=== PATIENT | female | born 1935 | race African-American/Black ===

== ENCOUNTER 2016-07-03 13:48 | Inpatient (IN) | payer OTHER ==
[2016-07-03 14:03] VITALS: BMI 25.4
[2016-07-03] MEDS ORDERED: HEPARIN NA (PORCINE) 5,000 UNITS/ML 1ML VIAL ONE ×3 (14:40→19:45)
--- NOTE | 2016-07-03 14:56 | PDOC ---
History of Present Illness - General History Source: Patient, Other Exam Limitations: No Limitations - History of Present Illness Initial Comments: 07/03/16 15:03 The patient is a 81 year old female, with a significant past medical history of hypertension, ESRD (on dialysis for 17 years, M,W,F; last dialysis Friday), anemia, triple bypass, and CHF, who presents to the emergency department sent by the dialysis center after speaking to Dr. Mota regarding thrombosed graft to the right upper extremity. Patient reports the last time she was able to complete her dialysis was 2 days ago, Friday, completed full 3 hour treatment. Patient reports associated numbness to the right arm and legs bilaterally. She reports soreness to the RUE, but denies any RUE pain. The patient reports her last meal was last night. She denies any abdominal pain, nausea, vomiting, diarrhea, or constipation. Patient reports she is unable to produce urine. Patient denies any chest pain, shortness of breath, diaphoresis, or palpitations. Patient denies any fever, chills, cough, headache, or dizziness. Patient reports she will receive surgery by Dr. Mota at some point today. Allergies: Cefazolin Sodium Past Surgical History: Triple bypass(2004) Social History: Non-smoker. Denies alcohol or drug use. PCP: Dr. Easley Surgeon: Dr. Mota Ribbon Tier: Dr. Siena Romero <Preston Morales - Last Filed: 07/03/16 15:03> <Sushil Cornejo - Last Filed: 07/03/16 16:00> - General Chief Complaint: Dialysis Shunt Problem Stated Complaint: SENT BY PCP FOR DVT Time Seen by Provider: 07/03/16 14:16 Past History <Preston Morales - Last Filed: 07/03/16 15:03> - Past Medical History Anemia: Yes Asthma: No Cancer: No Cardiac Disorders: No CVA: No COPD: No CHF: Yes Dementia: No Diabetes: No Dialysis: Yes (M-W-F) GI Disorders: Yes Disorders: Yes (ESRF) HTN: Yes Hypercholesterolemia: No Liver Disease: No Seizures: No Thyroid Disease: No - Surgical History Abdominal Surgery: No Appendectomy: No Cardiac Surgery: Yes (triple bypass) Cholecystectomy: No Lung Surgery: No Neurologic Surgery: No Orthopedic Surgery: No - Psycho/Social/Smoking Cessation Hx Anxiety: No Suicidal Ideation: No Smoking Status: No Smoking History: Never smoked Have you smoked in the past 12 months: No Number of Cigarettes Smoked Daily: 0 Information on smoking cessation initiated: No Hx Alcohol Use: No Drug/Substance Use Hx: No Substance Use Type: None Hx Substance Use Treatment: No <Sushil Cornejo - Last Filed: 07/03/16 16:00> - Past Medical History Allergies/Adverse Reactions: Allergies Allergy/AdvReac Type Severity Reaction Status Date / Time cefazolin sodium [From Anc] Allergy Mild Itching Verified 07/03/16 14:02 Home Medications: Ambulatory Orders Calcium Acetate [Phoslo] 2 tab PO AC 09/02/14 Carvedilol 12.5 mg PO BID 09/02/14 Multivitamin [Daily Quintin] 1 each PO DAILY 09/02/14 Omeprazole [Prilosec (RX)] 40 mg PO DAILY 09/02/14 Review of Systems - Review of Systems Able to Perform ROS?: Yes Comments:: 07/03/16 15:04 CONSTITUTIONAL: Absent: Fever, Chills, Diaphoresis, Generalized Weakness, Malaise, Loss of Appetite HEENT: Absent: Rhinorrhea, Nasal Congestion, Throat Pain, Throat Swelling, Difficulty Swallowing, Mouth Swelling, Ear Pain, Eye Pain, Visual Changes CARDIOVASCULAR: Absent: Chest Pain, Syncope, Palpitations, Irregular Heart Rate, Lightheadedness , Peripheral Edema RESPIRATORY: Absent: Cough, Shortness of Breath, SOB with Exertion, Orthopnea, Wheezing, Stridor, Hemoptysis GASTROINTESTINAL: Absent: Abdominal pain, Abdominal Distension, Nausea, Vomiting, Diarrhea, Constipation, Melena, Hematochezia GENITOURINARY: Present: +no urinary output (ESRD) Absent: Dysuria, Frequency, Urgency, Hesitancy, Flank Pain, Genital Pain MUSCULOSKELETAL: Absent: Myalgia, Arthralgia, Joint Swelling, Back pain, Neck Pain SKIN: Absent: Rash, Itching, Pallor HEMEATOLOGIC/IMMUNOLOGIC: Present: +Thrombosed graft to the right upper extremity Absent: Easy Bleeding, Easy Bruising, Lymphadenopathy, Frequent infections ENDOCRINE: Absent: Unexplained Weight Gain, Unexplained Weight Loss, Heat Intolerance, Cold Intolerance NEUROLOGIC: Present: +numbness to the right upper extremity and legs bilaterally Absent: Headache, Focal Weakness, Paresthesias, Vertigo, Lightheadedness, Unsteady Gait, Seizure, Mental Status Changes, Incontinence PSYCHIATRIC: Absent: Anxiety, Depression <Preston Morales - Last Filed: 07/03/16 15:03> *Physical Exam - Vital Signs Last Vital Signs Temp Pulse Resp BP Pulse Ox 97.4 F L 84 16 191/99 98 07/03/16 13:56 07/03/16 13:56 07/03/16 13:56 07/03/16 13:56 07/03/16 13:56 - Physical Exam Comments: 07/03/16 15:04 GENERAL: The patient is awake, alert, and fully oriented, in no acute distress. HEAD: Normal with no signs of trauma. EYES: Pupils equal, round and reactive to light, extraocular movements intact, sclera anicteric, conjunctiva clear. ENT: Ears normal, nares patent, oropharynx clear without exudates. Moist mucous membranes. NECK: Positive JVD. Normal range of motion, supple without lymphadenopathy, or masses. LUNGS: Breath sounds equal, clear to auscultation bilaterally. No wheezes, and no crackles. HEART: Regular rate and rhythm, normal S1 and S2 without murmur, rub or gallop. ABDOMEN: Soft, nontender, normoactive bowel sounds. No guarding, no rebound. No masses. EXTREMITIES: Normal range of motion, no edema. No clubbing or cyanosis. No cords , erythema, or tenderness. NEUROLOGICAL: Cranial nerves II through XII grossly intact. Normal speech, normal gait. PSYCH: Normal mood, normal affect. SKIN: Warm, Dry, normal turgor, no rashes or lesions noted. VASCULAR: RUE AV fistula, thrill is absent, no erythema or discharge, slight tenderness. <MoralesSolarmandobeverlymarilia - Last Filed: 07/03/16 15:03> - Vital Signs Last Vital Signs Temp Pulse Resp BP Pulse Ox 97.4 F L 84 16 191/99 98 07/03/16 13:56 07/03/16 13:56 07/03/16 13:56 07/03/16 13:56 07/03/16 13:56 <Sushil Cornejo - Last Filed: 07/03/16 16:00> ED Treatment Course - LABORATORY CBC & Chemistry Diagram: 07/03/16 14:30 07/03/16 14:30 <Preston Morales - Last Filed: 07/03/16 15:03> - LABORATORY CBC & Chemistry Diagram: 07/03/16 14:30 07/03/16 14:30 <Sushil Cornejo - Last Filed: 07/03/16 16:00> Medical Decision Making - Medical Decision Making 07/03/16 14:59 Patient is on chronic hemodialysis, last full treatment was on Friday, 2 days ago, and when she went to dialysis today her fistula was thrombosed. On examination the right upper extremity fistula has no thrill. There is no sign of infection. Patient will go to the operating room under the care of Dr. Shen Mota for thrombectomy. Preoperative labs ordered. Patient does not urinate. 07/03/16 15:58 CBC reviewed. Other labs pending. Patient was called to the OR for thrombectomy. OR team to review further labs. Text page sent to the surgical PA. <Sushil Cornejo - Last Filed: 07/03/16 16:00> *DC/Admit/Observation/Transfer - Attestations Scribe Attestion: 07/03/16 15:05 Documentation prepared by Preston Morales, acting as medical housekeeper for Sushil Cornejo MD. <Preston Morales - Last Filed: 07/03/16 15:03> - Discharge Dispostion Admit: Yes Decision to Admit order Date/Time: Endorsed to surgical PA Stefanie. <Sushil Cornejo - Last Filed: 07/03/16 16:00> Diagnosis at time of Disposition: AV fistula occlusion Qualifiers: Encounter type: initial encounter Qualified Code(s): T82.898A - Other specified complication of vascular prosthetic devices, implants and grafts, initial encounter - Discharge Dispostion Condition at time of disposition: Stable - Referrals
[2016-07-03 14:57] LABS: BASOPHIL 0.7 % (0-2.0); EOSINOPHIL 1.9 % (0-4.5); MCH 24.4 pg (25.7-33.7); MCHC 31.1 g/dl (32.0-36.0); MEAN CELL VOLUME 78.5 fl (80-96); MEAN PLT VOLUME 8.6 fl (7.5-11.1); NEUTROPHILS 64.3 % (42.8-82.8); PLATELET COUNT 121 K/MM3 (134-434); RDW 15.3 % (11.6-15.6)
[2016-07-03 15:17] LABS: ALBUMIN 3.6 g/dl (3.4-5.0); BILIRUBIN,TOTAL 0.6 mg/dL (0.2-1.0); CALCIUM 8.8 mg/dL (8.5-10.1); TOT PROT 7.6 g/dl (6.4-8.2)
[2016-07-03 15:22] LABS: COCKROFT - GAULT 4.9895
[2016-07-03 15:37] LABS: INR 1.05 (0.82-1.09); PROTHROMBIN TIME (PATIENT) 11.6 SEC (9.98-11.88)
--- NOTE | 2016-07-03 16:17 | PDOC ---
ED Treatment Course - LABORATORY CBC & Chemistry Diagram: 07/03/16 14:30 07/03/16 14:30 - ADDITIONAL ORDERS Additional order review: Laboratory Results 07/03/16 07/03/16 14:30 14:30 INR 1.05 PTT (Actin FS) 34.0 07/03/16 14:30 RBC 5.07 D MCV 78.5 L MCHC 31.1 L RDW 15.3 MPV 8.6 Neutrophils % 64.3 Lymphocytes % 22.1 Monocytes % 11.0 H Eosinophils % 1.9 Basophils % 0.7 Medical Decision Making - Medical Decision Making 07/03/16 16:16 Patient was scheduled to go to the OR. Dr. Mota now states he would like to do the procedure tomorrow and would like to observe the patient's blood pressure prior to taking her to the OR. *DC/Admit/Observation/Transfer Diagnosis at time of Disposition: AV fistula occlusion Qualifiers: Encounter type: initial encounter Qualified Code(s): T82.898A - Other specified complication of vascular prosthetic devices, implants and grafts, initial encounter - Discharge Dispostion Condition at time of disposition: Stable Admit: Yes Decision to Admit order Date/Time: Decision to Admit Order Category Date Time Status Decision to Admit to Hospital Routine Admission 07/03/16 15:02 Active
[2016-07-03 16:21] LABS: CREATININE 8.5 mg/dL (0.55-1.02)
[2016-07-03] MEDS ORDERED: LABETALOL HCL 5 MG/1 ML (100MG/20 ML VIAL) IVPUSH ONE (16:35)
[2016-07-03] MEDS ORDERED: LIDOCAINE HCL 1%, 10 MG/ML (20ML VIAL) ONE (17:32)
--- NOTE | 2016-07-03 17:39 | PDOC ---
*Physical Exam - Vital Signs Last Vital Signs Temp Pulse Resp BP Pulse Ox 97.4 F L 84 18 159/73 99 07/03/16 13:56 07/03/16 17:25 07/03/16 17:25 07/03/16 17:25 07/03/16 17:25 <Sushil Cornejo - Last Filed: 07/03/16 17:39> - Vital Signs Last Vital Signs Temp Pulse Resp BP Pulse Ox 97.4 F L 84 18 159/73 99 07/03/16 13:56 07/03/16 17:25 07/03/16 17:25 07/03/16 17:25 07/03/16 17:25 <Preston Morales - Last Filed: 07/03/16 17:40> ED Treatment Course - LABORATORY CBC & Chemistry Diagram: 07/03/16 14:30 07/03/16 14:30 - ADDITIONAL ORDERS Additional order review: Laboratory Results 07/03/16 07/03/16 07/03/16 14:30 14:30 14:30 INR 1.05 PTT (Actin FS) 34.0 Sodium 139 Potassium 4.8 Chloride 99 Carbon Dioxide 24 Anion Gap 16 BUN 44 H D Creatinine 8.5 H* Creat Clearance w eGFR 4.53 Random Glucose 84 Calcium 8.8 Total Bilirubin 0.6 AST 17 ALT 16 Alkaline Phosphatase 147 H D Total Protein 7.6 Albumin 3.6 07/03/16 14:30 RBC 5.07 D MCV 78.5 L MCHC 31.1 L RDW 15.3 MPV 8.6 Neutrophils % 64.3 Lymphocytes % 22.1 Monocytes % 11.0 H Eosinophils % 1.9 Basophils % 0.7 - Medications Given in the ED: ED Medications Discontinued Medications Generic Name Dose Route Start Last Admin Trade Name Freq PRN Reason Stop Dose Admin Labetalol HCl 20 mg 07/03/16 16:35 07/03/16 16:45 Normodyne Injection - IVPUSH 07/03/16 16:36 20 mg ONCE ONE Administration <Sushil Cornejo - Last Filed: 07/03/16 17:39> - LABORATORY CBC & Chemistry Diagram: 07/03/16 14:30 07/03/16 14:30 - ADDITIONAL ORDERS Additional order review: Laboratory Results 07/03/16 07/03/16 07/03/16 14:30 14:30 14:30 INR 1.05 PTT (Actin FS) 34.0 Sodium 139 Potassium 4.8 Chloride 99 Carbon Dioxide 24 Anion Gap 16 BUN 44 H D Creatinine 8.5 H* Creat Clearance w eGFR 4.53 Random Glucose 84 Calcium 8.8 Total Bilirubin 0.6 AST 17 ALT 16 Alkaline Phosphatase 147 H D Total Protein 7.6 Albumin 3.6 07/03/16 14:30 RBC 5.07 D MCV 78.5 L MCHC 31.1 L RDW 15.3 MPV 8.6 Neutrophils % 64.3 Lymphocytes % 22.1 Monocytes % 11.0 H Eosinophils % 1.9 Basophils % 0.7 - Medications Given in the ED: ED Medications Discontinued Medications Generic Name Dose Route Start Last Admin Trade Name Freq PRN Reason Stop Dose Admin Labetalol HCl 20 mg 07/03/16 16:35 07/03/16 16:45 Normodyne Injection - IVPUSH 07/03/16 16:36 20 mg ONCE ONE Administration <Preston Morales - Last Filed: 07/03/16 17:40> Medical Decision Making - Medical Decision Making 07/03/16 17:[address] Herrera at 17:04. Dr. Mota agreed to perform surgery tonight. <Preston Morales - Last Filed: 07/03/16 17:40> *DC/Admit/Observation/Transfer - Discharge Dispostion Decision to Admit order Date/Time: Decision to Admit Order Category Date Time Status Decision to Admit to Hospital Routine Admission 07/03/16 15:02 Active <Sushil Cornejo - Last Filed: 07/03/16 17:39> - Attestations Scribe Attestion: 07/03/16 17:40 Documentation prepared by Preston Morales, acting as medical appointment clerk for Sushil Cornejo MD. <Preston Morales - Last Filed: 07/03/16 17:40> Diagnosis at time of Disposition: AV fistula occlusion Qualifiers: Encounter type: initial encounter Qualified Code(s): T82.898A - Other specified complication of vascular prosthetic devices, implants and grafts, initial encounter - Discharge Dispostion Condition at time of disposition: Stable
[2016-07-03] MEDS ORDERED: MIDAZOLAM HCL 2 MG/2 ML SINGLE DOSE VIAL ONE ×3 (18:59→20:11)
--- NOTE | 2016-07-03 19:06 | HP ---
Admitting History and Physical - Admission History of Present Illness: The patient is a 81 yo female who presents today to the ER after going to HD. They were unable to dialyze her because she had no thrill. The patient denies any CP, SOB, fever. Today while in the ER she was given Labetalol for an elevated Blood pressure, the patient didn't take her usual BP meds today. Her last dialysis was on Friday which went fine. History Source: Patient Limitations to Obtaining History: No Limitations - Past Medical History Cardiovascular: Yes: CAD, CHF, HTN Gastrointestinal: No: Diverticulitis Renal/: Yes: Hemodialysis Musculoskeletal: Yes: Osteoarthritis - Past Surgical History Past Surgical History: Yes: CABG (2004 after [place]) Additional Past Surgical History: right ankle/foot surgery for fracture, denies any hardware RUE fistula - Smoking History Smoking history: Never smoked Have you smoked in the past 12 months: No Aproximately how many cigarettes per day: 0 - Alcohol/Substance Use Hx Alcohol Use: No Home Medications - Allergies Allergies/Adverse Reactions: Allergies Allergy/AdvReac Type Severity Reaction Status Date / Time cefazolin sodium [From Anc] Allergy Mild Itching Verified 07/03/16 14:02 - Home Medications Home Medications: Ambulatory Orders Calcium Acetate [Phoslo] 2 tab PO AC 09/02/14 Carvedilol 12.5 mg PO BID 09/02/14 Multivitamin [Daily Quintin] 1 each PO DAILY 09/02/14 Omeprazole [Prilosec (RX)] 40 mg PO DAILY 09/02/14 Family Disease History - Family Disease History Family Disease History: Other: Sister (CHF) Review of Systems - Review of Systems Constitutional: denies: Chills, Fever Cardiovascular: reports: Edema (to ankle occasionally). denies: Chest Pain, Palpitations, Shortness of Breath Respiratory: denies: Cough, SOB Gastrointestinal: denies: Abdominal Pain, Nausea Musculoskeletal: reports: Joint Pain (right shoulder pain) Neurological: denies: Headache Hematology/Lymphatic: denies: Easily Bruised Physical Examination Vital Signs: Vital Signs Temperature 97.4 F L 07/03/16 13:56 Pulse Rate 84 07/03/16 17:25 Respiratory Rate 18 07/03/16 17:25 Blood Pressure 159/73 07/03/16 17:25 O2 Sat by Pulse Oximetry (%) 99 07/03/16 17:25 Constitutional: Yes: No Distress HENT: Yes: WNL, Atraumatic, Normocephalic Neck: Yes: WNL, Supple, Trachea Midline Cardiovascular: Yes: WNL, Regular Rate and Rhythm Respiratory: Yes: WNL, Regular, CTA Bilaterally Gastrointestinal: Yes: WNL, Normal Bowel Sounds, Soft Extremities: Yes: Other (RUE no palpable thrill or bruit auscultated). No: Calf Tenderness Edema: No Peripheral Pulses WNL: Yes Neurological: Yes: WNL, Alert, Oriented Psychiatric: Yes: WNL, Alert, Oriented Labs: CBC, BMP 07/03/16 14:30 07/03/16 14:30 INR, PTT INR 1.05 (0.82-1.09) 07/03/16 14:30 Problem List - Problems (1) AV fistula occlusion Assessment/Plan: D/w Dr Cesar, admit to surgery for RUE thrombectomy this evening She remains npo, her BP improved with IV Labetalol Code(s): T82.898A - [facility] COMPLICATION OF VASCULAR PROSTH DEV/GRFT, INIT Qualifiers: Encounter type: initial encounter Qualified Code(s): T82.898A - Other specified complication of vascular prosthetic devices, implants and grafts, initial encounter (2) ESRD (end stage renal disease) on dialysis Assessment/Plan: Renal consult and HD in the am Code(s): N18.6 - END STAGE RENAL DISEASE Z99.2 - DEPENDENCE ON RENAL DIALYSIS
[2016-07-03] MEDS ORDERED: ACETAMINOPHEN 325 MG TABLET (FP) PO PRN (19:08)
[2016-07-03] MEDS ORDERED: ONDANSETRON 4 MG/2 ML VIAL IVPB PRN (19:08)
[2016-07-03] MEDS ORDERED: PROPOFOL 20 ML ONE (19:33)
--- NOTE | 2016-07-03 20:52 | OP ---
Operative Note - Note: Operative Date: 07/03/16 Pre-Operative Diagnosis: Clotted AV graft Operation: Percutaneous suction thrombolysis AV graft. Angioplasty AV graft stricture Findings: Clotted AV HeRO graft. Mid graft stenosis 70% Post-Operative Diagnosis: Same as Pre-op Surgeon: Shen Mota Anesthesiologist/ADJUNCT PROFESSOR OF ENGLISH: Henrik Oliva Anesthesia: Fractional
[2016-07-04] MEDS: CALCIUM ACETATE 667 MG CAPSULE (FP) PO SCH ×4 (06:28→12:15)
--- NOTE | 2016-07-04 08:40 | PN ---
Progress Note (short form) - Note Progress Note: Post op day#1.S/P Right arm AV fistula thrombectomy under MAC uneventful.Patient stable.No any anesthesia related promlem.Patient DC from the anesthesia care.
[2016-07-04] MEDS: CARVEDILOL 12.5 MG TABLET (FP) PO SCH ×2 (10:50→10:55)
[2016-07-04] MEDS: PANTOPRAZOLE 40 MG TABLET (FP) PO SCH ×2 (10:50→10:55)
[2016-07-04] MEDS: MULTIVITAMINS (DAILY MVI) TABLET (FP) PO SCH ×2 (10:51→10:55)
--- NOTE | 2016-07-04 10:53 | PN ---
Progress Note (short form) - Note Progress Note: POD #1 Alert. Doing well. Pain manged well via prn meds. Denies n/v/f/c, CP or SOB Last Vital Signs Temp Pulse Resp BP Pulse Ox 97.4 F L 61 20 157/75 96 07/04/16 07:00 07/04/16 07:00 07/04/16 07:00 07/04/16 07:00 07/03/16 21:30 CBC, BMP 07/03/16 14:30 07/03/16 14:30 PE Gen: alert. nad UE: avf with thrill Problem List - Problems (1) AV fistula occlusion Assessment/Plan: POD #1 s/p Percutaneous suction thrombolysis AV graft. Angioplasty AV graft stricture GOing for HD today Can dc home after f/u with Dr. Mota in his office in 7 days Code(s): T82.898A - OTH COMPLICATION OF VASCULAR PROSTH DEV/GRFT, INIT Qualifiers: Encounter type: initial encounter Qualified Code(s): T82.898A - Other specified complication of vascular prosthetic devices, implants and grafts, initial encounter (2) ESRD (end stage renal disease) on dialysis Code(s): N18.6 - END STAGE RENAL DISEASE Z99.2 - DEPENDENCE ON RENAL DIALYSIS
--- NOTE | 2016-07-04 11:14 | CONSULT ---
Consult - text type - Consultation Consultation Note: Renal Consult for ESRD on HD This is a 81 year old woman with PMHx of ESRD on HD (x 17 years), CAD s/p CABG, Hypertension who presented with clotted AVF now s/p thrombectomy by Vascular Sx. Pt did not have dialysis yesterday, last dialysis was Friday. Pt has some soreness in the ARM of her AVF. Denies any sob, chest pain, fever, chills, N/V/D , ALEXIS, LE swelling. PMhx: as above Allergies: NKDA Family hx: NC Social Hx: No T/A/D ROS: as per HPI, all other pertinent ros negative Home Meds: Home Medications Medication Instructions Recorded Calcium Acetate [Phoslo] 2 tab PO AC 09/02/14 Carvedilol 12.5 mg PO BID 09/02/14 Multivitamin [Daily Quintin] 1 each PO DAILY 09/02/14 Omeprazole [Prilosec (RX)] 40 mg PO DAILY 09/02/14 Vital Signs Temperature 97.4 F L 07/04/16 07:00 Pulse Rate 61 07/04/16 07:00 Respiratory Rate 20 07/04/16 07:00 Blood Pressure 157/75 07/04/16 07:00 O2 Sat by Pulse Oximetry (%) 96 07/03/16 21:30 Intake & Output 07/01/16 07/02/16 07/03/16 07/04/16 23:59 23:59 23:59 23:59 Intake Total 250 Balance 250 Weight 130 lb Gen: NAD, awake and alert HEENT: NC/AT, MMM, No JVD CVS: RRR, No M/R Lungs CTA, no rales Abd: soft NT/ND Ext: No edema, clubbing or cyanosis Access: Right ARM AVF + thrill CBC, BMP 07/03/16 14:30 07/03/16 14:30 Current Medications Acetaminophen (Tylenol -) 650 mg PO Q4H PRN PRN Reason: FEVER Last Admin: 07/04/16 02:00 Dose: 650 mg Calcium Acetate (Phoslo -) 1,334 mg PO TIDAC [facility] Last Admin: 07/04/16 10:04 Dose: 1,334 mg Carvedilol (Coreg -) 12.5 mg PO BID [facility] Last Admin: 07/04/16 10:55 Dose: Not Given Multivitamins/Minerals/Vitamin C (Tab-A-Vit -) 1 tab PO DAILY [facility] Last Admin: 07/04/16 10:55 Dose: Not Given Pantoprazole Sodium (Protonix -) 40 mg PO DAILY [facility] Last Admin: 07/04/16 10:55 Dose: Not Given A/p 81 year old woman with PMHx of ESRD on HD (x 17 years), CAD s/p CABG, Hypertension who presented with clotted AVF now s/p thrombectomy by Vascular Sx. #ESRD on HD with Clotted AVF s/p Thrombectomy by Vascular Sx For HD today as inpatient, 3 hr treatment no heparin because of low plt counts #CAD/Hx of CHF with preserved EF continue Coreg #Renal Osteodystrophy Continue Phoslo with meals #Hypertension BP slightly above gaol on Coreg for HD with UF today, monitor BP following Thank you Karsten Sylvester DO
[2016-07-04 13:12] LABS: CALCIUM 8.1 mg/dL (8.5-10.1)
[2016-07-04 13:17] LABS: COCKROFT - GAULT 4.3775
[2016-07-04 13:27] LABS: CREATININE 9.7 mg/dL (0.55-1.02)
[2016-07-04 14:51] VITALS: BP 140/84; PULSE 80
[2016-07-04 15:21] VITALS: TEMP 98.1
[2016-07-04 16:16] LABS: CREATININE 2.6 mg/dL (0.55-1.02)
[2016-07-05 06:06] LABS: HEP B SURFACE AB Reactive (.)
--- NOTE | 2016-07-06 11:01 | OP ---
DATE OF OPERATION: 07/03/2016 SURGEON: Shen Wakefield MD PROCEDURE: Percutaneous suction thrombectomy of right arm arteriovenous graft. Angioplasty of arteriovenous graft. PREOPERATIVE DIAGNOSIS: Clotted arteriovenous graft. POSTOPERATIVE DIAGNOSIS: Clotted arteriovenous graft. ANESTHESIA: Fractional. ANESTHESIOLOGIST: Henrik Oliva MD OPERATIVE FINDINGS: The arteriovenous HeRO graft was thrombosed. After thrombectomy, there was a thick stenosis in the mid portion of the graft of approximately 70%. OPERATIVE PROCEDURE: Following routine patient identification with side and site verification, intravenous sedation was established. The right arm was prepped with ChloraPrep. Xylocaine 1% was infiltrated over the distal end of the graft, and using duplex imaging, the graft was cannulated with a micropuncture needle. A wire was passed proximally, and the needle exchanged for a 5-Moldovan catheter. An angle-tip Glidewire was passed proximally, and the catheter exchanged for a 7-Moldovan sheath. A [employer] catheter wire was then passed proximally through the graft into the HeRO catheter until the right atrium was reached. Contrast was injected through the catheter to confirm patency. The patient was systemically heparinized. The wire was replaced. The catheter was removed. The AngioJet AVX catheter was then used to perform suction thrombectomy of the graft and HeRO catheter. Repeat imaging revealed a thick stenosis in the mid portion of the graft, and this was dilated with a 7-mm angioplasty balloon with good result. A 2nd sheath was then placed in the proximal portion of the graft pointing distally. Wire and the catheter were passed down to the brachial artery, and an angiogram performed. Thrombectomy of the distal portion of the catheter was then performed, and with the AngioJet, a No. 4 Colton catheter was also used to remove thrombus from this portion of the graft. Completion imaging revealed patent distal anastomosis with free flow through the graft into the HeRO catheter and the heart. Both sheaths were removed, and bleeding controlled with nylon sutures. Sterile dressing was applied, and the patient was taken to the recovery room in stable condition. SHEN WAKEFIELD M.D. [id number]
== END 2016-07-04 16:09 | disposition home or self-care (01) | DRG 252 ==
LOC: JOR 13:48 → JASUSAT 15:02 → JSAMEDAYSX 16:17 → J5S 21:45
PROVIDERS: ADMIT Internal Medicine; ATTEND Surgery
PROC: 03773ZZ Dilation of Right Brachial Artery, Percutaneous Approach (ICD-10-PCS; 2016-07-03)
PROC: 03C73ZZ Extirpation of Matter from Right Brachial Artery, Percutaneous Approach (ICD-10-PCS; principal; 2016-07-03 18:00)
PROC: 5A1D60Z (ICD-10-PCS; 2016-07-04)
DX: T82.868A Thrombosis due to vascular prosthetic devices, implants and grafts, initial encounter (principal); N18.6 End stage renal disease; I13.2 Hypertensive heart and chronic kidney disease with heart failure and with stage 5 chronic kidney disease, or end stage renal disease; Y83.9 Surgical procedure, unspecified as the cause of abnormal reaction of the patient, or of later complication, without mention of misadventure at the time of the procedure; N25.0 Renal osteodystrophy; I25.10 Atherosclerotic heart disease of native coronary artery without angina pectoris; Z95.1 Presence of aortocoronary bypass graft; I50.9 Heart failure, unspecified
CPT/HCPCS: 36415; 76000-TC; 80048; 80053; 82565; 84520; 85025; 85610; 85730; 86704; 86706; 86708; 87340; 94760; 99285-25; J1644

== ENCOUNTER 2017-02-05 09:15 | Inpatient (IN) | payer OTHER ==
[2017-02-05 09:39] VITALS: BMI 25.4
[2017-02-05] MEDS ORDERED: SODIUM CHLORIDE 250 ML IV STA (10:07)
[2017-02-05] MEDS ORDERED: METOPROLOL TARTRATE 5 MG/5 ML VIAL IVPUSH ONE (10:08)
[2017-02-05] MEDS ORDERED: METOPROLOL SUCCINATE 25 MG TAB.SR.24H (FP) PO ONE (10:09)
[2017-02-05] MEDS ORDERED: ASPIRIN 325 MG TABLET PO ONE (10:09)
--- NOTE | 2017-02-05 10:21 | PDOC ---
History of Present Illness - General Chief Complaint: Tachycardia Stated Complaint: elevated heart rate Time Seen by Provider: 02/05/17 09:34 - History of Present Illness Initial Comments: 02/05/17 10:26 "81 year old female, with significant past medical history of ESRD (on dialysis M/W/F; last dialysis today), CHF, CAD/triple bypass (2004), who presents to the emergency room BIBA from dialysis after she became tachycardic to the 140s. The patient states that she developed a funny feeling in her chest during HD, which she attributes to having too much fluid taken off. She denies ever having CP/ SOB. Denies lightheadedness/dizziness. Pt was feeling fine prior to HD and denies any recent illness. Denies leg swelling. Denies fever, chills, nausea, vomiting. Pt denies h/o atrial fibrillation or other heart arrhythmia. Is not currently on AC. Was previously on a blood thinner but stopped 2/2 significant GI bleed. Allergies: Cefazolin sodium Social hx: No tobacco use. No alcohol use. 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 " Past History - Past Medical History Allergies/Adverse Reactions: Allergies Allergy/AdvReac Type Severity Reaction Status Date / Time cefazolin sodium [From [facility]] Allergy Mild Itching Verified 02/05/17 09:34 Home Medications: Ambulatory Orders Calcium Acetate [Phoslo] 2 tab PO AC 09/02/14 Carvedilol 12.5 mg PO BID 09/02/14 Multivitamin [Daily Quintin] 1 each PO DAILY 09/02/14 Omeprazole [Prilosec (RX)] 40 mg PO DAILY 09/02/14 Anemia: Yes Asthma: No Cancer: No Cardiac Disorders: No CVA: No COPD: No CHF: Yes DVT: No Dementia: No Diabetes: No Dialysis: Yes (M-W-) GI Disorders: Yes Disorders: Yes (ESRF) HTN: Yes Hypercholesterolemia: No Liver Disease: No Seizures: No Thyroid Disease: No - Surgical History Abdominal Surgery: No Appendectomy: No Cardiac Surgery: Yes (triple bypass) Cholecystectomy: No Lung Surgery: No Neurologic Surgery: No Orthopedic Surgery: No - Immunization History Immunization Up to Date: Yes - Suicide/Smoking/Psychosocial Hx Smoking Status: No Smoking History: Never smoked Have you smoked in the past 12 months: No Number of Cigarettes Smoked Daily: 0 Hx Alcohol Use: No Drug/Substance Use Hx: No Substance Use Type: None Hx Substance Use Treatment: No Review of Systems - Review of Systems Comments:: 02/05/17 10:29 "GENERAL/CONSTITUTIONAL: No fever or chills. No weakness. HEAD, EYES, EARS, NOSE AND THROAT: No change in vision. No ear pain or discharge. No sore throat. CARDIOVASCULAR: +fluttering in the chest. No chest pain or shortness of breath. RESPIRATORY: No cough, wheezing, or hemoptysis. GASTROINTESTINAL: No nausea, vomiting, diarrhea or constipation. GENITOURINARY: No dysuria, frequency, or change in urination. MUSCULOSKELETAL: No joint or muscle swelling or pain. No neck or back pain. SKIN: No rash NEUROLOGIC: No headache, vertigo, loss of consciousness, or change in strength/ sensation. ENDOCRINE: No increased thirst. No abnormal weight change. HEMATOLOGIC/LYMPHATIC: No anemia, easy bleeding, or history of blood clots. ALLERGIC/IMMUNOLOGIC: No hives or skin allergy. " *Physical Exam - Vital Signs Last Vital Signs Temp Pulse Resp BP Pulse Ox 97.4 F L 140 H 20 163/77 100 02/05/17 09:52 02/05/17 09:20 02/05/17 09:20 02/05/17 09:20 02/05/17 09:45 - Physical Exam Comments: 02/05/17 10:29 "GENERAL: Awake, alert, and fully oriented, in no acute distress HEAD: No signs of trauma EYES: PERRLA, EOMI, sclera anicteric, conjunctiva clear ENT: Auricles normal inspection, hearing grossly normal, nares patent, oropharynx clear without exudates. Moist mucosa NECK: Nontender, no stepoffs, Normal ROM, supple, no lymphadenopathy, JVD, or masses LUNGS: Breath sounds equal, clear to auscultation bilaterally. No wheezes, and no crackles HEART: +Irregularly irregular rate and rhythm, normal S1 and S2, no murmurs, rubs or gallops ABDOMEN: Soft, nontender, normoactive bowel sounds. No guarding, no rebound. No masses EXTREMITIES: Normal range of motion, no edema. No clubbing or cyanosis. No cords, erythema, or tenderness NEUROLOGICAL: Cranial nerves II through XII intact. 5/5 strength and sensation in all extremities, Normal speech, normal gait SKIN: Warm, Dry, normal turgor, no rashes or lesions noted. " Heart Score/ECG Review - ECG Impressions Comment:: 02/05/17 10:21 atrial fibrillation, rate 119, RBBB, TWI V1-V3 seen on prior EKG, QTc 551 ED Treatment Course - LABORATORY CBC & Chemistry Diagram: 02/05/17 10:01 02/05/17 10:01 - RADIOLOGY Radiology Studies Ordered: Category Date Time Status CHEST X-RAY PORTABLE* [RAD] Stat Radiology 02/05/17 10:07 Ordered Medical Decision Making - Medical Decision Making 02/05/17 10:13 81 F with ESRD, CAD/[place] presenting with rapid afib while at HD. This is likely new onset afib, as pt denies h/o arrhythmia and had clear onset of symptoms during HD. Pt initially tachy to 140s, now improved to 110s. Pt otherwise HD stable, with no complaints at this time. Cause of afib possibly 2/2 fluid shifts during HD. Pt with no s/s infectious process. - Labs, trop, coags - EKG, CXR - 250cc NS bolus (pt believes they took off too much fluid in HD today) - Metoprolol 5mg IV, 25mg PO - Aspirin 325mg - Pt with CHADSVASC score 5 and warrants anticoagulation. However, given h/o significant GI bleed, will defer for now - Admit tele 02/05/17 11:55 Pt with improvement in HR to 100 s/p IVF and metoprolol. Pt admitted to hospitalist, Dr. Herrera. Case discussed in detail with admitting physician including history, physical exam and ancillary studies. Admitting physician has assumed care for the patient and will follow all pending diagnostics and complete the evaluation and treatment. *DC/Admit/Observation/Transfer Diagnosis at time of Disposition: Atrial fibrillation with RVR - Discharge Dispostion Admit: Yes - Referrals Referrals: Jasbir Easley MD [Primary Care Provider] - - Patient Instructions - Post Discharge Activity - Attestations Physician Attestion: 02/05/17 11:58 I, Dr. Martin Heard MD, attest that this document has been prepared under my direction and personally reviewed by me in its entirety. I further attest, that it accurately reflects all work, treatment, procedures and medical decision -making performed by me.
[2017-02-05] MEDS ORDERED: METOPROLOL TARTRATE 5 MG/5 ML VIAL ONE (10:29)
[2017-02-05] MEDS ORDERED: METOPROLOL SUCCINATE 50 MG TAB.SR.24H (FP) ONE (10:29)
[2017-02-05] MEDS ORDERED: ASPIRIN 325 MG TABLET ONE (10:29)
[2017-02-05 10:30] LABS: BASOPHIL 0.6 % (0-2.0); EOSINOPHIL 1.8 % (0-4.5); MCH 24.7 pg (25.7-33.7); MCHC 31.3 g/dl (32.0-36.0); MEAN CELL VOLUME 78.9 fl (80-96); MEAN PLT VOLUME 9.1 fl (7.5-11.1); NEUTROPHILS 65.2 % (42.8-82.8); PLATELET COUNT 126 K/MM3 (134-434); RDW 17.2 % (11.6-15.6); WHITE BLOOD COUNT 6.3 K/mm3 (4.0-10.0)
[2017-02-05 10:52] LABS: INR 1.1 (0.82-1.09); PROTHROMBIN TIME (PATIENT) 12.4 SEC (9.98-11.88)
[2017-02-05 10:55] LABS: ACTIVATED PTT 31.2 SECONDS (26.9-34.4)
[2017-02-05 10:57] LABS: ALBUMIN 3.1 g/dl (3.4-5.0); ANION GAP 9 (8-16); CALCIUM 8.8 mg/dL (8.5-10.1); CO2 27 mmol/L (21-32); CREATININE 4.2 mg/dL (0.55-1.02); GLUCOSE,RANDOM 112 mg/dL (74-106); SGPT/ALT 20 U/L (12-78)
[2017-02-05 11:01] LABS: ALK PHOS 117 U/L (45-117); BILIRUBIN,TOTAL 0.5 mg/dL (0.2-1.0); TOT PROT 7.5 g/dl (6.4-8.2); TROPONIN I 0.04 ng/ml (0.00-0.05)
[2017-02-05 11:04] LABS: CPK 71 IU/L (26-192); SGOT/AST 35 U/L (15-37)
--- NOTE | 2017-02-05 12:53 | EKG ---
Test Reason : Blood Pressure : / mmHG Vent. Rate : 119 BPM Atrial Rate : 094 BPM P-R Int : 000 ms QRS Dur : 126 ms QT Int : 392 ms P-R-T Axes : 000 -13 -08 degrees QTc Int : 551 ms ATRIAL FIBRILLATION WITH RAPID VENTRICULAR RESPONSE RIGHT BUNDLE BRANCH BLOCK INFERIOR INFARCT (CITED ON OR BEFORE 25-MAY-2015) ABNORMAL ECG WHEN COMPARED WITH ECG OF 25-MAY-2015 09:47, ATRIAL FIBRILLATION HAS REPLACED SINUS RHYTHM ST NOW DEPRESSED IN INFERIOR LEADS ST NOW DEPRESSED IN ANTERIOR LEADS Confirmed by EUGENIE YOST, GEREMIAS ([id number]) on 02/05/2017 12:52:58 PM Referred By: Confirmed By:GEREMIAS TRAORE MD
--- NOTE | 2017-02-05 21:27 | HP ---
Admitting History and Physical - Admission History of Present Illness: Pt is a 81 y/o female with PMH significant for ESRD on dialysis TIW, CHF, CAD, HTN, and HLD. Pt presented to the ER from dialysis bc she was found to be tachycardiac. In the ER pt was found to be in afib w/ heart rate in 140's. Pt also complains of chest tightness wc has since resolved. Pt denies any SOB/ cough/lightheadedness/nausea/abdominal pain. - Past Medical History Cardiovascular: Yes: CAD, CHF, HTN Renal/: Yes: Renal Failure, Hemodialysis Musculoskeletal: Yes: Osteoarthritis - Past Surgical History Past Surgical History: Yes: CABG (2004 after [place]) - Smoking History Smoking history: Never smoked Have you smoked in the past 12 months: No Aproximately how many cigarettes per day: 0 - Alcohol/Substance Use Hx Alcohol Use: No Home Medications - Allergies Allergies/Adverse Reactions: Allergies Allergy/AdvReac Type Severity Reaction Status Date / Time cefazolin sodium [From [facility]] Allergy Mild Itching Verified 02/05/17 09:34 - Home Medications Home Medications: Ambulatory Orders Calcium Acetate [Phoslo] 2 tab PO AC 09/02/14 Carvedilol 12.5 mg PO BID 09/02/14 Multivitamin [Daily Quintin] 1 each PO DAILY 09/02/14 Omeprazole [Prilosec (RX)] 40 mg PO DAILY 09/02/14 Family Disease History - Family Disease History Family History: Unremarkable Family Disease History: Other: Sister (CHF) Review of Systems - Review of Systems Constitutional: reports: No Symptoms HENT: reports: No Symptoms Neck: reports: No Symptoms Cardiovascular: reports: Chest Pain, Palpitations Respiratory: reports: No Symptoms Gastrointestinal: reports: No Symptoms Physical Examination Vital Signs: Vital Signs Temperature 98.0 F 02/05/17 14:25 Pulse Rate 98 H 02/05/17 16:48 Respiratory Rate 18 02/05/17 16:48 Blood Pressure 119/59 02/05/17 16:48 O2 Sat by Pulse Oximetry (%) 100 02/05/17 16:48 Constitutional: Yes: No Distress Eyes: Yes: WNL HENT: Yes: WNL Neck: Yes: WNL, Supple Cardiovascular: Yes: Pulse Irregular Respiratory: Yes: WNL, Regular, CTA Bilaterally Gastrointestinal: Yes: WNL, Normal Bowel Sounds, Soft Musculoskeletal: Yes: WNL Extremities: Yes: Other ((+) RUE av graft) Edema: No Neurological: Yes: WNL, Alert, Oriented ...Motor Strength: WNL Labs: CBC, BMP 02/05/17 10:01 02/05/17 10:01 Problem List - Problems (1) Atrial fibrillation with RVR Assessment/Plan: Cont asa/coreg Check echo Serial cpk/troponin Cardio consult Code(s): I48.91 - UNSPECIFIED ATRIAL FIBRILLATION (2) ESRD (end stage renal disease) on dialysis Assessment/Plan: As per renal Monitor electrolytes Code(s): N18.6 - END STAGE RENAL DISEASE; Z99.2 - DEPENDENCE ON RENAL DIALYSIS (3) Hypertension Assessment/Plan: BP stable Cont coreg Code(s): I10 - ESSENTIAL (PRIMARY) HYPERTENSION (4) Chronic heart failure Code(s): I50.9 - HEART FAILURE, UNSPECIFIED (5) CAD (coronary artery disease) Code(s): I25.10 - ATHSCL HEART DISEASE OF [place] CORONARY ARTERY W/O ANG PCTRS (6) Hx of CABG Code(s): Z95.1 - PRESENCE OF AORTOCORONARY BYPASS GRAFT
[2017-02-06 02:57] LABS: TROPONIN I 0.69 ng/ml (0.00-0.05)
[2017-02-06 07:06] LABS: BASOPHIL 0.9 % (0-2.0); EOSINOPHIL 2.2 % (0-4.5); MCH 24.6 pg (25.7-33.7); MCHC 30.8 g/dl (32.0-36.0); MEAN CELL VOLUME 79.7 fl (80-96); MEAN PLT VOLUME 9.2 fl (7.5-11.1); NEUTROPHILS 58.9 % (42.8-82.8); PLATELET COUNT 107 K/MM3 (134-434); RDW 17.3 % (11.6-15.6); WHITE BLOOD COUNT 6.2 K/mm3 (4.0-10.0)
[2017-02-06 07:37] LABS: ALBUMIN 2.9 g/dl (3.4-5.0); ANION GAP 8 (8-16); BILIRUBIN,TOTAL 0.4 mg/dL (0.2-1.0); CALCIUM 8.5 mg/dL (8.5-10.1); CO2 27 mmol/L (21-32); CREATININE 6.3 mg/dL (0.55-1.02); GLUCOSE,RANDOM 79 mg/dL (74-106); SGOT/AST 36 U/L (15-37); SGPT/ALT 27 U/L (12-78); TOT PROT 6.7 g/dl (6.4-8.2)
[2017-02-06 07:45] LABS: ALK PHOS 106 U/L (45-117); THYROID STIMULATING HORMONE 0.23 uIU/ml (0.358-3.74)
--- NOTE | 2017-02-06 08:59 | CON.CARD ---
Cardiology Consult (text) - Consultation Consultation Note: Cardiology Consultation dictated IMP: AF w/ RVR, likely causing demand ischemia; now back in NSR ESRD on HD CAD s/p CABG History of GI bleed REC: 1. Now back in sinus/sinus nathaniel: Observe on tele x 24 hours, hold BBlocker due to sinus nathaniel 2. Describes prior GI bleed with no source; risks of full AC seem to >> potential benefits at this point- start ASA 81mg daily which she also needs for CAD 3. Strongly suspect the mild elevation in TnI (with normal CK) is due to AF w/ RVR causing demand ischemia (occurs in setting of ESRD as well)/ -ASA/Echo/ Persantine MIBI prior to d/c
[2017-02-06 09:00] LABS: CPK 49 IU/L (26-192)
[2017-02-06] MEDS: CARVEDILOL 12.5 MG TABLET (FP) PO SCH ×2 (09:14→20:59)
[2017-02-06] MEDS: MULTIVITAMINS (DAILY MVI) TABLET (FP) PO SCH (09:14)
[2017-02-06] MEDS: HEPARIN NA (PORCINE) 5,000 UNITS/ML 1ML VIAL SQ SCH ×3 (09:14→20:59)
[2017-02-06] MEDS: PANTOPRAZOLE 40 MG TABLET (FP) PO SCH (09:14)
[2017-02-06] MEDS: ASPIRIN 81 MG CHEWABLE TABLETS PO SCH ×2 (09:16)
--- NOTE | 2017-02-06 09:39 | CONS ---
DATE OF CONSULTATION: 02/06/2017 REQUESTING PHYSICIAN: Cheryl Herrera MD REASON FOR CONSULTATION: The consultation is requested for atrial fibrillation. HISTORY: The patient is a 81-year-old female with a past medical history of coronary artery disease status post CABG, end-stage renal disease on dialysis, hypertension, previous GI bleed, brought to the ER from dialysis with tachycardia, found to be in rapid atrial fibrillation. She was treated with metoprolol both IV and p.o. and overnight converted to normal sinus rhythm. REVIEW OF SYSTEMS: She denies chest pain but did feel chest pressure during her atrial fibrillation. She denies any prior history of atrial fibrillation. She denies shortness of breath, PND, orthopnea, or any symptoms of heart failure. She states she has never been diagnosed with atrial fibrillation and has never required the use of anticoagulants despite the ER note stating that she had previously been on blood thinners. She did have a GI bleed some years ago and describes no source being detected. PAST MEDICAL HISTORY: As stated above. ALLERGIES: CEFAZOLIN. HOME MEDICATIONS: Include Prilosec 40 mg daily, multivitamin, carvedilol 12.5 b.i.d., and PhosLo. FAMILY HISTORY: Noncontributory. SOCIAL HISTORY: She denies history of smoking. PHYSICAL EXAMINATION: Vital Signs: She is afebrile, 98.2. Pulse now 51, sinus bradycardia. Blood pressure 116/50. Oxygen is 100% on room air. Neck: There were no carotid bruits. Chest: There is a median sternotomy that appears clean, dry, and intact. Chest was clear. Heart: Regular with soft systolic murmur at the right sternal border. Abdomen: Soft. Extremities: No edema. Telemetry shows sinus bradycardia in the 50s, converted overnight. Chest x-ray showed no infiltrates or effusions. LABORATORY: CBC: White count 6.2, hematocrit 35.6, platelets 107. Sodium 140, potassium 4.1. LFTs normal. CK negative x2. Troponin 0.04, 0.69. IMPRESSION: 1. Atrial fibrillation with rapid ventricular response, likely causing demand ischemia, now back in sinus rhythm, sinus bradycardia. 2. End-stage renal disease on hemodialysis. 3. Coronary disease status post coronary artery bypass graft. 4. History of gastrointestinal bleed with no detected source as per the patient. RECOMMENDATIONS: 1. She is now back in sinus rhythm, sinus bradycardia: Observe on telemetry for an additional 24 hours, hold beta blockers due to resting sinus bradycardia. 2. She describes a prior GI bleed with no source; therefore, the risks of full anticoagulation seem to outweigh the potential benefits at this point. Would, however, start at least aspirin 81 mg daily, which she also needs for coronary disease and continue proton pump inhibition. Follow hemoglobin and hematocrit. 3. Strongly suspect that the mild elevation in troponin with the normal CK is due to atrial fibrillation with rapid ventricular response leading to demand ischemia. This also occurs in the setting of end-stage renal disease. 4. Aspirin 81 mg daily. Check echocardiogram for evaluation of LV function. Will order Persantine nuclear stress test prior to discharge for further risk stratification. Thank you for the consultation. DRU PEÑA M.D. [id number]
[2017-02-06 10:17] LABS: TROPONIN I 0.69 ng/ml (0.00-0.05)
--- NOTE | 2017-02-06 12:52 | EKG ---
Test Reason : Blood Pressure : / mmHG Vent. Rate : 050 BPM Atrial Rate : 050 BPM P-R Int : 184 ms QRS Dur : 130 ms QT Int : 596 ms P-R-T Axes : 073 -27 000 degrees QTc Int : 543 ms SINUS BRADYCARDIA RIGHT BUNDLE BRANCH BLOCK ABNORMAL ECG WHEN COMPARED WITH ECG OF 05-FEB-2017 09:38, SINUS RHYTHM HAS REPLACED ATRIAL FIBRILLATION VENT. RATE HAS DECREASED BY [address] NO LONGER DEPRESSED IN ANTERIOR LEADS NONSPECIFIC T WAVE ABNORMALITY HAS REPLACED INVERTED T WAVES IN ANTERIOR LEADS Confirmed by BRANDON MORLEY MD ([id number]) on 02/06/2017 12:51:40 PM Referred By: Confirmed By:BRANDON MORLEY MD
--- NOTE | 2017-02-06 16:11 | CON.NEP ---
Consult Consult Specialty:: Nephrology Referred by:: Dr. Herrera Reason for Consultation:: ESRD on HD - History of Present Illness Chief Complaint: rapid HR History of Present Illness: This is a 81 year old woman with PMhx of ESRD on Hd (MWF), Hypertension, CAD s/ p CABG who presented from HD with rapid HR and found to have Afib with RVR. Pt now in SR. Pt does not have any acute complaints today. Denies any CP, SOB, N/V/ D. No Le swelling. Did not have dizziness, cramping with HD. No fever or chills. Has had a cough with minimal sputum production x 2-3 weeks. - History Source History Provided By: Patient Limitations to Obtaining History: No Limitations - Past Medical History Cardio/Vascular: Yes: CAD, CHF, HTN Renal/: Yes: Renal Failure, Hemodialysis Musculoskeletal: Yes: Osteoarthritis - Past Surgical History Past Surgical History: Yes: CABG (2004 after [place]) - Alcohol/Substance Use Hx Alcohol Use: No - Smoking History Smoking history: Never smoked Have you smoked in the past 12 months: No Aproximately how many cigarettes per day: 0 Home Medications - Allergies Allergies/Adverse Reactions: Allergies Allergy/AdvReac Type Severity Reaction Status Date / Time cefazolin sodium [From [facility]] Allergy Mild Itching Verified 02/05/17 09:34 - Home Medications Home Medications: Ambulatory Orders Calcium Acetate [Phoslo] 2 tab PO AC 09/02/14 Carvedilol 12.5 mg PO BID 09/02/14 Multivitamin [Daily Quintin] 1 each PO DAILY 09/02/14 Omeprazole [Prilosec (RX)] 40 mg PO DAILY 09/02/14 Family Disease History - Family Disease History Family Disease History: Other: Sister (CHF) Review of Systems - Review of Systems Constitutional: reports: No Symptoms Eyes: reports: No Symptoms HENT: reports: No Symptoms Neck: reports: No Symptoms Cardiovascular: reports: Palpitations. denies: Chest Pain, Edema, Shortness of Breath Respiratory: reports: Cough. denies: Exercise Intolerance, Hemoptysis, Orthopnea, SOB, SOB on Exertion Gastrointestinal: reports: No Symptoms Genitourinary: reports: No Symptoms Musculoskeletal: reports: No Symptoms Neurological: reports: No Symptoms Nephrology Consult - Height Height: 5 ft - Weight Weight: 58.967 kg - BMI Body Mass Index (BMI): 25.4 - Lab Results CBC,BMP: CBC, BMP 02/06/17 05:05 02/06/17 05:05 Anion Gap: Anion Gap Anion Gap 8 (8-16) 02/06/17 05:05 - Imaging Chest X-ray: Report Reviewed - Physical Examination Vital Signs: Vital Signs Temperature 97.7 F 02/06/17 14:34 Pulse Rate 49 L 02/06/17 14:34 Respiratory Rate 18 02/06/17 14:34 Blood Pressure 94/51 02/06/17 14:34 O2 Sat by Pulse Oximetry (%) 97 02/06/17 09:00 Constitutional: Yes: Well Nourished, No Distress, Calm Eyes: Yes: Conjunctiva Clear HENT: Yes: Atraumatic, Normocephalic Neck: Yes: Supple Cardiovascular: Yes: Bradycardia, S1, S2. No: Murmur, Rub Respiratory: Yes: Regular, CTA Bilaterally. No: Rales, Rhonchi, SOB Gastrointestinal: Yes: Normal Bowel Sounds, Soft, Abdomen, Obese Access for Hemodialysis: AV Fistula Edema: No Problem List - Problems (1) Atrial fibrillation with RVR Code(s): I48.91 - UNSPECIFIED ATRIAL FIBRILLATION (2) Chronic heart failure Code(s): I50.9 - HEART FAILURE, UNSPECIFIED (3) CAD (coronary artery disease) Code(s): I25.10 - ATHSCL HEART DISEASE OF [place] CORONARY ARTERY W/O ANG PCTRS (4) ESRD (end stage renal disease) on dialysis Code(s): N18.6 - END STAGE RENAL DISEASE; Z99.2 - DEPENDENCE ON RENAL DIALYSIS Assessment/Plan 81 year old woman with PMhx of ESRD on Hd (MWF), Hypertension, CAD s/p CABG who presented from HD with rapid HR and found to have Afib with RVR. #Afib with RVR now in Sinur Rhythm Cardiology following off BB because of sinus bradycardia on Tele monitor #ESRD on HD s/p dialysis yestterday no acute inidcation for treatment today for HD tomorrow on monitor UF as tolerated #CAD with + cardiac enzymes for stress test Thank you Karsten Sylvester DO
--- NOTE | 2017-02-06 23:27 | PN ---
Progress Note, Physician History of Present Illness: No new complaints - Current Medication List Current Medications: Active Medications Aspirin (Asa -) 81 mg PO DAILY [facility] Last Admin: 02/06/17 09:16 Dose: 81 mg Calcium Acetate (Phoslo -) 0 mg PO ACLD [facility] Carvedilol (Coreg -) 12.5 mg PO BID [facility] Last Admin: 02/06/17 20:59 Dose: 12.5 mg Heparin Sodium (Porcine) (Heparin -) 5,000 unit SQ BID [facility] Last Admin: 02/06/17 20:59 Dose: Not Given Multivitamins/Minerals/Vitamin C (Tab-A-Vit -) 1 tab PO DAILY [facility] Last Admin: 02/06/17 09:14 Dose: 1 tab Pantoprazole Sodium (Protonix -) 40 mg PO DAILY [facility] Last Admin: 02/06/17 09:14 Dose: 40 mg - Objective Vital Signs: Vital Signs Temperature 97.8 F 02/06/17 21:26 Pulse Rate 50 L 02/06/17 21:26 Respiratory Rate 20 02/06/17 21:26 Blood Pressure 115/46 02/06/17 21:26 O2 Sat by Pulse Oximetry (%) 98 02/06/17 21:00 Eyes: Yes: WNL HENT: Yes: WNL Neck: Yes: WNL, Supple Cardiovascular: Yes: WNL, Regular Rate and Rhythm Respiratory: Yes: WNL, Regular, CTA Bilaterally Gastrointestinal: Yes: WNL, Normal Bowel Sounds, Soft Labs: CBC, BMP 02/06/17 05:05 02/06/17 05:05 INR, PTT INR 1.10 (0.82-1.09) 02/05/17 09:40 Problem List - Problems (1) Atrial fibrillation with RVR Assessment/Plan: Cont asa/coreg Pt is in NSR Await stress test Code(s): I48.91 - UNSPECIFIED ATRIAL FIBRILLATION (2) ESRD (end stage renal disease) on dialysis Assessment/Plan: As per renal Monitor electrolytes Code(s): N18.6 - END STAGE RENAL DISEASE; Z99.2 - DEPENDENCE ON RENAL DIALYSIS (3) Hypertension Assessment/Plan: BP stable Cont coreg Code(s): I10 - ESSENTIAL (PRIMARY) HYPERTENSION (4) Chronic heart failure Code(s): I50.9 - HEART FAILURE, UNSPECIFIED (5) CAD (coronary artery disease) Code(s): I25.10 - ATHSCL HEART DISEASE OF [place] CORONARY ARTERY W/O ANG PCTRS (6) Hx of CABG Code(s): Z95.1 - PRESENCE OF AORTOCORONARY BYPASS GRAFT
--- NOTE | 2017-02-07 09:03 | PN ---
Progress Note, Physician Chief Complaint: Remains in sinus - Current Medication List Current Medications: Active Medications Aspirin (Asa -) 81 mg PO DAILY [facility] Last Admin: 02/06/17 09:16 Dose: 81 mg Calcium Acetate (Phoslo -) 0 mg PO ACLD [facility] Carvedilol (Coreg -) 12.5 mg PO BID [facility] Last Admin: 02/06/17 20:59 Dose: 12.5 mg Heparin Sodium (Porcine) (Heparin -) 5,000 unit SQ BID [facility] Last Admin: 02/06/17 20:59 Dose: Not Given Multivitamins/Minerals/Vitamin C (Tab-A-Vit -) 1 tab PO DAILY [facility] Last Admin: 02/06/17 09:14 Dose: 1 tab Pantoprazole Sodium (Protonix -) 40 mg PO DAILY [facility] Last Admin: 02/06/17 09:14 Dose: 40 mg - Objective Vital Signs: Vital Signs Temperature 98.5 F 02/07/17 02:00 Pulse Rate 49 L 02/07/17 06:00 Respiratory Rate 20 02/07/17 06:00 Blood Pressure 95/42 02/07/17 06:00 O2 Sat by Pulse Oximetry (%) 98 02/06/17 21:00 Constitutional: Yes: No Distress Cardiovascular: Yes: Regular Rate and Rhythm Respiratory: Yes: CTA Bilaterally Gastrointestinal: Yes: Soft Edema: No Neurological: Yes: Alert, Oriented Labs: CBC, BMP 02/06/17 05:05 02/06/17 05:05 INR, PTT INR 1.10 (0.82-1.09) 02/05/17 09:40 Laboratory Tests 02/05/17 02/06/17 02/06/17 10:01 02:00 05:05 WBC 6.2 Hgb 11.0 Plt Count 107 L Potassium Creatine Kinase 71 52 Troponin I 0.04 0.69 H* 02/06/17 05:05 WBC Hgb Plt Count Potassium 4.1 Creatine Kinase 49 Troponin I 0.69 H* - ....Imaging EKG: Image Reviewed (Sinus nathaniel in 50s) Assessment/Plan IMP: AF w/ RVR, likely causing demand ischemia; now back in NSR. Echo with normal LV function ESRD on HD CAD s/p CABG History of GI bleed REC: 1. Now back in sinus/sinus nathaniel: hold BBlocker due to sinus nathaniel at rest 2. Describes prior GI bleed with no source; risks of full AC seem to >> potential benefits at this point- continue ASA 81mg daily which she also needs for CAD 3. Strongly suspect the mild elevation in TnI (with normal CK) is due to AF w/ RVR causing demand ischemia (occurs in setting of ESRD as well) -for Persantine MIBI today
[2017-02-07] MEDS ORDERED: REGADENOSON 0.4 MG/5 ML PRE-FILLED SYRINGE IVPUSH ONE ×2 (09:45→11:37)
[2017-02-07] MEDS: PANTOPRAZOLE 40 MG TABLET (FP) PO SCH (09:50)
[2017-02-07] MEDS: ASPIRIN 81 MG CHEWABLE TABLETS PO SCH (09:50)
[2017-02-07] MEDS: HEPARIN NA (PORCINE) 5,000 UNITS/ML 1ML VIAL SQ SCH ×2 (09:50→21:22)
[2017-02-07] MEDS: CARVEDILOL 12.5 MG TABLET (FP) PO SCH ×2 (09:50→21:22)
[2017-02-07] MEDS: MULTIVITAMINS (DAILY MVI) TABLET (FP) PO SCH (09:51)
[2017-02-07] MEDS ORDERED: AMINOPHYLLINE 250 MG/10 ML VIAL IVPUSH ONE (13:00)
--- NOTE | 2017-02-07 14:53 | CON.CARD ---
Cardiology Consult (text) - Consultation Consultation Note: Nuclear stress moderate apical ischemia. Extensive d/w patient and son regarding findings, meaning and options. Medical therapy alone vs medical therapy + cath for definitive diagnosis of graft patency were reviewed in detail. I recommended cath as she had + TnI and perfusion abnormality indicates [place] (vs [place] L[place] dz). Patient amenable to cath, but son initially requested 2nd opinion. I offered to have another group called here, but he refused that stating he would want an outside hospital group to see her. Patient seems to follow the son's lead on medical decisions. Then explained she could be discharged on medical therapy and seek second independant cardiac opinion as outpatient. Son then refused this and said "We just want some more time to think things over , maybe we will do the cath." He proceeded to say that he "trusts no doctors" due to his prior medical experiences. Reasonable to allow them time to decide and consider options. If she refuses cath, would discharge on ASA 81, statin and hold beta brian due to resting sinus nathaniel. She can be holtered as outpatient. She would need close outpatient f/u for rhythm surveillance and for CAD.
--- NOTE | 2017-02-07 17:36 | PN ---
Progress Note (short form) - Note Progress Note: Renal follow up for ESRD on HD Pt seen and examined at the bedside awake and alert denies any cp. reports occasional dyspnea Vital Signs Temperature 97.8 F 02/07/17 09:00 Pulse Rate 64 02/07/17 14:25 Respiratory Rate 20 02/07/17 14:25 Blood Pressure 118/61 02/07/17 14:25 O2 Sat by Pulse Oximetry (%) 97 02/07/17 09:00 Intake & Output 02/04/17 02/05/17 02/06/17 02/07/17 23:59 23:59 23:59 23:59 Intake Total 250 800 Balance 250 800 Weight 58.967 kg 58.967 kg 61.802 kg NAD awake and alert RRR CTA No LE edema CBC, BMP 02/06/17 05:05 02/06/17 05:05 Current Medications Aspirin (Asa -) 81 mg PO DAILY [facility] Last Admin: 02/07/17 09:50 Dose: Not Given Calcium Acetate (Phoslo -) 0 mg PO ACLD [facility] Carvedilol (Coreg -) 12.5 mg PO BID [facility] Last Admin: 02/07/17 09:50 Dose: Not Given Heparin Sodium (Porcine) (Heparin -) 5,000 unit SQ BID [facility] Last Admin: 02/07/17 09:50 Dose: Not Given Multivitamins/Minerals/Vitamin C (Tab-A-Vit -) 1 tab PO DAILY [facility] Last Admin: 02/07/17 09:51 Dose: Not Given Pantoprazole Sodium (Protonix -) 40 mg PO DAILY [facility] Last Admin: 02/07/17 09:50 Dose: Not Given 81 year old woman with PMhx of ESRD on Hd (MWF), Hypertension, CAD s/p CABG who presented from HD with rapid HR and found to have Afib with RVR. #Afib with RVR now in Sinur Rhythm HR controlled and in regular rhythm #ESRD on HD for dialysis today #CAD with + cardiac enzymes + stress test Cardiology recommended cardiac cath pt and family thinking about it Thank you Karsten Sylvester DO Problem List - Problems (1) Atrial fibrillation with RVR Code(s): I48.91 - UNSPECIFIED ATRIAL FIBRILLATION (2) Chronic heart failure Code(s): I50.9 - HEART FAILURE, UNSPECIFIED (3) CAD (coronary artery disease) Code(s): I25.10 - ATHSCL HEART DISEASE OF [place] CORONARY ARTERY W/O ANG PCTRS (4) ESRD (end stage renal disease) on dialysis Code(s): N18.6 - END STAGE RENAL DISEASE; Z99.2 - DEPENDENCE ON RENAL DIALYSIS
--- NOTE | 2017-02-07 22:24 | PN ---
Progress Note, Physician - Current Medication List Current Medications: Active Medications Aspirin (Asa -) 81 mg PO DAILY [facility] Last Admin: 02/07/17 09:50 Dose: Not Given Calcium Acetate (Phoslo -) 0 mg PO ACLD [facility] Carvedilol (Coreg -) 12.5 mg PO BID [facility] Last Admin: 02/07/17 21:22 Dose: Not Given Heparin Sodium (Porcine) (Heparin -) 5,000 unit SQ BID [facility] Last Admin: 02/07/17 21:22 Dose: Not Given Multivitamins/Minerals/Vitamin C (Tab-A-Vit -) 1 tab PO DAILY [facility] Last Admin: 02/07/17 09:51 Dose: Not Given Pantoprazole Sodium (Protonix -) 40 mg PO DAILY [facility] Last Admin: 02/07/17 09:50 Dose: Not Given - Objective Vital Signs: Vital Signs Temperature 98.7 F 02/07/17 20:51 Pulse Rate 52 L 02/07/17 20:51 Respiratory Rate 20 02/07/17 20:51 Blood Pressure 116/57 02/07/17 20:51 O2 Sat by Pulse Oximetry (%) 97 02/07/17 20:52 Labs: CBC, BMP 02/06/17 05:05 INR, PTT INR 1.10 (0.82-1.09) 02/05/17 09:40 Problem List - Problems (1) Atrial fibrillation with RVR Code(s): I48.91 - UNSPECIFIED ATRIAL FIBRILLATION (2) ESRD (end stage renal disease) on dialysis Code(s): N18.6 - END STAGE RENAL DISEASE; Z99.2 - DEPENDENCE ON RENAL DIALYSIS (3) Hypertension Code(s): I10 - ESSENTIAL (PRIMARY) HYPERTENSION (4) Chronic heart failure Code(s): I50.9 - HEART FAILURE, UNSPECIFIED (5) CAD (coronary artery disease) Code(s): I25.10 - ATHSCL HEART DISEASE OF [place] CORONARY ARTERY W/O ANG PCTRS (6) Hx of CABG Code(s): Z95.1 - PRESENCE OF AORTOCORONARY BYPASS GRAFT
[2017-02-07 22:48] LABS: ANION GAP 15 (8-16); CALCIUM 8.2 mg/dL (8.5-10.1); CO2 21 mmol/L (21-32); GLUCOSE,RANDOM 78 mg/dL (74-106)
[2017-02-07 22:54] LABS: CPK 55 IU/L (26-192); TROPONIN I 0.36 ng/ml (0.00-0.05)
[2017-02-07 22:57] LABS: CREATININE 9.1 mg/dL (0.55-1.02)
[2017-02-08] MEDS ORDERED: ACETAMINOPHEN 325 MG TABLET (FP) ONE (07:25)
[2017-02-08] MEDS ORDERED: ACETAMINOPHEN 325 MG TABLET (FP) PO PRN (07:31)
[2017-02-08] MEDS: HEPARIN NA (PORCINE) 5,000 UNITS/ML 1ML VIAL SQ SCH ×3 (09:18→21:30)
[2017-02-08] MEDS: MULTIVITAMINS (DAILY MVI) TABLET (FP) PO SCH (09:18)
[2017-02-08] MEDS: PANTOPRAZOLE 40 MG TABLET (FP) PO SCH (09:18)
[2017-02-08] MEDS: ASPIRIN 81 MG CHEWABLE TABLETS PO SCH (09:18)
[2017-02-08] MEDS: CARVEDILOL 12.5 MG TABLET (FP) PO SCH ×2 (09:20→21:37)
--- NOTE | 2017-02-08 09:34 | PN ---
Progress Note (short form) - Note Progress Note: Renal follow up for ESRD on HD Pt seen and examined at the bedside awake and alert reports pain in left leg that is relieved with Tylenol no sob, chest pain, fever, chills, N/V/D Vital Signs Temperature 98.8 F 02/08/17 08:16 Pulse Rate 52 L 02/08/17 08:16 Respiratory Rate 20 02/08/17 08:16 Blood Pressure 111/62 02/08/17 08:16 O2 Sat by Pulse Oximetry (%) 97 02/07/17 20:52 Intake & Output 02/05/17 02/06/17 02/07/17 02/08/17 23:59 23:59 23:59 23:59 Intake Total 250 800 300 100 Balance 250 800 300 100 Weight 58.967 kg 58.967 kg 61.802 kg 59.602 kg NAD awake and alert RRR CTA No LE edema CBC, BMP 02/06/17 05:05 02/07/17 21:51 Current Medications Acetaminophen (Tylenol -) 650 mg PO Q6H PRN PRN Reason: FEVER OR PAIN Aspirin (Asa -) 81 mg PO DAILY [facility] Last Admin: 02/08/17 09:18 Dose: 81 mg Calcium Acetate (Phoslo -) 0 mg PO ACLD [facility] Carvedilol (Coreg -) 12.5 mg PO BID [facility] Last Admin: 02/08/17 09:20 Dose: Not Given Heparin Sodium (Porcine) (Heparin -) 5,000 unit SQ BID [facility] Last Admin: 02/08/17 09:19 Dose: Not Given Multivitamins/Minerals/Vitamin C (Tab-A-Vit -) 1 tab PO DAILY [facility] Last Admin: 02/08/17 09:18 Dose: 1 tab Pantoprazole Sodium (Protonix -) 40 mg PO DAILY [facility] Last Admin: 02/08/17 09:18 Dose: 40 mg 81 year old woman with PMhx of ESRD on Hd (MWF), Hypertension, CAD s/p CABG who presented from HD with rapid HR and found to have Afib with RVR. #Afib with RVR now in Sinur Rhythm HR WNL no tachycardia seen with HD yesterday #ESRD on HD tolerated HD well w/o complications yesterday #CAD with + cardiac enzymes + stress test Cardiology recommended cardiac cath pt and family thinking about it continue medical treatment for now Thank you Karsten Sylvester DO Problem List - Problems (1) Atrial fibrillation with RVR Code(s): I48.91 - UNSPECIFIED ATRIAL FIBRILLATION (2) Chronic heart failure Code(s): I50.9 - HEART FAILURE, UNSPECIFIED (3) CAD (coronary artery disease) Code(s): I25.10 - ATHSCL HEART DISEASE OF [place] CORONARY ARTERY W/O ANG PCTRS (4) ESRD (end stage renal disease) on dialysis Code(s): N18.6 - END STAGE RENAL DISEASE; Z99.2 - DEPENDENCE ON RENAL DIALYSIS
--- NOTE | 2017-02-08 09:34 | PN ---
Progress Note, Physician History of Present Illness: Pt is a 81 y/o female with PMH significant for ESRD on dialysis TIW, CHF, CAD, HTN, and HLD. Pt presented to the ER from dialysis bc she was found to be tachycardiac. In the ER pt was found to be in afib w/ heart rate in 140's. Pt also complains of chest tightness wc has since resolved. Pt denies any SOB/ cough/lightheadedness/nausea/abdominal pain. - Current Medication List Current Medications: Active Medications Acetaminophen (Tylenol -) 650 mg PO Q6H PRN PRN Reason: FEVER OR PAIN Aspirin (Asa -) 81 mg PO DAILY [facility] Last Admin: 02/08/17 09:18 Dose: 81 mg Calcium Acetate (Phoslo -) 0 mg PO ACLD [facility] Carvedilol (Coreg -) 12.5 mg PO BID [facility] Last Admin: 02/08/17 09:20 Dose: Not Given Heparin Sodium (Porcine) (Heparin -) 5,000 unit SQ BID [facility] Last Admin: 02/08/17 09:19 Dose: Not Given Multivitamins/Minerals/Vitamin C (Tab-A-Vit -) 1 tab PO DAILY [facility] Last Admin: 02/08/17 09:18 Dose: 1 tab Pantoprazole Sodium (Protonix -) 40 mg PO DAILY [facility] Last Admin: 02/08/17 09:18 Dose: 40 mg - Objective Vital Signs: Vital Signs Temperature 98.8 F 02/08/17 08:16 Pulse Rate 52 L 02/08/17 08:16 Respiratory Rate 20 02/08/17 08:16 Blood Pressure 111/62 02/08/17 08:16 O2 Sat by Pulse Oximetry (%) 97 02/07/17 20:52 Eyes: Yes: WNL, Conjunctiva Clear, EOM Intact HENT: Yes: WNL, Atraumatic, Normocephalic Neck: Yes: WNL, Supple, Trachea Midline Cardiovascular: Yes: WNL, Regular Rate and Rhythm, S1, S2 Respiratory: Yes: WNL, Regular, CTA Bilaterally Gastrointestinal: Yes: WNL, Normal Bowel Sounds Genitourinary: Yes: WNL Musculoskeletal: Yes: WNL Extremities: Yes: WNL Edema: No Integumentary: Yes: WNL Neurological: Yes: WNL, Alert, Oriented ...Motor Strength: WNL Psychiatric: Yes: WNL Labs: CBC, BMP 02/06/17 05:05 02/07/17 21:51 INR, PTT INR 1.10 (0.82-1.09) 02/05/17 09:40 Laboratory Tests 02/05/17 02/05/17 02/05/17 09:40 10:01 10:01 WBC 6.3 RBC 4.66 Hgb 11.5 Hct 36.8 MCV 78.9 L MCH 24.7 L MCHC 31.3 L RDW 17.2 H D Plt Count 126 L MPV 9.1 Neutrophils % 65.2 Lymphocytes % 21.1 Monocytes % 11.3 H Eosinophils % 1.8 Basophils % 0.6 PT with INR 12.40 H INR 1.10 PTT (Actin FS) 31.2 Sodium 138 Potassium 4.0 D Chloride 102 Carbon Dioxide 27 Anion Gap 9 BUN 16 D Creatinine 4.2 H D Creat Clearance w eGFR 10.21 Random Glucose 112 H Calcium 8.8 Total Bilirubin 0.5 AST 35 D ALT 20 D Alkaline Phosphatase 117 D Creatine Kinase 71 Troponin I 0.04 B-Natriuretic Peptide 16362.80 H Total Protein 7.5 Albumin 3.1 L TSH 02/06/17 02/06/17 02/06/17 02:00 05:05 05:05 WBC 6.2 RBC 4.46 Hgb 11.0 Hct 35.6 MCV 79.7 L MCH 24.6 L MCHC 30.8 L RDW 17.3 H Plt Count 107 L MPV 9.2 Neutrophils % 58.9 Lymphocytes % 22.7 Monocytes % 15.3 H Eosinophils % 2.2 Basophils % 0.9 PT with INR INR PTT (Actin FS) Sodium 140 Potassium 4.1 Chloride 105 Carbon Dioxide 27 Anion Gap 8 BUN 30 H D Creatinine 6.3 H D Creat Clearance w eGFR 6.39 Random Glucose 79 D Calcium 8.5 Total Bilirubin 0.4 AST 36 ALT 27 D Alkaline Phosphatase 106 Creatine Kinase 52 49 Troponin I 0.69 H* 0.69 H* B-Natriuretic Peptide Total Protein 6.7 Albumin 2.9 L TSH 0.23 L 02/06/17 02/07/17 05:05 21:51 WBC RBC Hgb Hct MCV MCH MCHC RDW Plt Count MPV Neutrophils % Lymphocytes % Monocytes % Eosinophils % Basophils % PT with INR INR PTT (Actin FS) Sodium 139 Potassium 4.5 Chloride 103 Carbon Dioxide 21 D Anion Gap 15 BUN 60 H D Creatinine 9.1 H* D Creat Clearance w eGFR Random Glucose 78 Calcium 8.2 L Total Bilirubin AST ALT Alkaline Phosphatase Creatine Kinase Cancelled 55 Troponin I Cancelled 0.36 H B-Natriuretic Peptide Total Protein Albumin TSH Assessment/Plan IMP: AF w/ RVR, likely causing demand ischemia; now back in NSR. Echo with normal LV function ESRD on HD CAD s/p CABG History of GI bleed MIBI st moderate apical ischemia Now back in sinus/sinus nathaniel: hold BBlocker due to sinus nathaniel at rest Describes prior GI bleed with no source; risks of full AC seem to >> potential benefits at this point- continue ASA 81mg daily which she also needs for CAD Strongly suspect the mild elevation in TnI (with normal CK) is due to AF w/ RVR causing demand ischemia (occurs in setting of ESRD as well) Plan medical rx vs c. cath as per family irvin. Please see dr. Manzanares note detailing family decision making and ish Coverage
--- NOTE | 2017-02-08 21:58 | PN ---
Progress Note, Physician - Current Medication List Current Medications: Active Medications Acetaminophen (Tylenol -) 650 mg PO Q6H PRN PRN Reason: FEVER OR PAIN Aspirin (Asa -) 81 mg PO DAILY [facility] Last Admin: 02/08/17 09:18 Dose: 81 mg Calcium Acetate (Phoslo -) 0 mg PO ACLD [facility] Carvedilol (Coreg -) 12.5 mg PO BID [facility] Last Admin: 02/08/17 21:37 Dose: Not Given Heparin Sodium (Porcine) (Heparin -) 5,000 unit SQ BID [facility] Last Admin: 02/08/17 21:30 Dose: Not Given Multivitamins/Minerals/Vitamin C (Tab-A-Vit -) 1 tab PO DAILY [facility] Last Admin: 02/08/17 09:18 Dose: 1 tab Pantoprazole Sodium (Protonix -) 40 mg PO DAILY [facility] Last Admin: 02/08/17 09:18 Dose: 40 mg - Objective Vital Signs: Vital Signs Temperature 97.6 F 02/08/17 18:00 Pulse Rate 67 02/08/17 18:00 Respiratory Rate 18 02/08/17 18:00 Blood Pressure 120/59 02/08/17 18:00 O2 Sat by Pulse Oximetry (%) 97 02/08/17 09:00 Labs: CBC, BMP 02/06/17 05:05 02/07/17 21:51 INR, PTT INR 1.10 (0.82-1.09) 02/05/17 09:40 Problem List - Problems (1) Atrial fibrillation with RVR Code(s): I48.91 - UNSPECIFIED ATRIAL FIBRILLATION (2) ESRD (end stage renal disease) on dialysis Code(s): N18.6 - END STAGE RENAL DISEASE; Z99.2 - DEPENDENCE ON RENAL DIALYSIS (3) Hypertension Code(s): I10 - ESSENTIAL (PRIMARY) HYPERTENSION (4) Chronic heart failure Code(s): I50.9 - HEART FAILURE, UNSPECIFIED (5) CAD (coronary artery disease) Code(s): I25.10 - ATHSCL HEART DISEASE OF [place] CORONARY ARTERY W/O ANG PCTRS (6) Hx of CABG Code(s): Z95.1 - PRESENCE OF AORTOCORONARY BYPASS GRAFT
[2017-02-09 07:21] LABS: ANION GAP 11 (8-16); CALCIUM 8.5 mg/dL (8.5-10.1); CO2 30 mmol/L (21-32); GLUCOSE,RANDOM 83 mg/dL (74-106)
[2017-02-09 07:22] LABS: CREATININE 6.8 mg/dL (0.55-1.02)
--- NOTE | 2017-02-09 09:01 | PN ---
Progress Note, Physician History of Present Illness: Pt is a 81 y/o female with PMH significant for ESRD on dialysis TIW, CHF, CAD, HTN, and HLD. Pt presented to the ER from dialysis bc she was found to be tachycardiac. In the ER pt was found to be in afib w/ heart rate in 140's. Pt also complains of chest tightness wc has since resolved. Pt denies any SOB/ cough/lightheadedness/nausea/abdominal pain. - Current Medication List Current Medications: Active Medications Acetaminophen (Tylenol -) 650 mg PO Q6H PRN PRN Reason: FEVER OR PAIN Aspirin (Asa -) 81 mg PO DAILY [facility] Last Admin: 02/08/17 09:18 Dose: 81 mg Calcium Acetate (Phoslo -) 0 mg PO ACLD [facility] Carvedilol (Coreg -) 12.5 mg PO BID [facility] Last Admin: 02/08/17 21:37 Dose: Not Given Heparin Sodium (Porcine) (Heparin -) 5,000 unit SQ BID [facility] Last Admin: 02/08/17 21:30 Dose: Not Given Multivitamins/Minerals/Vitamin C (Tab-A-Vit -) 1 tab PO DAILY [facility] Last Admin: 02/08/17 09:18 Dose: 1 tab Pantoprazole Sodium (Protonix -) 40 mg PO DAILY [facility] Last Admin: 02/08/17 09:18 Dose: 40 mg - Objective Vital Signs: Vital Signs Temperature 97.8 F 02/09/17 05:52 Pulse Rate 69 02/09/17 05:52 Respiratory Rate 18 02/09/17 05:52 Blood Pressure 123/57 02/09/17 05:52 O2 Sat by Pulse Oximetry (%) 97 02/08/17 21:00 Eyes: Yes: WNL, Conjunctiva Clear, EOM Intact HENT: Yes: WNL, Atraumatic, Normocephalic Neck: Yes: WNL, Supple, Trachea Midline Cardiovascular: Yes: WNL, Regular Rate and Rhythm Respiratory: Yes: WNL, Regular, CTA Bilaterally Gastrointestinal: Yes: WNL, Normal Bowel Sounds Genitourinary: Yes: WNL Musculoskeletal: Yes: WNL Extremities: Yes: WNL Edema: No Integumentary: Yes: WNL Neurological: Yes: WNL, Alert, Oriented ...Motor Strength: WNL Psychiatric: Yes: WNL Labs: CBC, BMP 11/30/17 05:05 02/09/17 05:05 INR, PTT INR 1.10 (0.82-1.09) 02/05/17 09:40 Assessment/Plan IMP: AF w/ RVR, likely causing demand ischemia; now back in NSR. Echo with normal LV function ESRD on HD CAD s/p CABG History of GI bleed MIBI st moderate apical ischemia Now back in sinus/sinus nathaniel: hold BBlocker due to sinus nathaniel at rest Describes prior GI bleed with no source; risks of full AC seem to >> potential benefits at this point- continue ASA 81mg daily which she also needs for CAD Strongly suspect the mild elevation in TnI (with normal CK) is due to AF w/ RVR causing demand ischemia (occurs in setting of ESRD as well) Plan medical rx vs c. cath as per family irvin. Please see dr. Manzanares note detailing family decision making and whishes Coverage
[2017-02-09] MEDS: MULTIVITAMINS (DAILY MVI) TABLET (FP) PO SCH (09:21)
[2017-02-09] MEDS: PANTOPRAZOLE 40 MG TABLET (FP) PO SCH (09:21)
[2017-02-09] MEDS: CARVEDILOL 12.5 MG TABLET (FP) PO SCH (09:21)
[2017-02-09] MEDS: ASPIRIN 81 MG CHEWABLE TABLETS PO SCH (09:21)
[2017-02-09] MEDS: HEPARIN NA (PORCINE) 5,000 UNITS/ML 1ML VIAL SQ SCH (09:31)
[2017-02-09] MEDS ORDERED: CALCIUM ACETATE 667 MG CAPSULE (FP) PO SCH (12:00)
[2017-02-09 15:53] VITALS: BP 114/48; PULSE 60; TEMP 97.4
== END 2017-02-09 16:50 | disposition short-term general hospital (02) | DRG 308 ==
LOC: JER 09:15 → JERBED 11:58 → J4W 17:05
PROVIDERS: ADMIT Internal Medicine; ATTEND Internal Medicine
PROC: 5A1D70Z Performance of Urinary Filtration, Intermittent, Less than 6 Hours Per Day (ICD-10-PCS; principal; 2017-02-07)
DX: I48.91 Unspecified atrial fibrillation (principal); N18.6 End stage renal disease; I13.2 Hypertensive heart and chronic kidney disease with heart failure and with stage 5 chronic kidney disease, or end stage renal disease; I24.8 Other forms of acute ischemic heart disease; I25.10 Atherosclerotic heart disease of native coronary artery without angina pectoris; Z95.1 Presence of aortocoronary bypass graft; I25.2 Old myocardial infarction; Z99.2 Dependence on renal dialysis; E78.5 Hyperlipidemia, unspecified; I50.9 Heart failure, unspecified
CPT/HCPCS: 36415; 71010-TC; 78452-TC; 80048; 80053; 82550; 83880; 84443; 84484; 85025; 85610; 85730; 86704; 86706; 86708; 86803; 87340; 93005; 93010; 93017; 93306-TC; 99285-25; A9502; J1644; J2785

== ENCOUNTER 2017-03-09 13:21 | Emergency (ER) | payer OTHER ==
[2017-03-09 13:30] VITALS: BP 110/64; PULSE 102; TEMP 97.3; BMI 25.4
--- NOTE | 2017-03-09 13:41 | PDOC ---
Attending Attestation - Resident Resident Name: Jose Meyer - HPI HPI: 03/09/17 14:38 Pt presents to the ED complaining of worsening of her chronic ulcer on her L foot. Patient now has some drainage from the ulcer and redness to the dorsum of the foot, as well as increased pain. Denies fevers, nausea or vomiting. Patient has follow up with her investigations consultant in three days. - Physicial Exam PE: 03/09/17 15:09 Agree with above exam. Pt has small ulcer on her left foot with erythema to the dorsum of the foot. Otherwise well appearing. - Medical Decision Making 03/09/17 15:12 Pt presents to the ED complaining of increased erythema and pain surrounding a chronic L foot ulcer. No fevers or other signs of systemic infection. Will check labs and will likely discharge home if labs are within normal limits.
--- NOTE | 2017-03-09 14:10 | PDOC ---
History of Present Illness - General Chief Complaint: Wound Stated Complaint: RT FOOT WOUND Time Seen by Provider: 03/09/17 13:38 - History of Present Illness Initial Comments: 03/09/17 14:52 The patient is an 82 year old female with a history of DM, ESRD on dialysis who presents for evaluation of a right foot wound. The patient reports a foot ulcer on the dorsum of her right foot for which she has been following with a podietrist over the last month. She states that she has been developing worsening pain in her right foot and noted some redness over the past 4 days prompting her presentation to the ED today. She notes that she does have an appointment with her podietrist in 3 days. She denies fevers, chills, SOB, chest pain, abdominal pain, or changes with urination or bowel movements. Past History - Past Medical History Allergies/Adverse Reactions: Allergies Allergy/AdvReac Type Severity Reaction Status Date / Time cefazolin sodium [From Anc] Allergy Mild Itching Verified 03/09/17 13:30 Home Medications: Ambulatory Orders Calcium Acetate [Phoslo] 2 tab PO AC 09/02/14 Carvedilol 12.5 mg PO BID 09/02/14 Multivitamin [Daily Quintin] 1 each PO DAILY 09/02/14 Omeprazole [Prilosec (RX)] 40 mg PO DAILY 09/02/14 Sulfamethoxazole/Trimethoprim [Bactrim Ds -] 1 tab PO BID #14 tablet 03/09/17 Anemia: Yes Asthma: No Cancer: No Cardiac Disorders: Yes CVA: No COPD: No CHF: Yes DVT: No Dementia: No Diabetes: Yes (-W-) Dialysis: Yes (W-) GI Disorders: Yes Disorders: Yes (ESRF) HTN: Yes Hypercholesterolemia: No Liver Disease: No Seizures: No Thyroid Disease: No - Surgical History Abdominal Surgery: No Appendectomy: No Cardiac Surgery: Yes (triple bypass) Cholecystectomy: No Lung Surgery: No Neurologic Surgery: No Orthopedic Surgery: No - Immunization History Immunization Up to Date: Yes - Suicide/Smoking/Psychosocial Hx Smoking Status: No Smoking History: Never smoked Have you smoked in the past 12 months: No Number of Cigarettes Smoked Daily: 0 Hx Alcohol Use: No Drug/Substance Use Hx: No Substance Use Type: None Hx Substance Use Treatment: No Review of Systems - Review of Systems Comments:: 03/09/17 14:57 Constitutional: No fevers, chills, fatigue, malaise HEENT: No Rhinorrhea, nasal congestion, visual changes Cardiovascular: No chest pain, syncope, palpitations, lightheadedness Respiratory: No Cough, SOB, Hemoptysis, Gastrointestinal: No Abdominal pain, Nausea, Vomiting, Constipation, Diarrhea, Melena Genitourinary: No Dysuria, Frequency, Urgency, Hesitancy, Hematuria, Flank pain Musculoskeletal: No Myalgia, arthralgia Skin: Right foot redness. No rashes, bruising, pallor Neurologic: No Headache, Dizziness, Numbness, Weakness, or Tingling Psychiatric: No Hallucinations. No SI or HI *Physical Exam - Vital Signs Last Vital Signs Temp Pulse Resp BP Pulse Ox 97.3 F L 102 H 20 110/64 100 03/09/17 13:24 03/09/17 13:24 03/09/17 13:24 03/09/17 13:24 03/09/17 13:24 - Physical Exam Comments: 03/09/17 14:58 General Appearance: Nourished. No Apparent Distress HEENT: EOMI, ANGIE. No Pharyngeal Erythema, Tonsillar Exudate, Tonsillar Erythema Neck: No Cervical Lymphadenopathy Respiratory/Chest: Lungs Clear, Normal Breath Sounds. No Crackles, Rales, Rhonchi, Wheezing Cardiovascular: Regular Rhythm, Regular Rate. No Murmur, Gallops, Rubs Gastrointestinal/Abdominal: Normal Bowel Sounds, Soft. No Guarding, Rebound, Tenderness Musculoskeletal: No CVA Tenderness Extremity: Ulcerated wound draining purulent fluid on the dorsum of the right foot with surrounding erythema and edema without warmth. Normal Capillary Refill Integumentary: Normal Color, Dry, Warm Neurologic: Fully Oriented, Alert, Normal Mood/Affect, Normal Response, ED Treatment Course - LABORATORY CBC & Chemistry Diagram: 03/09/17 14:40 03/09/17 14:40 Medical Decision Making - Medical Decision Making 03/09/17 14:59 The patient is an 82 year old female with a history of DM, ESRD on dialysis who presents for evaluation of a right foot wound. Differential includes but is not limited to: Cellulitis, wound infection, metabolic derangement. Given the patient's physical exam, it is likely her symptoms are due to a developing cellulitis. The patient does not show any signs of systemic infection however. We will obtain a cbc, cmp to evaluate further and send a wound culture. We will continue to monitor and reassess. 03/09/17 15:36 cbc, cmp are unremarkable. We will send a prescription for Bactrim to the pharmacy for antibiotic coverage. We are comfortable discharging the patient home at this time with podietry and pcp follow up. We discussed the results and the plan with the patient who voiced understanding and is agreeable with the plan. *DC/Admit/Observation/Transfer Diagnosis at time of Disposition: Cellulitis Qualifiers: Site of cellulitis: extremity Site of cellulitis of extremity: lower extremity Laterality: right Qualified Code(s): L03.115 - Cellulitis of right lower limb - Discharge Dispostion Disposition: HOME Condition at time of disposition: Good Admit: No - Prescriptions Prescriptions: Sulfamethoxazole/Trimethoprim [Bactrim Ds -] 1 tab PO BID #14 tablet - Referrals Referrals: Jasbir Easley MD [Primary Care Provider] - - Patient Instructions Printed Discharge Instructions: DI for Cellulitis -- Adult, DI for Wound Infection Additional Instructions: Please return to the ER if you experience concerning or worsening symptoms including worsening pain, fevers, or chills. Your lab results were unremarkable here in the ED. We have sent a prescription for antibiotics to your pharmacy which you should take twice a day for the next 7 days. It is important that you keep your follow up appointment with your podietrist on Friday. Please call to schedule a follow up appointment with your primary care provider within 1 week to discuss your ER visit and further management of your symptoms. - Post Discharge Activity
[2017-03-09 14:59] LABS: BASO % 0.8 % (0-2.0); EOS % 2.8 % (0-4.5); HEMATOCRIT 36.3 % (32.4-45.2); HEMOGLOBIN 11.3 GM/dL (10.7-15.3); LYMPH % 21.9 % (8-40); MCH 25.2 pg (25.7-33.7); MCHC 31.2 g/dl (32.0-36.0); MEAN CELL VOLUME 80.8 fl (80-96); MEAN PLT VOLUME 9.6 fl (7.5-11.1); MONO % 13.7 % (3.8-10.2); NEUT % 60.8 % (42.8-82.8); PLATELET COUNT 95 K/MM3 (134-434); RBC 4.49 M/mm3 (3.60-5.2); RDW 18.8 % (11.6-15.6); WHITE BLOOD COUNT 5.9 K/mm3 (4.0-10.0)
[2017-03-09 15:14] LABS: ALBUMIN 3.4 g/dl (3.4-5.0); ANION GAP 14 (8-16); BILIRUBIN,TOTAL 0.5 mg/dL (0.2-1.0); BLOOD UREA NITROGEN 46 mg/dL (7-18); CALCIUM 9.1 mg/dL (8.5-10.1); CHLORIDE 102 mmol/L (98-107); CO2 25 mmol/L (21-32); GLUCOSE,RANDOM 94 mg/dL (74-106); POTASSIUM 4.3 mmol/L (3.5-5.1); SGOT/AST 60 U/L (15-37); SGPT/ALT 51 U/L (12-78); SODIUM 141 mmol/L (136-145); TOT PROT 7.5 g/dl (6.4-8.2)
[2017-03-09 15:21] LABS: ALK PHOS 168 U/L (45-117)
[2017-03-09 15:30] LABS: CREATININE 7.8 mg/dL (0.55-1.02)
== END 2017-03-09 15:50 | disposition home or self-care (01) ==
LOC: JER 13:21
DX: L97.511 Non-pressure chronic ulcer of other part of right foot limited to breakdown of skin (principal); L03.115 Cellulitis of right lower limb; I25.10 Atherosclerotic heart disease of native coronary artery without angina pectoris; I13.2 Hypertensive heart and chronic kidney disease with heart failure and with stage 5 chronic kidney disease, or end stage renal disease; N18.6 End stage renal disease; I50.9 Heart failure, unspecified; Z99.2 Dependence on renal dialysis; Z95.1 Presence of aortocoronary bypass graft; E11.9 Type 2 diabetes mellitus without complications; D64.9 Anemia, unspecified
CPT/HCPCS: 36415; 80053; 85025; 87070; 87077; 87205; 99282-25

== ENCOUNTER 2017-04-26 15:38 | Inpatient (IN) | payer OTHER ==
[2017-04-26 16:22] VITALS: BMI 25.4
--- NOTE | 2017-04-26 16:40 | PDOC ---
Attending Attestation - Resident Resident Name: Darryl Cesar - ED Attending Attestation I have performed the following: I have examined & evaluated the patient, The case was reviewed & discussed with the resident, I agree w/resident's findings & plan, Exceptions are as noted - HPI HPI: 04/29/17 10:05 Ms Gomez is an 82 yo F with a history of anemia, diabetes, ESRD on dialysis, hypertension, h/o afib, h/o recent subarachnoid hemorrhage (not currently anticoagulated), CAD s/p triple vessel CABG. 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 No trauma that she is aware of. No fevers, chills. She's noted red spots on the lower extremities. No prior episodes like this. Was dialysis yesterday. - Physicial Exam PE: 04/26/17 16:40 GENERAL: The patient is in no acute distress. HEAD: Normal with no signs of trauma. EYES: PERRLA, EOMI, sclera anicteric, conjunctiva clear. ENT: Ears normal, nares patent, oropharynx clear without exudates. Moist mucous membranes. NECK: Normal range of motion, supple without lymphadenopathy, JVD, or masses. LUNGS: Breath sounds equal, clear to auscultation bilaterally. No wheezes, and no crackles. HEART:Regular rate and rhythm, normal S1 and S2 without murmur, rub or gallop. ABDOMEN: Soft, nontender, normoactive bowel sounds. No guarding, no rebound. No masses palpable. EXTREMITIES: Normal range of motion, no edema. NEUROLOGICAL: Cranial nerves II through XII grossly intact. Normal speech. No focal neurological deficits. MUSCULOSKELETAL: Back non-tender to palpation, SKIN: Petechial lesions noted throughout this patient's body. Lower extremities appear to have cold last petechiae involving the entire right foot, extending to just above the ankle. Also present on the left lower extremity however this is accompanied by a lesion on the dorsum of the foot which appears to be narcotic No warmth, no drainage. Of note patient also has multiple petechial lesions in the palms of both of her hands as well as around her lips. Mild petechiae noted on patient's back 02/20/18 10:15 - Medical Decision Making 04/29/17 10:18 Ms Webster to emergency department due to left lower extremity wound which has worsened over the past few days. No associated trauma. Patient has a curious petechial rash throughout her body, more prominent in her lower extremities. Patient's foot is warm however pulse is difficult to palpate. Differential diagnosis includes but is not limited to: embolic disease, thrombocytopenia due to (ITP/TTP), PVD Will do Labs US Re assess Will admit Unclear if this patient COULD be anticoagulated given her reported h/o SAH Laboratory Tests 04/26/17 04/26/17 04/26/17 17:00 17:06 17:06 WBC 10.8 H D Hgb 11.3 Hct 35.7 Plt Count 106 L INR Cancelled Sodium Potassium Chloride Carbon Dioxide Anion Gap BUN Creatinine Lactic Acid 2.7 H* 04/26/17 17:06 WBC Hgb Hct Plt Count INR Sodium 136 Potassium 4.3 Chloride 99 Carbon Dioxide 25 Anion Gap 12 BUN 33 H Creatinine 5.6 H Lactic Acid US demonstrates flow to the foot Will: Admit to hospitalist Consider abx given open wound clinical impression: foot ulcer, initial presentation
[2017-04-26 17:12] LABS: WHITE BLOOD COUNT 10.8 K/mm3 (4.0-10.0)
[2017-04-26 17:17] LABS: HEMATOCRIT 35.7 % (32.4-45.2); HEMOGLOBIN 11.3 GM/dL (10.7-15.3); MCH 26.5 pg (25.7-33.7); MCHC 31.8 g/dl (32.0-36.0); MEAN CELL VOLUME 83.3 fl (80-96); MEAN PLT VOLUME 10.7 fl (7.5-11.1); PLATELET COUNT 106 K/MM3 (134-434); RBC 4.28 M/mm3 (3.60-5.2); RDW 21.4 % (11.6-15.6)
--- NOTE | 2017-04-26 17:17 | PDOC ---
History of Present Illness - General Chief Complaint: Wound Stated Complaint: SWELLING TO LEGS Time Seen by Provider: 04/26/17 16:27 History Source: Patient Exam Limitations: No Limitations - History of Present Illness Initial Comments: 04/26/17 17:06 Patient is an 82F with history of ESRD on MWF dialysis, afib with episode of RVR , HTN, HLD, subarachnoid hemorrhage, and CAD s/p CABG here today complaining of a wound to her right leg. She states that she has had a wound on her right foot that she has been following with podiatry. She states that today her foot became more discolored with small "spots" up and down her legs. She states that she had a cold about a week or so ago. She says that she gets heparin shots at dialysis, but denies being on any blood thinners. Denies fevers, nausea, vomiting, chest pain, and shortness of breath. Past History - Past Medical History Allergies/Adverse Reactions: Allergies Allergy/AdvReac Type Severity Reaction Status Date / Time cefazolin sodium [From Anc] Allergy Mild Itching Verified 03/09/17 13:30 Home Medications: Ambulatory Orders Calcium Acetate [Phoslo] 2 tab PO AC 09/02/14 Carvedilol 12.5 mg PO BID 09/02/14 Multivitamin [Daily Quintin] 1 each PO DAILY 09/02/14 levoFLOXacin [Levaquin -] 750 mg PO DAILY 04/26/17 Anemia: Yes Asthma: No Cancer: No Cardiac Disorders: Yes CVA: No COPD: No CHF: Yes DVT: No Dementia: No Diabetes: Yes (-W-) Dialysis: Yes (-W-) GI Disorders: Yes Disorders: Yes (ESRF) HTN: Yes Hypercholesterolemia: No Liver Disease: No Seizures: No Thyroid Disease: No - Surgical History Abdominal Surgery: No Appendectomy: No Cardiac Surgery: Yes (triple bypass) Cholecystectomy: No Lung Surgery: No Neurologic Surgery: No Orthopedic Surgery: No - Immunization History Immunization Up to Date: Yes - Suicide/Smoking/Psychosocial Hx Smoking Status: No Smoking History: Never smoked Have you smoked in the past 12 months: No Number of Cigarettes Smoked Daily: 0 Information on smoking cessation initiated: No Hx Alcohol Use: No Drug/Substance Use Hx: No Substance Use Type: None Hx Substance Use Treatment: No Review of Systems - Review of Systems Comments:: 04/26/17 17:17 GENERAL/CONSTITUTIONAL: No fever or chills. Positive for diffuse weakness. HEAD, EYES, EARS, NOSE AND THROAT: No change in vision. No sore throat. CARDIOVASCULAR: No chest pain or shortness of breath RESPIRATORY: No cough, wheezing, or hemoptysis. GASTROINTESTINAL: No nausea, vomiting, diarrhea or constipation. MUSCULOSKELETAL: No joint or muscle swelling or pain. No neck or back pain. SKIN: Positive for diffuse petechial rash NEUROLOGIC: No headache, vertigo, loss of consciousness, or change in strength/ sensation. ENDOCRINE: No increased thirst. No abnormal weight change HEMATOLOGIC/LYMPHATIC: Positive for history of occluded fistula. ALLERGIC/IMMUNOLOGIC: No hives or skin allergy. *Physical Exam - Vital Signs Last Vital Signs Temp Pulse Resp BP Pulse Ox 97.7 F 79 20 119/69 98 04/26/17 16:12 04/26/17 16:12 04/26/17 16:12 04/26/17 16:12 04/26/17 16:12 - Physical Exam Comments: 04/26/17 17:18 GENERAL: Awake, alert, and fully oriented, in no acute distress HEAD: No signs of trauma, normocephalic, atraumatic EYES: PERRLA, EOMI ENT: Auricles normal inspection, hearing grossly normal, nares patent, oropharynx clear without exudates. Moist mucosa NECK: Normal ROM, supple, no lymphadenopathy, JVD, or masses LUNGS: No distress, speaks full sentences, clear to auscultation bilaterally HEART: Regular rate and rhythm, normal S1 and S2, no murmurs, rubs or gallops, peripheral pulses normal and equal bilaterally. ABDOMEN: Soft, nontender, normoactive bowel sounds. No guarding, no rebound. No masses R FOOT: Diffusely tender and swollen, darkened, no palpable pulse, pulse seen on colored ultrasound, sensation and motor function intact NEUROLOGICAL: Cranial nerves II through XII grossly intact. Normal speech, no focal sensorimotor deficits SKIN: Petechiae noted on palms, around oropharynx, and legs bilaterally ED Treatment Course - LABORATORY CBC & Chemistry Diagram: 04/26/17 17:06 04/26/17 17:06 - RADIOLOGY Radiology Studies Ordered: Category Date Time Status DUPLEX ART. LOWER COMPL US [US] Stat Ultrasound 04/26/17 16:53 Ordered Medical Decision Making - Medical Decision Making 04/26/17 17:20 Patient is an 82F with history of ESRD on MWF dialysis, afib with episode of RVR , HTN, HLD, subarachnoid hemorrhage, and CAD s/p CABG here today complaining of a wound to her right leg. Vital signs stable and normal. Feet discolored bilaterally, concerned for arterial occlusion given afib and symptoms, but differential also includes: cellulitis, osteo, soft tissue infection of leg. Petechiae noted diffusely, suspect possible platelet dysfunction given patients ESRD status. Patient was dialyzed yesterday. Will workup with cbc, cmp, ekg, cxr , foot xray, arterial doppler, coags. 04/26/17 17:53 EKG shows afib with RBBB, left axis deviation. Rate 115, increased from initial triage. T waves inverted in V1-V5. No ST elevations or depressions. QRS = 126, wide. QTc normal. When compared to prior EKG (on 02/06/17), t wave changes are not present, but rate is 50. Patient currently in ultrasound, will re-evaluate on return. Lab called in critical value of lactate 2.7. 04/26/17 19:41 Laboratory Tests 04/26/1718 04/26/17 17:00 17:00 17:06 WBC 10.8 H D Hgb 11.3 Hct 35.7 Plt Count 106 L PT with INR INR PTT (Actin FS) Potassium Lactic Acid 2.7 H* Troponin I 0.05 04/26/17 04/26/17 17:06 17:50 WBC Hgb Hct Plt Count PT with INR 16.60 H INR 1.47 H D PTT (Actin FS) 34.8 H Potassium 4.3 Lactic Acid Troponin I CBC shows small leukocytosis. Platelets decreased. Smear shows several abnormal red cells and platelets. PT, INR, PTT elevated. Holding fluid at this moment as patient is not septic. Pending ultrasound. Foot is stable on re-evaluation. 04/26/17 20:22 Formal ultrasound confirms vascular flow. Will admit. 04/26/17 21:14 Dr Herrera accepted admission. *DC/Admit/Observation/Transfer Diagnosis at time of Disposition: Cellulitis - Discharge Dispostion Condition at time of disposition: Stable Admit: Yes - Referrals Referrals: Jasbir Easley MD [Primary Care Provider] - - Patient Instructions - Post Discharge Activity
[2017-04-26 17:21] LABS: ADD RBC MORPHOLOGY YES
[2017-04-26 17:33] LABS: ALBUMIN 3.1 g/dl (3.4-5.0); ALK PHOS 214 U/L (45-117); ANION GAP 12 (8-16); BILIRUBIN,TOTAL 0.9 mg/dL (0.2-1.0); BLOOD UREA NITROGEN 33 mg/dL (7-18); CALCIUM 8.3 mg/dL (8.5-10.1); CHLORIDE 99 mmol/L (98-107); CO2 25 mmol/L (21-32); CREATININE 5.6 mg/dL (0.55-1.02); GLUCOSE,RANDOM 93 mg/dL (74-106); POTASSIUM 4.3 mmol/L (3.5-5.1); SGOT/AST 73 U/L (15-37); SGPT/ALT 56 U/L (12-78); SODIUM 136 mmol/L (136-145); TOT PROT 7.6 g/dl (6.4-8.2)
[2017-04-26 18:07] LABS: ANISOCYTOSIS 2+; OVALOCYTE 1+; TEAR DROP CELLS 1+
[2017-04-26 18:08] LABS: PLATELET ESTIMATE SLT DECREASE
[2017-04-26 18:13] LABS: INR 1.47 (0.82-1.09); PROTHROMBIN TIME (PATIENT) 16.6 SEC (9.98-11.88)
[2017-04-26 18:16] LABS: ACTIVATED PTT 34.8 SECONDS (26.9-34.4)
[2017-04-26] MEDS ORDERED: IMIPENEM/CILASTATIN SODIUM 500 MG in SODIUM CHLORIDE 100 ML IVPB ONE (20:24)
[2017-04-26] MEDS ORDERED: VANCOMYCIN 1,000 MG in DEXTROSE 5%-WATER - 250 ML IVPB ONE (20:24)
[2017-04-26] MEDS ORDERED: AZTREONAM 2 GM in DEXTROSE 5%-WATER - 100 ML IV ONE (20:31)
[2017-04-26] MEDS ORDERED: AZTREONAM 2 GRAM SYRINGE 2 GM/10 ML DISP.SYRIN IVPUSH ONE (20:35)
[2017-04-26] MEDS ORDERED: VANCOMYCIN 1 GRAM (PRE-DOCKED) 1,000 MG/250 ML BAG IVPB ONE (20:52)
[2017-04-27] MEDS: CALCIUM ACETATE 667 MG CAPSULE (FP) PO SCH ×3 (09:57→18:47)
[2017-04-27] MEDS: MULTIVITAMINS (DAILY MVI) TABLET (FP) PO SCH (09:57)
[2017-04-27] MEDS: HEPARIN NA (PORCINE) 5,000 UNITS/ML 1ML VIAL SQ SCH ×3 (09:57→22:09)
[2017-04-27] MEDS: CARVEDILOL 12.5 MG TABLET (FP) PO SCH ×2 (09:58→22:12)
--- NOTE | 2017-04-27 11:09 | EKG ---
Test Reason : Blood Pressure : / mmHG Vent. Rate : 115 BPM Atrial Rate : 115 BPM P-R Int : 000 ms QRS Dur : 126 ms QT Int : 350 ms P-R-T Axes : 000 -39 108 degrees QTc Int : 484 ms WIDE QRS RHYTHM LEFT AXIS DEVIATION RIGHT BUNDLE BRANCH BLOCK INFERIOR INFARCT , AGE UNDETERMINED T WAVE ABNORMALITY, CONSIDER LATERAL ISCHEMIA ABNORMAL ECG WHEN COMPARED WITH ECG OF 06-FEB-2017 08:23, WIDE QRS RHYTHM HAS REPLACED SINUS RHYTHM VENT. RATE HAS INCREASED BY 65 BPM Confirmed by BRANDON MORLEY MD ([id number]) on 04/27/2017 11:08:34 AM Referred By: Confirmed By:BRANDON MORLEY MD
--- NOTE | 2017-04-27 15:40 | CON.ID ---
Consult - History of Present Illness History of Present Illness: Asked to evaluate this 82 y.o. female with PMH of ESRD on HD (M/W/F), RUE AVG, HTN, HLD, AFIB, subarachnoid hemorrhage, CAD s/p CABG, OA, and right foot fracture with presence of hardware, presenting with c/o of Rt foot pain and swelling for past 2 wks and Lt foot pain recently. Noted discoloration of Rt foot at the time. 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 In addition she began developing rash on legs and arms and around her lips recently. Pt denies any chest pain, shortness of breath, cough, abd pain/n/v/d, or any focal deficits. 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) History of Recent Travel: No Home Medications - Allergies Allergies/Adverse Reactions: Allergies Allergy/AdvReac Type Severity Reaction Status Date / Time cefazolin sodium [From Anc] Allergy Mild Itching Verified 03/09/17 13:30 - Home Medications Home Medications: Ambulatory Orders Calcium Acetate [Phoslo] 2 tab PO AC 09/02/14 Carvedilol 12.5 mg PO BID 09/02/14 Multivitamin [Daily Quintin] 1 each PO DAILY 09/02/14 levoFLOXacin [Levaquin -] 750 mg PO DAILY 04/26/17 Family Disease History - Family Disease History Family Disease History: Other: Sister (CHF) Review of Systems - Review of Systems Constitutional: reports: Chills Neck: reports: No Symptoms Cardiovascular: reports: No Symptoms Respiratory: reports: No Symptoms Gastrointestinal: reports: No Symptoms Genitourinary: reports: No Symptoms Musculoskeletal: reports: No Symptoms Integumentary: reports: Rash (on legs/arms) Neurological: reports: No Symptoms Endocrine: reports: No Symptoms Psychiatric: reports: No Symptoms Physical Exam Vital Signs: Vital Signs Temperature 99.1 F 04/26/17 20:29 Pulse Rate 114 H 04/27/17 09:17 Respiratory Rate 17 04/27/17 09:17 Blood Pressure 86/42 04/27/17 09:17 O2 Sat by Pulse Oximetry (%) 95 04/27/17 09:17 Constitutional: Yes: No Distress, Calm HENT: Yes: WNL Neck: Yes: Supple Cardiovascular: Yes: Regular Rate and Rhythm Respiratory: Yes: Regular Gastrointestinal: Yes: Normal Bowel Sounds, Soft ...Rectal Exam: Yes: Deferred Renal/: Yes: Anuria Extremities: Yes: Cool (b/l toes cool to touch), Other (Rt foot: necrotic/ gangrenous patch, dusky discoloration of toes/cool to touch, +edema/erythema, DP pulse not palpable Lt foot +erythema/edema, + toes slightly cool touch RUE AVG - no erythema/drainage) Integumentary: Yes: Rash (petechial rash on legs b/l, RUE, perioral) Neurological: Yes: Alert, Oriented Psychiatric: Yes: Alert Labs: CBC, BMP 04/26/17 17:06 04/26/17 17:06 Imaging - Results Chest X-ray: Report Reviewed Problem List - Problems (1) Cellulitis Code(s): L03.90 - CELLULITIS, UNSPECIFIED (2) Atrial fibrillation with RVR Code(s): I48.91 - UNSPECIFIED ATRIAL FIBRILLATION (3) CAD (coronary artery disease) Code(s): I25.10 - ATHSCL HEART DISEASE OF [place] CORONARY ARTERY W/O ANG PCTRS (4) ESRD (end stage renal disease) on dialysis Code(s): N18.6 - END STAGE RENAL DISEASE; Z99.2 - DEPENDENCE ON RENAL DIALYSIS (5) Hx of CABG Code(s): Z95.1 - PRESENCE OF AORTOCORONARY BYPASS GRAFT (6) Hypertension Code(s): I10 - ESSENTIAL (PRIMARY) HYPERTENSION (7) Osteoarthritis Code(s): M19.90 - UNSPECIFIED OSTEOARTHRITIS, UNSPECIFIED SITE (8) Subarachnoid hemorrhage following injury Code(s): S06.6X9A - TRAUM SUBRAC HEM W LOC OF UNSP DURATION, INIT Qualifiers: Encounter type: initial encounter Loss of consciousness presence/duration: without LOC Qualified Code(s): S06.6X0A - Traumatic subarachnoid hemorrhage without loss of consciousness, initial encounter Assessment/Plan 82 y.o. female with PMH of HTN, ESRD on HD, RUE AVG, CAD s/p CABG, AFIB, OA with b/l foot edema, RT foot erythema/ tenderness, dorsal foot gangrenous, toes discolored/cool to touch, Lt foot erythema with toes cool to touch, petechia Rt foot cellulitis/gangrene -- Aztreonam/Flagyl/Vancomycin IV empirically -- Vascular surgery evaluation -- blood cultures monitor vitals
[2017-04-27] MEDS ORDERED: DISP SYRIN IVPUSH SCH (16:15)
[2017-04-27] MEDS ORDERED: AZTREONAM IVPUSH SCH (16:15)
--- NOTE | 2017-04-27 16:49 | CON.NEP ---
Consult Consult Specialty:: nephrology - History of Present Illness History of Present Illness: 82F wound to her right leg followed by [employer] also has blotchy skin lesions on the legs PMHx ESRD on MWF dialysis, afib with episode of RVR, HTN, HLD, subarachnoid hemorrhage, and CAD s/p CABG - Past Medical History Cardio/Vascular: Yes: AFIB, CAD, CHF, HTN Renal/: Yes: Renal Failure, Hemodialysis Musculoskeletal: Yes: Osteoarthritis - Past Surgical History Past Surgical History: Yes: CABG (2005 after [place]) - Alcohol/Substance Use Hx Alcohol Use: No - Smoking History Smoking history: Never smoked Have you smoked in the past 12 months: No Aproximately how many cigarettes per day: 0 - Social History 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) History of 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 Travel: No Home Medications - Allergies Allergies/Adverse Reactions: Allergies Allergy/AdvReac Type Severity Reaction Status Date / Time cefazolin sodium [From Ancef] Allergy Mild Itching Verified 03/09/17 13:30 - Home Medications Home Medications: Ambulatory Orders Calcium Acetate [Phoslo] 2 tab PO AC 09/02/14 Carvedilol 12.5 mg PO BID 09/02/14 Multivitamin [Daily Quintin] 1 each PO DAILY 09/02/14 levoFLOXacin [Levaquin -] 750 mg PO DAILY 04/26/17 Family Disease History - Family Disease History Family Disease History: Other: Sister (CHF) Nephrology Consult - Height Height: 5 ft - Weight Weight: 130 lb - BMI Body Mass Index (BMI): 25.4 - Lab Results CBC,BMP: CBC, BMP 04/26/17 17:06 04/26/17 17:06 Anion Gap: Anion Gap Anion Gap 12 (8-16) 04/26/17 17:06 - Physical Examination Vital Signs: Vital Signs Temperature 99.1 F 04/26/17 20:29 Pulse Rate 114 H 04/27/17 09:17 Respiratory Rate 17 04/27/17 09:17 Blood Pressure 86/42 04/27/17 09:17 O2 Sat by Pulse Oximetry (%) 95 04/27/17 09:17 Constitutional: Yes: Well Nourished, No Distress, Calm Eyes: Yes: WNL, Conjunctiva Clear, EOM Intact HENT: Yes: WNL, Atraumatic, Normocephalic Neck: Yes: WNL, Supple, Trachea Midline Cardiovascular: Yes: WNL, Regular Rate and Rhythm Respiratory: Yes: WNL, Regular, CTA Bilaterally Gastrointestinal: Yes: WNL, Normal Bowel Sounds Renal/: Yes: WNL Extremities: Yes: WNL Edema: No Peripheral Pulses WNL: Yes Integumentary: Yes: Rash (lower ext) Neurological: Yes: WNL, Alert, Oriented Assessment/Plan esrd no fluid overload foot infection
--- NOTE | 2017-04-27 17:54 | HP ---
Admitting History and Physical - Admission History of Present Illness: Pt is an 82 y/o female w/ PMH significant for HTN, LD, CAD, Afib, SAH, ESRD on dialysis, and rt foot fx w/ hardware. Pt presented to the ER bc of a wound to her right leg. She states that she has had a wound on her right foot that she has been following with podiatry and had been on an antibx about 2 weeks ago. She states that today her foot became more discolored with small "spots" up and down her legs. Pt states that she also had a rash on her arms, legs and around her lips. Pt denies any fever/chills. - Past Medical History Cardiovascular: Yes: AFIB, CAD, CHF, HTN Renal/: Yes: Renal Failure, Hemodialysis Musculoskeletal: Yes: Osteoarthritis - Past Surgical History Past Surgical History: Yes: CABG (2004 after [place]) - Smoking History Smoking history: Never smoked Have you smoked in the past 12 months: No Aproximately how many cigarettes per day: 0 - Alcohol/Substance Use Hx Alcohol Use: No - Social History History of Recent Travel: No Home Medications - Allergies Allergies/Adverse Reactions: Allergies Allergy/AdvReac Type Severity Reaction Status Date / Time cefazolin sodium [From Anc] Allergy Mild Itching Verified 03/09/17 13:30 - Home Medications Home Medications: Ambulatory Orders Calcium Acetate [Phoslo] 2 tab PO AC 09/02/14 Carvedilol 12.5 mg PO BID 09/02/14 Multivitamin [Daily Quintin] 1 each PO DAILY 09/02/14 levoFLOXacin [Levaquin -] 750 mg PO DAILY 04/26/17 Family Disease History - Family Disease History Family History: Unremarkable Family Disease History: Other: Sister (CHF) Review of Systems - Review of Systems Eyes: reports: No Symptoms HENT: reports: No Symptoms Neck: reports: No Symptoms Cardiovascular: reports: No Symptoms Respiratory: reports: No Symptoms Gastrointestinal: reports: No Symptoms Integumentary: reports: Rash Physical Examination Vital Signs: Vital Signs Temperature 97.3 F L 04/27/17 15:00 Pulse Rate 100 H 04/27/17 15:00 Respiratory Rate 18 04/27/17 15:00 Blood Pressure 117/84 04/27/17 15:00 O2 Sat by Pulse Oximetry (%) 95 02/18/18 09:17 Constitutional: Yes: No Distress Eyes: Yes: WNL HENT: Yes: WNL Neck: Yes: WNL, Supple Cardiovascular: Yes: WNL, Regular Rate and Rhythm Respiratory: Yes: WNL, Regular, CTA Bilaterally Gastrointestinal: Yes: WNL, Normal Bowel Sounds, Soft Neurological: Yes: WNL, Alert, Oriented ...Motor Strength: WNL Labs: CBC, BMP 04/26/17 17:06 04/26/17 17:06 Problem List - Problems (1) Cellulitis Assessment/Plan: Pt empirically given IV aztreonam/flagyl/vanco Antibxs as per ID Follow cultures Needs vasc surgery consult Code(s): L03.90 - CELLULITIS, UNSPECIFIED (2) Rash Assessment/Plan: Petechial rash present prior to admission Heme consult Code(s): R21 - RASH AND OTHER NONSPECIFIC SKIN ERUPTION (3) Thrombocytopenia Code(s): D69.6 - THROMBOCYTOPENIA, UNSPECIFIED (4) ESRD (end stage renal disease) on dialysis Assessment/Plan: Dialysis as per renal Cont phoslo Code(s): N18.6 - END STAGE RENAL DISEASE; Z99.2 - DEPENDENCE ON RENAL DIALYSIS (5) Hypertension Assessment/Plan: BP stable Cont coreg Code(s): I10 - ESSENTIAL (PRIMARY) HYPERTENSION (6) CAD (coronary artery disease) Code(s): I25.10 - ATHSCL HEART DISEASE OF [place] CORONARY ARTERY W/O ANG PCTRS (7) Paroxysmal A-fib Assessment/Plan: Pt in NSR Cont coreg Code(s): I48.0 - PAROXYSMAL ATRIAL FIBRILLATION (8) Osteoarthritis Code(s): M19.90 - UNSPECIFIED OSTEOARTHRITIS, UNSPECIFIED SITE
[2017-04-27] MEDS: AZTREONAM 0.5 GM in DEXTROSE 5%-WATER - 50 ML IVPB SCH (18:20)
[2017-04-27] MEDS ORDERED: PT OWN MED DRAWER 7, Y5N ONE (18:57)
[2017-04-28] MEDS ORDERED: oxyCODONE HCL 5 MG TABLET PO PRN (02:19)
[2017-04-28] MEDS ORDERED: morphine SULFATE 4 MG/ML VIAL IVPUSH PRN (02:53)
[2017-04-28] MEDS: AZTREONAM 0.5 GM in DEXTROSE 5%-WATER - 50 ML IVPB SCH (04:00)
[2017-04-28] MEDS ORDERED: PT OWN MED DRAWER 7, Y5N ONE ×2 (09:23→18:36)
[2017-04-28] MEDS: CALCIUM ACETATE 667 MG CAPSULE (FP) PO SCH ×3 (09:32→17:45)
[2017-04-28] MEDS: MULTIVITAMINS (DAILY MVI) TABLET (FP) PO SCH (09:33)
[2017-04-28] MEDS: CARVEDILOL 12.5 MG TABLET (FP) PO SCH ×2 (09:36→22:18)
[2017-04-28] MEDS: HEPARIN NA (PORCINE) 5,000 UNITS/ML 1ML VIAL SQ SCH (09:36)
[2017-04-28] MEDS ORDERED: VANCOMYCIN 1,000 MG in DEXTROSE 5%-WATER - 250 ML IVPB SCH (10:00)
--- NOTE | 2017-04-28 11:00 | PN ---
Progress Note, Physician History of Present Illness: feels good no complaints - Current Medication List Current Medications: Active Medications Acetaminophen (Tylenol -) 650 mg PO Q4H PRN PRN Reason: PAIN LEVEL 1-5 Calcium Acetate (Phoslo -) 1,334 mg PO TIDCM [facility] Last Admin: 04/28/17 09:32 Dose: 1,334 mg Carvedilol (Coreg -) 12.5 mg PO BID [facility] Last Admin: 04/28/17 09:36 Dose: Not Given Clindamycin HCl (Cleocin -) 300 mg PO Q6HPO [facility] Heparin Sodium (Porcine) (Heparin -) 5,000 unit SQ BID [facility] Last Admin: 04/28/17 09:36 Dose: Not Given Morphine Sulfate (Morphine Sulfate) 2 mg IVPUSH Q6H PRN PRN Reason: pain Multivitamins/Minerals/Vitamin C (Tab-A-Vit -) 1 tab PO DAILY [facility] Last Admin: 04/28/17 09:33 Dose: 1 tab Oxycodone HCl (Roxicodone -) 5 mg PO Q4H PRN PRN Reason: PAIN LEVEL 6-10 - Objective Vital Signs: Vital Signs Temperature 96.8 F L 04/28/17 07:03 Pulse Rate 112 H 04/28/17 07:03 Respiratory Rate 20 04/28/17 07:03 Blood Pressure 101/56 04/28/17 07:03 O2 Sat by Pulse Oximetry (%) 95 04/27/17 09:17 Constitutional: Yes: No Distress, Calm Cardiovascular: Yes: Regular Rate and Rhythm Respiratory: Yes: Regular, CTA Bilaterally Gastrointestinal: Yes: Normal Bowel Sounds, Soft Musculoskeletal: Yes: Other Extremities: Yes: Other ((Rt foot: necrotic/gangrenous patch, dusky discoloration of toes/cool to touch, +edema/erythema contracted) Integumentary: Yes: Other ((Rt foot: necrotic/gangrenous patch, dusky discoloration of toes/cool to touch, +edema/erythema) Neurological: Yes: Alert, Oriented Psychiatric: Yes: Alert Labs: CBC, BMP 04/26/17 17:06 04/26/17 17:06 INR, PTT INR 1.47 (0.82-1.09) H D 04/26/17 17:50 Assessment/Plan Problem List - Problems (1) Cellulitis Code(s): L03.90 - CELLULITIS, UNSPECIFIED (2) Atrial fibrillation with RVR Code(s): I48.91 - UNSPECIFIED ATRIAL FIBRILLATION (3) CAD (coronary artery disease) Code(s): I25.10 - ATHSCL HEART DISEASE OF [place] CORONARY ARTERY W/O ANG PCTRS (4) ESRD (end stage renal disease) on dialysis Code(s): N18.6 - END STAGE RENAL DISEASE; Z99.2 - DEPENDENCE ON RENAL DIALYSIS (5) Hx of CABG Code(s): Z95.1 - PRESENCE OF AORTOCORONARY BYPASS GRAFT (6) Hypertension Code(s): I10 - ESSENTIAL (PRIMARY) HYPERTENSION (7) Osteoarthritis Code(s): M19.90 - UNSPECIFIED OSTEOARTHRITIS, UNSPECIFIED SITE (8) Subarachnoid hemorrhage following injury Code(s): S06.6X9A - TRAUM SUBRAC HEM W LOC OF UNSP DURATION, INIT Qualifiers: Encounter type: initial encounter Loss of consciousness presence/duration: without LOC Qualified Code(s): S06.6X0A - Traumatic subarachnoid hemorrhage without loss of consciousness, initial encounter plan will r/o deepere infeciton and osteo will stop iv abx will start on oral clinda awaiting vascular surgeon to see the patient
[2017-04-28] MEDS: ACETAMINOPHEN 325 MG TABLET (FP) PO PRN ×2 (11:42→21:30)
--- NOTE | 2017-04-28 12:29 | CONSULT ---
Consult Consult Specialty:: Hematology-Oncology Referred by:: Dr. 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: No Home Medications - Allergies Allergies/Adverse Reactions: Allergies Allergy/AdvReac Type Severity Reaction Status Date / Time cefazolin sodium [From Anc] Allergy Mild Itching Verified 03/09/17 13:30 - Home Medications Home Medications: Ambulatory Orders Calcium Acetate [Phoslo] 2 tab PO AC 09/02/14 Carvedilol 12.5 mg PO BID 09/02/14 Multivitamin [Daily Quintin] 1 each PO DAILY 09/02/14 levoFLOXacin [Levaquin -] 750 mg PO DAILY 04/26/17 Family Disease History - Family Disease History Family Disease History: Other: Sister (CHF) Review of Systems - Review of Systems Constitutional: reports: Weakness. denies: Fever, Night Sweats Eyes: reports: Blurred Vision. denies: Double Vision, Eye Pain HENT: denies: Difficult Swallowing, Epistaxis, Mouth Swelling, Nasal Congestion Neck: denies: Pain on Movement, Stiffness, Swollen Glands, Tenderness Cardiovascular: denies: Chest Pain, Shortness of Breath Respiratory: denies: Exercise Intolerance, Hemoptysis, PND Gastrointestinal: denies: Abdominal Pain, Diarrhea, Nausea, Vomiting Genitourinary: reports: Other (No urine- HD) Breasts: reports: Other (never had mammogram) Musculoskeletal: reports: Extremity Pain. denies: Back Pain Integumentary: reports: Erythema, Lesions, Rash Neurological: reports: Numbness Hematology/Lymphatic: denies: Easily Bruised, Excessive Bleeding, Swollen Glands Psychiatric: reports: No Symptoms Physical Exam Vital Signs: Vital Signs Temperature 96.8 F L 04/28/17 07:03 Pulse Rate 112 H 04/28/17 07:03 Respiratory Rate 20 04/28/17 07:03 Blood Pressure 101/56 04/28/17 07:03 O2 Sat by Pulse Oximetry (%) 95 04/27/17 09:17 Constitutional: Yes: Moderate Distress Eyes: Yes: EOM Intact, PERRL. No: Diplopia, Ptosis, Sclera Icterus HENT: Yes: Normocephalic. No: Hoarseness, Pharyngeal Erythema, Thrush, Tonsillar Exudate Neck: Yes: Supple. No: Lymphadenopathy, Tenderness, Thyromegaly Cardiovascular: Yes: Pulse Irregular Respiratory: Yes: Diminished Gastrointestinal: Yes: Soft. No: Hepatomegaly, Splenomegaly, Tenderness Breast(s): Yes: WNL, Left, Right Musculoskeletal: Yes: Muscle Weakness Extremities: Yes: Other (clubbing with deformity of digits) Edema: No Peripheral Pulses WNL: No (not appreciated Left foot -dp and pt; right foot gangrenous ) Integumentary: Yes: Petechiae, Rash, Other (petechiae palms,erythematous rash medial right upper extremity, LE petechieal rash? vasculitc ? septic with gangene of dorsum or right foot) Neurological: Yes: Alert, Oriented ...Motor Strength: WNL Psychiatric: Yes: WNL Labs: CBC, BMP 04/26/17 17:06 04/26/17 17:06 Imaging - Results X-ray: Report Reviewed Ultrasound: Report Reviewed Problem List - Problems (1) ESRD (end stage renal disease) on dialysis Code(s): N18.6 - END STAGE RENAL DISEASE; Z99.2 - DEPENDENCE ON RENAL DIALYSIS (2) CAD (coronary artery disease) Assessment/Plan: s/p CABG Code(s): I25.10 - ATHSCL HEART DISEASE OF [place] CORONARY ARTERY W/O ANG PCTRS (3) Thrombocytopenia Assessment/Plan: 05/29/15-platelets- 141K 07/03/16--->121K 02/05/17--->126K 02/06/17---->107K 03/09/17---->95K 02/23/18-106K Chronic thrombocytopenia noted dating back to 06/24. Currently with gangene,? sepsis secondary to same, ? drug eruption ? vasculitis all possible etioogic . For screening Code(s): D69.6 - THROMBOCYTOPENIA, UNSPECIFIED (4) Coagulopathy Assessment/Plan: Elevation of PT/PTT- in setting of gangrene--?? sepsis, ?? secondary to abnormal LFT's, ?? other. To check fibrinogen , Factors V,VIII, X. Code(s): D68.9 - COAGULATION DEFECT, UNSPECIFIED (5) Abnormal LFTs Assessment/Plan: Etiology unclear--? sepsis ?? other Code(s): R94.5 - ABNORMAL RESULTS OF LIVER FUNCTION STUDIES (6) Rash Assessment/Plan: Erythematous ,petechial rash on palms, LE's and trunk. In medial RUE more confluent non petechial rash raising concern for possible drug eruption as well. LE petechial rash has ?vasculitic component Will need dermatology Check KYLER in view of fusiform appearance of fingers Code(s): R21 - RASH AND OTHER NONSPECIFIC SKIN ERUPTION (7) Gangrene Assessment/Plan: LE - dorsum of foot- right --gangrene diminished circulation LLE To add heparin drip and will need vascular follow up Code(s): I96 - GANGRENE, NOT ELSEWHERE CLASSIFIED
[2017-04-28] MEDS ORDERED: HEPARIN NA (PORCINE) 5,000 UNITS/ML 1ML VIAL IVPUSH PRN (13:02)
[2017-04-28] MEDS: CLINDAMYCIN HCL 150 MG CAPSULE (FP) PO SCH ×2 (13:24→17:45)
--- NOTE | 2017-04-28 14:14 | CONSULT ---
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 She developed a large area of black skin on foot and came to hospital. She denies history of PAD and walks with walker. Yesterday she also developed a rash on both legs, arms and face. She denies itch. 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) History of Recent Travel: No Home Medications - Allergies Allergies/Adverse Reactions: Allergies Allergy/AdvReac Type Severity Reaction Status Date / Time cefazolin sodium [From [facility]] Allergy Mild Itching Verified 03/09/17 13:30 - Home Medications Home Medications: Ambulatory Orders Calcium Acetate [Phoslo] 2 tab PO AC 09/02/14 Carvedilol 12.5 mg PO BID 09/02/14 Multivitamin [Daily Quintin] 1 each PO DAILY 09/02/14 levoFLOXacin [Levaquin -] 750 mg PO DAILY 04/26/17 Family Disease History - Family Disease History Family Disease History: Other: Sister (CHF) Physical Exam Vital Signs: Vital Signs Temperature 96.8 F L 04/28/17 07:03 Pulse Rate 112 H 04/28/17 07:03 Respiratory Rate 20 04/28/17 07:03 Blood Pressure 101/56 04/28/17 07:03 O2 Sat by Pulse Oximetry (%) 95 04/27/17 09:17 Gastrointestinal: Yes: Soft Extremities: Yes: Other (Right foot necrotic skin dorsum with diffuse erythema extending to ankle. Left 4th to necrotic ulcer with erythema.) Edema: Yes Edema: RUE: 3+, LLE: 2+, RLE: 2+ Peripheral Pulses WNL: No (No palpable pedal pulses) Integumentary: Yes: Petechiae (extending over both annkles and feet), Rash ( Perioral and upper extremities) Labs: CBC, BMP 04/26/17 17:06 04/26/17 17:06 Imaging - Results Ultrasound: Report Reviewed Problem List - Problems (1) Gangrene Assessment/Plan: Acute ischemic skin changes both feet, worse on right. Unclear if this represents purely occlusive disease or also a vasculitis or microembolic phenomenom. CTA ordered to assess large vessels in both legs. If major occlusion present will need angiogram for revascularization in effort to salvage foot. Code(s): I96 - GANGRENE, NOT ELSEWHERE CLASSIFIED (2) Rash Code(s): R21 - RASH AND OTHER NONSPECIFIC SKIN ERUPTION
[2017-04-28] MEDS: HEPARIN INFUSION - 25,000 UNITS/500 ML INFUS.BAG IVPB SCH (15:46)
--- NOTE | 2017-04-28 16:30 | PN ---
Progress Note (short form) - Note Progress Note: Renal follow up for ESRD on HD Pt seen examined at the bedside awake and alert no sob, chest pain has rash/lesions on arms and legs Vital Signs Temperature 97.5 F L 04/28/17 15:28 Pulse Rate 113 H 04/28/17 15:28 Respiratory Rate 18 04/28/17 15:28 Blood Pressure 104/55 04/28/17 15:28 O2 Sat by Pulse Oximetry (%) 95 04/27/17 09:17 Intake & Output 04/25/17 04/26/17 04/27/17 04/28/17 23:59 23:59 23:59 23:59 Intake Total 150 500 Balance 150 500 Weight 58.967 kg 58.967 kg 59.477 kg NAD awake and alert RRR CTA soft NT/ND peticial rash on arms, not blanching CBC, BMP 04/26/17 17:06 04/26/17 17:06 Current Medications Acetaminophen (Tylenol -) 650 mg PO Q4H PRN PRN Reason: PAIN LEVEL 1-5 Last Admin: 04/28/17 11:42 Dose: 650 mg Calcium Acetate (Phoslo -) 1,334 mg PO TIDCM [facility] Last Admin: 04/28/17 13:24 Dose: Not Given Carvedilol (Coreg -) 12.5 mg PO BID [facility] Last Admin: 04/28/17 09:36 Dose: Not Given Clindamycin HCl (Cleocin -) 300 mg PO Q6HPO [facility] Last Admin: 04/28/17 13:24 Dose: 300 mg Heparin Sodium (Porcine) (Heparin -) 1,000 unit IVPUSH PRN PRN PRN Reason: Heparin Heparin Sodium (Porcine) (Heparin -) 5,000 unit IVPUSH PRN PRN PRN Reason: Heparin Heparin Sodium/Dextrose (Heparin Infusion -) 25,000 units in 500 mls @ 20 mls/ hr IVPB TITR [facility]; 1,000 UNITS/HR PRN Reason: Protocol Last Admin: 04/28/17 15:46 Dose: 1,000 units/hr, 20 mls/hr Morphine Sulfate (Morphine Sulfate) 2 mg IVPUSH Q6H PRN PRN Reason: pain Multivitamins/Minerals/Vitamin C (Tab-A-Vit -) 1 tab PO DAILY [facility] Last Admin: 04/28/17 09:33 Dose: 1 tab Mupirocin (Bactroban 2% Ointment -) 1 applic TP BID [facility] Oxycodone HCl (Roxicodone -) 5 mg PO Q4H PRN PRN Reason: PAIN LEVEL 6-10 82 year old woman with PMhx of ESRD on HD (MWF), Hypertension, HLD, subarachnoid hemorrhage presented with right leg wound. #Right leg wound and peticial rash ID/Vascular/Heme evaluations noted to have CTA to access for profusion currently on IV Abx check KYLER, ANCA, CH50, Anti-DS DNA (pt was KYLER + in 2014) #ESRD on HD for dialysis today as inpatient follow CTA UF as tolerated will maintain 3x weekly dialysis as inpatient #Renal Osteodystrophy contnue phos binder trend phos levels Thank you Karsten Sylvester DO
--- NOTE | 2017-04-28 17:33 | CONSULT ---
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) History of 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 Travel: No Home Medications - Allergies Allergies/Adverse Reactions: Allergies Allergy/AdvReac Type Severity Reaction Status Date / Time cefazolin sodium [From Anc] Allergy Mild Itching Verified 03/09/17 13:30 - Home Medications Home Medications: Ambulatory Orders Calcium Acetate [Phoslo] 2 tab PO AC 09/02/14 Carvedilol 12.5 mg PO BID 09/02/14 Multivitamin [Daily Quintin] 1 each PO DAILY 09/02/14 levoFLOXacin [Levaquin -] 750 mg PO DAILY 04/26/17 Family Disease History - Family Disease History Family Disease History: Other: Sister (CHF) Physical Exam Vital Signs: Vital Signs Temperature 97.5 F L 04/28/17 15:28 Pulse Rate 113 H 04/28/17 15:28 Respiratory Rate 18 04/28/17 15:28 Blood Pressure 104/55 04/28/17 15:28 O2 Sat by Pulse Oximetry (%) 95 04/27/17 09:17 Labs: CBC, BMP 04/26/17 17:06 04/26/17 17:06 Assessment/Plan Exam petechial eruption in perioral area , rt inner upper arm and left antecubital fossa. Scattered purpuric macules on thorax . both palms covered in purpuric lesions . diffuse erythema on soles of feet. necrotic ulceration on dorsum of rt foot. sclerodermic like changes of finger tips. Skin changes consistent with a connective tissue disease. Patient says she has been diagnosed with RA in the past . She will be seen by Dr Ewing. i have gotten consent to do a biopsy and will perform tomorrow. will follow Rheumatology consult as well as labs for KYLER and other serology.
[2017-04-28] MEDS: MUPIROCIN 2% TOPICAL OINTMENT 22 GM TUBE TP SCH ×2 (17:46→23:00)
[2017-04-28 20:23] LABS: BASO % 0.5 % (0-2.0); EOS % 0.9 % (0-4.5); HEMOGLOBIN 10.6 GM/dL (10.7-15.3); LYMPH % 12.7 % (8-40); MCH 26.4 pg (25.7-33.7); MCHC 32.2 g/dl (32.0-36.0); MEAN PLT VOLUME 9.7 fl (7.5-11.1); MONO % 6.4 % (3.8-10.2); NEUT % 79.5 % (42.8-82.8); PLATELET COUNT 110 K/MM3 (134-434); RBC 4.02 M/mm3 (3.60-5.2); RDW 19.8 % (11.6-15.6); WHITE BLOOD COUNT 7.8 K/mm3 (4.0-10.0)
[2017-04-28 21:17] LABS: ALBUMIN 2.4 g/dl (3.4-5.0); ALK PHOS 186 U/L (45-117); BILIRUBIN,TOTAL 0.6 mg/dL (0.2-1.0); BLOOD UREA NITROGEN 45 mg/dL (7-18); CALCIUM 7.6 mg/dL (8.5-10.1); CO2 24 mmol/L (21-32); CREATININE 5.7 mg/dL (0.55-1.02); GLUCOSE,RANDOM 148 mg/dL (74-106); SGOT/AST 73 U/L (15-37); SGPT/ALT 46 U/L (12-78); TOT PROT 6.5 g/dl (6.4-8.2)
[2017-04-28 21:19] LABS: ANION GAP 13 (8-16); CHLORIDE 101 mmol/L (98-107); POTASSIUM 3.4 mmol/L (3.5-5.1); SODIUM 138 mmol/L (136-145)
--- NOTE | 2017-04-28 23:47 | PN ---
Progress Note, Physician History of Present Illness: No new change - Current Medication List Current Medications: Active Medications Acetaminophen (Tylenol -) 650 mg PO Q4H PRN PRN Reason: PAIN LEVEL 1-5 Last Admin: 04/28/17 21:30 Dose: 650 mg Calcium Acetate (Phoslo -) 1,334 mg PO TIDCM [facility] Last Admin: 04/28/17 17:45 Dose: 667 mg Carvedilol (Coreg -) 12.5 mg PO BID [facility] Last Admin: 04/28/17 09:36 Dose: Not Given Clindamycin HCl (Cleocin -) 300 mg PO Q6HPO [facility] Last Admin: 04/28/17 17:45 Dose: 300 mg Heparin Sodium (Porcine) (Heparin -) 1,000 unit IVPUSH PRN PRN PRN Reason: Heparin Heparin Sodium (Porcine) (Heparin -) 5,000 unit IVPUSH PRN PRN PRN Reason: Heparin Heparin Sodium/Dextrose (Heparin Infusion -) 25,000 units in 500 mls @ 20 mls/ hr IVPB TITR [facility]; 1,000 UNITS/HR PRN Reason: Protocol Last Admin: 04/28/17 15:46 Dose: 1,000 units/hr, 20 mls/hr Morphine Sulfate (Morphine Sulfate) 2 mg IVPUSH Q6H PRN PRN Reason: pain Multivitamins/Minerals/Vitamin C (Tab-A-Vit -) 1 tab PO DAILY [facility] Last Admin: 04/28/17 09:33 Dose: 1 tab Mupirocin (Bactroban 2% Ointment -) 1 applic TP BID [facility] Last Admin: 04/28/17 17:46 Dose: 1 applic Oxycodone HCl (Roxicodone -) 5 mg PO Q4H PRN PRN Reason: PAIN LEVEL 6-10 - Objective Vital Signs: Vital Signs Temperature 98 F 04/28/17 22:48 Pulse Rate 118 H 04/28/17 22:52 Respiratory Rate 18 04/28/17 22:52 Blood Pressure 121/60 04/28/17 22:52 O2 Sat by Pulse Oximetry (%) 95 04/27/17 09:17 HENT: Yes: WNL Neck: Yes: WNL, Supple Cardiovascular: Yes: WNL, Regular Rate and Rhythm Respiratory: Yes: WNL, Regular, CTA Bilaterally Gastrointestinal: Yes: WNL, Normal Bowel Sounds, Soft Extremities: Yes: Other (RT foot w/ gangrenous area LT foot w/ erythema RUE fistula) Labs: CBC, BMP 04/28/17 20:00 04/28/17 20:00 INR, PTT INR 1.47 (0.82-1.09) H D 04/26/17 17:50 Problem List - Problems (1) Gangrene Assessment/Plan: Check CTA results wc are pending As per vascular Cont IV clinda Follow cultures Code(s): I96 - GANGRENE, NOT ELSEWHERE CLASSIFIED (2) Cellulitis Assessment/Plan: Cont IV clinda Wound care Code(s): L03.90 - CELLULITIS, UNSPECIFIED (3) Rash Assessment/Plan: Petechial rash Dertm consult noted BX in am Rheum consult for connective tissue disorder Code(s): R21 - RASH AND OTHER NONSPECIFIC SKIN ERUPTION (4) Paroxysmal A-fib Assessment/Plan: Pt in NSR Cont coreg Code(s): I48.0 - PAROXYSMAL ATRIAL FIBRILLATION (5) Thrombocytopenia Code(s): D69.6 - THROMBOCYTOPENIA, UNSPECIFIED (6) CAD (coronary artery disease) Code(s): I25.10 - ATHSCL HEART DISEASE OF [place] CORONARY ARTERY W/O ANG PCTRS (7) ESRD (end stage renal disease) on dialysis Assessment/Plan: Dialysis as per renal Cont phoslo Code(s): N18.6 - END STAGE RENAL DISEASE; Z99.2 - DEPENDENCE ON RENAL DIALYSIS (8) Hypertension Assessment/Plan: BP stable Cont coreg Code(s): I10 - ESSENTIAL (PRIMARY) HYPERTENSION (9) Osteoarthritis Code(s): M19.90 - UNSPECIFIED OSTEOARTHRITIS, UNSPECIFIED SITE
[2017-04-29] MEDS: CLINDAMYCIN HCL 150 MG CAPSULE (FP) PO SCH ×3 (00:17→12:21)
[2017-04-29 07:43] LABS: INR 2.09 (0.82-1.09); PROTHROMBIN TIME (PATIENT) 23.6 SEC (9.98-11.88)
[2017-04-29 08:00] LABS: ACTIVATED PTT 119.6 SECONDS (26.9-34.4)
[2017-04-29 08:01] LABS: BASO % 0.6 % (0-2.0); EOS % 1.3 % (0-4.5); HEMATOCRIT 33.7 % (32.4-45.2); HEMOGLOBIN 10.7 GM/dL (10.7-15.3); LYMPH % 17.1 % (8-40); MCH 26.3 pg (25.7-33.7); MCHC 31.7 g/dl (32.0-36.0); MEAN CELL VOLUME 82.9 fl (80-96); MEAN PLT VOLUME 9.7 fl (7.5-11.1); PLATELET COUNT 109 K/MM3 (134-434); RBC 4.07 M/mm3 (3.60-5.2); RDW 20.9 % (11.6-15.6); WHITE BLOOD COUNT 8.7 K/mm3 (4.0-10.0)
--- NOTE | 2017-04-29 08:42 | CONSULT ---
Consult Consult Specialty:: Rheumatology - History of Present Illness History of Present Illness: 82 y/o female w/ PMH significant for HTN, LD, CAD, Afib, SAH, ESRD on dialysis ( for the last 18 years), and rt foot fx w/ hardware, admitted with diffuse purpuric skin rash and ischemic lesions in the right leg and fingers. HPI. Poor historian. The patient reports that several years ago she was seen by another shed workers supervisor (Dr. Reece) who diagnosed rheumatoid arthritis. She cannot remember what medications she received. Four months ago she developed a nodule in the right leg. She was treated with antibiotics with poor response and there was progression of the skin rash. Apparently there were no other significant problems until 3 days ago when she developed a diffuse rash in extremities and trunk. She denies joint pain, fever or shortness of breath. The patient wa seen by Dr. Pineda - the pateint has acute ischemic changes in both feet, worse in he right, CTA ordered to rule out large vessel vasculitis. 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: No Home Medications - Allergies Allergies/Adverse Reactions: Allergies Allergy/AdvReac Type Severity Reaction Status Date / Time cefazolin sodium [From Anc] Allergy Mild Itching Verified 03/09/17 13:30 - Home Medications Home Medications: Ambulatory Orders Calcium Acetate [Phoslo] 2 tab PO AC 09/02/14 Carvedilol 12.5 mg PO BID 09/02/14 Multivitamin [Daily Quintin] 1 each PO DAILY 09/02/14 levoFLOXacin [Levaquin -] 750 mg PO DAILY 04/26/17 Family Disease History - Family Disease History Family Disease History: Other: Sister (CHF) Review of Systems - Review of Systems Constitutional: reports: Malaise Eyes: reports: No Symptoms HENT: reports: No Symptoms Neck: reports: No Symptoms Cardiovascular: reports: No Symptoms Respiratory: reports: No Symptoms Gastrointestinal: reports: No Symptoms Musculoskeletal: reports: Other (Decrease ROM in hands.) Physical Exam Vital Signs: Vital Signs Temperature 98.3 F 04/29/17 06:00 Pulse Rate 110 H 04/29/17 06:00 Respiratory Rate 20 04/29/17 06:00 Blood Pressure 103/53 04/29/17 06:00 O2 Sat by Pulse Oximetry (%) 95 04/27/17 09:17 Constitutional: Yes: Mild Distress HENT: Yes: WNL Neck: Yes: WNL Cardiovascular: Yes: WNL Respiratory: Yes: Other (Few coarse crackles inbases.) Musculoskeletal: Yes: Other (No active joints. Decreased flexion in 3rd ans 4th fingers in both hands) Integumentary: Yes: Other (Perioral hyperpigmentation. Prupruic rash in arms, and in particular in hboth palms with ischemic lesions in the right thumb and index and left index. D+few purpuric lesions in legs with ischemic lesions in feet) Labs: CBC, BMP 04/29/17 06:00 Laboratory Tests 04/26/17 04/26/17 04/28/17 17:00 17:06 20:00 Polychromasia 1+ Poikilocytosis 2+ Anisocytosis 2+ Tear Drop Cells 1+ Ovalocytes 1+ Nick Cells 1+ Fragmented RBCs Few Total Bilirubin 0.6 D AST 73 H ALT 46 Alkaline Phosphatase 186 H Creatine Kinase 245 H Problem List - Problems (1) Vasculitis Assessment/Plan: Acute purpuric lesions with ischemia in hands and feet. Rule out thrombotic microangiopathy,. The etiology of this entity includes drugs, other rheumatologic ocnditions etc and the differential diagnosis is extensive including hypocomplementemic vasculitis, cryoglobulinema, paraneoplasic vascultitis, other systemic vasculitis etc. Laboratory work-up was requested and a skin biopsy is pending. The disease is progressing very aggressively. I suggest labs including complement with C1Q, serum immunofixation, cryoglobulins, rheumatoid factor,ccp. X ray hands. I suggest to start plasmapheresis. I discussed case with Dr. Kellogg Code(s): I77.6 - ARTERITIS, UNSPECIFIED
[2017-04-29 08:45] LABS: BLOOD UREA NITROGEN 32 mg/dL (7-18); CALCIUM 8.1 mg/dL (8.5-10.1); CHLORIDE 98 mmol/L (98-107); POTASSIUM 3.8 mmol/L (3.5-5.1); SODIUM 139 mmol/L (136-145)
[2017-04-29 08:58] LABS: CREATININE 5.1 mg/dL (0.55-1.02); GLUCOSE,RANDOM 93 mg/dL (74-106)
[2017-04-29] MEDS: CALCIUM ACETATE 667 MG CAPSULE (FP) PO SCH ×3 (08:58→18:10)
[2017-04-29 08:59] LABS: ALBUMIN 2.6 g/dl (3.4-5.0); ANION GAP 14 (8-16); BILIRUBIN,TOTAL 1.1 mg/dL (0.2-1.0); CO2 27 mmol/L (21-32); MAGNESIUM 2.1 mg/dL (1.8-2.4); PHOSPHOROUS 4.8 mg/dL (2.5-4.9); SGOT/AST 102 U/L (15-37); TOT PROT 6.8 g/dl (6.4-8.2)
[2017-04-29 09:06] LABS: ALK PHOS 210 U/L (45-117); SGPT/ALT 56 U/L (12-78)
[2017-04-29] MEDS: CARVEDILOL 12.5 MG TABLET (FP) PO SCH ×2 (09:24→21:41)
[2017-04-29] MEDS: MULTIVITAMINS (DAILY MVI) TABLET (FP) PO SCH (09:24)
[2017-04-29 09:47] LABS: LDH 392 U/L (84-246)
[2017-04-29] MEDS: MUPIROCIN 2% TOPICAL OINTMENT 22 GM TUBE TP SCH ×2 (09:52→21:55)
--- NOTE | 2017-04-29 10:02 | CON.CARD ---
Consult Consult Specialty:: Cardiology Referred by:: Dr. Herrera Reason for Consultation:: Hypotension - History of Present Illness Chief Complaint: Rash History of Present Illness: 82 F known to our service from prior admission in January/February. PMH: ESRD on HAD, CAD s/p CABG and cath early Debember at [facility] showing patent grafts, history of SAH, AF previously no on AC due to h/o GI bleeding. She presented to ER several days ago with diffuse rash in setting of being on abx for LE wounds. She was seen by Vascular, Rheum, Heme and ID this far and there is concern for an underlying vasculitis as well as for PAD of the LE. She has gangrenous changes of the LE with poor circulation and was started on heparin gtts. She denies fever, chills. Denies CP Denies syncope of LOC. No edema. She states the rash started acutely Friday and now involves the face, chest, palms and legs. This morning she is hypotensiven with systolic pressure of 70mmHg and was initially tachycardic in the 130s. A bolus of saline was ordered prior to my consult which she was receiving. At the time of my exam she appears fatigued but alert and oriented. - History Source History Provided By: Patient, Medical Record Limitations to Obtaining History: No Limitations - Past Medical History Cardio/Vascular: Yes: AFIB, CAD (s/p CABG), CHF (chronic diastolic), HTN Gastrointestinal: Yes: GI Bleed Renal/: Yes: Renal Failure (ESRD), Hemodialysis Musculoskeletal: Yes: Osteoarthritis - Past Surgical History Past Surgical History: Yes: CABG (2004 after [place]) Additional Surgical History: fistulae - Alcohol/Substance Use Hx Alcohol Use: No - Smoking History Smoking history: Never smoked Have you smoked in the past 12 months: No Aproximately how many cigarettes per day: 0 - Social History 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) History of Recent Travel: No Home Medications - Allergies Allergies/Adverse Reactions: Allergies Allergy/AdvReac Type Severity Reaction Status Date / Time cefazolin sodium [From Ancef] Allergy Mild Itching Verified 03/09/17 13:30 - Home Medications Home Medications: Ambulatory Orders Calcium Acetate [Phoslo] 2 tab PO AC 09/02/14 Carvedilol 12.5 mg PO BID 09/02/14 Multivitamin [Daily Quintin] 1 each PO DAILY 09/02/14 levoFLOXacin [Levaquin -] 750 mg PO DAILY 04/26/17 Family Disease History - Family Disease History Family History: Unremarkable (Not pertinent to this presentation) Family Disease History: Other: Sister (CHF) Review of Systems Findings/Remarks: See HPI - Review of Systems Constitutional: reports: Weakness Cardiovascular: reports: Palpitations Respiratory: denies: No Symptoms, Cough, Exercise Intolerance, Hemoptysis, Orthopnea, PND, Snoring, SOB, SOB on Exertion, Wheezing, Other Gastrointestinal: denies: No Symptoms, Abdominal Pain, Bloating, Constipation, Diarrhea, Dysphagia, Indigestion, Melena, Nausea, Rectal Bleeding, Vomiting, Vomiting Blood, Other Genitourinary: denies: No Symptoms, Burning, Discharge, Dysuria, Flank Pain, Frequency, Hematuria, Incontinence, Lesions, Menses, Pain, Testicular Mass, Testicular Pain, Testicular Swelling, Urgency, Vaginal Bleeding, Other Breasts: denies: No Symptoms Reported, See HPI, Breast Implants, Discharge from Nipple, Lumps, Pain, Skin Changes, Other Musculoskeletal: denies: No Symptoms, Back Pain, Crepitus, Decreased ROM, Extremity Pain, Joint Pain, Joint Swelling, Muscle Pain, Muscle Cramps, Muscle Weakness, Other Integumentary: reports: Rash (diffuse petechial rash) Neurological: denies: No Symptoms, Change in LOC, Change in Speech, Confusion, Dizziness, Headache, Incoordination, Numbness, Parasthesia, Pre-Existing Deficit , Seizure, Syncope, Tremors, Unsteady Gait, Weakness, Other Endocrine: denies: No Symptoms, Excessive Sweating, Flushing, Increased Hunger, Increased Thirst, Intolerance to Cold, Intolerance to Heat, Unexplained Weight Gain, Unexplained Weight Loss, Other - Risk Factors Known Risk Factors: Yes: Other (known CAD s/p CABG) Vital Signs: Vital Signs Temperature 97 F L 04/29/17 08:00 Pulse Rate 136 H 04/29/17 09:15 Respiratory Rate 20 04/29/17 09:15 Blood Pressure 105/59 04/29/17 09:15 O2 Sat by Pulse Oximetry (%) 95 04/27/17 09:17 Eyes: Yes: Conjunctiva Clear Respiratory: Yes: Other (clear anteriorly and laterally) Gastrointestinal: Yes: Soft (no rebound or guarding) Cardiovascular: Yes: Regular Rate and Rhythm JVD: No Carotid Bruit: No PMI: Non-Displaced Heart Sounds: Yes: S1, S2 (RRR, no murmurs) Edema: No Neurological: Yes: Alert, Oriented - Other Data Labs, Other Data: CBC, BMP 04/29/17 06:00 04/29/17 06:00 INR, PTT INR 2.09 (0.82-1.09) H D 04/29/17 06:00 Fibrinogen 452.0 mg/dL (238-498) 04/29/17 06:00 Laboratory Tests 04/26/17 04/28/17 04/29/17 17:50 20:00 06:00 WBC Hgb Plt Count PT with INR 16.60 H INR 1.47 H D PTT (Actin FS) 34.8 H Sodium Potassium BUN Creatinine AST ALT Alkaline Phosphatase LD Total c-ANCA Proteinase 3 (PR3) p-ANCA Atypical p-ANCA Myeloperoxidase Ab Sm (Diamond) Antibody Pending [employer] Antibody Pending Double Strand DNA Ab Pending Hepatitis A Ab Total Pending Hep Bs Antigen Pending Hep Bs Antibody Pending Hep B Core Total Ab Pending Hepatitis C Antibody Pending 04/29/17 04/29/17 04/29/17 06:00 06:00 06:00 WBC 8.7 Hgb 10.7 Plt Count 109 L PT with INR 23.60 H INR 2.09 H D PTT (Actin FS) 119.6 H Sodium 139 Potassium 3.8 BUN 32 H Creatinine 5.1 H AST 102 H ALT 56 Alkaline Phosphatase 210 H LD Total 392 H c-ANCA Proteinase 3 (PR3) p-ANCA Atypical p-ANCA Myeloperoxidase Ab Sm (Diamond) Antibody [employer] Antibody Double Strand DNA Ab Hepatitis A Ab Total Hep Bs Antigen Hep Bs Antibody Hep B Core Total Ab Hepatitis C Antibody 04/29/17 06:00 WBC Hgb Plt Count PT with INR INR PTT (Actin FS) Sodium Potassium BUN Creatinine AST ALT Alkaline Phosphatase LD Total c-ANCA Pending Proteinase 3 (PR3) Pending p-ANCA Pending Atypical p-ANCA Pending Myeloperoxidase Ab Pending Sm (Diamond) Antibody [employer] Antibody Double Strand DNA Ab Hepatitis A Ab Total Hep Bs Antigen Hep Bs Antibody Hep B Core Total Ab Hepatitis C Antibody Wide WRS rhythm probably AF, RBBB Imaging - Results Chest X-ray: Report Reviewed, Image Reviewed Cat Scan: Pending EKG: Report Reviewed, Image Reviewed Problem List - Problems (1) Vasculitis Code(s): I77.6 - ARTERITIS, UNSPECIFIED (2) Rash Code(s): R21 - RASH AND OTHER NONSPECIFIC SKIN ERUPTION (3) ESRD (end stage renal disease) Code(s): N18.6 - END STAGE RENAL DISEASE (4) CAD (coronary artery disease) of artery bypass graft Code(s): I25.810 - ATHEROSCLEROSIS OF CABG W/O ANGINA PECTORIS Qualifiers: [place] vs. transplanted heart: [place] heart (5) Cellulitis Code(s): L03.90 - CELLULITIS, UNSPECIFIED Qualifiers: Site of cellulitis: unspecified site Qualified Code(s): L03.90 - Cellulitis , unspecified (6) Abnormal LFTs Code(s): R94.5 - ABNORMAL RESULTS OF LIVER FUNCTION STUDIES (7) Coagulopathy Code(s): D68.9 - COAGULATION DEFECT, UNSPECIFIED (8) Gangrene Code(s): I96 - GANGRENE, NOT ELSEWHERE CLASSIFIED (9) Paroxysmal A-fib Code(s): I48.0 - PAROXYSMAL ATRIAL FIBRILLATION (10) Thrombocytopenia Code(s): D69.6 - THROMBOCYTOPENIA, UNSPECIFIED Assessment/Plan IMP: Hypotension AF Possible acute vasculitis ESRD PAD Gangrene AF History GI bleed REC: Complicated patient with multiple comorbidities and now what appears to be an acute Vasculitic rash of unclear etiology for which ID, Rheum and Heme have been consulted with work up in progress. From the Vascular standpoint, she has gangrenous changes of the LE and poor circulation for which Vascular was consulted. A CTA has been done to evaluate the nature and extent of PAD. In the interim, heparin gtts was started for signs of LE ischemia. Would re-evaluate the need for heparin pending CTA results and if Heme feels it is helpful. (She was previously not on full AC due to her history of GI bleeding and patient 's decision to continue ASA alone after an informed discussion both in hospital and in office post discharge.) Re. AF and hypotension: Will transfer to ICU for continue telemetry monitoring, hydration, HD and further rate control as needed. Blood cultures are pending. Repeat Echo. Hold Coreg, observe heart rate response to hydration. If additional rate control needed, will use short acting IV agent while in ICU. D/W Dr. Chacon, ICU attending.
[2017-04-29] MEDS ORDERED: SODIUM CHLORIDE 250 ML IV ONE (10:15)
--- NOTE | 2017-04-29 11:07 | PN ---
Progress Note (short form) - Note Progress Note: Renal follow up for ESRD on HD Pt seen examined at the bedside BP noted to be low this am she reports feeling fatigued no sob, chest pain, abd pain + N this am with her meds no fever, chills s/p dialysis yesterday with 2.8kg UF Vital Signs Temperature 98.6 F 04/29/17 10:29 Pulse Rate 118 H 04/29/17 10:29 Respiratory Rate 20 04/29/17 10:29 Blood Pressure 81/44 04/29/17 10:29 O2 Sat by Pulse Oximetry (%) 95 04/27/17 09:17 Intake & Output 04/26/17 04/27/17 04/28/17 04/29/17 23:59 23:59 23:59 23:59 Intake Total 150 660 198 Balance 150 660 198 Weight 58.967 kg 58.967 kg 59.477 kg 58.377 kg NAD awake and alert RRR CTA soft NT/ND peticial rash on arms, not blanching CBC, BMP 04/29/17 06:00 04/29/17 06:00 Current Medications Acetaminophen (Tylenol -) 650 mg PO Q4H PRN PRN Reason: PAIN LEVEL 1-5 Last Admin: 04/28/17 21:30 Dose: 650 mg Calcium Acetate (Phoslo -) 1,334 mg PO TIDCM [facility] Last Admin: 04/29/17 08:58 Dose: 1,334 mg Carvedilol (Coreg -) 12.5 mg PO BID [facility] Last Admin: 04/29/17 09:24 Dose: Not Given Clindamycin HCl (Cleocin -) 300 mg PO Q6HPO [facility] Last Admin: 04/29/17 06:44 Dose: 300 mg Heparin Sodium (Porcine) (Heparin -) 1,000 unit IVPUSH PRN PRN PRN Reason: Heparin Heparin Sodium (Porcine) (Heparin -) 5,000 unit IVPUSH PRN PRN PRN Reason: Heparin Heparin Sodium/Dextrose (Heparin Infusion -) 25,000 units in 500 mls @ 20 mls/ hr IVPB TITR LAITH; 1,000 UNITS/HR PRN Reason: Protocol Last Titration: 04/29/17 00:15 Dose: 900 units/hr, 18 mls/hr Sodium Chloride (Normal Saline -) 250 mls @ 250 mls/hr IV ONCE ONE Stop: 04/29/17 11:14 Last Admin: 04/29/17 09:00 Dose: 250 mls/hr Sodium Chloride (Normal Saline -) 1,000 mls @ 75 mls/hr IV ASDIR LAITH Morphine Sulfate (Morphine Sulfate) 2 mg IVPUSH Q6H PRN PRN Reason: pain Last Admin: 04/29/17 01:43 Dose: 2 mg Multivitamins/Minerals/Vitamin C (Tab-A-Vit -) 1 tab PO DAILY [facility] Last Admin: 04/29/17 09:24 Dose: Not Given Mupirocin (Bactroban 2% Ointment -) 1 applic TP BID [facility] Last Admin: 04/29/17 09:52 Dose: 1 applic Oxycodone HCl (Roxicodone -) 5 mg PO Q4H PRN PRN Reason: PAIN LEVEL 6-10 Last Admin: 04/28/17 23:00 Dose: 5 mg 82 year old woman with PMhx of ESRD on HD (MWF), Hypertension, HLD, subarachnoid hemorrhage presented with right leg wound. #Right leg wound and peticial rash being evalulated for vasculitis by Rheum and Heme possible plasmapharesis serologic work up sent, results pending #Hypotension ? due to intravascular volume depletion s/p HD and UF yesterday s/p 250 NS bolus, will start NS at 75cc per hour CTA images reviewed, only very trace effusions noted monitor BP and respiratory status for transfer to ICU #ESRD on HD s/p dialysis yesterday no indication for DRY ROASTER today Thank you Karsten Sylvester DO
[2017-04-29] MEDS: SODIUM CHLORIDE 1,000 ML IV SCH (11:25)
--- NOTE | 2017-04-29 12:56 | EKG ---
Test Reason : Blood Pressure : / mmHG Vent. Rate : 119 BPM Atrial Rate : 136 BPM P-R Int : 000 ms QRS Dur : 126 ms QT Int : 380 ms P-R-T Axes : 000 -29 145 degrees QTc Int : 534 ms ATRIAL FIBRILLATION WITH RAPID VENTRICULAR RESPONSE RIGHT BUNDLE BRANCH BLOCK INFERIOR INFARCT , AGE UNDETERMINED T WAVE ABNORMALITY, CONSIDER LATERAL ISCHEMIA ABNORMAL ECG Confirmed by Raymond Washington MD ([id number]) on 04/29/2017 12:56:35 PM Referred By: Merry HYATT Confirmed By:Raymond Washington MD
--- NOTE | 2017-04-29 12:57 | CONSULT ---
Consultation: ICU Resident HISTORY OF PRESENT ILLNESS: 82yo F with history of ESRD on dialysis, recent subarachnoid hemorrhage, PAF, HTN, HLP, CAD, and rt foot fx s/p surgical repair who originally presented to the hospital for worsening rash on her L foot and foot wounds thought to have some aspect of cellulitis. On the medical floors pt was also started on heparin gtt for possible ischemic foot alongside of her atrial fibrillation risk. Pt is now presenting to the ICU after a hypotensive episode on the floor which responded to IVF boluses. PHYSICAL EXAMINATION Vital Signs - 24 hr 04/28/17 04/28/17 04/28/17 15:28 16:20 19:35 Temperature 97.5 F L 97.5 F L 97.6 F Pulse Rate 113 H 113 H 113 H Respiratory 18 18 18 Rate Blood Pressure 104/55 96/54 117/53 04/28/17 04/28/17 04/28/17 19:40 20:10 20:40 Temperature Pulse Rate 111 H 112 H 112 H Respiratory 18 18 18 Rate Blood Pressure 110/54 113/47 110/59 04/28/17 04/28/17 04/28/17 21:10 21:40 22:10 Temperature Pulse Rate 115 H 110 H 117 H Respiratory 18 18 18 Rate Blood Pressure 127/60 151/66 116/53 04/28/17 04/28/17 04/28/17 22:40 22:48 22:52 Temperature 98 F Pulse Rate 119 H 118 H Respiratory 18 20 18 Rate Blood Pressure 119/61 82/54 121/60 04/29/17 04/29/17 04/29/17 06:00 08:00 08:30 Temperature 98.3 F 97 F L Pulse Rate 110 H 119 H 124 H Respiratory 20 18 18 Rate Blood Pressure 103/53 78/38 69/43 04/29/17 04/29/17 04/29/17 09:15 09:30 10:00 Temperature Pulse Rate 136 H 122 H 124 H Respiratory 20 20 Rate Blood Pressure 105/59 61/43 82/35 04/29/17 04/29/17 04/29/17 10:02 10:29 11:55 Temperature 98.6 F Pulse Rate 124 H 118 H 127 H Respiratory 20 20 20 Rate Blood Pressure 101/55 81/44 89/49 GENERAL: NAD, awake, alert laying in bed HEENT: NC/AT, rash noted from nasolabial folds across philtrum to her chin, EOMI , VALE, No JVD LUNGS: CTA bilaterally, no wheezes, no crackles, no accessory muscle use. HEART: Tachycardic with regular rhythm, S1, S2 without murmur ABDOMEN: Soft, nontender, nondistended, normoactive bowel sounds, no guarding, no rebound EXTREMITIES: 1+ DP pulses, warm, no edema, blackened area on dorsum of R foot above MCP joints stretching 1cm proximally and across multiple digits. Bandages in place for protection of fragile skin b/l. NEUROLOGICAL: Nonfocal exam. Strength 5/5 bilaterally in plantar and dorsal flexion. normal speech. gait not observed PSYCH: Normal mood, normal affect. SKIN: Warm, dry, macular nonblanching rash noted on entire body including palms and face. Laboratory Results 04/29/17 04/29/17 04/29/17 06:00 06:00 06:00 WBC 8.7 RBC 4.07 Hgb 10.7 Hct 33.7 MCV 82.9 MCH 26.3 MCHC 31.7 L RDW 20.9 H Plt Count 109 L MPV 9.7 Neutrophils % 69.0 Lymphocytes % 17.1 D Monocytes % 12.0 H D Eosinophils % 1.3 Basophils % 0.6 ESR PT with INR INR PTT (Actin FS) Fibrinogen 452.0 Sodium 139 Potassium 3.8 Chloride 98 Carbon Dioxide 27 Anion Gap 14 BUN 32 H Creatinine 5.1 H Creat Clearance w eGFR 8.14 Random Glucose 93 Calcium 8.1 L Phosphorus 4.8 Magnesium 2.1 Ferritin 1885.044 H Total Bilirubin 1.1 H D AST 102 H ALT 56 Alkaline Phosphatase 210 H LD Total 392 H Total Protein 6.8 Albumin 2.6 L Vitamin B12 3590 H Serum Folate 16 TSH 0.23 L Hepatitis C Antibody 04/29/17 06:00 WBC RBC Hgb Hct MCV MCH MCHC RDW Plt Count MPV Neutrophils % Lymphocytes % Monocytes % Eosinophils % Basophils % ESR PT with INR 23.60 H INR 2.09 H D PTT (Actin FS) 119.6 H Fibrinogen Sodium Potassium Chloride Carbon Dioxide Anion Gap BUN Creatinine Creat Clearance w eGFR Random Glucose Calcium Phosphorus Magnesium Ferritin Total Bilirubin AST ALT Alkaline Phosphatase LD Total Total Protein Albumin Vitamin B12 Serum Folate TSH Hepatitis C Antibody Active Medications Generic Name Dose Route Start Last Admin Trade Name Freq PRN Reason Stop Dose Admin Acetaminophen 650 mg 04/28/17 02:19 04/28/17 21:30 Tylenol - PO 650 mg Q4H PRN Administration PAIN LEVEL 1-5 Calcium Acetate 1,334 mg 04/27/17 08:00 04/29/17 12:21 Phoslo - PO 1,334 mg TIDCM [facility] Administration Carvedilol 12.5 mg 04/27/17 10:00 04/29/17 09:24 Coreg - PO Not Given BID [facility] Clindamycin HCl 300 mg 04/28/17 12:00 04/29/17 12:21 Cleocin - PO 300 mg Q6HPO [facility] Administration Heparin Sodium (Porcine) 1,000 unit 04/28/17 13:02 Heparin - IVPUSH PRN PRN Heparin Heparin Sodium (Porcine) 5,000 unit 04/28/17 13:02 Heparin - IVPUSH PRN PRN Heparin Heparin Sodium/Dextrose 25,000 units in 500 mls @ 20 mls/hr 04/28/17 13:15 10:15 Heparin Infusion - IVPB 750 units/hr TITR LAITH 15 mls/hr Protocol Titration 1,000 UNITS/HR Sodium Chloride 1,000 mls @ 75 mls/hr 04/29/17 11:00 04/29/17 11:25 Normal Saline - IV 75 mls/hr ASDIR [facility] Administration Morphine Sulfate 2 mg 04/28/17 02:53 04/29/17 01:43 Morphine Sulfate IVPUSH 2 mg Q6H PRN Administration pain Multivitamins/Minerals/Vitamin C 1 tab 04/27/17 10:00 04/29/17 09:24 Tab-A-Vit - PO Not Given DAILY [facility] Mupirocin 1 applic 04/28/17 22:00 04/29/17 09:52 Bactroban 2% Ointment - TP 1 applic BID [facility] Administration Oxycodone HCl 5 mg 04/28/17 02:19 04/28/17 23:00 Roxicodone - PO 5 mg Q4H PRN Administration PAIN LEVEL 6-10 ASSESSMENT/PLAN: Neuro: Neurologically intact. Respiratory: Currently without distress CV: Hypotension: --Monitor BP --Continue to bolus as needed; however if she requires a large volume would add pressor due to her ESRD and risk of hypervolemia Tachycardia: --most likely intravascular depletion and fluid shifts --Continue Coreg 12.5 mg PO BID as tolerated --Cardiology on board (Dr. Morris) PVD vs. 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 cryoglobulinemia vs. other autoimmune process --Complement levels awaiting results, RF awaiting results --Pt to undergo Q48h plasmapheresis --Will place trialysis catheter to enable treatments --Rheumatology on board --XRay of Hands ordered ID: --Pt being covered with Aztrenonam (day 1) and Clindamycin (day 1) --Despite being afebrile without leukocytosis cannot r/o any infectious process in addition ot other problems causing gangrenous area of foot --ID on board (Dr. Oakley) --MRI of foot to r/o necrosis to bone --Cultures negative thus far FEN: Fluids: NS@75cc/hr Electrolyte abnormalities: None currently Nutrition: Renal Diet PPX: DVT - On heparin gtt already GI - Not indicated currently Dispo: ICU monitoring. Plan for trialysis catheter and apheresis alternating with dialysis Case discussed with Dr. Oswaldo Thompson, DO - IM PGY-1 Visit type - Emergency Visit Emergency Visit: No - New Patient This patient is new to me today: Yes Date on this admission: 04/29/17 - Critical Care Critical Care patient: Yes Total Critical Care Time (in minutes): 35 Critical Care Statement: The care of this patient involved high complexity decision making to prevent further life threatening deterioration of the patient 's condition and/or to evaluate & treat vital organ system(s) failure or risk of failure.
--- NOTE | 2017-04-29 13:27 | PN ---
Progress Note, Physician History of Present Illness: events noted patient became hypotensive was transferred to icu currently she feels better family in the room vascular has seen the patient - Current Medication List Current Medications: Active Medications Acetaminophen (Tylenol -) 650 mg PO Q4H PRN PRN Reason: PAIN LEVEL 1-5 Last Admin: 04/28/17 21:30 Dose: 650 mg Calcium Acetate (Phoslo -) 1,334 mg PO TIDCM [facility] Last Admin: 04/29/17 12:21 Dose: 1,334 mg Carvedilol (Coreg -) 12.5 mg PO BID [facility] Last Admin: 04/29/17 09:24 Dose: Not Given Heparin Sodium (Porcine) (Heparin -) 1,000 unit IVPUSH PRN PRN PRN Reason: Heparin Heparin Sodium (Porcine) (Heparin -) 5,000 unit IVPUSH PRN PRN PRN Reason: Heparin Heparin Sodium/Dextrose (Heparin Infusion -) 25,000 units in 500 mls @ 20 mls/ hr IVPB TITR LAITH; 1,000 UNITS/HR PRN Reason: Protocol Last Titration: 04/29/17 10:15 Dose: 750 units/hr, 15 mls/hr Sodium Chloride (Normal Saline -) 1,000 mls @ 75 mls/hr IV ASDIR [facility] Last Admin: 04/29/17 11:25 Dose: 75 mls/hr Morphine Sulfate (Morphine Sulfate) 2 mg IVPUSH Q6H PRN PRN Reason: pain Last Admin: 04/29/17 01:43 Dose: 2 mg Multivitamins/Minerals/Vitamin C (Tab-A-Vit -) 1 tab PO DAILY [facility] Last Admin: 04/29/17 09:24 Dose: Not Given Mupirocin (Bactroban 2% Ointment -) 1 applic TP BID [facility] Last Admin: 04/29/17 09:52 Dose: 1 applic Oxycodone HCl (Roxicodone -) 5 mg PO Q4H PRN PRN Reason: PAIN LEVEL 6-10 Last Admin: 04/28/17 23:00 Dose: 5 mg - Objective Vital Signs: Vital Signs Temperature 98.6 F 04/29/17 10:29 Pulse Rate 130 H 04/29/17 13:13 Respiratory Rate 20 04/29/17 13:13 Blood Pressure 89/60 04/29/17 13:13 O2 Sat by Pulse Oximetry (%) 95 04/27/17 09:17 Constitutional: Yes: No Distress, Calm Cardiovascular: Yes: Regular Rate and Rhythm Respiratory: Yes: Regular, CTA Bilaterally Gastrointestinal: Yes: Normal Bowel Sounds, Soft Musculoskeletal: Yes: Other Extremities: Yes: Other (gangrene of the foot) Integumentary: Yes: Other (Petechiae (extending over both annkles and feet), Rash (Perioral and upper extremities)) Neurological: Yes: Alert, Oriented Psychiatric: Yes: Alert, Oriented Labs: CBC, BMP 04/29/17 06:00 04/29/17 06:00 INR, PTT INR 2.09 (0.82-1.09) H D 04/29/17 06:00 Fibrinogen 452.0 mg/dL (238-498) 04/29/17 06:00 Assessment/Plan Problem List - Problems (1) Cellulitis Code(s): L03.90 - CELLULITIS, UNSPECIFIED (2) Atrial fibrillation with RVR Code(s): I48.91 - UNSPECIFIED ATRIAL FIBRILLATION (3) CAD (coronary artery disease) Code(s): I25.10 - ATHSCL HEART DISEASE OF [place] CORONARY ARTERY W/O ANG PCTRS (4) ESRD (end stage renal disease) on dialysis Code(s): N18.6 - END STAGE RENAL DISEASE; Z99.2 - DEPENDENCE ON RENAL DIALYSIS (5) Hx of CABG Code(s): Z95.1 - PRESENCE OF AORTOCORONARY BYPASS GRAFT (6) Hypertension Code(s): I10 - ESSENTIAL (PRIMARY) HYPERTENSION (7) Osteoarthritis Code(s): M19.90 - UNSPECIFIED OSTEOARTHRITIS, UNSPECIFIED SITE (8) Subarachnoid hemorrhage following injury Code(s): S06.6X9A - TRAUM SUBRAC HEM W LOC OF UNSP DURATION, INIT Qualifiers: Encounter type: initial encounter Loss of consciousness presence/duration: without LOC Qualified Code(s): S06.6X0A - Traumatic subarachnoid hemorrhage without loss of consciousness, initial encounter Gangrene CTA ordered to assess large vessels in both legs. If major occlusion present will need angiogram for revascularization in effort to salvage foot. Code(s): I96 - GANGRENE, NOT ELSEWHERE CLASSIFIED plan will change to iv abx continue mgmt as per icu plan is for plasmapheresis monitor bp rest as per icu awaiting for imaging studies cc time 40 min
--- NOTE | 2017-04-29 13:45 | SPA.PREOP ---
- PRE-OP NOTE Dx: Right foot gangrene Planned Procedure: RLE angiogram possible angioplasty Surgeon: Lorri Mota Consent: To be obtained after surgeon explains risks, benefits and alternatives. Last Vital Signs Temp Pulse Resp BP Pulse Ox 98.6 F 130 H 20 89/60 95 04/29/17 10:29 04/29/17 13:13 04/29/17 13:13 04/29/17 13:13 04/27/17 09:17 Lab Results WBC 8.7 K/mm3 (4.0-10.0) 04/29/17 06:00 RBC 4.07 M/mm3 (3.60-5.2) 04/29/17 06:00 Hgb 10.7 GM/dL (10.7-15.3) 04/29/17 06:00 Hct 33.7 % (32.4-45.2) 04/29/17 06:00 MCV 82.9 fl (80-96) 04/29/17 06:00 MCHC 31.7 g/dl (32.0-36.0) L 04/29/17 06:00 RDW 20.9 % (11.6-15.6) H 04/29/17 06:00 Plt Count 109 K/MM3 (134-434) L 04/29/17 06:00 Sodium 139 mmol/L (136-145) 04/29/17 06:00 Potassium 3.8 mmol/L (3.5-5.1) 04/29/17 06:00 Chloride 98 mmol/L (98-107) 04/29/17 06:00 Carbon Dioxide 27 mmol/L (21-32) 04/29/17 06:00 Anion Gap 14 (8-16) 04/29/17 06:00 BUN 32 mg/dL (7-18) H 04/29/17 06:00 Creatinine 5.1 mg/dL (0.55-1.02) H 04/29/17 06:00 Random Glucose 93 mg/dL (74-106) 04/29/17 06:00 Calcium 8.1 mg/dL (8.5-10.1) L 04/29/17 06:00 Blood Type B POSITIVE 04/26/17 19:00 Antibody Screen Negative 04/26/17 19:00 INR 2.09 (0.82-1.09) H D 02/20/18 06:00 - ASSESSMENT/PLAN Problem List - Problems (1) Gangrene Assessment/Plan: 1. Make NPO after midnight except PO meds 2. GI/DVT PPX 3. Medical optimization / clearance 4. Cardio clearance 5. Plasmaphoresis prn 6. IVABX per ID/Bobde Code(s): I96 - GANGRENE, NOT ELSEWHERE CLASSIFIED Visit type - Case Type Case Type: ED Admission - New patient This patient is new to me today: Yes Date on this admission: 04/29/17
[2017-04-29] MEDS: HEPARIN INFUSION - 25,000 UNITS/500 ML INFUS.BAG IVPB SCH (14:30)
[2017-04-29] MEDS ORDERED: ALBUMIN HUMAN 5% 250 ML IV SOLUTION IVPB ONE (15:00)
--- NOTE | 2017-04-29 15:12 | PN ---
Teaching Attending Note Name of Resident: Brady Thompson ATTENDING PHYSICIAN STATEMENT I saw and evaluated the patient. I reviewed the resident's note and discussed the case with the resident. I agree with the resident's findings and plan as documented. SUBJECTIVE: Pt seen and examined in the ICU. Briefly, 82yo female with h/o CAD s/p CABG, ESRD on HD, HTN, DM, atrial fibrillation, recent subarachnoid hemorrhage who was admitted with worsening rash on left foot. Started on anticoagulation for possible ischemic foot/gangrene. Thrombocytopenic, high ESR, evaluated by rheumatology with concern for vasculitis. Hypotensive this AM, responded to IVF boluses, transferred to ICU for further monitoring. OBJECTIVE: Last Vital Signs Temp Pulse Resp BP Pulse Ox 98.6 F 130 H 20 89/60 95 04/29/17 10:29 04/29/17 13:13 04/29/17 13:13 04/29/17 13:13 04/27/17 09:17 Intake & Output 04/26/17 04/27/17 04/28/17 04/29/17 23:59 23:59 23:59 23:59 Intake Total 150 660 198 Balance 150 660 198 Weight 58.967 kg 58.967 kg 59.477 kg 58.377 kg Gen: mildly tachypneic at rest Heart: tachycardic, regular Lung: decreased breath sounds at the bases Abd: soft, nontender Ext: no edema, + purpura CBC, BMP 04/29/17 06:00 04/29/17 06:00 Active Medications Acetaminophen (Tylenol -) 650 mg PO Q4H PRN PRN Reason: PAIN LEVEL 1-5 Last Admin: 04/28/17 21:30 Dose: 650 mg Calcium Acetate (Phoslo -) 1,334 mg PO TIDCM [facility] Last Admin: 04/29/17 12:21 Dose: 1,334 mg Carvedilol (Coreg -) 12.5 mg PO BID [facility] Last Admin: 04/29/17 09:24 Dose: Not Given Heparin Sodium (Porcine) (Heparin -) 1,000 unit IVPUSH PRN PRN PRN Reason: Heparin Heparin Sodium (Porcine) (Heparin -) 5,000 unit IVPUSH PRN PRN PRN Reason: Heparin Heparin Sodium/Dextrose (Heparin Infusion -) 25,000 units in 500 mls @ 20 mls/ hr IVPB TITR LAITH; 1,000 UNITS/HR PRN Reason: Protocol Last Titration: 04/29/17 10:15 Dose: 750 units/hr, 15 mls/hr Sodium Chloride (Normal Saline -) 1,000 mls @ 75 mls/hr IV ASDIR [facility] Last Admin: 04/29/17 11:25 Dose: 75 mls/hr Aztreonam 0.5 gm/ Dextrose 50 mls @ 100 mls/hr IVPB Q8H-IV LAITH PRN Reason: Protocol Clindamycin Phosphate (Cleocin 300 Mg Premix Ivpb) 300 mg in 50 mls @ 104 mls/ hr IVPB Q8H-IV LAITH Morphine Sulfate (Morphine Sulfate) 2 mg IVPUSH Q6H PRN PRN Reason: pain Last Admin: 04/29/17 01:43 Dose: 2 mg Multivitamins/Minerals/Vitamin C (Tab-A-Vit -) 1 tab PO DAILY [facility] Last Admin: 04/29/17 09:24 Dose: Not Given Mupirocin (Bactroban 2% Ointment -) 1 applic TP BID [facility] Last Admin: 04/29/17 09:52 Dose: 1 applic Oxycodone HCl (Roxicodone -) 5 mg PO Q4H PRN PRN Reason: PAIN LEVEL 6-10 Last Admin: 04/28/17 23:00 Dose: 5 mg ASSESSMENT AND PLAN: Acute Vasculitis r/o Sepsis ESRD on HD CAD s/p CABG Atrial Fibrillation HTN DM - plasmapharesis per heme - will need catheter once anticoagulation off - empiric antibiotics - HD per renal - heme, rheum f/u - O2 to keep SpO2>90% - IVF boluses as needed - ICU monitoring critical care time spent in reviewing chart, evaluating patient and formulating plan 35 min
[2017-04-29] MEDS: AZTREONAM 0.5 GM in DEXTROSE 5%-WATER - 50 ML IVPB SCH ×2 (15:15→17:35)
--- NOTE | 2017-04-29 15:41 | PN ---
Progress Note (short form) - Note Progress Note: pt seen and examined. Chart reviewed in detail All the consult notes reviewed Labs reviewed family at bedside. Pt c/o fatigue and weakness. O/E: General: elderly woman appears fatigued HEENT: vicky-oral rash noted, slightly more confluent than yesterday Cor: Tachycardic Lungs: Anterior to asucultate wnl abdomen: soft LE: + black eschar on the LE. Skin: small peticheal rash presentin both LE, UE, perioral, forearm neuro: alert and awake Last Vital Signs Temp Pulse Resp BP Pulse Ox 98.6 F 130 H 20 89/60 95 04/29/17 10:29 04/29/17 13:13 04/29/17 13:13 04/29/17 13:13 04/27/17 09:17 CBC, BMP 04/29/17 06:00 04/29/17 06:00 Current Medications Generic Name Dose Route Start Last Admin Trade Name Freq PRN Reason Stop Dose Admin Acetaminophen 650 mg 04/28/17 02:19 04/28/17 21:30 Tylenol - PO 650 mg Q4H PRN Administration PAIN LEVEL 1-5 Calcium Acetate 1,334 mg 04/27/17 08:00 04/29/17 12:21 Phoslo - PO 1,334 mg TIDCM [facility]ITH Administration Carvedilol 12.5 mg 04/27/17 10:00 04/29/17 09:24 Coreg - PO Not Given BID LAITH Heparin Sodium (Porcine) 1,000 unit 04/28/17 13:02 Heparin - IVPUSH PRN PRN Heparin Heparin Sodium (Porcine) 5,000 unit 04/28/17 13:02 Heparin - IVPUSH PRN PRN Heparin Heparin Sodium/Dextrose 25,000 units in 500 mls @ 20 mls/hr 04/28/17 13:15 14:30 Heparin Infusion - IVPB Not Given TITR [facility] Protocol 1,000 UNITS/HR Sodium Chloride 1,000 mls @ 75 mls/hr 04/29/17 11:00 04/29/17 11:25 Normal Saline - IV 75 mls/hr ASDIR LAITH Administration Aztreonam 0.5 gm/ Dextrose 50 mls @ 100 mls/hr 04/29/17 13:30 04/29/17 15:15 IVPB 100 mls/hr Q8H-IV LAITH Administration Protocol Clindamycin Phosphate 300 mg in 50 mls @ 104 mls/hr 04/29/17 20:00 Cleocin 300 Mg Premix Ivpb IVPB Q8H-IV LAITH Morphine Sulfate 2 mg 04/28/17 02:53 04/29/17 01:43 Morphine Sulfate IVPUSH 2 mg Q6H PRN Administration pain Multivitamins/Minerals/Vitamin C 1 tab 04/27/17 10:00 04/29/17 09:24 Tab-A-Vit - PO Not Given DAILY [facility] Mupirocin 1 applic 04/28/17 22:00 04/29/17 09:52 Bactroban 2% Ointment - TP 1 applic BID [facility] Administration Oxycodone HCl 5 mg 04/28/17 02:19 04/28/17 23:00 Roxicodone - PO 5 mg Q4H PRN Administration PAIN LEVEL 6-10 Assessment/Plan: High suspicion for vasculitis (per rheum) Thrombocytopenia Coagulopathy Abnormal LFTs petechial Rash Gangrene ESRD (end stage renal disease) on dialysis CAD (coronary artery disease) -Rhuematology recommends Plasmapheresis (PLEX), w/u per Rheum, d/w rheum -arrangements made for Plasmaexchange, consent obtained after speaking to pts, daughters, grand-daughters, one daughter ( RN at [facility] ) over the phone, discussed in detail about the r/b/a of undergoing PLEX for her condition per rheum to the best of ability, all questions answered to satisfaction -call placed to [facility], will come once catheter is placed ( catheter to be placed once off of AC at least for a period of 2hrs, around 540-600pm). d/w ICU. Volume includes 2500cc, but given her coagulopathy (?etiology infection/ gangrene ), will do half and half of albumin with FFP ( confirmed from Blood bank director ). -due to her ESRD, might need to do alternate sessions, d/w renal, will asses upon daily. -d/w ID, about abx broadening, given possibility of severe sepsis -monitor Lytes , coags, q12h , if post PLEX, fibrinogen is <150, would need to transfuse cryo. -vascular f/u noted, plan for angio. -await derm consult -appreciate all consultants input -critically ill patient. tt 60min
[2017-04-29] MEDS ORDERED: LIDOCAINE HCL 1%, 10 MG/ML (20ML VIAL) ONE (18:12)
--- NOTE | 2017-04-29 18:22 | CONSULT ---
Consult - text type - Consultation Consultation Note: Dermatology Came to see patient to take Biopsy. She is not willing to have biopsy done at this time . will return in am to try again.
--- NOTE | 2017-04-29 19:04 | PROC ---
Central Line Insertion Indication: Other (Start plasmapheresis) Risks and Benefits Explained: Yes Consent on Chart: Yes Central Line: Triple Lumen Catheter Anesthesia: 2% Lidocaine Sterile Technique: Yes Ultrasound Guided Assistance: Yes Position: Left Femoral Post Insertion: Yes: Other Sterile Dressing Applied: Yes
[2017-04-29] MEDS: CLINDAMYCIN 300 MG PREMIX IVPB 300 MG/50 ML BAG IVPB SCH (20:00)
[2017-04-29] MEDS ORDERED: SODIUM CHLORIDE 1,000 ML IV STA (20:27)
[2017-04-29] MEDS ORDERED: SODIUM CHLORIDE 250 ML IV STA (20:40)
[2017-04-29] MEDS ORDERED: CALCIUM GLUCONATE 10% - 1,000 MG/10 ML VIAL IVPB ONE (21:14)
[2017-04-29] MEDS ORDERED: ACETAMINOPHEN 1000 MG/100 ML VIAL (NON FORMULARY) IVPB ONE (21:15)
[2017-04-29] MEDS ORDERED: CALCIUM GLUCONATE 10% - 1,000 MG/10 ML VIAL ONE (21:24)
--- NOTE | 2017-04-29 21:58 | PN ---
Progress Note, Physician History of Present Illness: Pt hypotensive Events of today noted and pt transferred to ICU - Current Medication List Current Medications: Active Medications Acetaminophen (Tylenol -) 650 mg PO Q4H PRN PRN Reason: PAIN LEVEL 1-5 Last Admin: 04/28/17 21:30 Dose: 650 mg Calcium Acetate (Phoslo -) 1,334 mg PO TIDCM [facility] Last Admin: 04/29/17 18:10 Dose: Not Given Carvedilol (Coreg -) 12.5 mg PO BID [facility] Last Admin: 04/29/17 21:41 Dose: Not Given Heparin Sodium (Porcine) (Heparin -) 1,000 unit IVPUSH PRN PRN PRN Reason: Heparin Heparin Sodium (Porcine) (Heparin -) 5,000 unit IVPUSH PRN PRN PRN Reason: Heparin Heparin Sodium/Dextrose (Heparin Infusion -) 25,000 units in 500 mls @ 20 mls/ hr IVPB TITR LAITH; 1,000 UNITS/HR PRN Reason: Protocol Last Admin: 04/29/17 14:30 Dose: Not Given Sodium Chloride (Normal Saline -) 1,000 mls @ 75 mls/hr IV ASDIR [facility] Last Admin: 04/29/17 11:25 Dose: 75 mls/hr Aztreonam 0.5 gm/ Dextrose 50 mls @ 100 mls/hr IVPB Q8H-IV LAITH PRN Reason: Protocol Last Admin: 04/29/17 17:35 Dose: 100 mls/hr Clindamycin Phosphate (Cleocin 300 Mg Premix Ivpb) 300 mg in 50 mls @ 104 mls/ hr IVPB Q8H-IV LAITH Morphine Sulfate (Morphine Sulfate) 2 mg IVPUSH Q6H PRN PRN Reason: pain Last Admin: 04/29/17 01:43 Dose: 2 mg Multivitamins/Minerals/Vitamin C (Tab-A-Vit -) 1 tab PO DAILY [facility] Last Admin: 04/29/17 09:24 Dose: Not Given Mupirocin (Bactroban 2% Ointment -) 1 applic TP BID [facility] Last Admin: 04/29/17 21:55 Dose: 1 applic Oxycodone HCl (Roxicodone -) 5 mg PO Q4H PRN PRN Reason: PAIN LEVEL 6-10 Last Admin: 04/28/17 23:00 Dose: 5 mg - Objective Vital Signs: Vital Signs Temperature 98.6 F 04/29/17 10:29 Pulse Rate 130 H 04/29/17 18:49 Respiratory Rate 16 04/29/17 16:19 Blood Pressure 97/81 04/29/17 18:49 O2 Sat by Pulse Oximetry (%) 95 04/27/17 09:17 Neck: Yes: WNL, Supple Cardiovascular: Yes: WNL, Regular Rate and Rhythm Respiratory: Yes: WNL, Regular, CTA Bilaterally Gastrointestinal: Yes: WNL, Normal Bowel Sounds, Soft, Abdomen, Obese Integumentary: Yes: Other (Petechial rash on extremities and around lips) Labs: CBC, BMP 04/29/17 06:00 04/29/17 06:00 INR, PTT INR 2.09 (0.82-1.09) H D 04/29/17 06:00 Fibrinogen 452.0 mg/dL (238-498) 04/29/17 06:00 Problem List - Problems (1) Gangrene Code(s): I96 - GANGRENE, NOT ELSEWHERE CLASSIFIED (2) Cellulitis Code(s): L03.90 - CELLULITIS, UNSPECIFIED Qualifiers: Site of cellulitis: unspecified site Qualified Code(s): L03.90 - Cellulitis , unspecified (3) Rash Code(s): R21 - RASH AND OTHER NONSPECIFIC SKIN ERUPTION (4) Paroxysmal A-fib Code(s): I48.0 - PAROXYSMAL ATRIAL FIBRILLATION (5) Thrombocytopenia Code(s): D69.6 - THROMBOCYTOPENIA, UNSPECIFIED (6) CAD (coronary artery disease) Code(s): I25.10 - ATHSCL HEART DISEASE OF [place] CORONARY ARTERY W/O ANG PCTRS (7) ESRD (end stage renal disease) on dialysis Code(s): N18.6 - END STAGE RENAL DISEASE; Z99.2 - DEPENDENCE ON RENAL DIALYSIS (8) Hypertension Code(s): I10 - ESSENTIAL (PRIMARY) HYPERTENSION (9) Osteoarthritis Code(s): M19.90 - UNSPECIFIED OSTEOARTHRITIS, UNSPECIFIED SITE
[2017-04-29] MEDS ORDERED: HEPARIN NA (PORCINE) 5,000 UNITS/ML 1ML VIAL IVPUSH ONE ×2 (22:48→22:49)
[2017-04-30] MEDS ORDERED: NOREPINEPHRINE BITARTRATE 4 MG/4 ML ML IV ONE (02:25)
[2017-04-30] MEDS ORDERED: SODIUM CHLORIDE 500 ML IV STA (02:34)
[2017-04-30] MEDS: AZTREONAM 0.5 GM in DEXTROSE 5%-WATER - 50 ML IVPB SCH ×3 (02:35→18:06)
[2017-04-30] MEDS: CLINDAMYCIN 300 MG PREMIX IVPB 300 MG/50 ML BAG IVPB SCH ×3 (02:35→18:22)
[2017-04-30] MEDS: NOREPINEPHRINE BITARTRATE 8,000 MCG in DEXTROSE 5%-WATER - 492 ML IV SCH (02:38)
[2017-04-30 06:09] LABS: HBSAG SCREEN Negative (Negative); HEP B CORE AB, TOT Negative (Negative)
[2017-04-30 06:09] LABS: SERUM IRON SATURATION > 90 (15-55); TOTAL IRON BINDING CAPACITY < 167 (250-450); UIBC < 17 ug/dL (118-369)
[2017-04-30 07:05] LABS: BASO % 0.6 % (0-2.0); HEMATOCRIT 31.4 % (32.4-45.2); HEMOGLOBIN 9.9 GM/dL (10.7-15.3); MCH 26.2 pg (25.7-33.7); MCHC 31.4 g/dl (32.0-36.0); MEAN CELL VOLUME 83.5 fl (80-96); MEAN PLT VOLUME 9.4 fl (7.5-11.1); NEUT % 67.4 % (42.8-82.8); PLATELET COUNT 116 K/MM3 (134-434); RBC 3.77 M/mm3 (3.60-5.2); RDW 20.6 % (11.6-15.6); WHITE BLOOD COUNT 10.3 K/mm3 (4.0-10.0)
--- NOTE | 2017-04-30 07:14 | PN ---
Progress Note (short form) - Note Progress Note: 82yo female with h/o CAD s/p CABG, ESRD on HD, HTN, DM, atrial fibrillation, recent subarachnoid hemorrhage who was admitted with worsening rash on left foot. Started on anticoagulation for possible ischemic foot/gangrene. Thrombocytopenic, high ESR, evaluated by Rheumatology with concern for vasculitis. Yesterday, she was transferred to ICU secondary to episode of hypotension. A shiley catheter was placed by ICU resident and Plasmaphoresis started. Patient was scheduled for RLE ANGIO today due to occlusive disease identified onher CTA w/ bilat LE runoff. Case is cancelled for now. Vascular Surfery Team to cont following until she is medically optimized/cleared for said procedure. Dr. Mota made aware. Problem List - Problems (1) Gangrene Code(s): I96 - GANGRENE, NOT ELSEWHERE CLASSIFIED
[2017-04-30 08:02] LABS: INR 1.55 (0.82-1.09); PROTHROMBIN TIME (PATIENT) 17.5 SEC (9.98-11.88)
[2017-04-30 08:33] LABS: ANION GAP 15 (8-16); CHLORIDE 100 mmol/L (98-107); CO2 24 mmol/L (21-32); CREATININE 5.5 mg/dL (0.55-1.02); POTASSIUM 3.3 mmol/L (3.5-5.1); SGOT/AST 45 U/L (15-37); SGPT/ALT 31 U/L (12-78); SODIUM 139 mmol/L (136-145)
[2017-04-30] MEDS: CALCIUM ACETATE 667 MG CAPSULE (FP) PO SCH ×3 (08:40→18:06)
[2017-04-30 09:08] LABS: ALBUMIN 3.1 g/dl (3.4-5.0); BLOOD UREA NITROGEN 37 mg/dL (7-18); CALCIUM 7.2 mg/dL (8.5-10.1); GLUCOSE,RANDOM 102 mg/dL (74-106); LDH 244 U/L (84-246); TOT PROT 5.9 g/dl (6.4-8.2)
[2017-04-30 09:10] LABS: ALK PHOS 119 U/L (45-117)
--- NOTE | 2017-04-30 09:23 | PN ---
Physical Exam: SUBJECTIVE: 24hr events: Pt received a trialysis catheter in her groin and underwent plasmapheresis without problem. Pt has had no acute events inbetween. Currently pt presents with family at bedside and denies f/c, n/v/d/c, dizziness , lightheadedness, CP/discomfort, SOB, pain in her feet, changes in sensation of her feet, and any strength changes. OBJECTIVE: Vital Signs Period Temp Pulse Resp BP Sys/Street Pulse Ox Last 24 Hr 98 F-99.0 F 104-132 10-20 61-109/35-81 98-98 GENERAL: NAD, awake, alert sitting in bed HEENT: NC/AT, rash noted from nasolabial folds across philtrum to her chin which has improved, EOMI, VALE, No JVD LUNGS: CTA bilaterally, no wheezes, no crackles, no accessory muscle use. HEART: Tachycardic with regular rhythm, S1, S2 without murmur ABDOMEN: Soft, nontender, nondistended, normoactive bowel sounds, no guarding, no rebound EXTREMITIES: 1-2+ DP pulses (improved from yesterday), warm, no edema, blackened area on dorsum of R foot above MCP joints stretching 1cm proximally and across multiple digits. Bandages in place for protection of fragile skin b/ l. NEUROLOGICAL: Nonfocal exam. Strength 5/5 bilaterally in plantar and dorsal flexion. normal speech. gait not observed PSYCH: Normal mood, normal affect. SKIN: Warm, dry, macular nonblanching rash noted on entire body including palms and face as above. Rash on face and legs markedly improved however palmar macules same as previous exam. Laboratory Results 04/30/17 04/30/17 04/30/17 06:45 06:45 06:45 WBC 10.3 H RBC 3.77 Hgb 9.9 L Hct 31.4 L MCV 83.5 MCH 26.2 MCHC 31.4 L RDW 20.6 H Plt Count 116 L MPV 9.4 Neutrophils % 67.4 Lymphocytes % 18.0 Monocytes % 12.0 H Eosinophils % 2.0 Basophils % 0.6 ESR Haptoglobin PT with INR 17.50 H INR 1.55 H PTT (Actin FS) 86.3 H Fibrinogen 300.0 D Sodium Potassium Chloride Carbon Dioxide Anion Gap BUN Creatinine Creat Clearance w eGFR Random Glucose Calcium Phosphorus Magnesium Iron TIBC Iron Saturation Ferritin Total Bilirubin AST ALT Alkaline Phosphatase LD Total Total Protein Albumin Vitamin B12 Serum Folate TSH Rheumatoid Arth Biomark Complement C3 Complement C4 Hepatitis A Ab Total Hep Bs Antigen Hep Bs Antibody Hep B Core Total Ab Hepatitis C Antibody 04/30/17 06:45 WBC RBC Hgb Hct MCV MCH MCHC RDW Plt Count MPV Neutrophils % Lymphocytes % Monocytes % Eosinophils % Basophils % ESR Haptoglobin PT with INR INR PTT (Actin FS) Fibrinogen Sodium 139 Potassium 3.3 L Chloride 100 Carbon Dioxide 24 Anion Gap 15 BUN 37 H Creatinine 5.5 H Creat Clearance w eGFR 7.46 Random Glucose 102 Calcium 7.2 L Phosphorus Magnesium Iron TIBC Iron Saturation Ferritin Total Bilirubin 1.0 AST 45 H ALT 31 Alkaline Phosphatase 119 H LD Total 244 Total Protein 5.9 L Albumin 3.1 L Vitamin B12 Serum Folate TSH Rheumatoid Arth Biomark Complement C3 Complement C4 Hepatitis A Ab Total Hep Bs Antigen Hep Bs Antibody Hep B Core Total Ab Hepatitis C Antibody Active Medications Generic Name Dose Route Start Last Admin Trade Name Freq PRN Reason Stop Dose Admin Acetaminophen 650 mg 04/28/17 02:19 04/28/17 21:30 Tylenol - PO 650 mg Q4H PRN Administration PAIN LEVEL 1-5 Calcium Acetate 1,334 mg 04/27/17 08:00 04/29/17 18:10 Phoslo - PO Not Given TIDCM [facility] Carvedilol 12.5 mg 04/27/17 10:00 04/29/17 21:41 Coreg - PO Not Given BID LAITH Heparin Sodium (Porcine) 1,000 unit 04/28/17 13:02 Heparin - IVPUSH PRN PRN Heparin Heparin Sodium (Porcine) 5,000 unit 04/28/17 13:02 Heparin - IVPUSH PRN PRN Heparin Heparin Sodium/Dextrose 25,000 units in 500 mls @ 20 mls/hr 04/28/17 13:15 14:30 Heparin Infusion - IVPB Not Given TITR [facility] Protocol 1,000 UNITS/HR Sodium Chloride 1,000 mls @ 75 mls/hr 04/29/17 11:00 04/29/17 11:25 Normal Saline - IV 75 mls/hr ASDIR [facility] Administration Aztreonam 0.5 gm/ Dextrose 50 mls @ 100 mls/hr 04/29/17 13:30 04/30/17 02:35 IVPB 100 mls/hr Q8H-IV [facility] Administration Protocol Clindamycin Phosphate 300 mg in 50 mls @ 104 mls/hr 04/29/17 20:00 04/30/17 02:35 Cleocin 300 Mg Premix Ivpb IVPB 104 mls/hr Q8H-IV LAITH Administration Norepinephrine Bitartrate 8, 500 mls @ 18.75 mls/hr 04/30/17 02:45 04/30/17 02:38 000 mcg/ Dextrose IV 5 mcg/min TITR [facility] 18.75 mls/hr Protocol Administration 5 MCG/MIN Metoprolol Tartrate 5 mg 04/30/17 08:55 Lopressor Injection - IVPUSH Q6H PRN TACHYCARDIA Morphine Sulfate 2 mg 04/28/17 02:53 04/29/17 01:43 Morphine Sulfate IVPUSH 2 mg Q6H PRN Administration pain Multivitamins/Minerals/Vitamin C 1 tab 04/27/17 10:00 04/29/17 09:24 Tab-A-Vit - PO Not Given DAILY [facility] Mupirocin 1 applic 04/28/17 22:00 04/29/17 21:55 Bactroban 2% Ointment - TP 1 applic BID [facility] Administration Oxycodone HCl 5 mg 04/28/17 02:19 04/28/17 23:00 Roxicodone - PO 5 mg Q4H PRN Administration PAIN LEVEL 6-10 ASSESSMENT/PLAN: Neuro: Neurologically intact. Respiratory: Currently without distress CV: Hypotension: --Monitor BP --Pt was started on low-dose Levophed to help support her pressures --Continue to wean as tolerated Tachycardia: --most likely intravascular depletion and fluid shifts --Continue Coreg 12.5 mg PO BID as tolerated --Addin Lopressor 5mg IVP q6h for persistant tachycardia --Cardiology on board (Dr. Morris) PVD vs. 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 other autoimmune process --Complement levels: C3 99, C4 27 --RF elevated --Other lab values pending --Pt to undergo Q48h plasmapheresis which has showed marked improvement already --Rheumatology on board --XRay of Hands ordered; will discuss with XR about doing bedside --Will discuss long-term immunosuppressive therapy with prednisone or other possibilities with Rheum ID: --Pt being covered with Aztrenonam (day 2) and Clindamycin (day 2) --Despite being afebrile without leukocytosis cannot r/o any infectious process in addition ot other problems causing gangrenous area of foot --ID on board (Dr. Oakley) --MRI of foot to r/o necrosis to bone --Cultures negative thus far FEN: Fluids: NS@75cc/hr Electrolyte abnormalities: Hypokalemia (3.3) Nutrition: Renal Diet PPX: DVT - On heparin gtt already GI - Not indicated currently Dispo: Continue ICU monitoring Case Discussed with Dr. Oswaldo Thompson, DO - Im PGY-1 Visit type - Emergency Visit Emergency Visit: No - New Patient This patient is new to me today: No - Critical Care Critical Care patient: Yes Total Critical Care Time (in minutes): 35 Critical Care Statement: The care of this patient involved high complexity decision making to prevent further life threatening deterioration of the patient 's condition and/or to evaluate & treat vital organ system(s) failure or risk of failure.
--- NOTE | 2017-04-30 09:27 | PN ---
Progress Note, Physician Chief Complaint: seen and examined, no distress Family at bedside TELE: AF in 130s, BP has improved to 110 systolic range. Rheum, Heme and Gen Med notes reviewed: plan is for Plasmapheresis. Platelets are holding. - Current Medication List Current Medications: Active Medications Acetaminophen (Tylenol -) 650 mg PO Q4H PRN PRN Reason: PAIN LEVEL 1-5 Last Admin: 04/28/17 21:30 Dose: 650 mg Calcium Acetate (Phoslo -) 1,334 mg PO TIDCM [facility] Last Admin: 04/29/17 18:10 Dose: Not Given Carvedilol (Coreg -) 12.5 mg PO BID [facility] Last Admin: 04/29/17 21:41 Dose: Not Given Heparin Sodium (Porcine) (Heparin -) 1,000 unit IVPUSH PRN PRN PRN Reason: Heparin Heparin Sodium (Porcine) (Heparin -) 5,000 unit IVPUSH PRN PRN PRN Reason: Heparin Heparin Sodium/Dextrose (Heparin Infusion -) 25,000 units in 500 mls @ 20 mls/ hr IVPB TITR [facility]; 1,000 UNITS/HR PRN Reason: Protocol Last Admin: 04/29/17 14:30 Dose: Not Given Sodium Chloride (Normal Saline -) 1,000 mls @ 75 mls/hr IV ASDIR [facility] Last Admin: 04/29/17 11:25 Dose: 75 mls/hr Aztreonam 0.5 gm/ Dextrose 50 mls @ 100 mls/hr IVPB Q8H-IV [facility] PRN Reason: Protocol Last Admin: 04/30/17 02:35 Dose: 100 mls/hr Clindamycin Phosphate (Cleocin 300 Mg Premix Ivpb) 300 mg in 50 mls @ 104 mls/ hr IVPB Q8H-IV [facility] Last Admin: 04/30/17 02:35 Dose: 104 mls/hr Norepinephrine Bitartrate 8, (000 mcg/ Dextrose) 500 mls @ 18.75 mls/hr IV TITR [facility]; 5 MCG/MIN PRN Reason: Protocol Last Admin: 04/30/17 02:38 Dose: 5 mcg/min, 18.75 mls/hr Metoprolol Tartrate (Lopressor Injection -) 5 mg IVPUSH Q6H PRN PRN Reason: TACHYCARDIA Morphine Sulfate (Morphine Sulfate) 2 mg IVPUSH Q6H PRN PRN Reason: pain Last Admin: 04/29/17 01:43 Dose: 2 mg Multivitamins/Minerals/Vitamin C (Tab-A-Vit -) 1 tab PO DAILY [facility] Last Admin: 04/29/17 09:24 Dose: Not Given Mupirocin (Bactroban 2% Ointment -) 1 applic TP BID [facility] Last Admin: 04/29/17 21:55 Dose: 1 applic Oxycodone HCl (Roxicodone -) 5 mg PO Q4H PRN PRN Reason: PAIN LEVEL 6-10 Last Admin: 04/28/17 23:00 Dose: 5 mg - Objective Vital Signs: Vital Signs Temperature 98 F 04/30/17 06:00 Pulse Rate 126 H 04/30/17 09:06 Respiratory Rate 15 04/30/17 09:06 Blood Pressure 109/70 04/30/17 09:06 O2 Sat by Pulse Oximetry (%) 98 04/29/17 21:00 Constitutional: Yes: No Distress Eyes: Yes: Conjunctiva Clear Cardiovascular: Yes: Tachycardia, Pulse Irregular Respiratory: Yes: Other (scattered rhonchim no active wheezing or rales.) Gastrointestinal: Yes: Soft (non-tender. Soft.) Edema: Yes Edema: LLE: 1+, RLE: 1+ Neurological: Yes: Alert, Oriented ...Motor Strength: WNL Labs: CBC, BMP 04/30/17 06:45 04/30/17 06:45 INR, PTT INR 1.55 (0.82-1.09) H 04/30/17 06:45 Fibrinogen 300.0 mg/dL (238-498) D 04/30/17 06:45 Microbiology 04/26/17 17:00 Blood - Peripheral Venous Blood Culture - Preliminary NO GROWTH OBTAINED AFTER 72 HOURS, INCUBATION TO CONTINUE FOR 2 DAYS. 04/26/17 16:55 Blood - Peripheral Venous Blood Culture - Preliminary NO GROWTH OBTAINED AFTER 72 HOURS, INCUBATION TO CONTINUE FOR 2 DAYS. Laboratory Tests 04/28/17 04/29/17 04/29/17 20:00 11:05 11:05 WBC Hgb Hct Plt Count INR Fibrinogen Sodium Potassium BUN Creatinine Random Glucose AST ALT Alkaline Phosphatase LD Total Rheumatoid Arth Biomark 16.3 H Complement C3 99 Complement C4 27 Hepatitis A Ab Total Negative Hep Bs Antigen Negative Hep Bs Antibody Reactive Hep B Core Total Ab Negative Hepatitis C Antibody <0.1 04/30/17 04/30/17 04/30/17 06:45 06:45 06:45 WBC 10.3 H Hgb 9.9 L Hct 31.4 L Plt Count 116 L INR 1.55 H Fibrinogen 300.0 D Sodium 139 Potassium 3.3 L BUN 37 H Creatinine 5.5 H Random Glucose 102 AST 45 H ALT 31 Alkaline Phosphatase 119 H LD Total 244 Rheumatoid Arth Biomark Complement C3 Complement C4 Hepatitis A Ab Total Hep Bs Antigen Hep Bs Antibody Hep B Core Total Ab Hepatitis C Antibody - ....Imaging EKG: Image Reviewed Problem List - Problems (1) Vasculitis Code(s): I77.6 - ARTERITIS, UNSPECIFIED (2) Rash Code(s): R21 - RASH AND OTHER NONSPECIFIC SKIN ERUPTION (3) ESRD (end stage renal disease) Code(s): N18.6 - END STAGE RENAL DISEASE (4) CAD (coronary artery disease) of artery bypass graft Code(s): I25.810 - ATHEROSCLEROSIS OF CABG W/O ANGINA PECTORIS Qualifiers: [place] vs. transplanted heart: [place] heart (5) Cellulitis Code(s): L03.90 - CELLULITIS, UNSPECIFIED Qualifiers: Site of cellulitis: unspecified site Qualified Code(s): L03.90 - Cellulitis , unspecified (6) Abnormal LFTs Code(s): R94.5 - ABNORMAL RESULTS OF LIVER FUNCTION STUDIES (7) Coagulopathy Code(s): D68.9 - COAGULATION DEFECT, UNSPECIFIED (8) Gangrene Code(s): I96 - GANGRENE, NOT ELSEWHERE CLASSIFIED (9) Paroxysmal A-fib Code(s): I48.0 - PAROXYSMAL ATRIAL FIBRILLATION (10) Thrombocytopenia Code(s): D69.6 - THROMBOCYTOPENIA, UNSPECIFIED Assessment/Plan IMP: Hypotension, seemingly resolved. AF with RVR Suspected acute vasculitis ESRD on HD PAD, CAD s/p CABG Gangrene of LE History GI bleed Remote history SAH REC: 1. Re. AF and hypotension: As BP is improved today, we can start Lopressor 5mg IV q6H with hold parameter of < 100mmHG systolic. Hesitant to start oral agents at this time as BP may be labile with HD/ pheresis etc. If additional rate control is needed, can use Digoxin 1x dose or initiate Esmolol gtts and titrate to H.R < 120bpm. 2. Complicated patient with multiple comorbidities and now what appears to be an acute Vasculitic rash of unclear etiology for which ID, Rheum and Heme have been consulted with work up in progress. Plan in place for plasmapheresis. 3. From the Vascular standpoint, she has gangrenous changes of the LE and poor circulation for which Vascular was consulted. A CTA has been done to evaluate the nature and extent of PAD, results are pending. In the interim, heparin gtts was started for signs of LE ischemia. Would re-evaluate the need for heparin pending CTA results and if Heme feels it is helpful. (She was previously not on full AC due to her history of GI bleeding and patient 's decision to continue ASA alone after an informed discussion both in hospital and in office post discharge.)
--- NOTE | 2017-04-30 09:28 | PN ---
Progress Note (short form) - Note Progress Note: pt seen and examined. tolerated procedure well Now on Levophed O/E: General: elderly woman appears fatigued HEENT: vicky-oral rash noted, slightly better Cor: Tachycardic Lungs: Anterior to asucultate wnl abdomen: soft LE: + black eschar on the LE. Skin: small peticheal rash presentin both LE, UE, perioral, forearm neuro: alert and awake Last Vital Signs Temp Pulse Resp BP Pulse Ox 98 F 126 H 15 109/70 98 04/30/17 06:00 04/30/17 09:06 04/30/17 09:06 04/30/17 09:06 04/29/17 21:00 CBC, BMP 04/30/17 06:45 04/30/17 06:45 Current Medications Generic Name Dose Route Start Last Admin Trade Name Freq PRN Reason Stop Dose Admin Acetaminophen 650 mg 04/28/17 02:19 04/28/17 21:30 Tylenol - PO 650 mg Q4H PRN Administration PAIN LEVEL 1-5 Calcium Acetate 1,334 mg 04/27/17 08:00 04/29/17 18:10 Phoslo - PO Not Given TIDCM [facility] Carvedilol 12.5 mg 04/27/17 10:00 04/29/17 21:41 Coreg - PO Not Given BID [facility] Heparin Sodium (Porcine) 1,000 unit 04/28/17 13:02 Heparin - IVPUSH PRN PRN Heparin Heparin Sodium (Porcine) 5,000 unit 04/28/17 13:02 Heparin - IVPUSH PRN PRN Heparin Heparin Sodium/Dextrose 25,000 units in 500 mls @ 20 mls/hr 04/28/17 13:15 14:30 Heparin Infusion - IVPB Not Given TITR [facility] Protocol 1,000 UNITS/HR Sodium Chloride 1,000 mls @ 75 mls/hr 04/29/17 11:00 04/29/17 11:25 Normal Saline - IV 75 mls/hr ASDIR [facility] Administration Aztreonam 0.5 gm/ Dextrose 50 mls @ 100 mls/hr 04/29/17 13:30 04/30/17 02:35 IVPB 100 mls/hr Q8H-IV [facility] Administration Protocol Clindamycin Phosphate 300 mg in 50 mls @ 104 mls/hr 04/29/17 20:00 04/30/17 02:35 Cleocin 300 Mg Premix Ivpb IVPB 104 mls/hr Q8H-IV [facility] Administration Norepinephrine Bitartrate 8, 500 mls @ 18.75 mls/hr 04/30/17 02:45 04/30/17 02:38 000 mcg/ Dextrose IV 5 mcg/min TITR [facility]ITH 18.75 mls/hr Protocol Administration 5 MCG/MIN Metoprolol Tartrate 5 mg 04/30/17 08:55 Lopressor Injection - IVPUSH Q6H PRN TACHYCARDIA Morphine Sulfate 2 mg 04/28/17 02:53 04/29/17 01:43 Morphine Sulfate IVPUSH 2 mg Q6H PRN Administration pain Multivitamins/Minerals/Vitamin C 1 tab 04/27/17 10:00 04/29/17 09:24 Tab-A-Vit - PO Not Given DAILY [facility] Mupirocin 1 applic 04/28/17 22:00 04/29/17 21:55 Bactroban 2% Ointment - TP 1 applic BID [facility] Administration Oxycodone HCl 5 mg 04/28/17 02:19 04/28/17 23:00 Roxicodone - PO 5 mg Q4H PRN Administration PAIN LEVEL 6-10 Assessment/Plan: Vasculitic rash , w/u in progress Thrombocytopenia Coagulopathy Abnormal LFTs Ischemic of the LE. ESRD (end stage renal disease) on dialysis CAD (coronary artery disease) Impression: s/p PLEX session one on 04/29 post PLEX parameters , stable, replete K and give one dose of luiz gluconate platelets stable, INR improved for skin biopsy today of the rash for PLEX next session on 05/01 on heparin drip , for occlusive disease identified on her CTA, angio is on hold , close monitoring of CBC/PTT in the light of her hx of GIB in the past. abx per ID will follow
[2017-04-30] MEDS ORDERED: LIDOCAINE HCL 1%, 10 MG/ML (20ML VIAL) ONE (09:29)
[2017-04-30] MEDS ORDERED: PT OWN MED DRAWER 7, Y5N ONE ×2 (09:35→22:09)
[2017-04-30] MEDS: CARVEDILOL 12.5 MG TABLET (FP) PO SCH ×3 (09:48→21:33)
--- NOTE | 2017-04-30 09:49 | CONSULT ---
Consult - text type - Consultation Consultation Note: Dermatology Biopsy consent area prepped 1% lido infiltrated to area on left inner calf shave of purpuric lesion sent to lab dressing placed will follow
[2017-04-30] MEDS: MULTIVITAMINS (DAILY MVI) TABLET (FP) PO SCH (09:54)
[2017-04-30] MEDS: HEPARIN INFUSION - 25,000 UNITS/500 ML INFUS.BAG IVPB SCH ×3 (10:45→19:26)
[2017-04-30] MEDS ORDERED: CALCIUM GLUCONATE 10% - 1,000 MG/10 ML VIAL IVPUSH ONE (10:55)
[2017-04-30] MEDS: SODIUM CHLORIDE 1,000 ML IV SCH (11:37)
[2017-04-30] MEDS ORDERED: ACETAMINOPHEN 325 MG TABLET (FP) ONE (12:36)
[2017-04-30] MEDS: ACETAMINOPHEN 325 MG TABLET (FP) PO PRN (12:37)
--- NOTE | 2017-04-30 13:01 | PN ---
Teaching Attending Note Name of Resident: Brady Thompson ATTENDING PHYSICIAN STATEMENT I saw and evaluated the patient. I reviewed the resident's note and discussed the case with the resident. I agree with the resident's findings and plan as documented. SUBJECTIVE: Pt seen and examined in the ICU. Tolerated plasmapharesis yesterday. Placed on levophed overnight for hypotension. OBJECTIVE: Last Vital Signs Temp Pulse Resp BP Pulse Ox 98.3 F 125 H 15 105/56 98 04/30/17 10:00 04/30/17 12:36 04/30/17 12:36 04/30/17 12:36 04/30/17 09:00 Intake & Output 04/27/17 04/28/17 04/29/17 04/30/17 23:59 23:59 23:59 23:59 Intake Total 150 425 114 8865 Balance 150 205 311 5773 Weight 58.967 kg 59.477 kg 58.377 kg 57.788 kg Gen: NAD at rest Heart: tachycardic, regular Lung: decreased breath sounds at the bases Abd: soft, nontender Ext: R foot gangrene, purpuric rash CBC, BMP 04/30/17 06:45 04/30/17 06:45 Active Medications Acetaminophen (Tylenol -) 650 mg PO Q4H PRN PRN Reason: PAIN LEVEL 1-5 Last Admin: 04/30/17 12:37 Dose: 650 mg Albumin Human (Plasbumin-5 -) 62.5 gm IVPB ONCE ONE Stop: 05/02/17 10:01 Calcium Acetate (Phoslo -) 1,334 mg PO TIDCM [facility] Last Admin: 04/30/17 12:52 Dose: 1,334 mg Carvedilol (Coreg -) 12.5 mg PO BID [facility] Last Admin: 04/30/17 09:59 Dose: Not Given Heparin Sodium (Porcine) (Heparin -) 1,000 unit IVPUSH PRN PRN PRN Reason: Heparin Heparin Sodium (Porcine) (Heparin -) 5,000 unit IVPUSH PRN PRN PRN Reason: Heparin Heparin Sodium/Dextrose (Heparin Infusion -) 25,000 units in 500 mls @ 20 mls/ hr IVPB TITR [facility]ITH; 1,000 UNITS/HR PRN Reason: Protocol Last Admin: 04/30/17 11:00 Dose: 750 units/hr, 15 mls/hr Sodium Chloride (Normal Saline -) 1,000 mls @ 75 mls/hr IV ASDIR [facility] Last Admin: 04/30/17 11:37 Dose: 75 mls/hr Aztreonam 0.5 gm/ Dextrose 50 mls @ 100 mls/hr IVPB Q8H-IV [facility] PRN Reason: Protocol Last Admin: 04/30/17 11:38 Dose: 100 mls/hr Clindamycin Phosphate (Cleocin 300 Mg Premix Ivpb) 300 mg in 50 mls @ 104 mls/ hr IVPB Q8H-IV [facility] Last Admin: 04/30/17 09:48 Dose: 104 mls/hr Norepinephrine Bitartrate 8, (000 mcg/ Dextrose) 500 mls @ 18.75 mls/hr IV TITR [facility]ITH; 5 MCG/MIN PRN Reason: Protocol Last Admin: 04/30/17 02:38 Dose: 5 mcg/min, 18.75 mls/hr Metoprolol Tartrate (Lopressor Injection -) 5 mg IVPUSH Q6H PRN PRN Reason: TACHYCARDIA Morphine Sulfate (Morphine Sulfate) 2 mg IVPUSH Q6H PRN PRN Reason: pain Last Admin: 04/29/17 01:43 Dose: 2 mg Multivitamins/Minerals/Vitamin C (Tab-A-Vit -) 1 tab PO DAILY [facility] Last Admin: 04/30/17 09:54 Dose: 1 tab Mupirocin (Bactroban 2% Ointment -) 1 applic TP BID [facility] Last Admin: 04/29/17 21:55 Dose: 1 applic Oxycodone HCl (Roxicodone -) 5 mg PO Q4H PRN PRN Reason: PAIN LEVEL 6-10 Last Admin: 04/28/17 23:00 Dose: 5 mg ASSESSMENT AND PLAN: Acute Vasculitis r/o Sepsis ESRD on HD CAD s/p CABG Atrial Fibrillation HTN DM - plasmapharesis per heme - empiric antibiotics - HD per renal - IVF boluses as needed - titrate pressors to maintain MAP >65 - heme, rheum f/u - O2 to keep SpO2>90% - ICU monitoring critical care time spent in reviewing chart, evaluating patient and formulating plan 35 min
--- NOTE | 2017-04-30 13:16 | PN ---
Progress Note (short form) - Note Progress Note: Renal follow up for ESRD on HD Pt seen examined at the bedside awake and alert on IVF denies any sob, chest pain s/p plasmapharesis yesterday BP better but still marginal Vital Signs Temperature 98.3 F 04/30/17 10:00 Pulse Rate 125 H 04/30/17 12:36 Respiratory Rate 15 04/30/17 12:36 Blood Pressure 105/56 04/30/17 12:36 O2 Sat by Pulse Oximetry (%) 98 04/30/17 09:00 Intake & Output 04/27/17 04/28/17 04/29/17 04/30/17 23:59 23:59 23:59 23:59 Intake Total 150 714 830 8169 Balance 150 215 691 2628 Weight 58.967 kg 59.477 kg 58.377 kg 57.788 kg NAD awake and alert RRR CTA soft NT/ND peticial rash on arms, not blanching CBC, BMP 04/30/17 06:45 04/30/17 06:45 Current Medications Acetaminophen (Tylenol -) 650 mg PO Q4H PRN PRN Reason: PAIN LEVEL 1-5 Last Admin: 04/30/17 12:37 Dose: 650 mg Albumin Human (Plasbumin-5 -) 62.5 gm IVPB ONCE ONE Stop: 05/02/17 10:01 Calcium Acetate (Phoslo -) 1,334 mg PO TIDCM [facility] Last Admin: 04/30/17 12:52 Dose: 1,334 mg Carvedilol (Coreg -) 12.5 mg PO BID [facility] Last Admin: 04/30/17 09:59 Dose: Not Given Heparin Sodium (Porcine) (Heparin -) 1,000 unit IVPUSH PRN PRN PRN Reason: Heparin Heparin Sodium (Porcine) (Heparin -) 5,000 unit IVPUSH PRN PRN PRN Reason: Heparin Heparin Sodium/Dextrose (Heparin Infusion -) 25,000 units in 500 mls @ 20 mls/ hr IVPB TITR LAITH; 1,000 UNITS/HR PRN Reason: Protocol Last Admin: 04/30/17 11:00 Dose: 750 units/hr, 15 mls/hr Aztreonam 0.5 gm/ Dextrose 50 mls @ 100 mls/hr IVPB Q8H-IV [facility] PRN Reason: Protocol Last Admin: 04/30/17 11:38 Dose: 100 mls/hr Clindamycin Phosphate (Cleocin 300 Mg Premix Ivpb) 300 mg in 50 mls @ 104 mls/ hr IVPB Q8H-IV [facility] Last Admin: 04/30/17 09:48 Dose: 104 mls/hr Norepinephrine Bitartrate 8, (000 mcg/ Dextrose) 500 mls @ 18.75 mls/hr IV TITR LAITH; 5 MCG/MIN PRN Reason: Protocol Last Admin: 04/30/17 02:38 Dose: 5 mcg/min, 18.75 mls/hr Metoprolol Tartrate (Lopressor Injection -) 5 mg IVPUSH Q6H PRN PRN Reason: TACHYCARDIA Morphine Sulfate (Morphine Sulfate) 2 mg IVPUSH Q6H PRN PRN Reason: pain Last Admin: 04/29/17 01:43 Dose: 2 mg Multivitamins/Minerals/Vitamin C (Tab-A-Vit -) 1 tab PO DAILY [facility] Last Admin: 04/30/17 09:54 Dose: 1 tab Mupirocin (Bactroban 2% Ointment -) 1 applic TP BID [facility] Last Admin: 04/29/17 21:55 Dose: 1 applic Oxycodone HCl (Roxicodone -) 5 mg PO Q4H PRN PRN Reason: PAIN LEVEL 6-10 Last Admin: 04/28/17 23:00 Dose: 5 mg 82 year old woman with PMhx of ESRD on HD (MWF), Hypertension, HLD, subarachnoid hemorrhage presented with right leg wound. #Right leg wound and peticial rash serologic work in progress s/p plasmapharesis Rheum and Heme following #Hypotension improved today will d/c standing IVF PRN bolus as needed to maintain map > 65 #ESRD on HD for dialysis today with 0 UF will use albumin PRN for hypotension dose all meds for intermittent HD Thank you Karsten Sylvester DO
--- NOTE | 2017-04-30 15:59 | PN ---
Progress Note, Physician History of Present Illness: patient stable still with low bp plan for plasmapheresis tomorrow family in room - Current Medication List Current Medications: Active Medications Acetaminophen (Tylenol -) 650 mg PO Q4H PRN PRN Reason: PAIN LEVEL 1-5 Last Admin: 04/30/17 12:37 Dose: 650 mg Albumin Human (Plasbumin-5 -) 62.5 gm IVPB ONCE ONE Stop: 05/02/17 10:01 Calcium Acetate (Phoslo -) 1,334 mg PO TIDCM [facility] Last Admin: 04/30/17 12:52 Dose: 1,334 mg Carvedilol (Coreg -) 12.5 mg PO BID [facility] Last Admin: 04/30/17 09:59 Dose: Not Given Heparin Sodium (Porcine) (Heparin -) 1,000 unit IVPUSH PRN PRN PRN Reason: Heparin Heparin Sodium (Porcine) (Heparin -) 5,000 unit IVPUSH PRN PRN PRN Reason: Heparin Heparin Sodium/Dextrose (Heparin Infusion -) 25,000 units in 500 mls @ 20 mls/ hr IVPB TITR LAITH; 1,000 UNITS/HR PRN Reason: Protocol Last Admin: 04/30/17 11:00 Dose: 750 units/hr, 15 mls/hr Aztreonam 0.5 gm/ Dextrose 50 mls @ 100 mls/hr IVPB Q8H-IV [facility] PRN Reason: Protocol Last Admin: 04/30/17 11:38 Dose: 100 mls/hr Clindamycin Phosphate (Cleocin 300 Mg Premix Ivpb) 300 mg in 50 mls @ 104 mls/ hr IVPB Q8H-IV [facility] Last Admin: 04/30/17 09:48 Dose: 104 mls/hr Norepinephrine Bitartrate 8, (000 mcg/ Dextrose) 500 mls @ 18.75 mls/hr IV TITR LAITH; 5 MCG/MIN PRN Reason: Protocol Last Admin: 04/30/17 02:38 Dose: 5 mcg/min, 18.75 mls/hr Metoprolol Tartrate (Lopressor Injection -) 5 mg IVPUSH Q6H PRN PRN Reason: TACHYCARDIA Morphine Sulfate (Morphine Sulfate) 2 mg IVPUSH Q6H PRN PRN Reason: pain Last Admin: 04/29/17 01:43 Dose: 2 mg Multivitamins/Minerals/Vitamin C (Tab-A-Vit -) 1 tab PO DAILY [facility] Last Admin: 04/30/17 09:54 Dose: 1 tab Mupirocin (Bactroban 2% Ointment -) 1 applic TP BID [facility] Last Admin: 04/29/17 21:55 Dose: 1 applic Oxycodone HCl (Roxicodone -) 5 mg PO Q4H PRN PRN Reason: PAIN LEVEL 6-10 Last Admin: 04/28/17 23:00 Dose: 5 mg - Objective Vital Signs: Vital Signs Temperature 98 F 04/30/17 13:48 Pulse Rate 125 H 04/30/17 13:48 Respiratory Rate 15 04/30/17 13:48 Blood Pressure 108/58 04/30/17 13:48 O2 Sat by Pulse Oximetry (%) 98 04/30/17 09:00 Constitutional: Yes: No Distress, Calm Neck: Yes: Supple Cardiovascular: Yes: Regular Rate and Rhythm Respiratory: Yes: Regular, CTA Bilaterally Gastrointestinal: Yes: Normal Bowel Sounds, Soft Musculoskeletal: Yes: Other Extremities: Yes: Other (gangrene of the rt foot) Integumentary: Yes: Other Wound/Incision: Yes: Dressing Dry and Intact Neurological: Yes: Alert, Oriented Psychiatric: Yes: Alert, Oriented Labs: CBC, BMP 04/30/17 06:45 04/30/17 06:45 INR, PTT INR 1.55 (0.82-1.09) H 04/30/17 06:45 Fibrinogen 300.0 mg/dL (238-498) D 04/30/17 06:45 - ....Imaging Cat Scan: Report Reviewed, Image Reviewed Assessment/Plan Problem List - Problems (1) Cellulitis Code(s): L03.90 - CELLULITIS, UNSPECIFIED (2) Atrial fibrillation with RVR Code(s): I48.91 - UNSPECIFIED ATRIAL FIBRILLATION (3) CAD (coronary artery disease) Code(s): I25.10 - ATHSCL HEART DISEASE OF [place] CORONARY ARTERY W/O ANG PCTRS (4) ESRD (end stage renal disease) on dialysis Code(s): N18.6 - END STAGE RENAL DISEASE; Z99.2 - DEPENDENCE ON RENAL DIALYSIS (5) Hx of CABG Code(s): Z95.1 - PRESENCE OF AORTOCORONARY BYPASS GRAFT (6) Hypertension Code(s): I10 - ESSENTIAL (PRIMARY) HYPERTENSION (7) Osteoarthritis Code(s): M19.90 - UNSPECIFIED OSTEOARTHRITIS, UNSPECIFIED SITE (8) Subarachnoid hemorrhage following injury Code(s): S06.6X9A - TRAUM SUBRAC HEM W LOC OF UNSP DURATION, INIT Qualifiers: Encounter type: initial encounter Loss of consciousness presence/duration: without LOC Qualified Code(s): S06.6X0A - Traumatic subarachnoid hemorrhage without loss of consciousness, initial encounter Gangrene CTA ordered to assess large vessels in both legs. If major occlusion present will need angiogram for revascularization in effort to salvage foot. Code(s): I96 - GANGRENE, NOT ELSEWHERE CLASSIFIED plan continue current mgmt for plasmapheresis wound care vascular on disease case manager rn bp rest as per icu/primary cc time 40 min
[2017-04-30] MEDS: MUPIROCIN 2% TOPICAL OINTMENT 22 GM TUBE TP SCH ×2 (18:23→21:33)
[2017-04-30] MEDS: HEPARIN NA (PORCINE) 5,000 UNITS/ML 1ML VIAL IVPUSH PRN (19:26)
[2017-04-30] MEDS: METOPROLOL TARTRATE 5 MG/5 ML VIAL IVPUSH PRN (21:33)
--- NOTE | 2017-04-30 21:55 | PN ---
Progress Note, Physician History of Present Illness: No new complaints - Current Medication List Current Medications: Active Medications Acetaminophen (Tylenol -) 650 mg PO Q4H PRN PRN Reason: PAIN LEVEL 1-5 Last Admin: 04/30/17 12:37 Dose: 650 mg Albumin Human (Plasbumin-5 -) 62.5 gm IVPB ONCE ONE Stop: 05/02/17 10:01 Calcium Acetate (Phoslo -) 1,334 mg PO TIDCM [facility] Last Admin: 04/30/17 18:06 Dose: 1,334 mg Carvedilol (Coreg -) 12.5 mg PO BID [facility] Last Admin: 04/30/17 21:33 Dose: Not Given Heparin Sodium (Porcine) (Heparin -) 1,000 unit IVPUSH PRN PRN PRN Reason: Heparin Last Admin: 04/30/17 19:26 Dose: 1,000 unit Heparin Sodium (Porcine) (Heparin -) 5,000 unit IVPUSH PRN PRN PRN Reason: Heparin Heparin Sodium/Dextrose (Heparin Infusion -) 25,000 units in 500 mls @ 20 mls/ hr IVPB TITR [facility]ITH; 1,000 UNITS/HR PRN Reason: Protocol Last Admin: 04/30/17 19:26 Dose: 750 units/hr, 15 mls/hr Aztreonam 0.5 gm/ Dextrose 50 mls @ 100 mls/hr IVPB Q8H-IV [facility] PRN Reason: Protocol Last Admin: 04/30/17 18:06 Dose: 100 mls/hr Clindamycin Phosphate (Cleocin 300 Mg Premix Ivpb) 300 mg in 50 mls @ 104 mls/ hr IVPB Q8H-IV [facility] Last Admin: 04/30/17 18:22 Dose: 104 mls/hr Norepinephrine Bitartrate 8, (000 mcg/ Dextrose) 500 mls @ 18.75 mls/hr IV TITR LAITH; 5 MCG/MIN PRN Reason: Protocol Last Titration: 04/30/17 19:00 Dose: 7 mcg/min, 26.25 mls/hr Metoprolol Tartrate (Lopressor Injection -) 5 mg IVPUSH Q6H PRN PRN Reason: TACHYCARDIA Last Admin: 04/30/17 21:33 Dose: 5 mg Morphine Sulfate (Morphine Sulfate) 2 mg IVPUSH Q6H PRN PRN Reason: pain Last Admin: 04/29/17 01:43 Dose: 2 mg Multivitamins/Minerals/Vitamin C (Tab-A-Vit -) 1 tab PO DAILY [facility] Last Admin: 04/30/17 09:54 Dose: 1 tab Mupirocin (Bactroban 2% Ointment -) 1 applic TP BID [facility] Last Admin: 04/30/17 21:33 Dose: 1 applic Oxycodone HCl (Roxicodone -) 5 mg PO Q4H PRN PRN Reason: PAIN LEVEL 6-10 Last Admin: 04/28/17 23:00 Dose: 5 mg - Objective Vital Signs: Vital Signs Temperature 98.2 F 04/30/17 17:50 Pulse Rate 136 H 04/30/17 21:33 Respiratory Rate 19 04/30/17 20:46 Blood Pressure 117/55 04/30/17 21:33 O2 Sat by Pulse Oximetry (%) 97 04/30/17 20:58 HENT: Yes: WNL Neck: Yes: WNL, Supple Cardiovascular: Yes: Pulse Irregular Respiratory: Yes: Diminished Extremities: Yes: Other (RT foot gangrene LT foot erythema) Edema: LUE: Trace Integumentary: Yes: Other (Petechial rash on extremities) Labs: CBC, BMP 04/30/17 06:45 04/30/17 06:45 INR, PTT INR 1.55 (0.82-1.09) H 04/30/17 06:45 Fibrinogen 300.0 mg/dL (238-498) D 04/30/17 06:45 Problem List - Problems (1) Gangrene Assessment/Plan: Check CTA results wc are pending As per vascular Need for angio on hold due to multiple comorbidities Cont IV clinda Follow cultures Code(s): I96 - GANGRENE, NOT ELSEWHERE CLASSIFIED (2) Cellulitis Code(s): L03.90 - CELLULITIS, UNSPECIFIED Qualifiers: Site of cellulitis: unspecified site Qualified Code(s): L03.90 - Cellulitis , unspecified (3) Rash Code(s): R21 - RASH AND OTHER NONSPECIFIC SKIN ERUPTION (4) Paroxysmal A-fib Code(s): I48.0 - PAROXYSMAL ATRIAL FIBRILLATION (5) Thrombocytopenia Code(s): D69.6 - THROMBOCYTOPENIA, UNSPECIFIED (6) CAD (coronary artery disease) Code(s): I25.10 - ATHSCL HEART DISEASE OF [place] CORONARY ARTERY W/O ANG PCTRS (7) ESRD (end stage renal disease) on dialysis Code(s): N18.6 - END STAGE RENAL DISEASE; Z99.2 - DEPENDENCE ON RENAL DIALYSIS (8) Hypertension Code(s): I10 - ESSENTIAL (PRIMARY) HYPERTENSION (9) Osteoarthritis Code(s): M19.90 - UNSPECIFIED OSTEOARTHRITIS, UNSPECIFIED SITE
[2017-05-01 00:11] LABS: CYCLIC CITRULLINE PEPTIDE AB 29 units (0-19)
[2017-05-01 00:11] LABS: COMPLEMENT TOTAL(CH50) 50 U/mL (42-60)
[2017-05-01] MEDS ORDERED: NOREPINEPHRINE BITARTRATE 4 MG/4 ML ML IV ONE ×2 (00:11→20:05)
[2017-05-01] MEDS: NOREPINEPHRINE BITARTRATE 8,000 MCG in DEXTROSE 5%-WATER - 492 ML IV SCH (01:00)
[2017-05-01] MEDS: ACETAMINOPHEN 325 MG TABLET (FP) PO PRN (01:02)
[2017-05-01] MEDS: AZTREONAM 0.5 GM in DEXTROSE 5%-WATER - 50 ML IVPB SCH ×3 (03:06→18:05)
[2017-05-01] MEDS: CLINDAMYCIN 300 MG PREMIX IVPB 300 MG/50 ML BAG IVPB SCH ×3 (03:06→18:09)
[2017-05-01 06:04] LABS: BASO % 0.3 % (0-2.0); HEMATOCRIT 29.7 % (32.4-45.2); HEMOGLOBIN 9.6 GM/dL (10.7-15.3); LYMPH % 15.6 % (8-40); MCH 27.1 pg (25.7-33.7); MCHC 32.5 g/dl (32.0-36.0); MEAN CELL VOLUME 83.4 fl (80-96); MONO % 11.7 % (3.8-10.2); NEUT % 70.4 % (42.8-82.8); RBC 3.56 M/mm3 (3.60-5.2); RDW 20.5 % (11.6-15.6)
[2017-05-01 06:20] LABS: INR 1.7 (0.82-1.09); PROTHROMBIN TIME (PATIENT) 19.2 SEC (9.98-11.88)
[2017-05-01 06:26] LABS: ALBUMIN 2.7 g/dl (3.4-5.0); ANION GAP 6 (8-16); BILIRUBIN,TOTAL 0.8 mg/dL (0.2-1.0); BLOOD UREA NITROGEN 17 mg/dL (7-18); CALCIUM 7.5 mg/dL (8.5-10.1); CHLORIDE 102 mmol/L (98-107); CO2 32 mmol/L (21-32); CREATININE 3.7 mg/dL (0.55-1.02); GLUCOSE,RANDOM 119 mg/dL (74-106); MAGNESIUM 1.7 mg/dL (1.8-2.4); PHOSPHOROUS 3.4 mg/dL (2.5-4.9); POTASSIUM 3.2 mmol/L (3.5-5.1); SGOT/AST 51 U/L (15-37); SGPT/ALT 32 U/L (12-78); SODIUM 140 mmol/L (136-145); TOT PROT 5.9 g/dl (6.4-8.2)
[2017-05-01 06:27] LABS: ALK PHOS 147 U/L (45-117)
[2017-05-01] MEDS ORDERED: ALBUMIN HUMAN 5% 250 ML IV SOLUTION IVPB ONE ×2 (07:09→19:45)
[2017-05-01 07:35] LABS: MEAN PLT VOLUME 8.8 fl (7.5-11.1); PLATELET COUNT 66 K/MM3 (134-434)
[2017-05-01] MEDS ORDERED: POTASSIUM CHLORIDE TABS 20 MEQ TABLET.ER (FP) PO ONE (09:00)
[2017-05-01] MEDS ORDERED: MAGNESIUM OXIDE 400 MG TABLET (FP) PO ONE (09:00)
--- NOTE | 2017-05-01 09:39 | PN ---
Progress Note (short form) - Note Progress Note: pt seen and examined. stable. Denies any complains remains on Levophed Labs reviewed O/E: General: elderly woman in NAD HEENT: vicky-oral rash noted, slightly better Cor: Tachycardic Lungs: Anterior to asucultate wnl abdomen: soft LE: + black eschar on the LE. Skin: small peticheal rash presen tin both LE, UE, perioral, forearm,?slightly better neuro: alert and awake Last Vital Signs Temp Pulse Resp BP Pulse Ox 97.9 F 127 H 16 105/73 97 05/01/17 06:00 05/01/17 09:15 05/01/17 09:15 05/01/17 09:15 04/30/17 20:58 CBC, BMP 05/01/17 05:40 05/01/17 05:40 Current Medications Generic Name Dose Route Start Last Admin Trade Name Freq PRN Reason Stop Dose Admin Acetaminophen 650 mg 04/28/17 02:19 05/01/17 01:02 Tylenol - PO 650 mg Q4H PRN Administration PAIN LEVEL 1-5 Albumin Human 62.5 gm 05/02/17 10:00 Plasbumin-5 - IVPB 05/02/17 10:01 ONCE ONE Calcium Acetate 1,334 mg 04/27/17 08:00 04/30/17 18:06 Phoslo - PO 1,334 mg TIDCM LAITH Administration Carvedilol 12.5 mg 04/27/17 10:00 04/30/17 21:33 Coreg - PO Not Given BID LAITH Heparin Sodium (Porcine) 1,000 unit 04/28/17 13:02 04/30/17 19:26 Heparin - IVPUSH 1,000 unit PRN PRN Administration Heparin Heparin Sodium (Porcine) 5,000 unit 04/28/17 13:02 Heparin - IVPUSH PRN PRN Heparin Heparin Sodium/Dextrose 25,000 units in 500 mls @ 20 mls/hr 04/28/17 13:15 19:26 Heparin Infusion - IVPB 750 units/hr TITR LAITH 15 mls/hr Protocol Administration 1,000 UNITS/HR Aztreonam 0.5 gm/ Dextrose 50 mls @ 100 mls/hr 04/29/17 13:30 05/01/17 03:06 IVPB 100 mls/hr Q8H-IV LAITH Administration Protocol Clindamycin Phosphate 300 mg in 50 mls @ 104 mls/hr 04/29/17 20:00 05/01/17 03:06 Cleocin 300 Mg Premix Ivpb IVPB 104 mls/hr Q8H-IV LAITH Administration Norepinephrine Bitartrate 8, 500 mls @ 18.75 mls/hr 04/30/17 02:45 05/01/17 01:00 000 mcg/ Dextrose IV 7 mcg/min TITR LAITH 26.25 mls/hr Protocol Administration 5 MCG/MIN Metoprolol Tartrate 5 mg 04/30/17 08:55 04/30/17 21:33 Lopressor Injection - IVPUSH 5 mg Q6H PRN Administration TACHYCARDIA Multivitamins/Minerals/Vitamin C 1 tab 04/27/17 10:00 04/30/17 09:54 Tab-A-Vit - PO 1 tab DAILY LAITH Administration Mupirocin 1 applic 04/28/17 22:00 04/30/17 21:33 Bactroban 2% Ointment - TP 1 applic BID LAITH Administration Assessment/Plan: Vasculitic rash , w/u in progress Thrombocytopenia Coagulopathy Abnormal LFTs Ischemic of the LE. ESRD (end stage renal disease) on dialysis CAD (coronary artery disease) Impression: s/p PLEX session one on 04/29, for session 2 today. platelets to 66K today, will repeat in the pm on heparin drip , for occlusive disease identified on her CTA, angio is on hold , close monitoring of CBC/PTT in the light of her hx of GIB in the past. abx per ID rheum f/u serology noted will follow
[2017-05-01] MEDS ORDERED: ACETAMINOPHEN 325 MG TABLET (FP) PO ONE (10:00)
[2017-05-01] MEDS ORDERED: PT OWN MED DRAWER 7, Y5N ONE ×3 (10:11→18:09)
[2017-05-01] MEDS ORDERED: CALCIUM GLUCONATE 10% - 1,000 MG/10 ML VIAL IVPB ONE ×2 (10:15→21:01)
[2017-05-01] MEDS: MULTIVITAMINS (DAILY MVI) TABLET (FP) PO SCH (10:15)
[2017-05-01] MEDS: CALCIUM ACETATE 667 MG CAPSULE (FP) PO SCH ×3 (10:15→18:04)
--- NOTE | 2017-05-01 10:41 | PN ---
Progress Note, Physician History of Present Illness: patient post plasma phersis on levaphed vasculitits rash workup in progress looks stable no complaints - Current Medication List Current Medications: Active Medications Acetaminophen (Tylenol -) 650 mg PO Q4H PRN PRN Reason: PAIN LEVEL 1-5 Last Admin: 05/01/17 01:02 Dose: 650 mg Albumin Human (Plasbumin-5 -) 62.5 gm IVPB ONCE ONE Stop: 05/02/17 10:01 Calcium Acetate (Phoslo -) 1,334 mg PO TIDCM LAITH Last Admin: 05/01/17 10:15 Dose: 1,334 mg Carvedilol (Coreg -) 12.5 mg PO BID LAITH Last Admin: 04/30/17 21:33 Dose: Not Given Heparin Sodium (Porcine) (Heparin -) 1,000 unit IVPUSH PRN PRN PRN Reason: Heparin Last Admin: 04/30/17 19:26 Dose: 1,000 unit Heparin Sodium (Porcine) (Heparin -) 5,000 unit IVPUSH PRN PRN PRN Reason: Heparin Heparin Sodium/Dextrose (Heparin Infusion -) 25,000 units in 500 mls @ 20 mls/ hr IVPB TITR LAITH; 1,000 UNITS/HR PRN Reason: Protocol Last Titration: 05/01/17 10:00 Dose: 650 units/hr, 13 mls/hr Aztreonam 0.5 gm/ Dextrose 50 mls @ 100 mls/hr IVPB Q8H-IV LAITH PRN Reason: Protocol Last Admin: 05/01/17 10:18 Dose: 100 mls/hr Clindamycin Phosphate (Cleocin 300 Mg Premix Ivpb) 300 mg in 50 mls @ 104 mls/ hr IVPB Q8H-IV LAITH Last Admin: 05/01/17 03:06 Dose: 104 mls/hr Norepinephrine Bitartrate 8, (000 mcg/ Dextrose) 500 mls @ 18.75 mls/hr IV TITR LAITH; 5 MCG/MIN PRN Reason: Protocol Last Admin: 05/01/17 01:00 Dose: 7 mcg/min, 26.25 mls/hr Metoprolol Tartrate (Lopressor Injection -) 5 mg IVPUSH Q6H PRN PRN Reason: TACHYCARDIA Last Admin: 04/30/17 21:33 Dose: 5 mg Multivitamins/Minerals/Vitamin C (Tab-A-Vit -) 1 tab PO DAILY COUNTS INCLUDE 234 BEDS AT THE [facility] Last Admin: 05/01/17 10:15 Dose: 1 tab Mupirocin (Bactroban 2% Ointment -) 1 applic TP BID COUNTS INCLUDE 234 BEDS AT THE [facility] Last Admin: 04/30/17 21:33 Dose: 1 applic - Objective Vital Signs: Vital Signs Temperature 97.5 F L 05/01/17 10:19 Pulse Rate 127 H 05/01/17 10:19 Respiratory Rate 16 05/01/17 10:19 Blood Pressure 96/66 05/01/17 10:19 O2 Sat by Pulse Oximetry (%) 97 04/30/17 20:58 Constitutional: Yes: No Distress, Calm Cardiovascular: Yes: Regular Rate and Rhythm Respiratory: Yes: Regular, CTA Bilaterally Gastrointestinal: Yes: Normal Bowel Sounds, Soft Musculoskeletal: Yes: Other Extremities: Yes: Other (gangrene of the foot) Wound/Incision: Yes: Dressing Dry and Intact Neurological: Yes: Alert, Oriented Labs: CBC, BMP 05/01/17 05:40 05/01/17 05:40 INR, PTT INR 1.70 (0.82-1.09) H 05/01/17 05:40 Fibrinogen 354.0 mg/dL (238-498) 05/01/17 05:40 Assessment/Plan Problem List - Problems (1) Cellulitis Code(s): L03.90 - CELLULITIS, UNSPECIFIED (2) Atrial fibrillation with RVR Code(s): I48.91 - UNSPECIFIED ATRIAL FIBRILLATION (3) CAD (coronary artery disease) Code(s): I25.10 - ATHSCL HEART DISEASE OF [place] CORONARY ARTERY W/O ANG PCTRS (4) ESRD (end stage renal disease) on dialysis Code(s): N18.6 - END STAGE RENAL DISEASE; Z99.2 - DEPENDENCE ON RENAL DIALYSIS (5) Hx of CABG Code(s): Z95.1 - PRESENCE OF AORTOCORONARY BYPASS GRAFT (6) Hypertension Code(s): I10 - ESSENTIAL (PRIMARY) HYPERTENSION (7) Osteoarthritis Code(s): M19.90 - UNSPECIFIED OSTEOARTHRITIS, UNSPECIFIED SITE (8) Subarachnoid hemorrhage following injury Code(s): S06.6X9A - TRAUM SUBRAC HEM W LOC OF UNSP DURATION, INIT Qualifiers: Encounter type: initial encounter Loss of consciousness presence/duration: without LOC Qualified Code(s): S06.6X0A - Traumatic subarachnoid hemorrhage without loss of consciousness, initial encounter Gangrene CTA ordered to assess large vessels in both legs. If major occlusion present will need angiogram for revascularization in effort to salvage foot. Code(s): I96 - GANGRENE, NOT ELSEWHERE CLASSIFIED plan continue current mgmt conitnue pressors wound care vascular on case investigator bp rest as per icu/primary workup for vasculitis rash cc time 40 min
[2017-05-01] MEDS: CARVEDILOL 12.5 MG TABLET (FP) PO SCH ×2 (10:57→21:11)
--- NOTE | 2017-05-01 11:36 | PN ---
Progress Note (short form) - Note Progress Note: Renal follow up for ESRD on HD Pt seen examined at the bedside awake and alert on Levophed s/p dialysis yesterday w/o any fluid removal pt denies any sob, chest pain has pain in right foot off and on no fevers, chills for plasmapharesis today Vital Signs Temperature 97.5 F L 05/01/17 10:19 Pulse Rate 127 H 05/01/17 10:19 Respiratory Rate 16 05/01/17 10:19 Blood Pressure 96/66 05/01/17 10:19 O2 Sat by Pulse Oximetry (%) 97 04/30/17 20:58 Intake & Output 04/28/17 04/29/17 04/30/17 05/01/17 23:59 23:59 23:59 23:59 Intake Total 001 931 3748 962 Balance 209 574 5118 962 Weight 59.477 kg 58.377 kg 57.788 kg 65.091 kg NAD awake and alert RRR CTA soft NT/ND peticial rash on arms, not blanching CBC, BMP 05/01/17 05:40 05/01/17 05:40 Current Medications Acetaminophen (Tylenol -) 650 mg PO Q4H PRN PRN Reason: PAIN LEVEL 1-5 Last Admin: 05/01/17 01:02 Dose: 650 mg Albumin Human (Plasbumin-5 -) 62.5 gm IVPB ONCE ONE Stop: 05/02/17 10:01 Calcium Acetate (Phoslo -) 1,334 mg PO TIDCM [facility] Last Admin: 05/01/17 10:15 Dose: 1,334 mg Carvedilol (Coreg -) 12.5 mg PO BID [facility] Last Admin: 05/01/17 10:57 Dose: Not Given Heparin Sodium (Porcine) (Heparin -) 1,000 unit IVPUSH PRN PRN PRN Reason: Heparin Last Admin: 04/30/17 19:26 Dose: 1,000 unit Heparin Sodium (Porcine) (Heparin -) 5,000 unit IVPUSH PRN PRN PRN Reason: Heparin Heparin Sodium/Dextrose (Heparin Infusion -) 25,000 units in 500 mls @ 20 mls/ hr IVPB TITR LAITH; 1,000 UNITS/HR PRN Reason: Protocol Last Titration: 05/01/17 10:00 Dose: 650 units/hr, 13 mls/hr Aztreonam 0.5 gm/ Dextrose 50 mls @ 100 mls/hr IVPB Q8H-IV LAITH PRN Reason: Protocol Last Admin: 05/01/17 10:18 Dose: 100 mls/hr Clindamycin Phosphate (Cleocin 300 Mg Premix Ivpb) 300 mg in 50 mls @ 104 mls/ hr IVPB Q8H-IV LAITH Last Admin: 05/01/17 10:56 Dose: 104 mls/hr Norepinephrine Bitartrate 8, (000 mcg/ Dextrose) 500 mls @ 18.75 mls/hr IV TITR LAITH; 5 MCG/MIN PRN Reason: Protocol Last Admin: 05/01/17 01:00 Dose: 7 mcg/min, 26.25 mls/hr Metoprolol Tartrate (Lopressor Injection -) 5 mg IVPUSH Q6H PRN PRN Reason: TACHYCARDIA Last Admin: 04/30/17 21:33 Dose: 5 mg Multivitamins/Minerals/Vitamin C (Tab-A-Vit -) 1 tab PO DAILY LAITH Last Admin: 05/01/17 10:15 Dose: 1 tab Mupirocin (Bactroban 2% Ointment -) 1 applic TP BID LAITH Last Admin: 04/30/17 21:33 Dose: 1 applic 82 year old woman with PMhx of ESRD on HD (MWF), Hypertension, HLD, subarachnoid hemorrhage presented with right leg wound. #Right leg wound/suspected vasculitis pt noted to have occlusive disease on CTA of the LE, surgical intervetion deferred for now as pt getting tx for vasculitis KYLER + 1:80, Anti-DS DNA, ANCA, Anti-Diamond Ab pending C3 and C4 are WNL for 2nd plasmapharesis today Rheum, Heme and Vascular follow up #Hypotension ? etiology possible sespsis related to wounds? blood culture from 02/23 w/o growth on Abx as per ID on Levophed off IVF as pt with mild congestion #ESRD on HD for dialysis tomorrow with UF as tolerated dose all meds for intermittent HD Thank you Karsten Sylvester DO
--- NOTE | 2017-05-01 13:00 | PN ---
Progress Note, Physician History of Present Illness: seen and examined today in nad. states she is feeling better. - Current Medication List Current Medications: Active Medications Acetaminophen (Tylenol -) 650 mg PO Q4H PRN PRN Reason: PAIN LEVEL 1-5 Last Admin: 05/01/17 01:02 Dose: 650 mg Albumin Human (Plasbumin-5 -) 62.5 gm IVPB ONCE ONE Stop: 05/02/17 10:01 Calcium Acetate (Phoslo -) 1,334 mg PO TIDCM LAITH Last Admin: 05/01/17 10:15 Dose: 1,334 mg Carvedilol (Coreg -) 12.5 mg PO BID LAITH Last Admin: 05/01/17 10:57 Dose: Not Given Heparin Sodium (Porcine) (Heparin -) 1,000 unit IVPUSH PRN PRN PRN Reason: Heparin Last Admin: 04/30/17 19:26 Dose: 1,000 unit Heparin Sodium (Porcine) (Heparin -) 5,000 unit IVPUSH PRN PRN PRN Reason: Heparin Heparin Sodium/Dextrose (Heparin Infusion -) 25,000 units in 500 mls @ 20 mls/ hr IVPB TITR LAITH; 1,000 UNITS/HR PRN Reason: Protocol Last Titration: 05/01/17 10:00 Dose: 650 units/hr, 13 mls/hr Aztreonam 0.5 gm/ Dextrose 50 mls @ 100 mls/hr IVPB Q8H-IV LAITH PRN Reason: Protocol Last Admin: 05/01/17 10:18 Dose: 100 mls/hr Clindamycin Phosphate (Cleocin 300 Mg Premix Ivpb) 300 mg in 50 mls @ 104 mls/ hr IVPB Q8H-IV LAITH Last Admin: 05/01/17 10:56 Dose: 104 mls/hr Norepinephrine Bitartrate 8, (000 mcg/ Dextrose) 500 mls @ 18.75 mls/hr IV TITR LAITH; 5 MCG/MIN PRN Reason: Protocol Last Admin: 05/01/17 01:00 Dose: 7 mcg/min, 26.25 mls/hr Metoprolol Tartrate (Lopressor Injection -) 5 mg IVPUSH Q6H PRN PRN Reason: TACHYCARDIA Last Admin: 04/30/17 21:33 Dose: 5 mg Multivitamins/Minerals/Vitamin C (Tab-A-Vit -) 1 tab PO DAILY [facility] Last Admin: 05/01/17 10:15 Dose: 1 tab Mupirocin (Bactroban 2% Ointment -) 1 applic TP BID [facility] Last Admin: 04/30/17 21:33 Dose: 1 applic - Objective Vital Signs: Vital Signs Temperature 97.5 F L 05/01/17 10:19 Pulse Rate 126 H 05/01/17 12:00 Respiratory Rate 16 05/01/17 12:00 Blood Pressure 97/73 05/01/17 12:00 O2 Sat by Pulse Oximetry (%) 97 04/30/17 20:58 Constitutional: Yes: No Distress, Calm Eyes: Yes: Conjunctiva Clear, EOM Intact HENT: Yes: Atraumatic, Normocephalic Neck: Yes: Supple, Trachea Midline Cardiovascular: Yes: Tachycardia, Pulse Irregular, S1, S2. No: Regular Rate and Rhythm, Bradycardia, Bruit, JVD, Gallop, Murmur, Rub, S3, S4, Varicosities Respiratory: Yes: Regular, Diminished. No: Rales, Rhonchi, Wheezes Gastrointestinal: Yes: Normal Bowel Sounds, Soft. No: Distention, Tenderness Musculoskeletal: Yes: WNL Extremities: Yes: WNL Edema: Yes Peripheral Pulses WNL: No Neurological: Yes: Alert, Oriented Psychiatric: Yes: Alert, Oriented Labs: CBC, BMP 05/01/17 05:40 05/01/17 05:40 INR, PTT INR 1.70 (0.82-1.09) H 05/01/17 05:40 Fibrinogen 354.0 mg/dL (238-498) 05/01/17 05:40 - ....Imaging Chest X-ray: Report Reviewed, Image Reviewed EKG: Report Reviewed, Image Reviewed Other: Report Reviewed, Image Reviewed (tele-Afib with RVR 130s currently) Assessment/Plan IMP: Hypotension, seemingly resolved. AF with RVR Suspected acute vasculitis ESRD on HD PAD, CAD s/p CABG Gangrene of LE History GI bleed Remote history SAH REC: AF and hypotension: -on levophed currently -if BP tolerates give Lopressor 5mg IV q6H with hold parameter of < 100mmHG systolic. -If additional rate control is needed, can use Digoxin 1x dose and monitor levels or initiate Esmolol gtts and titrate to H.R < 120bpm. PAD/gangrene -f/up CTA results and vascular evaluation -cont heparin gtt for now (Of note: She was previously not on full AC due to her history of GI bleeding and patient's decision to continue ASA alone after an informed discussion both in hospital and in office post discharge.)
--- NOTE | 2017-05-01 13:27 | PN ---
<Daniel Avina - Last Filed: 05/01/17 13:28> Physical Exam: SUBJECTIVE: Patient seen and examined OBJECTIVE: Vital Signs Period Temp Pulse Resp BP Sys/Street Pulse Ox Last 24 Hr 97.5 F-98.3 F 68-136 15-21 90-131/52-89 97-98 GENERAL: The patient is awake, alert, and fully oriented, in no acute distress. HEAD: Normal with no signs of trauma. EYES: PERRL, extraocular movements intact, sclera anicteric, conjunctiva clear. No ptosis. ENT: Ears normal, nares patent, oropharynx clear without exudates, moist mucous membranes. NECK: Trachea midline, full range of motion, supple. LUNGS: Breath sounds equal, clear to auscultation bilaterally, no wheezes, no crackles, no accessory muscle use. HEART: Regular rate and rhythm, S1, S2 without murmur, rub or gallop. ABDOMEN: Soft, nontender, nondistended, normoactive bowel sounds, no guarding, no rebound, no hepatosplenomegaly, no masses. EXTREMITIES: 2+ pulses, warm, well-perfused, no edema. NEUROLOGICAL: Cranial nerves II through XII grossly intact. Normal speech, gait not observed. PSYCH: Normal mood, normal affect. SKIN: Warm, dry, normal turgor, no rashes or lesions noted Laboratory Results - last 24 hr 04/28/17 04/29/17 04/29/17 20:00 06:00 06:00 WBC RBC Hgb Hct MCV MCH MCHC RDW Plt Count MPV Neutrophils % Lymphocytes % Monocytes % Eosinophils % Basophils % Platelet Comment PT with INR INR PTT (Actin FS) Fibrinogen Sodium Potassium Chloride Carbon Dioxide Anion Gap BUN Creatinine Creat Clearance w eGFR Random Glucose Calcium Phosphorus Magnesium Total Bilirubin AST ALT Alkaline Phosphatase Total Protein Albumin Cycl Citrul Peptide IgG KYLER Screen Positive H KYLER Homogeneous Pattern 1:80 KYLER Nucleolar Pattern TNP KYLER Spindle Kennedy Pattern TNP KYLER Midbody Pattern TNP KYLER Centriole Pattern TNP KYLER Nuclear Dot Pattern TNP KYLER PCNA Pattern TNP KYLER Nuclear Membr Pat TNP KYLER Speckled Pattern TNP KYLER Centromere Pattern TNP Tot Complement (CH50) 50 Hepatitis A Ab Total Negative Hep Bs Antigen Negative Hep Bs Antibody Reactive Hep B Core Total Ab Negative Hepatitis C Antibody <0.1 Blood Type Antibody Screen 04/29/17 04/30/1718 11:05 15:20 00:35 WBC RBC Hgb Hct MCV MCH MCHC RDW Plt Count MPV Neutrophils % Lymphocytes % Monocytes % Eosinophils % Basophils % Platelet Comment PT with INR INR PTT (Actin FS) 49.1 H D 74.6 H D Fibrinogen Sodium Potassium Chloride Carbon Dioxide Anion Gap BUN Creatinine Creat Clearance w eGFR Random Glucose Calcium Phosphorus Magnesium Total Bilirubin AST ALT Alkaline Phosphatase Total Protein Albumin Cycl Citrul Peptide IgG 29 H KYLER Screen KYLER Homogeneous Pattern KYLER Nucleolar Pattern KYLER Spindle Kennedy Pattern KYLER Midbody Pattern KYLER Centriole Pattern KYLER Nuclear Dot Pattern KYLER PCNA Pattern KYLER Nuclear Membr Pat KYLER Speckled Pattern KYLER Centromere Pattern Tot Complement (CH50) Hepatitis A Ab Total Hep Bs Antigen Hep Bs Antibody Hep B Core Total Ab Hepatitis C Antibody Blood Type Antibody Screen 05/01/17 05/01/17 05/01/17 05:40 05:40 05:40 WBC 11.0 H RBC 3.56 L Hgb 9.6 L Hct 29.7 L MCV 83.4 MCH 27.1 MCHC 32.5 RDW 20.5 H Plt Count 66 L D MPV 8.8 Neutrophils % 70.4 Lymphocytes % 15.6 Monocytes % 11.7 H Eosinophils % 2.0 Basophils % 0.3 Platelet Comment No clumping noted PT with INR 19.20 H INR 1.70 H PTT (Actin FS) 88.2 H Fibrinogen 354.0 Sodium Potassium Chloride Carbon Dioxide Anion Gap BUN Creatinine Creat Clearance w eGFR Random Glucose Calcium Phosphorus Magnesium Total Bilirubin AST ALT Alkaline Phosphatase Total Protein Albumin Cycl Citrul Peptide IgG KYLER Screen KYLER Homogeneous Pattern KYLER Nucleolar Pattern KYLER Spindle Kennedy Pattern KYLER Midbody Pattern KYLER Centriole Pattern KYLER Nuclear Dot Pattern KYLER PCNA Pattern KYLER Nuclear Membr Pat KYLER Speckled Pattern KYLER Centromere Pattern Tot Complement (CH50) Hepatitis A Ab Total Hep Bs Antigen Hep Bs Antibody Hep B Core Total Ab Hepatitis C Antibody Blood Type Antibody Screen 05/01/17 05/01/17 05:40 11:00 WBC RBC Hgb Hct MCV MCH MCHC RDW Plt Count MPV Neutrophils % Lymphocytes % Monocytes % Eosinophils % Basophils % Platelet Comment PT with INR INR PTT (Actin FS) Fibrinogen Sodium 140 Potassium 3.2 L Chloride 102 Carbon Dioxide 32 Anion Gap 6 L BUN 17 Creatinine 3.7 H Creat Clearance w eGFR 11.79 Random Glucose 119 H Calcium 7.5 L Phosphorus 3.4 Magnesium 1.7 L Total Bilirubin 0.8 AST 51 H ALT 32 Alkaline Phosphatase 147 H Total Protein 5.9 L Albumin 2.7 L Cycl Citrul Peptide IgG KYLER Screen KYLER Homogeneous Pattern KYLER Nucleolar Pattern KYLER Spindle Kennedy Pattern KYLER Midbody Pattern KYLER Centriole Pattern KYLER Nuclear Dot Pattern KYLER PCNA Pattern KYLER Nuclear Membr Pat KYLER Speckled Pattern KYLER Centromere Pattern Tot Complement (CH50) Hepatitis A Ab Total Hep Bs Antigen Hep Bs Antibody Hep B Core Total Ab Hepatitis C Antibody Blood Type B POSITIVE Antibody Screen Negative Active Medications Generic Name Dose Route Start Last Admin Trade Name Freq PRN Reason Stop Dose Admin Acetaminophen 650 mg 04/28/17 02:19 05/01/17 01:02 Tylenol - PO 650 mg Q4H PRN Administration PAIN LEVEL 1-5 Albumin Human 62.5 gm 05/02/17 10:00 Plasbumin-5 - IVPB 05/02/17 10:01 ONCE ONE Calcium Acetate 1,334 mg 04/27/17 08:00 05/01/17 10:15 Phoslo - PO 1,334 mg TIDCM LAITH Administration Carvedilol 12.5 mg 04/27/17 10:00 05/01/17 10:57 Coreg - PO Not Given BID LAITH Heparin Sodium (Porcine) 1,000 unit 04/28/17 13:02 04/30/17 19:26 Heparin - IVPUSH 1,000 unit PRN PRN Administration Heparin Heparin Sodium (Porcine) 5,000 unit 04/28/17 13:02 Heparin - IVPUSH PRN PRN Heparin Heparin Sodium/Dextrose 25,000 units in 500 mls @ 20 mls/hr 04/28/17 13:15 10:00 Heparin Infusion - IVPB 650 units/hr TITR LAITH 13 mls/hr Protocol Titration 1,000 UNITS/HR Aztreonam 0.5 gm/ Dextrose 50 mls @ 100 mls/hr 04/29/17 13:30 05/01/17 10:18 IVPB 100 mls/hr Q8H-IV LAITH Administration Protocol Clindamycin Phosphate 300 mg in 50 mls @ 104 mls/hr 04/29/17 20:00 05/01/17 10:56 Cleocin 300 Mg Premix Ivpb IVPB 104 mls/hr Q8H-IV LAITH Administration Norepinephrine Bitartrate 8, 500 mls @ 18.75 mls/hr 04/30/17 02:45 05/01/17 01:00 000 mcg/ Dextrose IV 7 mcg/min TITR LAITH 26.25 mls/hr Protocol Administration 5 MCG/MIN Metoprolol Tartrate 5 mg 04/30/17 08:55 04/30/17 21:33 Lopressor Injection - IVPUSH 5 mg Q6H PRN Administration TACHYCARDIA Multivitamins/Minerals/Vitamin C 1 tab 04/27/17 10:00 05/01/17 10:15 Tab-A-Vit - PO 1 tab DAILY LAITH Administration Mupirocin 1 applic 04/28/17 22:00 04/30/17 21:33 Bactroban 2% Ointment - TP 1 applic BID LAITH Administration ASSESSMENT/PLAN: <Brady Thompson - Last Filed: 05/01/17 18:18> Physical Exam: SUBJECTIVE: Patient seen and examined OBJECTIVE: Vital Signs Period Temp Pulse Resp BP Sys/Street Pulse Ox Last 24 Hr 97.5 F-98.3 F 68-136 15-21 90-131/52-89 97-98 GENERAL: NAD, awake, alert sitting in bed HEENT: NC/AT, rash noted from nasolabial folds across philtrum to her chin which has improved, EOMI, VALE, No JVD LUNGS: CTA bilaterally, no wheezes, no crackles, no accessory muscle use. HEART: Tachycardic with regular rhythm, S1, S2 without murmur ABDOMEN: Soft, nontender, nondistended, normoactive bowel sounds, no guarding, no rebound EXTREMITIES: 2+ DP pulses, warm, no edema, blackened area on dorsum of R foot still present without changes; noted area proximal to ischemic area of deteriorating skin. NEUROLOGICAL: Nonfocal exam. Strength 5/5 bilaterally in plantar and dorsal flexion. normal speech. gait not observed PSYCH: Normal mood, normal affect. SKIN: Warm, dry, macular nonblanching rash noted on entire body including palms and face as above (rash continues to improve throughout) Laboratory Results - last 24 hr 05/01/17 05/01/17 05:40 05:40 WBC 11.0 H RBC 3.56 L Hgb 9.6 L Hct 29.7 L MCV 83.4 MCH 27.1 MCHC 32.5 RDW 20.5 H Plt Count 66 L D MPV 8.8 Neutrophils % 70.4 Lymphocytes % 15.6 Monocytes % 11.7 H Eosinophils % 2.0 Basophils % 0.3 Platelet Comment No clumping noted PT with INR 19.20 H INR 1.70 H PTT (Actin FS) Fibrinogen 354.0 Sodium Potassium Chloride Carbon Dioxide Anion Gap BUN Creatinine Creat Clearance w eGFR Random Glucose Calcium Phosphorus Magnesium Total Bilirubin AST ALT Alkaline Phosphatase Total Protein Albumin Cycl Citrul Peptide IgG KYLER Screen KYLER Homogeneous Pattern KYLRE Nucleolar Pattern KYLER Spindle Kennedy Pattern KYLER Midbody Pattern KYLER Centriole Pattern KYLER Nuclear Dot Pattern KYLER PCNA Pattern KYLER Nuclear Membr Pat KYLER Speckled Pattern KYLER Centromere Pattern Tot Complement (CH50) Hepatitis A Ab Total Hep Bs Antigen Hep Bs Antibody Hep B Core Total Ab Hepatitis C Antibody Blood Type Antibody Screen 05/01/17 05:40 WBC RBC Hgb Hct MCV MCH MCHC RDW Plt Count MPV Neutrophils % Lymphocytes % Monocytes % Eosinophils % Basophils % Platelet Comment PT with INR INR PTT (Actin FS) Fibrinogen Sodium 140 Potassium 3.2 L Chloride 102 Carbon Dioxide 32 Anion Gap 6 L BUN 17 Creatinine 3.7 H Creat Clearance w eGFR 11.79 Random Glucose 119 H Calcium 7.5 L Phosphorus 3.4 Magnesium 1.7 L Total Bilirubin 0.8 AST 51 H ALT 32 Alkaline Phosphatase 147 H Total Protein 5.9 L Albumin 2.7 L Cycl Citrul Peptide IgG KYLER Screen KYLER Homogeneous Pattern KYLER Nucleolar Pattern KYLER Spindle Kennedy Pattern KYLER Midbody Pattern KYLER Centriole Pattern KYLER Nuclear Dot Pattern KYLER PCNA Pattern KYLER Nuclear Membr Pat KYLER Speckled Pattern KYLER Centromere Pattern Tot Complement (CH50) Hepatitis A Ab Total Hep Bs Antigen Hep Bs Antibody Hep B Core Total Ab Hepatitis C Antibody Blood Type Antibody Screen Active Medications Generic Name Dose Route Start Last Admin Trade Name Zacq PRN Reason Stop Dose Admin Acetaminophen 650 mg 04/28/17 02:19 05/01/17 01:02 Tylenol - PO 650 mg Q4H PRN Administration PAIN LEVEL 1-5 Albumin Human 62.5 gm 05/02/17 10:00 Plasbumin-5 - IVPB 05/02/17 10:01 ONCE ONE Calcium Acetate 1,334 mg 04/27/17 08:00 05/01/17 10:15 Phoslo - PO 1,334 mg TIDCM LAITH Administration Carvedilol 12.5 mg 04/27/17 10:00 05/01/17 10:57 Coreg - PO Not Given BID [facility] Heparin Sodium (Porcine) 1,000 unit 04/28/17 13:02 04/30/17 19:26 Heparin - IVPUSH 1,000 unit PRN PRN Administration Heparin Heparin Sodium (Porcine) 5,000 unit 04/28/17 13:02 Heparin - IVPUSH PRN PRN Heparin Heparin Sodium/Dextrose 25,000 units in 500 mls @ 20 mls/hr 04/28/17 13:15 10:00 Heparin Infusion - IVPB 650 units/hr TITR LAITH 13 mls/hr Protocol Titration 1,000 UNITS/HR Aztreonam 0.5 gm/ Dextrose 50 mls @ 100 mls/hr 04/29/17 13:30 05/01/17 10:18 IVPB 100 mls/hr Q8H-IV LAITH Administration Protocol Clindamycin Phosphate 300 mg in 50 mls @ 104 mls/hr 04/29/17 20:00 05/01/17 10:56 Cleocin 300 Mg Premix Ivpb IVPB 104 mls/hr Q8H-IV LATIH Administration Norepinephrine Bitartrate 8, 500 mls @ 18.75 mls/hr 04/30/17 02:45 05/01/17 01:00 000 mcg/ Dextrose IV 7 mcg/min TITR LAITH 26.25 mls/hr Protocol Administration 5 MCG/MIN Metoprolol Tartrate 5 mg 04/30/17 08:55 04/30/17 21:33 Lopressor Injection - IVPUSH 5 mg Q6H PRN Administration TACHYCARDIA Multivitamins/Minerals/Vitamin C 1 tab 04/27/17 10:00 05/01/17 10:15 Tab-A-Vit - PO 1 tab DAILY LAITH Administration Mupirocin 1 applic 04/28/17 22:00 04/30/17 21:33 Bactroban 2% Ointment - TP 1 applic BID LAITH Administration ASSESSMENT/PLAN: Neuro: Neurologically intact. Respiratory: Currently without distress CV: Hypotension: --Monitor BP --Pt was started on low-dose Levophed to help support her pressures --Continue to wean Tachycardia: --Slightly improved --Continue Coreg 12.5 mg PO BID as tolerated --Continue Lopressor 5mg IVP q6h for persistant tachycardia --Cardiology on board (Dr. Morris) PVD vs. occlusive disorder --Pt continues to be on heparin gtt; monitor aptt --LE US dopplers showing: extensive abnormal flow noted distally within both lower extremities, L > R --Dr. 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 other autoimmune process --Complement levels: C3 99, C4 27 --RF elevated --Other lab values pending --Pt to undergo Q48h plasmapheresis which has showed marked improvement already --Rheumatology on board --XRay of Hands ordered; will discuss with XR about doing bedside --Start Solumedrol 40mg IVP BID --Skin biopsy was limited due to specimen obtained --Spoke with Dr. Mota and would be amenable to obtaining a full thickness derm sample Hematology: Thrombocytopenia Down to 66 today Repeat in PM Hem/Onc (Dr. Kerns) on board ID: --Pt being covered with Aztrenonam (day 3) and Clindamycin (day 3) --Despite being afebrile without leukocytosis cannot r/o any infectious process in addition ot other problems causing gangrenous area of foot --ID on board (Dr. Oakley) --MRI of foot to r/o necrosis to bone --Cultures negative thus far FEN: Electrolyte abnormalities: Hypokalemia (3.2; repleted); HypoMg (1.7; repleted ) Nutrition: Renal Diet PPX: DVT - On heparin gtt already GI - Not indicated currently Dispo: Continue ICU monitoring Case Discussed with Dr. Kailyn Thompson, DO - Im PGY-1 Visit type - Emergency Visit Emergency Visit: No - New Patient This patient is new to me today: No - Critical Care Critical Care patient: Yes Total Critical Care Time (in minutes): 36 Critical Care Statement: The care of this patient involved high complexity decision making to prevent further life threatening deterioration of the patient 's condition and/or to evaluate & treat vital organ system(s) failure or risk of failure.
--- NOTE | 2017-05-01 13:28 | PN ---
Teaching Attending Note Name of Resident: Brady Thompson ATTENDING PHYSICIAN STATEMENT I saw and evaluated the patient. I reviewed the resident's note and discussed the case with the resident. I agree with the resident's findings and plan as documented. SUBJECTIVE: Patient seen and examined in the ICU. Awake and alert. NE for hemodynamic support. Denies CP or SOB. OBJECTIVE: Intake & Output 04/28/17 04/29/17 04/30/17 05/01/17 23:59 23:59 23:59 23:59 Intake Total 047 813 6340 962 Balance 192 818 2932 962 Weight 131 lb 2 oz 128 lb 11.2 oz 127 lb 6.4 oz 143 lb 8 oz Last Vital Signs Temp Pulse Resp BP Pulse Ox 97.7 F 122 H 16 115/71 97 05/01/17 13:24 05/01/17 13:24 05/01/17 13:24 05/01/17 13:24 04/30/17 20:58 Active Medications Acetaminophen (Tylenol -) 650 mg PO Q4H PRN PRN Reason: PAIN LEVEL 1-5 Last Admin: 05/01/17 01:02 Dose: 650 mg Albumin Human (Plasbumin-5 -) 62.5 gm IVPB ONCE ONE Stop: 05/02/17 10:01 Calcium Acetate (Phoslo -) 1,334 mg PO TIDCM [facility] Last Admin: 05/01/17 10:15 Dose: 1,334 mg Carvedilol (Coreg -) 12.5 mg PO BID [facility] Last Admin: 05/01/17 10:57 Dose: Not Given Heparin Sodium (Porcine) (Heparin -) 1,000 unit IVPUSH PRN PRN PRN Reason: Heparin Last Admin: 04/30/17 19:26 Dose: 1,000 unit Heparin Sodium (Porcine) (Heparin -) 5,000 unit IVPUSH PRN PRN PRN Reason: Heparin Heparin Sodium/Dextrose (Heparin Infusion -) 25,000 units in 500 mls @ 20 mls/ hr IVPB TITR LAITH; 1,000 UNITS/HR PRN Reason: Protocol Last Titration: 05/01/17 10:00 Dose: 650 units/hr, 13 mls/hr Aztreonam 0.5 gm/ Dextrose 50 mls @ 100 mls/hr IVPB Q8H-IV LAITH PRN Reason: Protocol Last Admin: 05/01/17 10:18 Dose: 100 mls/hr Clindamycin Phosphate (Cleocin 300 Mg Premix Ivpb) 300 mg in 50 mls @ 104 mls/ hr IVPB Q8H-IV LAITH Last Admin: 05/01/17 10:56 Dose: 104 mls/hr Norepinephrine Bitartrate 8, (000 mcg/ Dextrose) 500 mls @ 18.75 mls/hr IV TITR LAITH; 5 MCG/MIN PRN Reason: Protocol Last Admin: 05/01/17 01:00 Dose: 7 mcg/min, 26.25 mls/hr Metoprolol Tartrate (Lopressor Injection -) 5 mg IVPUSH Q6H PRN PRN Reason: TACHYCARDIA Last Admin: 04/30/17 21:33 Dose: 5 mg Multivitamins/Minerals/Vitamin C (Tab-A-Vit -) 1 tab PO DAILY LAITH Last Admin: 05/01/17 10:15 Dose: 1 tab Mupirocin (Bactroban 2% Ointment -) 1 applic TP BID LAITH Last Admin: 04/30/17 21:33 Dose: 1 applic Gen: Awake, NAD at rest Heart: tachycardic, regular Lung: decreased breath sounds at the bases Abd: soft, nontender Ext: R foot gangrene, purpuric rash Laboratory Results - last 24 hr 04/28/17 04/29/17 04/29/17 20:00 06:00 06:00 WBC RBC Hgb Hct MCV MCH MCHC RDW Plt Count MPV Neutrophils % Lymphocytes % Monocytes % Eosinophils % Basophils % Platelet Comment PT with INR INR PTT (Actin FS) Fibrinogen Sodium Potassium Chloride Carbon Dioxide Anion Gap BUN Creatinine Creat Clearance w eGFR Random Glucose Calcium Phosphorus Magnesium Total Bilirubin AST ALT Alkaline Phosphatase Total Protein Albumin Cycl Citrul Peptide IgG KYLER Screen Positive H KYLER Homogeneous Pattern 1:80 KYLER Nucleolar Pattern TNP KYLER Spindle Kennedy Pattern TNP KYLER Midbody Pattern TNP KYLER Centriole Pattern TNP KYLER Nuclear Dot Pattern TNP KYLER PCNA Pattern TNP KYLER Nuclear Membr Pat TNP KYLER Speckled Pattern TNP KYLER Centromere Pattern TNP Tot Complement (CH50) 50 Hepatitis A Ab Total Negative Hep Bs Antigen Negative Hep Bs Antibody Reactive Hep B Core Total Ab Negative Hepatitis C Antibody <0.1 Blood Type Antibody Screen 04/29/17 04/30/17 05/01/17 11:05 15:20 00:35 WBC RBC Hgb Hct MCV MCH MCHC RDW Plt Count MPV Neutrophils % Lymphocytes % Monocytes % Eosinophils % Basophils % Platelet Comment PT with INR INR PTT (Actin FS) 49.1 H D 74.6 H D Fibrinogen Sodium Potassium Chloride Carbon Dioxide Anion Gap BUN Creatinine Creat Clearance w eGFR Random Glucose Calcium Phosphorus Magnesium Total Bilirubin AST ALT Alkaline Phosphatase Total Protein Albumin Cycl Citrul Peptide IgG 29 H KYLER Screen KYLER Homogeneous Pattern KYLER Nucleolar Pattern KYLER Spindle Kennedy Pattern KYLER Midbody Pattern KYLER Centriole Pattern KYLER Nuclear Dot Pattern KYLER PCNA Pattern KYLER Nuclear Membr Pat KYLER Speckled Pattern KYLER Centromere Pattern Tot Complement (CH50) Hepatitis A Ab Total Hep Bs Antigen Hep Bs Antibody Hep B Core Total Ab Hepatitis C Antibody Blood Type Antibody Screen 05/01/17 05/01/17 05/01/17 05:40 05:40 05:40 WBC 11.0 H RBC 3.56 L Hgb 9.6 L Hct 29.7 L MCV 83.4 MCH 27.1 MCHC 32.5 RDW 20.5 H Plt Count 66 L D MPV 8.8 Neutrophils % 70.4 Lymphocytes % 15.6 Monocytes % 11.7 H Eosinophils % 2.0 Basophils % 0.3 Platelet Comment No clumping noted PT with INR 19.20 H INR 1.70 H PTT (Actin FS) 88.2 H Fibrinogen 354.0 Sodium Potassium Chloride Carbon Dioxide Anion Gap BUN Creatinine Creat Clearance w eGFR Random Glucose Calcium Phosphorus Magnesium Total Bilirubin AST ALT Alkaline Phosphatase Total Protein Albumin Cycl Citrul Peptide IgG KYLER Screen KYLER Homogeneous Pattern KYLER Nucleolar Pattern KYLER Spindle Kennedy Pattern KYLER Midbody Pattern KYLER Centriole Pattern KYLER Nuclear Dot Pattern KYLER PCNA Pattern KYLER Nuclear Membr Pat KYLER Speckled Pattern KYLER Centromere Pattern Tot Complement (CH50) Hepatitis A Ab Total Hep Bs Antigen Hep Bs Antibody Hep B Core Total Ab Hepatitis C Antibody Blood Type Antibody Screen 05/01/17 05/01/17 05:40 11:00 WBC RBC Hgb Hct MCV MCH MCHC RDW Plt Count MPV Neutrophils % Lymphocytes % Monocytes % Eosinophils % Basophils % Platelet Comment PT with INR INR PTT (Actin FS) Fibrinogen Sodium 140 Potassium 3.2 L Chloride 102 Carbon Dioxide 32 Anion Gap 6 L BUN 17 Creatinine 3.7 H Creat Clearance w eGFR 11.79 Random Glucose 119 H Calcium 7.5 L Phosphorus 3.4 Magnesium 1.7 L Total Bilirubin 0.8 AST 51 H ALT 32 Alkaline Phosphatase 147 H Total Protein 5.9 L Albumin 2.7 L Cycl Citrul Peptide IgG KYLER Screen KYLER Homogeneous Pattern KYLER Nucleolar Pattern KYLER Spindle Kennedy Pattern KYLER Midbody Pattern KYLER Centriole Pattern KYLER Nuclear Dot Pattern KYLER PCNA Pattern KYLER Nuclear Membr Pat KYLER Speckled Pattern KYLER Centromere Pattern Tot Complement (CH50) Hepatitis A Ab Total Hep Bs Antigen Hep Bs Antibody Hep B Core Total Ab Hepatitis C Antibody Blood Type B POSITIVE Antibody Screen Negative ASSESSMENT AND PLAN: Acute Vasculitis r/o Sepsis ESRD on HD CAD s/p CABG Atrial Fibrillation HTN DM - plasmapharesis per heme - ABX per ID - IVF boluses as needed - HD per Renal - Wean pressors - O2 to keep SpO2>90% - ICU monitoring Dr Avina Critical care time spent in reviewing chart, evaluating patient and formulating plan 36 min
--- NOTE | 2017-05-01 13:30 | PN ---
Progress Note (short form) - Note Progress Note: Events noted. In ICU, receiving plasmapheresis for vasculitis. She is awake and alert Feet warm, color improved. Right foot eschar unchanged, no progression. CTA not read (3 days) - images suggest diffuse calcific atherosclerosis with multiple areas of severe stenosis and occlusion in distal femoral, popliteal and tibial vessels. When medically stable, angiography for revascularization can be done. Problem List - Problems (1) Gangrene Code(s): I96 - GANGRENE, NOT ELSEWHERE CLASSIFIED (2) Rash Code(s): R21 - RASH AND OTHER NONSPECIFIC SKIN ERUPTION
[2017-05-01 14:17] LABS: COMPLEMENT C1Q COMPONENT < 1.2 ug Eq/mL (.)
[2017-05-01 14:17] LABS: RNP ANTIBODIES <0.2 AI (0.0-0.9)
[2017-05-01 17:28] LABS: BASO % 0.9 % (0-2.0); EOS % 1.7 % (0-4.5); HEMATOCRIT 32.4 % (32.4-45.2); HEMOGLOBIN 10.3 GM/dL (10.7-15.3); LYMPH % 14.9 % (8-40); MCH 26.6 pg (25.7-33.7); MCHC 31.7 g/dl (32.0-36.0); MEAN CELL VOLUME 83.9 fl (80-96); MEAN PLT VOLUME 10.6 fl (7.5-11.1); NEUT % 71.5 % (42.8-82.8); RBC 3.87 M/mm3 (3.60-5.2); RDW 20.9 % (11.6-15.6); WHITE BLOOD COUNT 10.3 K/mm3 (4.0-10.0)
[2017-05-01 17:49] LABS: PLATELET COUNT 62 K/MM3 (134-434); PLATELET ESTIMATE DECREASED
[2017-05-01] MEDS ORDERED: CALCIUM GLUCONATE 10% - 1,000 MG/10 ML VIAL ONE ×2 (18:02→21:03)
--- NOTE | 2017-05-01 18:41 | PATH ---
Surgical Pathology Report Patient Name: LORENA DALAL [facility]. Rec. 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 Specimen(s) Received SKIN BIOPSY Clinical History Patient has purpuric eruption x3 days History of RA, rule out CTD Final Diagnosis SKIN, BIOPSY: SUPERFICIAL FRAGMENT OF SKIN WITH DERMAL HEMORRHAGE AND MILD FOCAL CHRONIC INFILTRATE. Comment: The biopsy is superficial and precludes definitive evaluation of dermal blood vessels. Suggest clinical radiologic correlation. Findings discussed with Dr. Hernandez. Electronically Signed Chayo Starks M.D. Gross Description Received in formalin, labeled with the patient's name, is a 0.3 x 0.2 cm dove skin shave. The base is inked green and the specimen is submitted in toto in one cassette. /04/30/2017 [facility]04/30/2017
--- NOTE | 2017-05-01 19:35 | PN ---
Progress Note (short form) - Note Progress Note: Pharmacy did not have 62.5mg albumin in stock. Will continue with plasmapheresis with 50mg albumin. D/w Dr Kerns.
[2017-05-01] MEDS: HEPARIN INFUSION - 25,000 UNITS/500 ML INFUS.BAG IVPB SCH (19:47)
--- NOTE | 2017-05-01 22:03 | PN ---
Progress Note, Physician History of Present Illness: Pt remains hypotensive No new complaints - Current Medication List Current Medications: Active Medications Acetaminophen (Tylenol -) 650 mg PO Q4H PRN PRN Reason: PAIN LEVEL 1-5 Last Admin: 05/01/17 01:02 Dose: 650 mg Calcium Acetate (Phoslo -) 1,334 mg PO TIDCM [facility] Last Admin: 05/01/17 18:04 Dose: 1,334 mg Carvedilol (Coreg -) 12.5 mg PO BID [facility] Last Admin: 05/01/17 21:11 Dose: Not Given Heparin Sodium (Porcine) (Heparin -) 1,000 unit IVPUSH PRN PRN PRN Reason: Heparin Last Admin: 04/30/17 19:26 Dose: 1,000 unit Heparin Sodium (Porcine) (Heparin -) 5,000 unit IVPUSH PRN PRN PRN Reason: Heparin Last Admin: 05/01/17 19:04 Dose: 5,000 unit Heparin Sodium/Dextrose (Heparin Infusion -) 25,000 units in 500 mls @ 20 mls/ hr IVPB TITR [facility]; 1,000 UNITS/HR PRN Reason: Protocol Last Admin: 05/01/17 19:47 Dose: 800 units/hr, 16 mls/hr Aztreonam 0.5 gm/ Dextrose 50 mls @ 100 mls/hr IVPB Q8H-IV [facility] PRN Reason: Protocol Last Admin: 05/01/17 18:05 Dose: 100 mls/hr Clindamycin Phosphate (Cleocin 300 Mg Premix Ivpb) 300 mg in 50 mls @ 104 mls/ hr IVPB Q8H-IV [facility] Last Admin: 05/01/17 18:09 Dose: 104 mls/hr Norepinephrine Bitartrate 8, (000 mcg/ Dextrose) 500 mls @ 18.75 mls/hr IV TITR [facility]; 5 MCG/MIN PRN Reason: Protocol Last Admin: 05/01/17 01:00 Dose: 7 mcg/min, 26.25 mls/hr Methylprednisolone Sodium Succinate (Solu-Medrol -) 40 mg IVPUSH BID [facility] Metoprolol Tartrate (Lopressor Injection -) 5 mg IVPUSH Q6H PRN PRN Reason: TACHYCARDIA Last Admin: 04/30/17 21:33 Dose: 5 mg Multivitamins/Minerals/Vitamin C (Tab-A-Vit -) 1 tab PO DAILY [facility] Last Admin: 05/01/17 10:15 Dose: 1 tab Mupirocin (Bactroban 2% Ointment -) 1 applic TP BID [facility] Last Admin: 04/30/17 21:33 Dose: 1 applic - Objective Vital Signs: Vital Signs Temperature 97.7 F 05/01/17 14:00 Pulse Rate 122 H 05/01/17 14:00 Respiratory Rate 16 05/01/17 14:00 Blood Pressure 115/71 05/01/17 14:00 O2 Sat by Pulse Oximetry (%) 98 05/01/17 09:00 Constitutional: Yes: Obese Neck: Yes: WNL, Supple Cardiovascular: Yes: Tachycardia, Pulse Irregular Respiratory: Yes: Diminished Gastrointestinal: Yes: WNL, Normal Bowel Sounds, Soft, Abdomen, Obese Extremities: Yes: Other ((+) petechial rash Rt foot gangrene/eschar) Edema: LUE: Trace Labs: CBC, BMP 05/01/17 17:00 05/01/17 05:40 INR, PTT INR 1.70 (0.82-1.09) H 05/01/17 05:40 Fibrinogen 354.0 mg/dL (238-498) 05/01/17 05:40 Problem List - Problems (1) Gangrene Assessment/Plan: PAD: angio on hold as per vascular Cont IV clinda/aztreonam Cultures have been negative Code(s): I96 - GANGRENE, NOT ELSEWHERE CLASSIFIED (2) Cellulitis Code(s): L03.90 - CELLULITIS, UNSPECIFIED Qualifiers: Site of cellulitis: unspecified site Qualified Code(s): L03.90 - Cellulitis , unspecified (3) Rash Assessment/Plan: Vasculitis Pt now on plasmaphoresis Code(s): R21 - RASH AND OTHER NONSPECIFIC SKIN ERUPTION (4) Paroxysmal A-fib Assessment/Plan: Cont IV heparin(pt not on AC bc of h/o GIB/SAH) Cont rate control Code(s): I48.0 - PAROXYSMAL ATRIAL FIBRILLATION (5) Thrombocytopenia Code(s): D69.6 - THROMBOCYTOPENIA, UNSPECIFIED (6) CAD (coronary artery disease) Code(s): I25.10 - ATHSCL HEART DISEASE OF [place] CORONARY ARTERY W/O ANG PCTRS (7) ESRD (end stage renal disease) on dialysis Assessment/Plan: Dialysis as per renal Cont phoslo Code(s): N18.6 - END STAGE RENAL DISEASE; Z99.2 - DEPENDENCE ON RENAL DIALYSIS (8) Hypertension Assessment/Plan: Pt has been hypotensive Probably related to sepsis Cont IV levophed Code(s): I10 - ESSENTIAL (PRIMARY) HYPERTENSION (9) Osteoarthritis Code(s): M19.90 - UNSPECIFIED OSTEOARTHRITIS, UNSPECIFIED SITE
[2017-05-01] MEDS: MUPIROCIN 2% TOPICAL OINTMENT 22 GM TUBE TP SCH (22:09)
[2017-05-01] MEDS: methylPREDNISolone NA SUCC 40 MG/1 ML VIAL IVPUSH SCH (22:09)
[2017-05-02] MEDS: AZTREONAM 0.5 GM in DEXTROSE 5%-WATER - 50 ML IVPB SCH ×3 (01:32→19:00)
[2017-05-02] MEDS: CLINDAMYCIN 300 MG PREMIX IVPB 300 MG/50 ML BAG IVPB SCH ×3 (01:33→19:00)
[2017-05-02] MEDS: NOREPINEPHRINE BITARTRATE 8,000 MCG in DEXTROSE 5%-WATER - 492 ML IV SCH (02:45)
[2017-05-02 06:31] LABS: HEMATOCRIT 31.6 % (32.4-45.2); HEMOGLOBIN 10.2 GM/dL (10.7-15.3); MCHC 32.2 g/dl (32.0-36.0); MEAN CELL VOLUME 83.8 fl (80-96); MEAN PLT VOLUME 9.9 fl (7.5-11.1); PLATELET COUNT 82 K/MM3 (134-434); RBC 3.77 M/mm3 (3.60-5.2); RDW 20.8 % (11.6-15.6); WHITE BLOOD COUNT 11.3 K/mm3 (4.0-10.0)
[2017-05-02 06:41] LABS: ADD RBC MORPHOLOGY YES
[2017-05-02 06:42] LABS: ANISOCYTOSIS 2+
[2017-05-02 06:50] LABS: INR 1.35 (0.82-1.09); PROTHROMBIN TIME (PATIENT) 15.2 SEC (9.98-11.88)
--- NOTE | 2017-05-02 08:17 | PN ---
Progress Note (short form) - Note Progress Note: Renal follow up for ESRD on HD Pt seen examined in the ICU sleeping s/p plasmapharesis yesterday for dialysis today Vital Signs Temperature 97.6 F 05/02/17 02:00 Pulse Rate 121 H 05/02/17 06:41 Respiratory Rate 16 05/02/17 02:00 Blood Pressure 128/87 05/02/17 06:41 O2 Sat by Pulse Oximetry (%) 98 05/01/17 21:00 Intake & Output 04/29/17 04/30/17 05/01/17 05/02/17 23:59 23:59 23:59 23:59 Intake Total 298 2310 2842.6 522 Balance 298 2310 2842.6 522 Weight 58.377 kg 57.788 kg 65.091 kg 66.877 kg NAD awake and alert RRR CTA soft NT/ND peticial rash on arms, not blanching CBC, BMP 05/02/17 05:40 05/01/17 05:40 Current Medications Acetaminophen (Tylenol -) 650 mg PO Q4H PRN PRN Reason: PAIN LEVEL 1-5 Last Admin: 05/01/17 01:02 Dose: 650 mg Calcium Acetate (Phoslo -) 1,334 mg PO TIDCM [facility] Last Admin: 05/01/17 18:04 Dose: 1,334 mg Carvedilol (Coreg -) 12.5 mg PO BID [facility] Last Admin: 05/01/17 21:11 Dose: Not Given Heparin Sodium (Porcine) (Heparin -) 1,000 unit IVPUSH PRN PRN PRN Reason: Heparin Last Admin: 04/30/17 19:26 Dose: 1,000 unit Heparin Sodium (Porcine) (Heparin -) 5,000 unit IVPUSH PRN PRN PRN Reason: Heparin Last Admin: 05/01/17 19:04 Dose: 5,000 unit Heparin Sodium/Dextrose (Heparin Infusion -) 25,000 units in 500 mls @ 20 mls/ hr IVPB TITR [facility]; 1,000 UNITS/HR PRN Reason: Protocol Last Titration: 05/02/17 01:35 Dose: 650 units/hr, 13 mls/hr Aztreonam 0.5 gm/ Dextrose 50 mls @ 100 mls/hr IVPB Q8H-IV [facility] PRN Reason: Protocol Last Admin: 05/02/17 01:32 Dose: 100 mls/hr Clindamycin Phosphate (Cleocin 300 Mg Premix Ivpb) 300 mg in 50 mls @ 104 mls/ hr IVPB Q8H-IV [facility] Last Admin: 05/02/17 01:33 Dose: 104 mls/hr Norepinephrine Bitartrate 8, (000 mcg/ Dextrose) 500 mls @ 18.75 mls/hr IV TITR [facility]; 5 MCG/MIN PRN Reason: Protocol Last Titration: 05/02/17 06:41 Dose: 5 mcg/min, 18.75 mls/hr Methylprednisolone Sodium Succinate (Solu-Medrol -) 40 mg IVPUSH BID [facility] Last Admin: 05/01/17 22:09 Dose: 40 mg Metoprolol Tartrate (Lopressor Injection -) 5 mg IVPUSH Q6H PRN PRN Reason: TACHYCARDIA Last Admin: 04/30/17 21:33 Dose: 5 mg Multivitamins/Minerals/Vitamin C (Tab-A-Vit -) 1 tab PO DAILY [facility] Last Admin: 05/01/17 10:15 Dose: 1 tab Mupirocin (Bactroban 2% Ointment -) 1 applic TP BID [facility] Last Admin: 05/01/17 22:09 Dose: 1 applic 82 year old woman with PMhx of ESRD on HD (MWF), Hypertension, HLD, subarachnoid hemorrhage presented with right leg wound. #Right leg wound/suspected vasculitis pt noted to have occlusive disease on CTA of the LE, surgical intervetion deferred for now as pt getting tx for vasculitis KYLER + 1:80, Anti-DS DNA, ANCA, Anti-Diamond Ab pending C3 and C4 are WNL continue management per heme and rheum #Hypotension ? etiology possible sespsis related to wounds? blood culture from 02/23 w/o growth on Abx as per ID on Levophed off IVF as pt with mild congestion #ESRD on HD HD today with mild UF as tolerated Thank you Karsten Sylvester DO
--- NOTE | 2017-05-02 08:23 | PN ---
Progress Note, Physician Chief Complaint: alert TELE: AF 120s - Current Medication List Current Medications: Active Medications Acetaminophen (Tylenol -) 650 mg PO Q4H PRN PRN Reason: PAIN LEVEL 1-5 Last Admin: 05/01/17 01:02 Dose: 650 mg Calcium Acetate (Phoslo -) 1,334 mg PO TIDCM [facility] Last Admin: 05/01/17 18:04 Dose: 1,334 mg Carvedilol (Coreg -) 12.5 mg PO BID [facility] Last Admin: 05/01/17 21:11 Dose: Not Given Heparin Sodium (Porcine) (Heparin -) 1,000 unit IVPUSH PRN PRN PRN Reason: Heparin Last Admin: 04/30/17 19:26 Dose: 1,000 unit Heparin Sodium (Porcine) (Heparin -) 5,000 unit IVPUSH PRN PRN PRN Reason: Heparin Last Admin: 05/01/17 19:04 Dose: 5,000 unit Heparin Sodium/Dextrose (Heparin Infusion -) 25,000 units in 500 mls @ 20 mls/ hr IVPB TITR [facility]; 1,000 UNITS/HR PRN Reason: Protocol Last Titration: 05/02/17 01:35 Dose: 650 units/hr, 13 mls/hr Aztreonam 0.5 gm/ Dextrose 50 mls @ 100 mls/hr IVPB Q8H-IV [facility] PRN Reason: Protocol Last Admin: 05/02/17 01:32 Dose: 100 mls/hr Clindamycin Phosphate (Cleocin 300 Mg Premix Ivpb) 300 mg in 50 mls @ 104 mls/ hr IVPB Q8H-IV [facility] Last Admin: 05/02/17 01:33 Dose: 104 mls/hr Norepinephrine Bitartrate 8, (000 mcg/ Dextrose) 500 mls @ 18.75 mls/hr IV TITR [facility]; 5 MCG/MIN PRN Reason: Protocol Last Titration: 05/02/17 06:41 Dose: 5 mcg/min, 18.75 mls/hr Methylprednisolone Sodium Succinate (Solu-Medrol -) 40 mg IVPUSH BID [facility] Last Admin: 05/01/17 22:09 Dose: 40 mg Metoprolol Tartrate (Lopressor Injection -) 5 mg IVPUSH Q6H PRN PRN Reason: TACHYCARDIA Last Admin: 02/21/18 21:33 Dose: 5 mg Multivitamins/Minerals/Vitamin C (Tab-A-Vit -) 1 tab PO DAILY [facility] Last Admin: 05/01/17 10:15 Dose: 1 tab Mupirocin (Bactroban 2% Ointment -) 1 applic TP BID [facility] Last Admin: 05/01/17 22:09 Dose: 1 applic - Objective Vital Signs: Vital Signs Temperature 97.6 F 05/02/17 02:00 Pulse Rate 121 H 05/02/17 06:41 Respiratory Rate 16 05/02/17 02:00 Blood Pressure 128/87 05/02/17 06:41 O2 Sat by Pulse Oximetry (%) 98 05/01/17 21:00 Constitutional: Yes: No Distress Cardiovascular: Yes: Pulse Irregular Respiratory: Yes: CTA Bilaterally Gastrointestinal: Yes: Soft Edema: No Labs: CBC, BMP 05/02/17 05:40 05/01/17 05:40 INR, PTT INR 1.35 (0.82-1.09) H 05/02/17 05:40 Fibrinogen 289.0 mg/dL (238-498) 05/02/17 05:40 Laboratory Tests 05/01/17 05/02/17 05/02/17 05:40 05:40 05:40 WBC 11.3 H Hct 31.6 L Plt Count 82 L D Fibrinogen 289.0 Sodium 140 Potassium 3.2 L Creatinine 3.7 H AST 51 H ALT 32 - ....Imaging EKG: Image Reviewed Problem List - Problems (1) Vasculitis Code(s): I77.6 - ARTERITIS, UNSPECIFIED (2) Rash Code(s): R21 - RASH AND OTHER NONSPECIFIC SKIN ERUPTION (3) ESRD (end stage renal disease) Code(s): N18.6 - END STAGE RENAL DISEASE (4) CAD (coronary artery disease) of artery bypass graft Code(s): I25.810 - ATHEROSCLEROSIS OF CABG W/O ANGINA PECTORIS Qualifiers: [place] vs. transplanted heart: [place] (5) Cellulitis Code(s): L03.90 - CELLULITIS, UNSPECIFIED Qualifiers: Site of cellulitis: unspecified site Qualified Code(s): L03.90 - Cellulitis , unspecified (6) Abnormal LFTs Code(s): R94.5 - ABNORMAL RESULTS OF LIVER FUNCTION STUDIES (7) Coagulopathy Code(s): D68.9 - COAGULATION DEFECT, UNSPECIFIED (8) Gangrene Code(s): I96 - GANGRENE, NOT ELSEWHERE CLASSIFIED (9) Paroxysmal A-fib Code(s): I48.0 - PAROXYSMAL ATRIAL FIBRILLATION (10) Thrombocytopenia Code(s): D69.6 - THROMBOCYTOPENIA, UNSPECIFIED Assessment/Plan IMP: Hypotension, seemingly resolved. AF with RVR Suspected acute vasculitis ESRD on HD PAD, CAD s/p CABG Gangrene of LE History GI bleed Remote history SAH REC: AF and hypotension: -remains on levophed -if BP tolerates give Lopressor 5mg IV q6H with hold parameter of < 100mmHG systolic. -If additional rate control is needed, can use Digoxin 1x dose and monitor levels or initiate Esmolol gtts and titrate to H.R < 120bpm. PAD/gangrene -Appreciate vascular f/u, LE angiogram when stable. -cont heparin gtt for now (Of note: She was previously not on full AC due to her history of GI bleeding and patient's decision to continue ASA alone after an informed discussion both in hospital and in office post discharge.)
[2017-05-02] MEDS ORDERED: PT OWN MED DRAWER 7, Y5N ONE ×2 (08:59→19:17)
[2017-05-02] MEDS: CARVEDILOL 12.5 MG TABLET (FP) PO SCH ×2 (09:00→22:08)
[2017-05-02] MEDS: CALCIUM ACETATE 667 MG CAPSULE (FP) PO SCH ×3 (09:00→18:49)
[2017-05-02] MEDS: methylPREDNISolone NA SUCC 40 MG/1 ML VIAL IVPUSH SCH ×2 (09:00→22:08)
[2017-05-02] MEDS: MULTIVITAMINS (DAILY MVI) TABLET (FP) PO SCH (09:01)
[2017-05-02] MEDS: HEPARIN INFUSION - 25,000 UNITS/500 ML INFUS.BAG IVPB SCH ×2 (09:08→13:15)
[2017-05-02] MEDS: METOPROLOL TARTRATE 5 MG/5 ML VIAL IVPUSH PRN ×2 (09:25→22:08)
[2017-05-02] MEDS: MUPIROCIN 2% TOPICAL OINTMENT 22 GM TUBE TP SCH ×2 (09:29→22:09)
[2017-05-02] MEDS ORDERED: ALBUMIN HUMAN 5% 250 ML IV SOLUTION IVPB ONE (10:00)
--- NOTE | 2017-05-02 11:37 | PN ---
Progress Note (short form) - Note Progress Note: pt seen and examined. stable. Denies any complains Labs reviewed O/E: General: elderly woman in NAD HEENT: vicky-oral rash noted, slightly better Cor: Tachycardic Lungs: Anterior to asucultate wnl abdomen: soft LE: + black eschar on the LE. Skin: small peticheal rash improved the both LE, UE, perioral, forearm neuro: alert and awake Last Vital Signs Temp Pulse Resp BP Pulse Ox 98.4 F 115 H 18 115/79 97 05/02/17 10:00 05/02/17 10:00 05/02/17 10:00 05/02/17 10:00 05/02/17 10:00 CBC, BMP 05/02/17 05:40 05/01/17 05:40 Current Medications Generic Name Dose Route Start Last Admin Trade Name Freq PRN Reason Stop Dose Admin Acetaminophen 650 mg 04/28/17 02:19 05/01/17 01:02 Tylenol - PO 650 mg Q4H PRN Administration PAIN LEVEL 1-5 Albumin Human 62.5 gm 05/03/17 11:31 Plasbumin-5 - IVPB 05/03/17 11:32 ONCE ONE Calcium Acetate 1,334 mg 04/27/17 08:00 05/02/17 09:00 Phoslo - PO 1,334 mg TIDCM [facility] Administration Carvedilol 12.5 mg 04/27/17 10:00 05/02/17 09:00 Coreg - PO 12.5 mg BID [facility] Administration Heparin Sodium (Porcine) 1,000 unit 04/28/17 13:02 04/30/17 19:26 Heparin - IVPUSH 1,000 unit PRN PRN Administration Heparin Heparin Sodium (Porcine) 5,000 unit 04/28/17 13:02 05/01/17 19:04 Heparin - IVPUSH 5,000 unit PRN PRN Administration Heparin Heparin Sodium/Dextrose 25,000 units in 500 mls @ 20 mls/hr 04/28/17 13:15 09:08 Heparin Infusion - IVPB 600 units/hr TITR [facility] 12 mls/hr Protocol Administration 1,000 UNITS/HR Aztreonam 0.5 gm/ Dextrose 50 mls @ 100 mls/hr 04/29/17 13:30 05/02/17 10:18 IVPB 100 mls/hr Q8H-IV [facility] Administration Protocol Clindamycin Phosphate 300 mg in 50 mls @ 104 mls/hr 04/29/17 20:00 05/02/17 09:00 Cleocin 300 Mg Premix Ivpb IVPB 104 mls/hr Q8H-IV [facility] Administration Norepinephrine Bitartrate 8, 500 mls @ 18.75 mls/hr 04/30/17 02:45 05/02/17 06:41 000 mcg/ Dextrose IV 5 mcg/min TITR [facility] 18.75 mls/hr Protocol Titration 5 MCG/MIN Methylprednisolone Sodium Succinate 40 mg 05/01/17 22:00 05/02/17 09:00 Solu-Medrol - IVPUSH 40 mg BID [facility] Administration Metoprolol Tartrate 5 mg 04/30/17 08:55 05/02/17 09:25 Lopressor Injection - IVPUSH 5 mg Q6H PRN Administration TACHYCARDIA Multivitamins/Minerals/Vitamin C 1 tab 04/27/17 10:00 05/02/17 09:01 Tab-A-Vit - PO 1 tab DAILY [facility] Administration Mupirocin 1 applic 04/28/17 22:00 05/02/17 09:29 Bactroban 2% Ointment - TP 1 applic BID [facility] Administration Assessment/Plan: Vasculitic rash ,on PLEX Thrombocytopenia, stable Coagulopathy, improved Ischemic of the LE. ESRD (end stage renal disease) on dialysis CAD (coronary artery disease) Impression: s/p PLEX 2 sessions out of 6. for session three tomorrow. platelets,likely post procedural, now improving. Her rash did improve on heparin drip , for occlusive disease identified on her CTA, angio is on hold , close monitoring of CBC/PTT in the light of her hx of GIB in the past. abx per ID replete K rheum f/u serology noted will follow
--- NOTE | 2017-05-02 11:55 | PN ---
Physical Exam: SUBJECTIVE: 24hr events: Pt tolerated apheresis last night. Pt has no complaints currently. OBJECTIVE: Vital Signs Period Temp Pulse Resp BP Sys/Street Pulse Ox Last 24 Hr 97.6 F-98.4 F 115-156 16-18 97-128/45-87 97-98 GENERAL: NAD, awake, alert sitting in bed HEENT: NC/AT, rash noted from nasolabial folds across philtrum to her chin which has improved, EOMI, VALE, No JVD LUNGS: CTA bilaterally, no wheezes, no crackles, no accessory muscle use. HEART: Tachycardic with regular rhythm, S1, S2 without murmur ABDOMEN: Soft, nontender, nondistended, normoactive bowel sounds, no guarding, no rebound EXTREMITIES: 2+ DP pulses, warm, no edema, blackened area on dorsum of R foot still present without changes; L foot worsening of 4th and 5th digit skin NEUROLOGICAL: Nonfocal exam. Strength 5/5 bilaterally in plantar and dorsal flexion. normal speech. gait not observed PSYCH: Normal mood, normal affect. SKIN: Warm, dry, macular nonblanching rash noted on entire body including palms and face as above (rash continues to improve throughout) Laboratory Results - last 24 hr 04/29/17 04/29/17 04/29/17 06:00 11:05 14:00 WBC RBC Hgb Hct MCV MCH MCHC RDW Plt Count MPV Neutrophils % Lymphocytes % Monocytes % Eosinophils % Basophils % Platelet Estimate Platelet Comment Anisocytosis PT with INR INR PTT (Actin FS) Fibrinogen Total Protein (PEP) 6.7 6.3 Albumin (PEP) 3.1 2.8 L Globulin 3.6 3.5 Albumin/Globulin Ratio 0.9 0.8 Beta Globulins 0.9 0.7 NETO M-Tone 0.8 H Sm (Diamond) Antibody 0.2 [employer] TRAINING [employer]GER Antibody <0.2 Double Strand DNA Ab 1 Complem C1q Component < 1.2 Blood Type Antibody Screen 05/01/17 05/01/17 05/01/17 11:00 17:00 17:00 WBC 10.3 H RBC 3.87 Hgb 10.3 L Hct 32.4 MCV 83.9 MCH 26.6 MCHC 31.7 L RDW 20.9 H Plt Count 62 L MPV 10.6 D Neutrophils % 71.5 Lymphocytes % 14.9 Monocytes % 11.0 H Eosinophils % 1.7 Basophils % 0.9 Platelet Estimate Decreased Platelet Comment No clumping noted Anisocytosis PT with INR INR PTT (Actin FS) 27.0 D Fibrinogen Total Protein (PEP) Albumin (PEP) Globulin Albumin/Globulin Ratio Beta Globulins NETO M-Tone Sm (Diamond) Antibody [employer] TRAINING MANAGER Antibody Double Strand DNA Ab Complem C1q Component Blood Type B POSITIVE Antibody Screen Negative 05/02/17 05/02/17 05/02/17 00:25 05:40 05:40 WBC 11.3 H RBC 3.77 Hgb 10.2 L Hct 31.6 L MCV 83.8 MCH 27.0 MCHC 32.2 RDW 20.8 H Plt Count 82 L D MPV 9.9 Neutrophils % Lymphocytes % Monocytes % Eosinophils % Basophils % Platelet Estimate Platelet Comment Anisocytosis 2+ PT with INR 15.20 H INR 1.35 H PTT (Actin FS) 105.2 H D Fibrinogen 289.0 Total Protein (PEP) Albumin (PEP) Globulin Albumin/Globulin Ratio Beta Globulins NETO M-Tone Sm (Diamond) Antibody [employer] TRAINING MANAGER Antibody Double Strand DNA Ab Complem C1q Component Blood Type Antibody Screen 05/02/17 05:40 WBC RBC Hgb Hct MCV MCH MCHC RDW Plt Count MPV Neutrophils % Lymphocytes % Monocytes % Eosinophils % Basophils % Platelet Estimate Platelet Comment Anisocytosis PT with INR INR PTT (Actin FS) 85.2 H Fibrinogen Total Protein (PEP) Albumin (PEP) Globulin Albumin/Globulin Ratio Beta Globulins NETO M-Tone Sm (Diamond) Antibody [employer]OR TRAINING MANAGER Antibody Double Strand DNA Ab Complem C1q Component Blood Type Antibody Screen Active Medications Generic Name Dose Route Start Last Admin Trade Name Freq PRN Reason Stop Dose Admin Acetaminophen 650 mg 04/28/17 02:19 05/01/17 01:02 Tylenol - PO 650 mg Q4H PRN Administration PAIN LEVEL 1-5 Albumin Human 62.5 gm 05/03/17 11:31 Plasbumin-5 - IVPB 05/03/17 11:32 ONCE ONE Calcium Acetate 1,334 mg 04/27/17 08:00 05/02/17 09:00 Phoslo - PO 1,334 mg TIDCM [facility] Administration Carvedilol 12.5 mg 04/27/17 10:00 05/02/17 09:00 Coreg - PO 12.5 mg BID [facility] Administration Heparin Sodium (Porcine) 1,000 unit 04/28/17 13:02 04/30/17 19:26 Heparin - IVPUSH 1,000 unit PRN PRN Administration Heparin Heparin Sodium (Porcine) 5,000 unit 04/28/17 13:02 05/01/17 19:04 Heparin - IVPUSH 5,000 unit PRN PRN Administration Heparin Heparin Sodium/Dextrose 25,000 units in 500 mls @ 20 mls/hr 04/28/17 13:15 09:08 Heparin Infusion - IVPB 600 units/hr TITR [facility] 12 mls/hr Protocol Administration 1,000 UNITS/HR Aztreonam 0.5 gm/ Dextrose 50 mls @ 100 mls/hr 04/29/17 13:30 05/02/17 10:18 IVPB 100 mls/hr Q8H-IV [facility] Administration Protocol Clindamycin Phosphate 300 mg in 50 mls @ 104 mls/hr 04/29/17 20:00 05/02/17 09:00 Cleocin 300 Mg Premix Ivpb IVPB 104 mls/hr Q8H-IV [facility] Administration Norepinephrine Bitartrate 8, 500 mls @ 18.75 mls/hr 04/30/17 02:45 05/02/17 06:41 000 mcg/ Dextrose IV 5 mcg/min TITR [facility] 18.75 mls/hr Protocol Titration 5 MCG/MIN Methylprednisolone Sodium Succinate 40 mg 05/01/17 22:00 05/02/17 09:00 Solu-Medrol - IVPUSH 40 mg BID [facility] Administration Metoprolol Tartrate 5 mg 04/30/17 08:55 05/02/17 09:25 Lopressor Injection - IVPUSH 5 mg Q6H PRN Administration TACHYCARDIA Multivitamins/Minerals/Vitamin C 1 tab 04/27/17 10:00 05/02/17 09:01 Tab-A-Vit - PO 1 tab DAILY [facility] Administration Mupirocin 1 applic 04/28/17 22:00 05/02/17 09:29 Bactroban 2% Ointment - TP 1 applic BID [facility] Administration ASSESSMENT/PLAN: Neuro: Neurologically intact. Respiratory: Currently without distress CV: Hypotension: --Continue to wean Levo as possible while maintaining MAP >65 --Monitor BP Tachycardia: --Will need to discuss about improvement of rate control and possible other etiologies of tachycardia --Continue Coreg 12.5 mg PO BID as tolerated --Continue Lopressor 5mg IVP q6h for persistant tachycardia --Cardiology on board (Dr. Morris) PVD vs. occlusive disorder --Pt continues to be on heparin gtt; monitor aptt --LE US dopplers showing: extensive abnormal flow noted distally within both lower extremities, L > R --Dr. 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 other autoimmune process --Complement levels: C3 99, C4 27 --RF elevated --Xray of hands obtained revealing extensive intra-articular erosions --Pt to undergo Q48h plasmapheresis which has showed marked improvement already --Rheumatology on board --XRay of Hands ordered; will discuss with XR about doing bedside --Start Solumedrol 40mg IVP BID --Skin biopsy was limited due to specimen obtained --Spoke with Dr. Mota and would be amenable to obtaining a full thickness derm sample Hematology: Thrombocytopenia Slightly improved today; continue to monitor Hem/Onc (Dr. Kerns) on board ID: --Pt being covered with Aztrenonam (day 4) and Clindamycin (day 5) --Despite being afebrile without leukocytosis cannot r/o any infectious process in addition ot other problems causing gangrenous area of foot --ID on board (Dr. Oakley) --Cultures negative thus far FEN: Electrolyte abnormalities: BMP to be obtained pre-dialysis Nutrition: Renal Diet PPX: DVT - On heparin gtt already GI - Not indicated currently Dispo: Continue ICU monitoring Case Discussed with Dr. Kailyn Thompson, DO - Im PGY-1 Visit type - Emergency Visit Emergency Visit: No - New Patient This patient is new to me today: No - Critical Care Critical Care patient: Yes Total Critical Care Time (in minutes): 35 Critical Care Statement: The care of this patient involved high complexity decision making to prevent further life threatening deterioration of the patient 's condition and/or to evaluate & treat vital organ system(s) failure or risk of failure.
--- NOTE | 2017-05-02 13:11 | PN ---
Teaching Attending Note Name of Resident: Brady Thompson ATTENDING PHYSICIAN STATEMENT I saw and evaluated the patient. I reviewed the resident's note and discussed the case with the resident. I agree with the resident's findings and plan as documented. SUBJECTIVE: Patient seen and examined in the ICU. Awake and alert. Low dose NE for hemodynamic support. Denies CP or SOB. OBJECTIVE: Intake & Output 04/29/17 04/30/17 05/01/17 05/02/17 23:59 23:59 23:59 23:59 Intake Total 298 2310 2842.6 722 Balance 298 2310 2842.6 722 Weight 128 lb 11.2 oz 127 lb 6.4 oz 143 lb 8 oz 147 lb 7 oz Last Vital Signs Temp Pulse Resp BP Pulse Ox 98.4 F 126 H 18 122/72 97 05/02/17 10:00 05/02/17 12:00 05/02/17 12:00 05/02/17 12:00 05/02/17 10:00 Active Medications Acetaminophen (Tylenol -) 650 mg PO Q4H PRN PRN Reason: PAIN LEVEL 1-5 Last Admin: 05/01/17 01:02 Dose: 650 mg Albumin Human (Plasbumin-5 -) 62.5 gm IVPB ONCE ONE Stop: 05/03/17 11:32 Calcium Acetate (Phoslo -) 1,334 mg PO TIDCM [facility] Last Admin: 05/02/17 09:00 Dose: 1,334 mg Carvedilol (Coreg -) 12.5 mg PO BID [facility] Last Admin: 05/02/17 09:00 Dose: 12.5 mg Heparin Sodium (Porcine) (Heparin -) 1,000 unit IVPUSH PRN PRN PRN Reason: Heparin Last Admin: 04/30/17 19:26 Dose: 1,000 unit Heparin Sodium (Porcine) (Heparin -) 5,000 unit IVPUSH PRN PRN PRN Reason: Heparin Last Admin: 05/01/17 19:04 Dose: 5,000 unit Heparin Sodium/Dextrose (Heparin Infusion -) 25,000 units in 500 mls @ 20 mls/ hr IVPB TITR [facility]ITH; 1,000 UNITS/HR PRN Reason: Protocol Last Admin: 05/02/17 09:08 Dose: 600 units/hr, 12 mls/hr Aztreonam 0.5 gm/ Dextrose 50 mls @ 100 mls/hr IVPB Q8H-IV [facility] PRN Reason: Protocol Last Admin: 05/02/17 10:18 Dose: 100 mls/hr Clindamycin Phosphate (Cleocin 300 Mg Premix Ivpb) 300 mg in 50 mls @ 104 mls/ hr IVPB Q8H-IV [facility] Last Admin: 05/02/17 09:00 Dose: 104 mls/hr Norepinephrine Bitartrate 8, (000 mcg/ Dextrose) 500 mls @ 18.75 mls/hr IV TITR [facility]ITH; 5 MCG/MIN PRN Reason: Protocol Last Titration: 05/02/17 06:41 Dose: 5 mcg/min, 18.75 mls/hr Methylprednisolone Sodium Succinate (Solu-Medrol -) 40 mg IVPUSH BID [facility] Last Admin: 05/02/17 09:00 Dose: 40 mg Metoprolol Tartrate (Lopressor Injection -) 5 mg IVPUSH Q6H PRN PRN Reason: TACHYCARDIA Last Admin: 05/02/17 09:25 Dose: 5 mg Multivitamins/Minerals/Vitamin C (Tab-A-Vit -) 1 tab PO DAILY [facility] Last Admin: 05/02/17 09:01 Dose: 1 tab Mupirocin (Bactroban 2% Ointment -) 1 applic TP BID [facility] Last Admin: 05/02/17 09:29 Dose: 1 applic Gen: Awake, NAD at rest Heart: tachycardic, regular Lung: decreased breath sounds at the bases Abd: soft, nontender Ext: R foot gangrene, purpuric rash Laboratory Results - last 24 hr 04/28/17 04/29/17 04/29/17 20:00 06:00 06:00 WBC RBC Hgb Hct MCV MCH MCHC RDW Plt Count MPV Neutrophils % Lymphocytes % Monocytes % Eosinophils % Basophils % Platelet Comment PT with INR INR PTT (Actin FS) Fibrinogen Sodium Potassium Chloride Carbon Dioxide Anion Gap BUN Creatinine Creat Clearance w eGFR Random Glucose Calcium Phosphorus Magnesium Total Bilirubin AST ALT Alkaline Phosphatase Total Protein Albumin Cycl Citrul Peptide IgG KYLER Screen Positive H KYLER Homogeneous Pattern 1:80 KYLER Nucleolar Pattern TNP KYLER Spindle [place] Pattern TNP KYLER Midbody Pattern TNP KYLER Centriole Pattern TNP KYLER Nuclear Dot Pattern TNP KYLER PCNA Pattern TNP KYLER Nuclear Membr Pat TNP KYLER Speckled Pattern TNP KYLER Centromere Pattern TNP Tot Complement (CH50) 50 Hepatitis A Ab Total Negative Hep Bs Antigen Negative Hep Bs Antibody Reactive Hep B Core Total Ab Negative Hepatitis C Antibody <0.1 Blood Type Antibody Screen 04/29/17 04/30/17 05/01/17 11:05 15:20 00:35 WBC RBC Hgb Hct MCV MCH MCHC RDW Plt Count MPV Neutrophils % Lymphocytes % Monocytes % Eosinophils % Basophils % Platelet Comment PT with INR INR PTT (Actin FS) 49.1 H D 74.6 H D Fibrinogen Sodium Potassium Chloride Carbon Dioxide Anion Gap BUN Creatinine Creat Clearance w eGFR Random Glucose Calcium Phosphorus Magnesium Total Bilirubin AST ALT Alkaline Phosphatase Total Protein Albumin Cycl Citrul Peptide IgG 29 H KYLER Screen KYLER Homogeneous Pattern KYLER Nucleolar Pattern KYLER Spindle Kennedy Pattern KYLER Midbody Pattern KYLER Centriole Pattern KYLER Nuclear Dot Pattern KYLER PCNA Pattern KYLER Nuclear Membr Pat KYLER Speckled Pattern KYLER Centromere Pattern Tot Complement (CH50) Hepatitis A Ab Total Hep Bs Antigen Hep Bs Antibody Hep B Core Total Ab Hepatitis C Antibody Blood Type Antibody Screen 05/01/17 05/01/17 05/01/17 05:40 05:40 05:40 WBC 11.0 H RBC 3.56 L Hgb 9.6 L Hct 29.7 L MCV 83.4 MCH 27.1 MCHC 32.5 RDW 20.5 H Plt Count 66 L D MPV 8.8 Neutrophils % 70.4 Lymphocytes % 15.6 Monocytes % 11.7 H Eosinophils % 2.0 Basophils % 0.3 Platelet Comment No clumping noted PT with INR 19.20 H INR 1.70 H PTT (Actin FS) 88.2 H Fibrinogen 354.0 Sodium Potassium Chloride Carbon Dioxide Anion Gap BUN Creatinine Creat Clearance w eGFR Random Glucose Calcium Phosphorus Magnesium Total Bilirubin AST ALT Alkaline Phosphatase Total Protein Albumin Cycl Citrul Peptide IgG KYLER Screen KYLER Homogeneous Pattern KYLER Nucleolar Pattern KYLER Spindle Kennedy Pattern KYLER Midbody Pattern KYLER Centriole Pattern KYLER Nuclear Dot Pattern KYLER PCNA Pattern KYLER Nuclear Membr Pat KYLER Speckled Pattern KYLER Centromere Pattern Tot Complement (CH50) Hepatitis A Ab Total Hep Bs Antigen Hep Bs Antibody Hep B Core Total Ab Hepatitis C Antibody Blood Type Antibody Screen 05/01/17 05/01/17 05:40 11:00 WBC RBC Hgb Hct MCV MCH MCHC RDW Plt Count MPV Neutrophils % Lymphocytes % Monocytes % Eosinophils % Basophils % Platelet Comment PT with INR INR PTT (Actin FS) Fibrinogen Sodium 140 Potassium 3.2 L Chloride 102 Carbon Dioxide 32 Anion Gap 6 L BUN 17 Creatinine 3.7 H Creat Clearance w eGFR 11.79 Random Glucose 119 H Calcium 7.5 L Phosphorus 3.4 Magnesium 1.7 L Total Bilirubin 0.8 AST 51 H ALT 32 Alkaline Phosphatase 147 H Total Protein 5.9 L Albumin 2.7 L Cycl Citrul Peptide IgG KYLER Screen KYLER Homogeneous Pattern KYLER Nucleolar Pattern KYLER Spindle Kennedy Pattern KYLER Midbody Pattern KYLER Centriole Pattern KYLER Nuclear Dot Pattern KYLER PCNA Pattern KYLER Nuclear Membr Pat KYLER Speckled Pattern KYLER Centromere Pattern Tot Complement (CH50) Hepatitis A Ab Total Hep Bs Antigen Hep Bs Antibody Hep B Core Total Ab Hepatitis C Antibody Blood Type B POSITIVE Antibody Screen Negative ASSESSMENT AND PLAN: Acute Vasculitis r/o Sepsis ESRD on HD CAD s/p CABG Atrial Fibrillation HTN DM - plasmapharesis per heme - ABX per ID - IVF boluses as needed - HD per Renal - Wean pressors - Solumedrol IV BID - O2 to keep SpO2>90% - ICU monitoring Dr Avina Critical care time spent in reviewing chart, evaluating patient and formulating plan 36 min
[2017-05-02 14:13] LABS: ATYPICAL pANCA <1:20 titer (Neg:<1:20); C-ANCA <1:20 titer (Neg:<1:20); P-ANCA <1:20 titer (Neg:<1:20); PROTEINASE-3 ANTIBODY <3.5 U/mL (0.0-3.5)
--- NOTE | 2017-05-02 14:18 | PN ---
Progress Note, Physician History of Present Illness: stable had plasma pheresis patient still hypotensive still on pressors - Current Medication List Current Medications: Active Medications Acetaminophen (Tylenol -) 650 mg PO Q4H PRN PRN Reason: PAIN LEVEL 1-5 Last Admin: 05/01/17 01:02 Dose: 650 mg Albumin Human (Plasbumin-5 -) 62.5 gm IVPB ONCE ONE Stop: 05/03/17 11:32 Calcium Acetate (Phoslo -) 1,334 mg PO TIDCM [facility] Last Admin: 05/02/17 13:28 Dose: 1,334 mg Carvedilol (Coreg -) 12.5 mg PO BID [facility] Last Admin: 05/02/17 09:00 Dose: 12.5 mg Heparin Sodium (Porcine) (Heparin -) 1,000 unit IVPUSH PRN PRN PRN Reason: Heparin Last Admin: 04/30/17 19:26 Dose: 1,000 unit Heparin Sodium (Porcine) (Heparin -) 5,000 unit IVPUSH PRN PRN PRN Reason: Heparin Last Admin: 05/01/17 19:04 Dose: 5,000 unit Heparin Sodium/Dextrose (Heparin Infusion -) 25,000 units in 500 mls @ 20 mls/ hr IVPB TITR LAITH; 1,000 UNITS/HR PRN Reason: Protocol Last Admin: 05/02/17 09:08 Dose: 600 units/hr, 12 mls/hr Aztreonam 0.5 gm/ Dextrose 50 mls @ 100 mls/hr IVPB Q8H-IV [facility] PRN Reason: Protocol Last Admin: 05/02/17 10:18 Dose: 100 mls/hr Clindamycin Phosphate (Cleocin 300 Mg Premix Ivpb) 300 mg in 50 mls @ 104 mls/ hr IVPB Q8H-IV [facility] Last Admin: 05/02/17 09:00 Dose: 104 mls/hr Norepinephrine Bitartrate 8, (000 mcg/ Dextrose) 500 mls @ 18.75 mls/hr IV TITR LAITH; 5 MCG/MIN PRN Reason: Protocol Last Titration: 05/02/17 06:41 Dose: 5 mcg/min, 18.75 mls/hr Methylprednisolone Sodium Succinate (Solu-Medrol -) 40 mg IVPUSH BID [facility] Last Admin: 05/02/17 09:00 Dose: 40 mg Metoprolol Tartrate (Lopressor Injection -) 5 mg IVPUSH Q6H PRN PRN Reason: TACHYCARDIA Last Admin: 05/02/17 09:25 Dose: 5 mg Multivitamins/Minerals/Vitamin C (Tab-A-Vit -) 1 tab PO DAILY [facility] Last Admin: 05/02/17 09:01 Dose: 1 tab Mupirocin (Bactroban 2% Ointment -) 1 applic TP BID [facility] Last Admin: 05/02/17 09:29 Dose: 1 applic - Objective Vital Signs: Vital Signs Temperature 98.4 F 05/02/17 10:00 Pulse Rate 126 H 05/02/17 12:00 Respiratory Rate 18 05/02/17 12:00 Blood Pressure 122/72 05/02/17 12:00 O2 Sat by Pulse Oximetry (%) 97 05/02/17 10:00 Constitutional: Yes: No Distress, Calm Cardiovascular: Yes: Regular Rate and Rhythm Respiratory: Yes: Regular, CTA Bilaterally Gastrointestinal: Yes: Normal Bowel Sounds, Soft Musculoskeletal: Yes: Other Extremities: Yes: Other (changes in the rt hand color gangrene of the rt foot lt toes swollen) Edema: LLE: 1+, RLE: 1+ Integumentary: Yes: Erythema Wound/Incision: Yes: Other Psychiatric: Yes: Alert, Oriented Labs: CBC, BMP 05/02/17 05:40 05/01/17 05:40 INR, PTT INR 1.35 (0.82-1.09) H 05/02/17 05:40 Fibrinogen 289.0 mg/dL (238-498) 05/02/17 05:40 Assessment/Plan Problem List - Problems (1) Cellulitis Code(s): L03.90 - CELLULITIS, UNSPECIFIED (2) Atrial fibrillation with RVR Code(s): I48.91 - UNSPECIFIED ATRIAL FIBRILLATION (3) CAD (coronary artery disease) Code(s): I25.10 - ATHSCL HEART DISEASE OF [place] CORONARY ARTERY W/O ANG PCTRS (4) ESRD (end stage renal disease) on dialysis Code(s): N18.6 - END STAGE RENAL DISEASE; Z99.2 - DEPENDENCE ON RENAL DIALYSIS (5) Hx of CABG Code(s): Z95.1 - PRESENCE OF AORTOCORONARY BYPASS GRAFT (6) Hypertension Code(s): I10 - ESSENTIAL (PRIMARY) HYPERTENSION (7) Osteoarthritis Code(s): M19.90 - UNSPECIFIED OSTEOARTHRITIS, UNSPECIFIED SITE (8) Subarachnoid hemorrhage following injury Code(s): S06.6X9A - TRAUM SUBRAC HEM W LOC OF UNSP DURATION, INIT Qualifiers: Encounter type: initial encounter Loss of consciousness presence/duration: without LOC Qualified Code(s): S06.6X0A - Traumatic subarachnoid hemorrhage without loss of consciousness, initial encounter Gangrene CTA ordered to assess large vessels in both legs. If major occlusion present will need angiogram for revascularization in effort to salvage foot. Code(s): I96 - GANGRENE, NOT ELSEWHERE CLASSIFIED plan continue current mgmt conitnue pressors wound care vascular on lining caser bp rest as per icu/primary workup for vasculitis rash cc time 40 min
--- NOTE | 2017-05-02 16:21 | PN ---
Progress Note (short form) - Note Progress Note: The patient is stable, still on vasopressors. She feels well. p/e Skin rash in face improving, No change in ischemic changes in fingers. Purpuric changes in hands probably no active lesions, residual changes, however I cannot be sure about this. Lesions in legs slightly better, area of necrosis in the right leg unchanged. Lungs clear, no active joints. No fever. Skin biopsy was not diagnostic. CTA: extensive diffuse atherosclerotic changes with multiple areas of stenosis and occlusion. It is unlikely to be related to vasculitis. Laboratory work-up: Rheumatoid factor 16.3, CCP: 20 and KYLER 1:80 with homogeneous pattern. ANCA, myeloperoxidase, proteinase-3, anti-Sm and anti- BANK CREDIT CARD COLLECTION CLERK were negative. Complement was normal (C1Q<1.2, C3: 59, C4: 27 and Ci50: 50) . X-ray hands: In both hands: carpus essentially normal, degenerative changes in PIPs and DIPs. No erosions. No changes suggestive of rheumatoid arthritis. Impression. The patient has very severe diffuse atherosclerotic disease, however the present clinical picture had an acute presentation with purpuric lesions in feet and vascuitic picture in hands in addition to ischemic lesions in tip of finger and legs. There are no serologic abnormalities suggestive of autoimmune vasculitis. RF and CCP are positive however the patient does not have active arthritis and there are no radiological changes suggestive of rheumatoid arthritis. It is unlikely that she has rheumatoid disease (vasculitis secondary to active, aggressive rheumatoid arthritis). The initial consideration of thrombotic microangiopathy is still a possibility, however less likely. The etiology of her acute problem is not clear. The patient is on plasmapheresis and Solumedrol 40 mg BID. Plan; I spoke with Dr. Mota, he will obtain a wedge skin biopsy on Friday. Continue same medications. Problem List - Problems (1) Vasculitis Code(s): I77.6 - ARTERITIS, UNSPECIFIED
[2017-05-02 19:55] LABS: ANION GAP 9 (8-16); BLOOD UREA NITROGEN 20 mg/dL (7-18); CALCIUM 8.1 mg/dL (8.5-10.1); CHLORIDE 102 mmol/L (98-107); CO2 27 mmol/L (21-32); CREATININE 3.2 mg/dL (0.55-1.02); GLUCOSE,RANDOM 121 mg/dL (74-106); PHOSPHOROUS 3.3 mg/dL (2.5-4.9); POTASSIUM 3.9 mmol/L (3.5-5.1); SODIUM 138 mmol/L (136-145)
[2017-05-02] MEDS ORDERED: NOREPINEPHRINE BITARTRATE 4 MG/4 ML ML IV ONE (20:57)
--- NOTE | 2017-05-02 21:53 | PN ---
Progress Note, Physician History of Present Illness: No new complaints - Current Medication List Current Medications: Active Medications Acetaminophen (Tylenol -) 650 mg PO Q4H PRN PRN Reason: PAIN LEVEL 1-5 Last Admin: 05/01/17 01:02 Dose: 650 mg Albumin Human (Plasbumin-5 -) 62.5 gm IVPB ONCE ONE Stop: 05/03/17 11:32 Calcium Acetate (Phoslo -) 1,334 mg PO TIDCM [facility] Last Admin: 05/02/17 18:49 Dose: Not Given Carvedilol (Coreg -) 12.5 mg PO BID [facility] Last Admin: 05/02/17 09:00 Dose: 12.5 mg Heparin Sodium (Porcine) (Heparin -) 1,000 unit IVPUSH PRN PRN PRN Reason: Heparin Last Admin: 04/30/17 19:26 Dose: 1,000 unit Heparin Sodium (Porcine) (Heparin -) 5,000 unit IVPUSH PRN PRN PRN Reason: Heparin Last Admin: 05/01/17 19:04 Dose: 5,000 unit Heparin Sodium/Dextrose (Heparin Infusion -) 25,000 units in 500 mls @ 20 mls/ hr IVPB TITR LAITH; 1,000 UNITS/HR PRN Reason: Protocol Last Admin: 05/02/17 13:15 Dose: 600 units/hr, 12 mls/hr Aztreonam 0.5 gm/ Dextrose 50 mls @ 100 mls/hr IVPB Q8H-IV [facility] PRN Reason: Protocol Last Admin: 05/02/17 10:18 Dose: 100 mls/hr Clindamycin Phosphate (Cleocin 300 Mg Premix Ivpb) 300 mg in 50 mls @ 104 mls/ hr IVPB Q8H-IV [facility] Last Admin: 05/02/17 09:00 Dose: 104 mls/hr Norepinephrine Bitartrate 8, (000 mcg/ Dextrose) 500 mls @ 18.75 mls/hr IV TITR LAITH; 5 MCG/MIN PRN Reason: Protocol Last Titration: 05/02/17 18:00 Dose: 7 mcg/min, 26.25 mls/hr Methylprednisolone Sodium Succinate (Solu-Medrol -) 40 mg IVPUSH BID [facility] Last Admin: 05/02/17 09:00 Dose: 40 mg Metoprolol Tartrate (Lopressor Injection -) 5 mg IVPUSH Q6H PRN PRN Reason: TACHYCARDIA Last Admin: 05/02/17 09:25 Dose: 5 mg Multivitamins/Minerals/Vitamin C (Tab-A-Vit -) 1 tab PO DAILY [facility] Last Admin: 05/02/17 09:01 Dose: 1 tab Mupirocin (Bactroban 2% Ointment -) 1 applic TP BID [facility] Last Admin: 05/02/17 09:29 Dose: 1 applic - Objective Vital Signs: Vital Signs Temperature 97.5 F L 05/02/17 18:00 Pulse Rate 133 H 05/02/17 20:30 Respiratory Rate 18 05/02/17 20:30 Blood Pressure 103/68 05/02/17 20:30 O2 Sat by Pulse Oximetry (%) 100 05/02/17 20:30 Neck: Yes: WNL, Supple Cardiovascular: Yes: Pulse Irregular Respiratory: Yes: Diminished Gastrointestinal: Yes: WNL, Normal Bowel Sounds, Soft, Abdomen, Obese Extremities: Yes: Other ((+) Rt foot eschar) Edema: LUE: Trace Labs: CBC, BMP 05/02/17 05:40 05/02/17 18:45 INR, PTT INR 1.35 (0.82-1.09) H 05/02/17 05:40 Fibrinogen 289.0 mg/dL (238-498) 05/02/17 05:40 Problem List - Problems (1) Vasculitis Assessment/Plan: As per rheum Plasmapheresis as per rheum/heme Code(s): I77.6 - ARTERITIS, UNSPECIFIED (2) Gangrene Assessment/Plan: PAD: angio on hold as per vascular Cont IV clinda/aztreonam Cultures have been negative Code(s): I96 - GANGRENE, NOT ELSEWHERE CLASSIFIED (3) Paroxysmal A-fib Assessment/Plan: Cont IV heparin(pt not on AC bc of h/o GIB/SAH) Cont rate control Code(s): I48.0 - PAROXYSMAL ATRIAL FIBRILLATION (4) Thrombocytopenia Code(s): D69.6 - THROMBOCYTOPENIA, UNSPECIFIED (5) CAD (coronary artery disease) Code(s): I25.10 - ATHSCL HEART DISEASE OF [place] CORONARY ARTERY W/O ANG PCTRS (6) ESRD (end stage renal disease) on dialysis Assessment/Plan: Dialysis as per renal Cont phoslo Code(s): N18.6 - END STAGE RENAL DISEASE; Z99.2 - DEPENDENCE ON RENAL DIALYSIS (7) Hypertension Assessment/Plan: Pt has been hypotensive Probably related to sepsis Cont IV levophed Code(s): I10 - ESSENTIAL (PRIMARY) HYPERTENSION (8) Osteoarthritis Code(s): M19.90 - UNSPECIFIED OSTEOARTHRITIS, UNSPECIFIED SITE (9) Cellulitis Code(s): L03.90 - CELLULITIS, UNSPECIFIED Qualifiers: Site of cellulitis: unspecified site Qualified Code(s): L03.90 - Cellulitis , unspecified
[2017-05-03] MEDS ORDERED: PT OWN MED DRAWER 7, Y5N ONE ×3 (01:26→17:56)
[2017-05-03] MEDS: CLINDAMYCIN 300 MG PREMIX IVPB 300 MG/50 ML BAG IVPB SCH ×3 (01:27→18:06)
[2017-05-03] MEDS: AZTREONAM 0.5 GM in DEXTROSE 5%-WATER - 50 ML IVPB SCH ×3 (01:28→18:06)
[2017-05-03] MEDS: NOREPINEPHRINE BITARTRATE 8,000 MCG in DEXTROSE 5%-WATER - 492 ML IV SCH (03:00)
[2017-05-03] MEDS: METOPROLOL TARTRATE 5 MG/5 ML VIAL IVPUSH PRN ×2 (05:48→19:45)
[2017-05-03 06:39] LABS: BASO % 0.3 % (0-2.0); HEMATOCRIT 28.7 % (32.4-45.2); HEMOGLOBIN 9.1 GM/dL (10.7-15.3); LYMPH % 5.9 % (8-40); MCH 26.6 pg (25.7-33.7); MCHC 31.8 g/dl (32.0-36.0); MEAN CELL VOLUME 83.5 fl (80-96); MEAN PLT VOLUME 9.1 fl (7.5-11.1); MONO % 3.5 % (3.8-10.2); NEUT % 90.3 % (42.8-82.8); RBC 3.44 M/mm3 (3.60-5.2); RDW 20.8 % (11.6-15.6); WHITE BLOOD COUNT 12.8 K/mm3 (4.0-10.0)
[2017-05-03 07:57] LABS: ALBUMIN 2.9 g/dl (3.4-5.0); ANION GAP 8 (8-16); BILIRUBIN,TOTAL 0.5 mg/dL (0.2-1.0); BLOOD UREA NITROGEN 18 mg/dL (7-18); CALCIUM 8.2 mg/dL (8.5-10.1); CHLORIDE 101 mmol/L (98-107); CO2 31 mmol/L (21-32); GLUCOSE,RANDOM 152 mg/dL (74-106); POTASSIUM 3.7 mmol/L (3.5-5.1); SGOT/AST 34 U/L (15-37); SGPT/ALT 27 U/L (12-78); SODIUM 140 mmol/L (136-145); TOT PROT 5.7 g/dl (6.4-8.2)
[2017-05-03 07:58] LABS: ALK PHOS 98 U/L (45-117)
[2017-05-03 08:10] LABS: INR 1.31 (0.82-1.09); PROTHROMBIN TIME (PATIENT) 14.8 SEC (9.98-11.88)
[2017-05-03] MEDS: HEPARIN INFUSION - 25,000 UNITS/500 ML INFUS.BAG IVPB SCH ×2 (08:29→13:31)
[2017-05-03] MEDS: CALCIUM ACETATE 667 MG CAPSULE (FP) PO SCH ×3 (08:50→17:53)
[2017-05-03 09:07] LABS: PLATELET COUNT 50 K/MM3 (134-434)
[2017-05-03] MEDS: CARVEDILOL 12.5 MG TABLET (FP) PO SCH ×2 (09:28→21:54)
[2017-05-03] MEDS: MULTIVITAMINS (DAILY MVI) TABLET (FP) PO SCH (09:29)
[2017-05-03] MEDS: methylPREDNISolone NA SUCC 40 MG/1 ML VIAL IVPUSH SCH ×2 (09:29→21:54)
--- NOTE | 2017-05-03 10:39 | PN ---
Progress Note (short form) - Note Progress Note: Pulm/CCM SUBJECTIVE: Patient seen and examined in the ICU. -awake, alert, afebril -remains on low dose NE -tachycardic but otherwise without distress. OBJECTIVE: Vital Signs Temp 98 F 05/03/17 10:00 Pulse 135 H 05/03/17 10:00 Resp 18 05/03/17 10:00 BP 106/62 05/03/17 10:00 Pulse Ox 100 05/03/17 09:00 Intake & Output 05/02/17 05/02/17 05/03/17 11:59 23:59 11:59 Intake Total 722 1129 434 Balance 722 1129 434 Weight 66.877 kg 66.451 kg Intake: IV 222 529 134 HEPARIN INFUSION - 25,000 91 204 84 units In 500 ml @ 1,000 UNITS/HR 20 mls/hr IVPB TITR LAITH Rx#:[id number] Levophed - 8,000 Mcg In 131 325 50 D5w - 492 ml @ 5 MCG/MIN 18.75 mls/hr IV TITR LAITH Rx#:[id number] IVPB 100 200 100 Oral 400 400 200 Other: Voiding Method Bedpan Bedpan Bowel Movement Yes: 2 small amount, semi loose bm Yes # Bowel Movements 2 1 1 Weight Measurement Method Built in Bedscale Built in Bedscale Active Medications Acetaminophen (Tylenol -) 650 mg PO Q4H PRN PRN Reason: PAIN LEVEL 1-5 Last Admin: 05/01/17 01:02 Dose: 650 mg Albumin Human (Plasbumin-5 -) 62.5 gm IVPB ONCE ONE Stop: 05/03/17 11:32 Calcium Acetate (Phoslo -) 1,334 mg PO TIDCM [facility] Last Admin: 05/03/17 08:50 Dose: 1,334 mg Carvedilol (Coreg -) 12.5 mg PO BID [facility] Last Admin: 05/03/17 09:28 Dose: 12.5 mg Heparin Sodium (Porcine) (Heparin -) 1,000 unit IVPUSH PRN PRN PRN Reason: Heparin Last Admin: 04/30/17 19:26 Dose: 1,000 unit Heparin Sodium (Porcine) (Heparin -) 5,000 unit IVPUSH PRN PRN PRN Reason: Heparin Last Admin: 05/01/17 19:04 Dose: 5,000 unit Heparin Sodium/Dextrose (Heparin Infusion -) 25,000 units in 500 mls @ 20 mls/ hr IVPB TITR LAITH; 1,000 UNITS/HR PRN Reason: Protocol Last Admin: 05/03/17 08:29 Dose: 600 units/hr, 12 mls/hr Aztreonam 0.5 gm/ Dextrose 50 mls @ 100 mls/hr IVPB Q8H-IV [facility] PRN Reason: Protocol Last Admin: 05/03/17 09:28 Dose: 100 mls/hr Clindamycin Phosphate (Cleocin 300 Mg Premix Ivpb) 300 mg in 50 mls @ 104 mls/ hr IVPB Q8H-IV [facility] Last Admin: 05/03/17 09:28 Dose: 104 mls/hr Norepinephrine Bitartrate 8, (000 mcg/ Dextrose) 500 mls @ 18.75 mls/hr IV TITR LAITH; 5 MCG/MIN PRN Reason: Protocol Last Titration: 05/03/17 08:30 Dose: 4 mcg/min, 15 mls/hr Methylprednisolone Sodium Succinate (Solu-Medrol -) 40 mg IVPUSH BID [facility] Last Admin: 05/03/17 09:29 Dose: 40 mg Metoprolol Tartrate (Lopressor Injection -) 5 mg IVPUSH Q6H PRN PRN Reason: TACHYCARDIA Last Admin: 05/03/17 05:48 Dose: 5 mg Midodrine (Proamatine -) 10 mg PO TID-MID [facility] Multivitamins/Minerals/Vitamin C (Tab-A-Vit -) 1 tab PO DAILY [facility] Last Admin: 05/03/17 09:29 Dose: 1 tab Mupirocin (Bactroban 2% Ointment -) 1 applic TP BID [facility] Last Admin: 05/02/17 22:09 Dose: 1 applic Gen: Awake, NAD at rest Heart: tachycardic, regular Lung: decreased breath sounds at the bases Abd: soft, nontender Ext: R foot dry gangrene, purpuric rash, R AVF w/thril ASSESSMENT AND PLAN: Acute Vasculitis r/o Sepsis ESRD on HD CAD s/p CABG Atrial Fibrillation HTN DM - plasmapharesis per heme, another dose today - ABX per ID - HD per Renal , no acute need for BICYCLE SERVICE TECHNICIAN today - Wean pressors, will try midodrine to get off vasopressor - if improved BP will need to get better rate contro - Solumedrol IV BID - O2 to keep SpO2>90% - ICU monitoring Sergei Reynolds ACNP [phone] [id number]
--- NOTE | 2017-05-03 10:55 | PN ---
Progress Note (short form) - Note Progress Note: Renal follow up for ESRD on HD Pt seen examined in the ICU s/p dialysis yesterday with 1.5L UF no acute complaints today no fever, chills Vital Signs Temperature 98 F 05/03/17 10:00 Pulse Rate 135 H 05/03/17 10:00 Respiratory Rate 18 05/03/17 10:00 Blood Pressure 106/62 05/03/17 10:00 O2 Sat by Pulse Oximetry (%) 100 05/03/17 09:00 Intake & Output 04/30/17 05/01/17 05/02/17 05/03/17 23:59 23:59 23:59 23:59 Intake Total 2310 2842.6 1851 434 Balance 2310 2842.6 1851 434 Weight 57.788 kg 65.091 kg 66.877 kg 66.451 kg NAD awake and alert RRR CTA soft NT/ND peticial rash on arms, not blanching CBC, BMP 05/03/17 06:15 05/03/17 06:15 Current Medications Acetaminophen (Tylenol -) 650 mg PO Q4H PRN PRN Reason: PAIN LEVEL 1-5 Last Admin: 05/01/17 01:02 Dose: 650 mg Albumin Human (Plasbumin-5 -) 62.5 gm IVPB ONCE ONE Stop: 05/03/17 11:32 Calcium Acetate (Phoslo -) 1,334 mg PO TIDCM [facility] Last Admin: 05/03/17 08:50 Dose: 1,334 mg Carvedilol (Coreg -) 12.5 mg PO BID [facility] Last Admin: 05/03/17 09:28 Dose: 12.5 mg Heparin Sodium (Porcine) (Heparin -) 1,000 unit IVPUSH PRN PRN PRN Reason: Heparin Last Admin: 04/30/17 19:26 Dose: 1,000 unit Heparin Sodium (Porcine) (Heparin -) 5,000 unit IVPUSH PRN PRN PRN Reason: Heparin Last Admin: 05/01/17 19:04 Dose: 5,000 unit Heparin Sodium/Dextrose (Heparin Infusion -) 25,000 units in 500 mls @ 20 mls/ hr IVPB TITR LAITH; 1,000 UNITS/HR PRN Reason: Protocol Last Admin: 05/03/17 08:29 Dose: 600 units/hr, 12 mls/hr Aztreonam 0.5 gm/ Dextrose 50 mls @ 100 mls/hr IVPB Q8H-IV [facility] PRN Reason: Protocol Last Admin: 05/03/17 09:28 Dose: 100 mls/hr Clindamycin Phosphate (Cleocin 300 Mg Premix Ivpb) 300 mg in 50 mls @ 104 mls/ hr IVPB Q8H-IV [facility] Last Admin: 05/03/17 09:28 Dose: 104 mls/hr Norepinephrine Bitartrate 8, (000 mcg/ Dextrose) 500 mls @ 18.75 mls/hr IV TITR LAITH; 5 MCG/MIN PRN Reason: Protocol Last Titration: 05/03/17 08:30 Dose: 4 mcg/min, 15 mls/hr Methylprednisolone Sodium Succinate (Solu-Medrol -) 40 mg IVPUSH BID [facility] Last Admin: 05/03/17 09:29 Dose: 40 mg Metoprolol Tartrate (Lopressor Injection -) 5 mg IVPUSH Q6H PRN PRN Reason: TACHYCARDIA Last Admin: 05/03/17 05:48 Dose: 5 mg Midodrine (Proamatine -) 10 mg PO TID-MID [facility] Multivitamins/Minerals/Vitamin C (Tab-A-Vit -) 1 tab PO DAILY [facility] Last Admin: 05/03/17 09:29 Dose: 1 tab Mupirocin (Bactroban 2% Ointment -) 1 applic TP BID [facility] Last Admin: 05/02/17 22:09 Dose: 1 applic 82 year old woman with PMhx of ESRD on HD (MWF), Hypertension, HLD, subarachnoid hemorrhage presented with right leg wound. #Right leg wound/suspected vasculitis pt noted to have occlusive disease on CTA of the LE, surgical intervetion deferred for now as pt getting tx for vasculitis KYLER + 1:80, Anti-DS DNA, ANCA, Anti-Diamond Ab pending Rheum follow up noted, less likely autoimmune vasculitis on steroids, getting 3rd plasmapharesis today ? need for continued pharesis going forward #Hypotension continue vasopressers adn IV Abx #ESRD on HD s/p Dialysis yesterday, no acute indication for dialysis today Thank you Karsten Sylvester DO
[2017-05-03] MEDS ORDERED: ALBUMIN HUMAN 5% 250 ML IV SOLUTION IVPB ONE (11:31)
--- NOTE | 2017-05-03 11:36 | PN ---
Progress Note (short form) - Note Progress Note: pt seen and examined. stable. Denies any complains Labs reviewed/all follow-up noted O/E: General: elderly woman in NAD HEENT: vicky-oral rash noted, slightly better Cor: Tachycardic Lungs: Anterior to asucultate wnl abdomen: soft LE: + black eschar on the LE. Skin: small peticheal rash improved the both LE, UE, perioral, forearm neuro: alert and awake Last Vital Signs Temp Pulse Resp BP Pulse Ox 98 F 135 H 18 106/62 97 05/03/17 10:00 05/03/17 10:00 05/03/17 10:00 05/03/17 10:00 05/03/17 10:00 CBC, BMP 05/03/17 06:15 05/03/17 06:15 Current Medications Generic Name Dose Route Start Last Admin Trade Name Freq PRN Reason Stop Dose Admin Acetaminophen 650 mg 04/28/17 02:19 05/01/17 01:02 Tylenol - PO 650 mg Q4H PRN Administration PAIN LEVEL 1-5 Calcium Acetate 1,334 mg 04/27/17 08:00 05/03/17 08:50 Phoslo - PO 1,334 mg TIDCM LAITH Administration Carvedilol 12.5 mg 04/27/17 10:00 05/03/17 09:28 Coreg - PO 12.5 mg BID LAITH Administration Heparin Sodium (Porcine) 1,000 unit 04/28/17 13:02 04/30/17 19:26 Heparin - IVPUSH 1,000 unit PRN PRN Administration Heparin Heparin Sodium (Porcine) 5,000 unit 04/28/17 13:02 05/01/17 19:04 Heparin - IVPUSH 5,000 unit PRN PRN Administration Heparin Heparin Sodium/Dextrose 25,000 units in 500 mls @ 20 mls/hr 04/28/17 13:15 08:29 Heparin Infusion - IVPB 600 units/hr TITR LAITH 12 mls/hr Protocol Administration 1,000 UNITS/HR Aztreonam 0.5 gm/ Dextrose 50 mls @ 100 mls/hr 04/29/17 13:30 05/03/17 09:28 IVPB 100 mls/hr Q8H-IV LAITH Administration Protocol Clindamycin Phosphate 300 mg in 50 mls @ 104 mls/hr 04/29/17 20:00 05/03/17 09:28 Cleocin 300 Mg Premix Ivpb IVPB 104 mls/hr Q8H-IV LAITH Administration Norepinephrine Bitartrate 8, 500 mls @ 18.75 mls/hr 04/30/17 02:45 05/03/17 08:30 000 mcg/ Dextrose IV 4 mcg/min TITR LAITH 15 mls/hr Protocol Titration 5 MCG/MIN Methylprednisolone Sodium Succinate 40 mg 05/01/17 22:00 05/03/17 09:29 Solu-Medrol - IVPUSH 40 mg BID LAITH Administration Metoprolol Tartrate 5 mg 04/30/17 08:55 05/03/17 05:48 Lopressor Injection - IVPUSH 5 mg Q6H PRN Administration TACHYCARDIA Midodrine 10 mg 05/03/17 14:00 Proamatine - PO TID-MID LAITH Multivitamins/Minerals/Vitamin C 1 tab 04/27/17 10:00 05/03/17 09:29 Tab-A-Vit - PO 1 tab DAILY LAITH Administration Mupirocin 1 applic 04/28/17 22:00 05/02/17 22:09 Bactroban 2% Ointment - TP 1 applic BID LAITH Administration Assessment/Plan: Vasculitic rash ,on PLEX Thrombocytopenia, stable Coagulopathy, improved Ischemic of the LE. ESRD (end stage renal disease) on dialysis CAD (coronary artery disease) Impression: s/p PLEX 2 sessions out of 6. for session three today. rheum f/u noted, will discuss about the need for further PLEX , placed call, await call back Thrombocytopenia, today its 50K, etiology ,?post-procedural, ongoing possibility of infection ( LE ), will repeat in the evening, if platelets are trending down ( <50K) will need to hold the heparon. d/w RN for skin wedge biopsy post weekend. will follow
[2017-05-03] MEDS ORDERED: CALCIUM GLUCONATE 10% - 1,000 MG/10 ML VIAL IVPB ONE (11:54)
[2017-05-03] MEDS: MIDODRINE HCL 5 MG TABLET PO SCH ×3 (12:46→18:31)
--- NOTE | 2017-05-03 12:59 | PN ---
Progress Note, Physician History of Present Illness: stable getting plasma pheresis no complaints feels better than yesterday drainage noted in between the left toes of the left leg continues to be on pressors - Current Medication List Current Medications: Active Medications Acetaminophen (Tylenol -) 650 mg PO Q4H PRN PRN Reason: PAIN LEVEL 1-5 Last Admin: 05/01/17 01:02 Dose: 650 mg Calcium Acetate (Phoslo -) 1,334 mg PO TIDCM [facility] Last Admin: 05/03/17 08:50 Dose: 1,334 mg Carvedilol (Coreg -) 12.5 mg PO BID [facility] Last Admin: 05/03/17 09:28 Dose: 12.5 mg Heparin Sodium (Porcine) (Heparin -) 1,000 unit IVPUSH PRN PRN PRN Reason: Heparin Last Admin: 04/30/17 19:26 Dose: 1,000 unit Heparin Sodium (Porcine) (Heparin -) 5,000 unit IVPUSH PRN PRN PRN Reason: Heparin Last Admin: 05/01/17 19:04 Dose: 5,000 unit Heparin Sodium/Dextrose (Heparin Infusion -) 25,000 units in 500 mls @ 20 mls/ hr IVPB TITR LAITH; 1,000 UNITS/HR PRN Reason: Protocol Last Admin: 05/03/17 08:29 Dose: 600 units/hr, 12 mls/hr Aztreonam 0.5 gm/ Dextrose 50 mls @ 100 mls/hr IVPB Q8H-IV LAITH PRN Reason: Protocol Last Admin: 05/03/17 09:28 Dose: 100 mls/hr Clindamycin Phosphate (Cleocin 300 Mg Premix Ivpb) 300 mg in 50 mls @ 104 mls/ hr IVPB Q8H-IV [facility]ITH Last Admin: 05/03/17 09:28 Dose: 104 mls/hr Norepinephrine Bitartrate 8, (000 mcg/ Dextrose) 500 mls @ 18.75 mls/hr IV TITR LAITH; 5 MCG/MIN PRN Reason: Protocol Last Titration: 05/03/17 08:30 Dose: 4 mcg/min, 15 mls/hr Methylprednisolone Sodium Succinate (Solu-Medrol -) 40 mg IVPUSH BID [facility] Last Admin: 05/03/17 09:29 Dose: 40 mg Metoprolol Tartrate (Lopressor Injection -) 5 mg IVPUSH Q6H PRN PRN Reason: TACHYCARDIA Last Admin: 05/03/17 05:48 Dose: 5 mg Midodrine (Proamatine -) 10 mg PO TID-MID [facility] Last Admin: 05/03/17 12:46 Dose: 10 mg Multivitamins/Minerals/Vitamin C (Tab-A-Vit -) 1 tab PO DAILY [facility] Last Admin: 05/03/17 09:29 Dose: 1 tab Mupirocin (Bactroban 2% Ointment -) 1 applic TP BID [facility] Last Admin: 05/02/17 22:09 Dose: 1 applic - Objective Vital Signs: Vital Signs Temperature 98 F 05/03/17 10:00 Pulse Rate 135 H 05/03/17 12:00 Respiratory Rate 18 05/03/17 12:00 Blood Pressure 105/66 05/03/17 12:00 O2 Sat by Pulse Oximetry (%) 97 05/03/17 10:00 Constitutional: Yes: No Distress, Calm Cardiovascular: Yes: Regular Rate and Rhythm Respiratory: Yes: Regular, CTA Bilaterally Gastrointestinal: Yes: Normal Bowel Sounds, Soft Musculoskeletal: Yes: Other Extremities: Yes: Other (gangrene of the rt foot drainage in between left foot toes) Integumentary: Yes: Other Neurological: Yes: Alert, Oriented Psychiatric: Yes: Alert, Oriented Labs: CBC, BMP 05/03/17 06:15 05/03/17 06:15 INR, PTT INR 1.31 (0.82-1.09) H 05/03/17 06:15 Fibrinogen 291.0 mg/dL (238-498) 05/03/17 06:15 Assessment/Plan Problem List - Problems (1) Cellulitis Code(s): L03.90 - CELLULITIS, UNSPECIFIED (2) Atrial fibrillation with RVR Code(s): I48.91 - UNSPECIFIED ATRIAL FIBRILLATION (3) CAD (coronary artery disease) Code(s): I25.10 - ATHSCL HEART DISEASE OF [place] CORONARY ARTERY W/O ANG PCTRS (4) ESRD (end stage renal disease) on dialysis Code(s): N18.6 - END STAGE RENAL DISEASE; Z99.2 - DEPENDENCE ON RENAL DIALYSIS (5) Hx of CABG Code(s): Z95.1 - PRESENCE OF AORTOCORONARY BYPASS GRAFT (6) Hypertension Code(s): I10 - ESSENTIAL (PRIMARY) HYPERTENSION (7) Osteoarthritis Code(s): M19.90 - UNSPECIFIED OSTEOARTHRITIS, UNSPECIFIED SITE (8) Subarachnoid hemorrhage following injury Code(s): S06.6X9A - TRAUM SUBRAC HEM W LOC OF UNSP DURATION, INIT Qualifiers: Encounter type: initial encounter Loss of consciousness presence/duration: without LOC Qualified Code(s): S06.6X0A - Traumatic subarachnoid hemorrhage without loss of consciousness, initial encounter Gangrene CTA ordered to assess large vessels in both legs. If major occlusion present will need angiogram for revascularization in effort to salvage foot. Code(s): I96 - GANGRENE, NOT ELSEWHERE CLASSIFIED plan continue current mgmt conitnue pressors wound care vascular on embedded case manager bp rest as per icu/primary will send wound cx cc time 40 min
--- NOTE | 2017-05-03 13:01 | PN ---
Progress Note, Physician Chief Complaint: Pt A&Ox3; no chest pain, palpitations, or dyspnea; felt dizzy briefly when " they moved me in the bed". No LE pain; moves right hand with difficulty. Pt's family is at bedside. History of Present Illness: Ms Gomez is an 82 yo black woman with a history of anemia, diabetes, ESRD on dialysis, hypertension, h/o afib, h/o recent subarachnoid hemorrhage (not currently anticoagulated), CAD s/p triple vessel CABG. Patient presents emergency department because she has been followed by a shoe associate but notes that there is a nonhealing, eschar on the dorsum of her left foot. No trauma that she is aware of. No fevers, chills. She's noted red spots on the lower extremities. No prior episodes like this. Had hemodialysis yesterday. - Current Medication List Current Medications: Active Medications Acetaminophen (Tylenol -) 650 mg PO Q4H PRN PRN Reason: PAIN LEVEL 1-5 Last Admin: 05/01/17 01:02 Dose: 650 mg Calcium Acetate (Phoslo -) 1,334 mg PO TIDCM [facility] Last Admin: 05/03/17 08:50 Dose: 1,334 mg Carvedilol (Coreg -) 12.5 mg PO BID [facility] Last Admin: 05/03/17 09:28 Dose: 12.5 mg Heparin Sodium (Porcine) (Heparin -) 1,000 unit IVPUSH PRN PRN PRN Reason: Heparin Last Admin: 04/30/17 19:26 Dose: 1,000 unit Heparin Sodium (Porcine) (Heparin -) 5,000 unit IVPUSH PRN PRN PRN Reason: Heparin Last Admin: 05/01/17 19:04 Dose: 5,000 unit Heparin Sodium/Dextrose (Heparin Infusion -) 25,000 units in 500 mls @ 20 mls/ hr IVPB TITR LAITH; 1,000 UNITS/HR PRN Reason: Protocol Last Admin: 05/03/17 08:29 Dose: 600 units/hr, 12 mls/hr Aztreonam 0.5 gm/ Dextrose 50 mls @ 100 mls/hr IVPB Q8H-IV LAITH PRN Reason: Protocol Last Admin: 05/03/17 09:28 Dose: 100 mls/hr Clindamycin Phosphate (Cleocin 300 Mg Premix Ivpb) 300 mg in 50 mls @ 104 mls/ hr IVPB Q8H-IV LAITH Last Admin: 05/03/17 09:28 Dose: 104 mls/hr Norepinephrine Bitartrate 8, (000 mcg/ Dextrose) 500 mls @ 18.75 mls/hr IV TITR LAITH; 5 MCG/MIN PRN Reason: Protocol Last Titration: 05/03/17 08:30 Dose: 4 mcg/min, 15 mls/hr Methylprednisolone Sodium Succinate (Solu-Medrol -) 40 mg IVPUSH BID [facility] Last Admin: 05/03/17 09:29 Dose: 40 mg Metoprolol Tartrate (Lopressor Injection -) 5 mg IVPUSH Q6H PRN PRN Reason: TACHYCARDIA Last Admin: 05/03/17 05:48 Dose: 5 mg Midodrine (Proamatine -) 10 mg PO TID-MID [facility] Last Admin: 05/03/17 12:46 Dose: 10 mg Multivitamins/Minerals/Vitamin C (Tab-A-Vit -) 1 tab PO DAILY [facility] Last Admin: 05/03/17 09:29 Dose: 1 tab Mupirocin (Bactroban 2% Ointment -) 1 applic TP BID [facility] Last Admin: 05/02/17 22:09 Dose: 1 applic - Objective Vital Signs: Vital Signs Temperature 98 F 05/03/17 10:00 Pulse Rate 135 H 05/03/17 12:00 Respiratory Rate 18 05/03/17 12:00 Blood Pressure 105/66 05/03/17 12:00 O2 Sat by Pulse Oximetry (%) 97 05/03/17 10:00 Constitutional: Yes: Calm Eyes: Yes: WNL HENT: Yes: WNL Neck: Yes: WNL Cardiovascular: Yes: Tachycardia, Pulse Irregular, S1 (varies in intensity) Respiratory: Yes: Regular Gastrointestinal: Yes: Soft ...Rectal Exam: Yes: Deferred Genitourinary: No: Anuria Breast(s): Yes: WNL Musculoskeletal: Yes: Muscle Weakness Extremities: Yes: Cool Edema: LLE: 1+, RLE: 1+ Peripheral Pulses WNL: No Peripheral Pulses: Left Doralis Pedis: 1+, Right Dorsalis Pedis: 1+ Integumentary: Yes: Other (blackened,gangrenous toes, R>L) Neurological: Yes: WNL Psychiatric: Yes: WNL Labs: CBC, BMP 05/03/17 06:15 05/03/17 06:15 INR, PTT INR 1.31 (0.82-1.09) H 05/03/17 06:15 Fibrinogen 291.0 mg/dL (238-498) 05/03/17 06:15 Abnormal Lab Results 05/02/17 05/03/17 05/03/17 18:45 06:15 06:15 WBC 12.8 H RBC 3.44 L Hgb 9.1 L D Hct 28.7 L MCHC 31.8 L RDW 20.8 H Plt Count 50 L D Neutrophils % 90.3 H D Lymphocytes % 5.9 L D Monocytes % 3.5 L PT with INR INR PTT (Actin FS) 57.7 H D BUN 20 H Creatinine 3.2 H Random Glucose 121 H Calcium 8.1 L Total Protein Albumin 05/03/17 05/03/17 06:15 06:15 WBC RBC Hgb Hct MCHC RDW Plt Count Neutrophils % Lymphocytes % Monocytes % PT with INR 14.80 H INR 1.31 H PTT (Actin FS) BUN Creatinine 3.0 H Random Glucose 152 H Calcium 8.2 L Total Protein 5.7 L Albumin 2.9 L - ....Imaging Other: Other (telemetry: AF with RVR) Problem List - Problems (1) CAD (coronary artery disease) of artery bypass graft Code(s): I25.810 - ATHEROSCLEROSIS OF CABG W/O ANGINA PECTORIS Qualifiers: [place] vs. transplanted heart: [place] heart (2) Cellulitis Code(s): L03.90 - CELLULITIS, UNSPECIFIED Qualifiers: Site of cellulitis: unspecified site Qualified Code(s): L03.90 - Cellulitis , unspecified (3) ESRD (end stage renal disease) Code(s): N18.6 - END STAGE RENAL DISEASE (4) Gangrene Code(s): I96 - GANGRENE, NOT ELSEWHERE CLASSIFIED (5) Rash Code(s): R21 - RASH AND OTHER NONSPECIFIC SKIN ERUPTION (6) Thrombocytopenia Code(s): D69.6 - THROMBOCYTOPENIA, UNSPECIFIED (7) Atrial fibrillation with RVR Assessment/Plan: On norepinehprine and midodrine for hypotension. Give metoprolol IVP prn for HR control when BP allows. Maintain hydration. On IV heparin for anticoagulation. Code(s): I48.91 - UNSPECIFIED ATRIAL FIBRILLATION (8) ESRD (end stage renal disease) on dialysis Code(s): N18.6 - END STAGE RENAL DISEASE; Z99.2 - DEPENDENCE ON RENAL DIALYSIS (9) Subarachnoid hemorrhage following injury Code(s): S06.6X9A - TRAUM SUBRAC HEM W LOC OF UNSP DURATION, INIT Qualifiers: Encounter type: initial encounter Loss of consciousness presence/duration: without LOC Qualified Code(s): S06.6X0A - Traumatic subarachnoid hemorrhage without loss of consciousness, initial encounter (10) Vasculitis Assessment/Plan: PAD:vascular workup in progress; for consideration of LE angiogram when pt is stable. On IV heparin. Code(s): I77.6 - ARTERITIS, UNSPECIFIED (11) Sepsis Assessment/Plan: On multiple antibiotics; continue per ID. Code(s): A41.9 - SEPSIS, UNSPECIFIED ORGANISM
[2017-05-03] MEDS: MUPIROCIN 2% TOPICAL OINTMENT 22 GM TUBE TP SCH ×2 (14:54→21:55)
[2017-05-03 18:18] LABS: BASO % 0.1 % (0-2.0); HEMATOCRIT 27.6 % (32.4-45.2); HEMOGLOBIN 8.8 GM/dL (10.7-15.3); LYMPH % 6.6 % (8-40); MCH 26.8 pg (25.7-33.7); MCHC 31.9 g/dl (32.0-36.0); MEAN CELL VOLUME 83.9 fl (80-96); MEAN PLT VOLUME 10.7 fl (7.5-11.1); MONO % 5.1 % (3.8-10.2); NEUT % 88.2 % (42.8-82.8); PLATELET COUNT 67 K/MM3 (134-434); RBC 3.29 M/mm3 (3.60-5.2); RDW 20.9 % (11.6-15.6); WHITE BLOOD COUNT 14.4 K/mm3 (4.0-10.0)
--- NOTE | 2017-05-03 21:06 | PN ---
Progress Note, Physician History of Present Illness: No new complaints - Current Medication List Current Medications: Active Medications Acetaminophen (Tylenol -) 650 mg PO Q4H PRN PRN Reason: PAIN LEVEL 1-5 Last Admin: 05/01/17 01:02 Dose: 650 mg Calcium Acetate (Phoslo -) 1,334 mg PO TIDCM [facility] Last Admin: 05/03/17 17:53 Dose: 1,334 mg Carvedilol (Coreg -) 12.5 mg PO BID [facility] Last Admin: 05/03/17 09:28 Dose: 12.5 mg Heparin Sodium (Porcine) (Heparin -) 1,000 unit IVPUSH PRN PRN PRN Reason: Heparin Last Admin: 04/30/17 19:26 Dose: 1,000 unit Heparin Sodium (Porcine) (Heparin -) 5,000 unit IVPUSH PRN PRN PRN Reason: Heparin Last Admin: 05/01/17 19:04 Dose: 5,000 unit Heparin Sodium/Dextrose (Heparin Infusion -) 25,000 units in 500 mls @ 20 mls/ hr IVPB TITR LAITH; 1,000 UNITS/HR PRN Reason: Protocol Last Admin: 05/03/17 13:31 Dose: Not Given Aztreonam 0.5 gm/ Dextrose 50 mls @ 100 mls/hr IVPB Q8H-IV LAITH PRN Reason: Protocol Last Admin: 05/03/17 18:06 Dose: 100 mls/hr Clindamycin Phosphate (Cleocin 300 Mg Premix Ivpb) 300 mg in 50 mls @ 104 mls/ hr IVPB Q8H-IV [facility] Last Admin: 05/03/17 18:06 Dose: 104 mls/hr Norepinephrine Bitartrate 8, (000 mcg/ Dextrose) 500 mls @ 18.75 mls/hr IV TITR LAITH; 5 MCG/MIN PRN Reason: Protocol Last Titration: 05/03/17 18:00 Dose: 5 mcg/min, 18.75 mls/hr Methylprednisolone Sodium Succinate (Solu-Medrol -) 40 mg IVPUSH BID [facility] Last Admin: 05/03/17 09:29 Dose: 40 mg Metoprolol Tartrate (Lopressor Injection -) 5 mg IVPUSH Q6H PRN PRN Reason: TACHYCARDIA Last Admin: 05/03/17 05:48 Dose: 5 mg Midodrine (Proamatine -) 10 mg PO TID-MID [facility] Last Admin: 05/03/17 18:31 Dose: 10 mg Multivitamins/Minerals/Vitamin C (Tab-A-Vit -) 1 tab PO DAILY [facility] Last Admin: 05/03/17 09:29 Dose: 1 tab Mupirocin (Bactroban 2% Ointment -) 1 applic TP BID [facility] Last Admin: 05/03/17 14:54 Dose: 1 applic - Objective Vital Signs: Vital Signs Temperature 98.8 F 05/03/17 18:00 Pulse Rate 138 H 05/03/17 18:00 Respiratory Rate 18 05/03/17 18:00 Blood Pressure 99/60 05/03/17 18:00 O2 Sat by Pulse Oximetry (%) 97 05/03/17 10:00 Constitutional: Yes: Well Nourished HENT: Yes: WNL Neck: Yes: WNL, Supple Cardiovascular: Yes: Pulse Irregular Respiratory: Yes: Diminished Gastrointestinal: Yes: WNL, Normal Bowel Sounds, Soft, Abdomen, Obese Extremities: Yes: Other ((+) rt foot eschar/gangrene (+) petechial rash on extremities) Edema: LUE: 1+ Labs: CBC, BMP 05/03/17 17:30 05/03/17 06:15 INR, PTT INR 1.31 (0.82-1.09) H 05/03/17 06:15 Fibrinogen 291.0 mg/dL (238-498) 05/03/17 06:15 Problem List - Problems (1) Vasculitis Assessment/Plan: Cont IV soluemdrol Plasmapheresis prn Code(s): I77.6 - ARTERITIS, UNSPECIFIED (2) Hypotension Assessment/Plan: Cont midodrine Code(s): I95.9 - HYPOTENSION, UNSPECIFIED (3) Gangrene Assessment/Plan: PAD: angio on hold as per vascular Cont IV clinda/aztreonam Cultures have been negative Code(s): I96 - GANGRENE, NOT ELSEWHERE CLASSIFIED (4) Paroxysmal A-fib Assessment/Plan: Cont IV heparin(pt not on AC bc of h/o GIB/SAH) Cont rate control Pt on coreg Lopressor prn Code(s): I48.0 - PAROXYSMAL ATRIAL FIBRILLATION (5) ESRD (end stage renal disease) on dialysis Assessment/Plan: Dialysis as per renal Cont phoslo Code(s): N18.6 - END STAGE RENAL DISEASE; Z99.2 - DEPENDENCE ON RENAL DIALYSIS (6) Hypertension Assessment/Plan: Pt has been hypotensive Probably related to sepsis Code(s): I10 - ESSENTIAL (PRIMARY) HYPERTENSION (7) Osteoarthritis Code(s): M19.90 - UNSPECIFIED OSTEOARTHRITIS, UNSPECIFIED SITE (8) Cellulitis Code(s): L03.90 - CELLULITIS, UNSPECIFIED Qualifiers: Site of cellulitis: unspecified site Qualified Code(s): L03.90 - Cellulitis , unspecified (9) CAD (coronary artery disease) Code(s): I25.10 - ATHSCL HEART DISEASE OF [place] CORONARY ARTERY W/O ANG PCTRS (10) Thrombocytopenia Code(s): D69.6 - THROMBOCYTOPENIA, UNSPECIFIED
[2017-05-04] MEDS ORDERED: PT OWN MED DRAWER 7, Y5N ONE ×7 (02:18→18:13)
[2017-05-04] MEDS: AZTREONAM 0.5 GM in DEXTROSE 5%-WATER - 50 ML IVPB SCH ×3 (02:20→18:03)
[2017-05-04] MEDS: CLINDAMYCIN 300 MG PREMIX IVPB 300 MG/50 ML BAG IVPB SCH ×3 (02:20→18:03)
[2017-05-04 06:27] LABS: HEMATOCRIT 25.6 % (32.4-45.2); HEMOGLOBIN 8.2 GM/dL (10.7-15.3); MCH 26.9 pg (25.7-33.7); MCHC 32.2 g/dl (32.0-36.0); MEAN CELL VOLUME 83.4 fl (80-96); MEAN PLT VOLUME 10.3 fl (7.5-11.1); PLATELET COUNT 62 K/MM3 (134-434); RBC 3.07 M/mm3 (3.60-5.2); RDW 21.3 % (11.6-15.6); WHITE BLOOD COUNT 9.8 K/mm3 (4.0-10.0)
[2017-05-04 07:56] LABS: ANION GAP 9 (8-16); BILIRUBIN,TOTAL 0.4 mg/dL (0.2-1.0); BLOOD UREA NITROGEN 30 mg/dL (7-18); CALCIUM 7.3 mg/dL (8.5-10.1); CHLORIDE 100 mmol/L (98-107); CO2 30 mmol/L (21-32); CREATININE 3.7 mg/dL (0.55-1.02); GLUCOSE,RANDOM 127 mg/dL (74-106); POTASSIUM 3.7 mmol/L (3.5-5.1); SGOT/AST 29 U/L (15-37); SGPT/ALT 24 U/L (12-78); SODIUM 139 mmol/L (136-145); TOT PROT 5.1 g/dl (6.4-8.2)
[2017-05-04 07:57] LABS: ALK PHOS 63 U/L (45-117)
[2017-05-04] MEDS: CALCIUM ACETATE 667 MG CAPSULE (FP) PO SCH ×3 (08:15→18:11)
--- NOTE | 2017-05-04 08:23 | PN ---
Progress Note (short form) - Note Progress Note: Renal follow up for ESRD on HD Pt seen examined in the ICU awake and alert no acute complaints denies any sob, chest pain, abd pain, N/V no pain in hand or foot at this time no fever or chills s/p 3rd plasmapharesis yesterday Vital Signs Temperature 98.9 F 05/04/17 05:25 Pulse Rate 103 H 05/04/17 05:25 Respiratory Rate 18 05/04/17 05:25 Blood Pressure 108/60 05/04/17 05:25 O2 Sat by Pulse Oximetry (%) 100 05/04/17 07:53 Intake & Output 05/01/17 05/02/17 05/03/17 05/04/17 23:59 23:59 23:59 23:59 Intake Total 2842.6 1851 1733 84 Balance 2842.6 1851 1733 84 Weight 65.091 kg 66.877 kg 66.451 kg 66.905 kg NAD awake and alert RRR CTA soft NT/ND peticial rash on arms, not blanching CBC, BMP 05/04/17 06:00 05/04/17 06:00 Current Medications Acetaminophen (Tylenol -) 650 mg PO Q4H PRN PRN Reason: PAIN LEVEL 1-5 Last Admin: 05/01/17 01:02 Dose: 650 mg Calcium Acetate (Phoslo -) 1,334 mg PO TIDAC [facility] Carvedilol (Coreg -) 12.5 mg PO BID [facility] Last Admin: 05/03/17 21:54 Dose: 12.5 mg Heparin Sodium (Porcine) (Heparin -) 1,000 unit IVPUSH PRN PRN PRN Reason: Heparin Last Admin: 04/30/17 19:26 Dose: 1,000 unit Heparin Sodium (Porcine) (Heparin -) 5,000 unit IVPUSH PRN PRN PRN Reason: Heparin Last Admin: 05/01/17 19:04 Dose: 5,000 unit Heparin Sodium/Dextrose (Heparin Infusion -) 25,000 units in 500 mls @ 20 mls/ hr IVPB TITR LAITH; 1,000 UNITS/HR PRN Reason: Protocol Last Admin: 05/03/17 13:31 Dose: Not Given Aztreonam 0.5 gm/ Dextrose 50 mls @ 100 mls/hr IVPB Q8H-IV [facility] PRN Reason: Protocol Last Admin: 05/04/17 02:20 Dose: 100 mls/hr Clindamycin Phosphate (Cleocin 300 Mg Premix Ivpb) 300 mg in 50 mls @ 104 mls/ hr IVPB Q8H-IV [facility] Last Admin: 05/04/17 02:20 Dose: 104 mls/hr Norepinephrine Bitartrate 8, (000 mcg/ Dextrose) 500 mls @ 18.75 mls/hr IV TITR LAITH; 5 MCG/MIN PRN Reason: Protocol Last Titration: 05/03/17 18:00 Dose: 5 mcg/min, 18.75 mls/hr Methylprednisolone Sodium Succinate (Solu-Medrol -) 40 mg IVPUSH BID [facility] Last Admin: 05/03/17 21:54 Dose: 40 mg Metoprolol Tartrate (Lopressor Injection -) 5 mg IVPUSH Q6H PRN PRN Reason: TACHYCARDIA Last Admin: 05/03/17 19:45 Dose: 5 mg Midodrine (Proamatine -) 10 mg PO TID-MID [facility] Last Admin: 05/03/17 18:31 Dose: 10 mg Multivitamins/Minerals/Vitamin C (Tab-A-Vit -) 1 tab PO DAILY [facility] Last Admin: 05/03/17 09:29 Dose: 1 tab Mupirocin (Bactroban 2% Ointment -) 1 applic TP BID [facility] Last Admin: 05/03/17 21:55 Dose: 1 applic 82 year old woman with PMhx of ESRD on HD (MWF), Hypertension, HLD, subarachnoid hemorrhage presented with right leg wound. #Right leg wound/suspected vasculitis s/p 3 plasmapharesis treatments KYLER + low titer, ANCA negative Rheum follow up for need for continued pharesis on IV steroids Vascular follow up #Hypotension continue vasopressers and IV Abx all cultures negative thus far #ESRD on HD next dialysis is planned for tomorrow Thank you Karsten Sylvester DO
--- NOTE | 2017-05-04 08:55 | PN ---
Progress Note (short form) - Note Progress Note: PULM/CCM Pt seen and examined in the ICU. CA+OX3, off all pressors w/ the midodrine, breathing easy, relaxed, NAD. Pt remains on steroids, s/p 3rd plasmapharesis yesterday (05/03). Home Medication List Medication Instructions Recorded Confirmed Type Calcium Acetate [Phoslo] 2 tab PO AC 09/02/14 04/26/17 History Carvedilol 12.5 mg PO BID 09/02/14 04/26/17 History Multivitamin [Daily Quintin] 1 each PO DAILY 09/02/14 04/26/17 History levoFLOXacin [Levaquin -] 750 mg PO DAILY 04/26/17 04/26/17 History Active Medications Acetaminophen (Tylenol -) 650 mg PO Q4H PRN PRN Reason: PAIN LEVEL 1-5 Last Admin: 05/01/17 01:02 Dose: 650 mg Calcium Acetate (Phoslo -) 1,334 mg PO TIDAC [facility] Carvedilol (Coreg -) 12.5 mg PO BID [facility] Last Admin: 05/03/17 21:54 Dose: 12.5 mg Heparin Sodium (Porcine) (Heparin -) 1,000 unit IVPUSH PRN PRN PRN Reason: Heparin Last Admin: 04/30/17 19:26 Dose: 1,000 unit Heparin Sodium (Porcine) (Heparin -) 5,000 unit IVPUSH PRN PRN PRN Reason: Heparin Last Admin: 05/01/17 19:04 Dose: 5,000 unit Heparin Sodium/Dextrose (Heparin Infusion -) 25,000 units in 500 mls @ 20 mls/ hr IVPB TITR [facility]ITH; 1,000 UNITS/HR PRN Reason: Protocol Last Admin: 05/03/17 13:31 Dose: Not Given Aztreonam 0.5 gm/ Dextrose 50 mls @ 100 mls/hr IVPB Q8H-IV [facility] PRN Reason: Protocol Last Admin: 05/04/17 02:20 Dose: 100 mls/hr Clindamycin Phosphate (Cleocin 300 Mg Premix Ivpb) 300 mg in 50 mls @ 104 mls/ hr IVPB Q8H-IV [facility] Last Admin: 05/04/17 02:20 Dose: 104 mls/hr Norepinephrine Bitartrate 8, (000 mcg/ Dextrose) 500 mls @ 18.75 mls/hr IV TITR LAITH; 5 MCG/MIN PRN Reason: Protocol Last Titration: 05/03/17 18:00 Dose: 5 mcg/min, 18.75 mls/hr Methylprednisolone Sodium Succinate (Solu-Medrol -) 40 mg IVPUSH BID [facility] Last Admin: 05/03/17 21:54 Dose: 40 mg Metoprolol Tartrate (Lopressor Injection -) 5 mg IVPUSH Q6H PRN PRN Reason: TACHYCARDIA Last Admin: 05/03/17 19:45 Dose: 5 mg Midodrine (Proamatine -) 10 mg PO TID-MID [facility] Last Admin: 05/03/17 18:31 Dose: 10 mg Multivitamins/Minerals/Vitamin C (Tab-A-Vit -) 1 tab PO DAILY [facility] Last Admin: 05/03/17 09:29 Dose: 1 tab Mupirocin (Bactroban 2% Ointment -) 1 applic TP BID [facility] Last Admin: 05/03/17 21:55 Dose: 1 applic V/S Temp 97.7 F 05/04/17 08:00 Pulse 102 H 05/04/17 08:00 Resp 21 05/04/17 08:00 BP 108/65 05/04/17 08:00 Pulse Ox 100 05/04/17 08:00 I'S & O's 05/03/17 05/03/17 05/04/17 11:59 23:59 11:59 Intake Total 434 1299 84 Balance 434 1299 84 Weight 66.451 kg 66.905 kg Intake: IV 134 359 84 HEPARIN INFUSION - 25,000 84 204 84 units In 500 ml @ 1,000 UNITS/HR 20 mls/hr IVPB TITR [facility] Rx#:[id number] Levophed - 8,000 Mcg In 50 155 0 D5w - 492 ml @ 5 MCG/MIN 18.75 mls/hr IV TITR [facility] Rx#:[id number] IVPB 100 300 Oral 200 640 Other: Voiding Method Bedpan Bedpan Bowel Movement Yes Yes # Bowel Movements 1 1 Weight Measurement Method Built in Bedscale Built in Bedscale PE: GEN: Elderly woman, in bed, wake, NAD PULM: Diminished @ the bases but otherwise CTAB CV: Distant heart tones but nml S1/S2, RR, unable to appreciate any G/M/R ABD: Obese, hypo-active, soft, nontender EXT: R foot dry gangrene, purpuric rash, R AVF w/ good thrill BACK: NOT rolled on this exam LAB DATA: CBC, BMP 05/04/17 06:00 05/04/17 06:00 INR, PTT INR 1.31 (0.82-1.09) H 05/03/17 06:15 Fibrinogen 291.0 mg/dL (238-498) 05/03/17 06:15 RECENT STUDIES 2 NOTE: R HAND XR 05/01: Imaging reveals marked loss of bone density, vascular calcifications, soft tissue swelling and degenerative findings. An acute fracture or subluxation is not seen. Rheumatoid findings are difficult to visualize. Since 05/27/2015, there is no change of an adverse nature. If symptoms persist on either side then further imaging may be of help. CT ABD CTA AOR & BLE RUNOFF 04/28: RIGHT: The right common iliac artery demonstrate severe mural calcifications and noncalcified atheroma resulting in less than 50% stenosis proximally. The origin of the right internal iliac artery is occluded. The right external iliac artery is patent. Posteromedial noncalcified atheroma seen in the right common femoral artery resulting in less than 50% stenosis. High-grade stenosis seen in the proximal right deep femoral artery with flow seen in the muscular branches. Severe diffuse mural calcification seen throughout the right SFA with multifocal areas of high- grade stenosis. Multifocal areas of high-grade stenosis seen in the right popliteal artery with subtotal occlusion distally. The origin of the right JALEESA appears to opacify with contrast however the majority of the right JALEESA is occluded. Evaluation of the right TP trunk is severely limited due to calcifications. The right peroneal and posterior tibial arteries however adequate evaluation is severely limited due to calcifications. The plantar branches of the right foot are patent with transmetatarsal flow to the dorsal branches of the foot. LEFT: The left common iliac artery is patent demonstrating severe mural calcifications with less than 50 % stenosis. The origin of the left internal iliac artery is patent with high-grade stenosis. The left external iliac artery is patent. Atherosclerotic plaque seen in the left common artery resulting in approximately 50-70% stenosis. At least 50% stenosis seen at the origin of the left SFA. Multifocal calcified and noncalcified plaque seen in the left SFA with areas of at least 70% stenosis particularly distally in the region of the abductor canal. Large calcified plaque seen in the left popliteal artery with areas of high-grade stenosis. The left deep femoral artery is patent and the muscular branches are opacified. High -grade stenosis seen at the origin of the left deep femoral artery. The left anterior tibial artery is occluded. The left TP trunk is occluded. Reconstitution of flow is seen in the distal TP trunk via collateral flow with flow seen in the proximal [place] and peroneal artery. Flow seen to the plantar branches of the left foot with transmetatarsal flow to the dorsal branches of the foot as well as collateral filling of the dorsalis pedis artery via the left peroneal artery. There is early opacification of the proximal left deep femoral vein with extensive filling of the left common femoral, external and internal as well as common iliac veins extending to the IVC. Extensive subcutaneous varicosities seen in the inferior left chest, lateral and posterior chest wall extending inferiorly along the abdomen with marked early opacification of the internal and external iliac venous branches Severe calcified plaque seen at the right and left main renal arteries with high-grade stenoses. The celiac trunk is patent with partially calcified plaque seen proximally resulting in less than 50% stenosis. Calcified plaque resulting in high-grade stenosis seen in the proximal SMA. The JENNI is patent with calcification seen at the origin in degree of stenosis cannot be discerned. ABDOMEN AND PELVIS: There are chronic changes in the visualized lung bases with scarring and cylindrical bronchiectasis. There is trace bilateral, right more than left pleural effusions. There is cardiomegaly. Partially imaged is the tip of the dialysis catheter in the right atrium. The liver, spleen and pancreas, gallbladder, biliary tree and adrenal glands are unremarkable. There are severe bilateral renal atrophy. There are bilateral renal cysts. The urinary bladder is collapsed. The uterus contains numerous coarse calcifications likely calcified fibroids. There is no adnexal mass. Evaluation of the bowel loops is limited due to lack of oral contrast however there is no evidence of abnormal bowel dilatation to suggest bowel obstruction. The appendix is normal. There is sigmoid colon diverticulosis. There is no evidence of pneumoperitoneum, abdominal ascites or enlarged lymph nodes. There are small sliding hiatal hernia. There is no destructive bony lesion. There is severe multilevel lumbar spine DJD. Large diffuse disc bulge with facet arthrosis and ligamentum flavum hypertrophy is seen with multilevel spinal stenosis most severe at L4-L5. There is bilateral hip DJD. Extensive diffuse aortoiliac, femoral popliteal and infrapopliteal, as described above most severe in the femoropopliteal and infrapopliteal segments with high-grade stenoses in the right and left femoral and popliteal arteries with subtotal occlusion in the distal right popliteal artery and occlusion in the distal left popliteal artery and reconstitution of flow in the infrapopliteal artery predominantly via the peroneal and posterior tibial arteries however degree of disease in the infrapopliteal arteries cannot be discerned due to the severe degree of calcifications. Flow is seen in the right and left plantar arteries with transmetatarsal flow into the dorsal branches of the feet and filling of the proximal left dorsalis pedis artery via the left peroneal artery. Extensive dense filling of venous branches in the anterior, lateral and posterior chest ayala including the left internal mammary vein extending inferiorly along the lateral thoracic veins as well as the superficial tributaries of the internal mammary and patent umbilical veins into the superficial epigastric veins and superficial circumflex iliac veins into the external and internal iliac veins likely secondary to SVC or left brachiocephalic vein obstruction. Severe calcified plaques with subtotal occlusions of the right and left renal arteries resulting in severe renal atrophy. Bilateral renal cysts seen. Calcified plaque resulting in less than 50 % stenosis in the celiac trunk and high-grade stenosis in the SMA. JENNI is patent with severe calcifications rendering evaluation for stenosis very difficult. Calcified uterine fibroids. Sigmoid colon diverticulosis. Small sliding hiatal hernia. Severe multilevel lumbar spine DJD with large diffuse disc herniations, ligamentum flattening hypertrophy and facet degenerative changes resulting in high-grade spinal stenosis most severe at L4 -L5. Severe bilateral hip DJD. Partially imaged tip of the modiolus is catheter in the right atrium. Cardiomegaly. Trace bilateral, right more than left pleural effusions. CXR 04/26: A single view the chest is been submitted. Since the prior study of , there is a more apical lordotic projection. The right line remains with sternal sutures and clips, large heart, sclerotic unfolded aorta but no sign of an acute process. Correlation recommended. LE ART DUPLEX 04/26: Moderate atherosclerotic plaque is scattered throughout the common and superficial femoral arteries , as well as the popliteal and posterior tibial arteries bilaterally. On the right side, biphasic flow is documented within the common and and superficial femoral arteries. Monophasic flow is noted within the popliteal artery with weak monophasic flow identified within the posterior tibial. There is no evidence of complete occlusion. On the left side, biphasic flow is noted within the common proximal superficial femoral arteries. Largely monophasic flow is noted within the distal SFA and popliteal arteries. No flow identified within the posterior tibial artery. ASSESS & PLAN: Resolving Acute Vasculitis +/- Sepsis ESRD on HD ([facility]) CAD s/p CABG Atrial Fibrillation HTN DM - Supp Fi-O2 to keep SpO2>90% - Plasmapharesis per Rheum/Heme - F/u Clxr Data - ABX per ID - HD a/p Renal ([facility]) - Rate Control w/ BBs - Cont Midodrine - Cont Heparin gtt for therapeutic goal - Vasc F/u - Solumedrol IV BID - Dibaetic Diet - Insulin prn - Decolonize w/ bactroban - ICU monitoring DGL, ACNP-BC [facility] ICU [id number]"CCT
[2017-05-04] MEDS: MIDODRINE HCL 5 MG TABLET PO SCH ×3 (09:22→18:29)
[2017-05-04] MEDS: methylPREDNISolone NA SUCC 40 MG/1 ML VIAL IVPUSH SCH ×2 (09:22→21:44)
[2017-05-04] MEDS: CARVEDILOL 12.5 MG TABLET (FP) PO SCH ×2 (09:22→21:44)
[2017-05-04] MEDS: MULTIVITAMINS (DAILY MVI) TABLET (FP) PO SCH (09:22)
[2017-05-04] MEDS: MUPIROCIN 2% TOPICAL OINTMENT 22 GM TUBE TP SCH ×2 (09:27→21:41)
--- NOTE | 2017-05-04 11:32 | PN ---
Progress Note, Physician History of Present Illness: stable no new issues tolerated plasmapheresis - Current Medication List Current Medications: Active Medications Acetaminophen (Tylenol -) 650 mg PO Q4H PRN PRN Reason: PAIN LEVEL 1-5 Last Admin: 05/01/17 01:02 Dose: 650 mg Calcium Acetate (Phoslo -) 1,334 mg PO TIDAC [facility] Carvedilol (Coreg -) 12.5 mg PO BID [facility] Last Admin: 05/04/17 09:22 Dose: 12.5 mg Heparin Sodium (Porcine) (Heparin -) 1,000 unit IVPUSH PRN PRN PRN Reason: Heparin Last Admin: 04/30/17 19:26 Dose: 1,000 unit Heparin Sodium (Porcine) (Heparin -) 5,000 unit IVPUSH PRN PRN PRN Reason: Heparin Last Admin: 05/01/17 19:04 Dose: 5,000 unit Heparin Sodium/Dextrose (Heparin Infusion -) 25,000 units in 500 mls @ 20 mls/ hr IVPB TITR LAITH; 1,000 UNITS/HR PRN Reason: Protocol Last Admin: 05/03/17 13:31 Dose: Not Given Aztreonam 0.5 gm/ Dextrose 50 mls @ 100 mls/hr IVPB Q8H-IV [facility] PRN Reason: Protocol Last Admin: 05/04/17 09:28 Dose: 100 mls/hr Clindamycin Phosphate (Cleocin 300 Mg Premix Ivpb) 300 mg in 50 mls @ 104 mls/ hr IVPB Q8H-IV [facility] Last Admin: 05/04/17 09:20 Dose: 104 mls/hr Methylprednisolone Sodium Succinate (Solu-Medrol -) 40 mg IVPUSH BID [facility] Last Admin: 05/04/17 09:22 Dose: 40 mg Metoprolol Tartrate (Lopressor Injection -) 5 mg IVPUSH Q6H PRN PRN Reason: TACHYCARDIA Last Admin: 05/03/17 19:45 Dose: 5 mg Midodrine (Proamatine -) 10 mg PO TID-MID [facility] Last Admin: 05/04/17 09:22 Dose: 10 mg Multivitamins/Minerals/Vitamin C (Tab-A-Vit -) 1 tab PO DAILY [facility] Last Admin: 05/04/17 09:22 Dose: 1 tab Mupirocin (Bactroban 2% Ointment -) 1 applic TP BID [facility] Last Admin: 05/04/17 09:27 Dose: 1 applic - Objective Vital Signs: Vital Signs Temperature 97.7 F 05/04/17 08:00 Pulse Rate 107 H 05/04/17 10:00 Respiratory Rate 11 L 05/04/17 10:00 Blood Pressure 93/55 05/04/17 10:00 O2 Sat by Pulse Oximetry (%) 100 05/04/17 08:00 Constitutional: Yes: No Distress, Calm Cardiovascular: Yes: Regular Rate and Rhythm Gastrointestinal: Yes: Normal Bowel Sounds, Soft Musculoskeletal: Yes: Other Extremities: Yes: Other Wound/Incision: Yes: Dressing Removed Neurological: Yes: Alert, Oriented Psychiatric: Yes: Alert, Oriented Labs: CBC, BMP 05/04/17 06:00 05/04/17 06:00 INR, PTT INR 1.31 (0.82-1.09) H 05/03/17 06:15 Fibrinogen 291.0 mg/dL (238-498) 05/03/17 06:15 Assessment/Plan Problem List - Problems (1) Cellulitis Code(s): L03.90 - CELLULITIS, UNSPECIFIED (2) Atrial fibrillation with RVR Code(s): I48.91 - UNSPECIFIED ATRIAL FIBRILLATION (3) CAD (coronary artery disease) Code(s): I25.10 - ATHSCL HEART DISEASE OF [place] CORONARY ARTERY W/O ANG PCTRS (4) ESRD (end stage renal disease) on dialysis Code(s): N18.6 - END STAGE RENAL DISEASE; Z99.2 - DEPENDENCE ON RENAL DIALYSIS (5) Hx of CABG Code(s): Z95.1 - PRESENCE OF AORTOCORONARY BYPASS GRAFT (6) Hypertension Code(s): I10 - ESSENTIAL (PRIMARY) HYPERTENSION (7) Osteoarthritis Code(s): M19.90 - UNSPECIFIED OSTEOARTHRITIS, UNSPECIFIED SITE (8) Subarachnoid hemorrhage following injury Code(s): S06.6X9A - TRAUM SUBRAC HEM W LOC OF UNSP DURATION, INIT Qualifiers: Encounter type: initial encounter Loss of consciousness presence/duration: without LOC Qualified Code(s): S06.6X0A - Traumatic subarachnoid hemorrhage without loss of consciousness, initial encounter Gangrene CTA ordered to assess large vessels in both legs. If major occlusion present will need angiogram for revascularization in effort to salvage foot. 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
--- NOTE | 2017-05-04 12:07 | PN ---
Progress Note (short form) - Note Progress Note: pt seen and examined. stable. Denies any complains Labs reviewed/all follow-up noted O/E: General: elderly woman in NAD HEENT: vicky-oral rash noted, slightly better Cor: Tachycardic Lungs: Anterior to asucultate wnl abdomen: soft LE: + black eschar on the LE. Skin: small peticheal rash improved the both LE, UE, perioral, forearm neuro: alert and awake Last Vital Signs Temp Pulse Resp BP Pulse Ox 98.3 F 107 H 12 94/51 100 05/04/17 12:00 05/04/17 10:00 05/04/17 12:00 05/04/17 12:00 05/04/17 08:00 CBC, BMP 05/04/17 06:00 05/04/17 06:00 Current Medications Generic Name Dose Route Start Last Admin Trade Name Freq PRN Reason Stop Dose Admin Acetaminophen 650 mg 04/28/17 02:19 05/01/17 01:02 Tylenol - PO 650 mg Q4H PRN Administration PAIN LEVEL 1-5 Calcium Acetate 1,334 mg 05/04/17 11:00 05/04/17 12:41 Phoslo - PO 1,334 mg TIDAC [facility] Administration Carvedilol 12.5 mg 04/27/17 10:00 05/04/17 09:22 Coreg - PO 12.5 mg BID [facility] Administration Heparin Sodium (Porcine) 1,000 unit 04/28/17 13:02 04/30/17 19:26 Heparin - IVPUSH 1,000 unit PRN PRN Administration Heparin Heparin Sodium (Porcine) 5,000 unit 04/28/17 13:02 05/01/17 19:04 Heparin - IVPUSH 5,000 unit PRN PRN Administration Heparin Heparin Sodium/Dextrose 25,000 units in 500 mls @ 20 mls/hr 04/28/17 13:15 13:31 Heparin Infusion - IVPB Not Given TITR [facility]ITH Protocol 1,000 UNITS/HR Aztreonam 0.5 gm/ Dextrose 50 mls @ 100 mls/hr 04/29/17 13:30 05/04/17 09:28 IVPB 100 mls/hr Q8H-IV [facility] Administration Protocol Clindamycin Phosphate 300 mg in 50 mls @ 104 mls/hr 04/29/17 20:00 05/04/17 09:20 Cleocin 300 Mg Premix Ivpb IVPB 104 mls/hr Q8H-IV [facility] Administration Methylprednisolone Sodium Succinate 40 mg 05/01/17 22:00 05/04/17 09:22 Solu-Medrol - IVPUSH 40 mg BID [facility] Administration Metoprolol Tartrate 5 mg 04/30/17 08:55 05/03/17 19:45 Lopressor Injection - IVPUSH 5 mg Q6H PRN Administration TACHYCARDIA Midodrine 10 mg 05/03/17 14:00 05/04/17 09:22 Proamatine - PO 10 mg TID-MID [facility] Administration Multivitamins/Minerals/Vitamin C 1 tab 04/27/17 10:00 05/04/17 09:22 Tab-A-Vit - PO 1 tab DAILY [facility] Administration Mupirocin 1 applic 04/28/17 22:00 05/04/17 09:27 Bactroban 2% Ointment - TP 1 applic BID [facility] Administration Assessment/Plan: Vasculitic rash ,on PLEX Thrombocytopenia, stable Coagulopathy, improved Ischemic of the LE. ESRD (end stage renal disease) on dialysis CAD (coronary artery disease) M-Tone. Impression: s/p PLEX 3 sessions, for session 4 on Friday. Informed [facility] about this. rheum f/u noted , d/w rheum, suggest to continue until skin biopsy. has 4th session on Friday Serology noted SPEP with M-spike, mostly reactive, will await K/L, Ig Levels. Cryo is still pending. Thrombocytopenia, likely multifactorial, no DIC, no hemolysis , ?infection,meds, LLE gangrene, post procedural, HIT pending. for skin wedge biopsy post weekend. will follow
--- NOTE | 2017-05-04 13:32 | PN ---
Progress Note, Physician Chief Complaint: PtPt, with son and [id number] at bedside, slept well; A&Ox3; intermittent pain in right hand. History of Present Illness: Ms Gomez is an 82 yo black woman with a history of anemia, diabetes, ESRD on dialysis, hypertension, h/o afib, h/o recent subarachnoid hemorrhage (not currently anticoagulated), CAD s/p triple vessel CABG. Patient presents emergency department because she has been followed by a business employment specialist but notes that there is a nonhealing, eschar on the dorsum of her left foot. No trauma that she is aware of. No fevers, chills. She's noted red spots on the lower extremities. No prior episodes like this. Had hemodialysis yesterday. - Current Medication List Current Medications: Active Medications Acetaminophen (Tylenol -) 650 mg PO Q4H PRN PRN Reason: PAIN LEVEL 1-5 Last Admin: 05/01/17 01:02 Dose: 650 mg Albumin Human (Plasbumin-5 -) 62.5 gm IVPB ONCE ONE Stop: 05/06/17 13:14 Calcium Acetate (Phoslo -) 1,334 mg PO TIDAC [facility] Last Admin: 05/04/17 12:41 Dose: 1,334 mg Carvedilol (Coreg -) 12.5 mg PO BID [facility] Last Admin: 05/04/17 09:22 Dose: 12.5 mg Heparin Sodium (Porcine) (Heparin -) 1,000 unit IVPUSH PRN PRN PRN Reason: Heparin Last Admin: 04/30/17 19:26 Dose: 1,000 unit Heparin Sodium (Porcine) (Heparin -) 5,000 unit IVPUSH PRN PRN PRN Reason: Heparin Last Admin: 05/01/17 19:04 Dose: 5,000 unit Heparin Sodium/Dextrose (Heparin Infusion -) 25,000 units in 500 mls @ 20 mls/ hr IVPB TITR LAITH; 1,000 UNITS/HR PRN Reason: Protocol Last Admin: 05/03/17 13:31 Dose: Not Given Aztreonam 0.5 gm/ Dextrose 50 mls @ 100 mls/hr IVPB Q8H-IV [facility] PRN Reason: Protocol Last Admin: 05/04/17 09:28 Dose: 100 mls/hr Clindamycin Phosphate (Cleocin 300 Mg Premix Ivpb) 300 mg in 50 mls @ 104 mls/ hr IVPB Q8H-IV [facility] Last Admin: 05/04/17 09:20 Dose: 104 mls/hr Methylprednisolone Sodium Succinate (Solu-Medrol -) 40 mg IVPUSH BID [facility] Last Admin: 05/04/17 09:22 Dose: 40 mg Metoprolol Tartrate (Lopressor Injection -) 5 mg IVPUSH Q6H PRN PRN Reason: TACHYCARDIA Last Admin: 05/03/17 19:45 Dose: 5 mg Midodrine (Proamatine -) 10 mg PO TID-MID [facility] Last Admin: 05/04/17 09:22 Dose: 10 mg Multivitamins/Minerals/Vitamin C (Tab-A-Vit -) 1 tab PO DAILY [facility] Last Admin: 05/04/17 09:22 Dose: 1 tab Mupirocin (Bactroban 2% Ointment -) 1 applic TP BID [facility] Last Admin: 05/04/17 09:27 Dose: 1 applic - Objective Vital Signs: Vital Signs Temperature 98.3 F 05/04/17 12:00 Pulse Rate 107 H 05/04/17 10:00 Respiratory Rate 12 05/04/17 12:00 Blood Pressure 94/51 05/04/17 12:00 O2 Sat by Pulse Oximetry (%) 100 05/04/17 08:00 Constitutional: Yes: No Distress Eyes: Yes: WNL HENT: Yes: WNL Neck: Yes: WNL Cardiovascular: Yes: Tachycardia, Pulse Irregular Respiratory: Yes: Diminished Gastrointestinal: Yes: Soft ...Rectal Exam: Yes: Deferred Genitourinary: No: Anuria Musculoskeletal: Yes: Muscle Weakness Extremities: Yes: Cool Edema: Yes Edema: LLE: Trace, RLE: Trace Peripheral Pulses WNL: No Peripheral Pulses: Left Radial: 1+, Right Radial: 1+, Left Doralis Pedis: 1+, Right Dorsalis Pedis: 1+ Integumentary: Yes: Other (gangrenous digits, upper and lower extremities) Wound/Incision: Yes: Dressing Dry and Intact Neurological: Yes: WNL Psychiatric: Yes: WNL Labs: CBC, BMP 05/04/17 06:00 05/04/17 06:00 INR, PTT INR 1.31 (0.82-1.09) H 05/03/17 06:15 Fibrinogen 291.0 mg/dL (238-498) 05/03/17 06:15 Problem List - Problems (1) CAD (coronary artery disease) of artery bypass graft Code(s): I25.810 - ATHEROSCLEROSIS OF CABG W/O ANGINA PECTORIS Qualifiers: [place] vs. transplanted heart: [place] heart (2) Cellulitis Code(s): L03.90 - CELLULITIS, UNSPECIFIED Qualifiers: Site of cellulitis: unspecified site Qualified Code(s): L03.90 - Cellulitis , unspecified (3) ESRD (end stage renal disease) Assessment/Plan: for hemodialysis in am. Code(s): N18.6 - END STAGE RENAL DISEASE (4) Gangrene Code(s): I96 - GANGRENE, NOT ELSEWHERE CLASSIFIED (5) Rash Code(s): R21 - RASH AND OTHER NONSPECIFIC SKIN ERUPTION (6) Thrombocytopenia Assessment/Plan: As noted by lymphedema therapist, likely multifactorial; F/u workup to r/o HIT. For skin wedge biopsy. Code(s): D69.6 - THROMBOCYTOPENIA, UNSPECIFIED (7) Atrial fibrillation with RVR Assessment/Plan: On midodrine; norepinephrine discontinued. Carvedilol restarted for HR control. On IV heparin Code(s): I48.91 - UNSPECIFIED ATRIAL FIBRILLATION (8) Subarachnoid hemorrhage following injury Code(s): S06.6X9A - TRAUM SUBRAC HEM W LOC OF UNSP DURATION, INIT Qualifiers: Encounter type: initial encounter Loss of consciousness presence/duration: without LOC Qualified Code(s): S06.6X0A - Traumatic subarachnoid hemorrhage without loss of consciousness, initial encounter (9) ESRD (end stage renal disease) on dialysis Assessment/Plan: On Plasmapheresis; for hemodialysis. Code(s): N18.6 - END STAGE RENAL DISEASE; Z99.2 - DEPENDENCE ON RENAL DIALYSIS (10) Vasculitis Assessment/Plan: PAD:vascular workup in progress; for consideration of LE angiogram when pt is stable. On IV heparin. Code(s): I77.6 - ARTERITIS, UNSPECIFIED (11) Sepsis Assessment/Plan: On multiple antibiotics; continue per ID. Code(s): A41.9 - SEPSIS, UNSPECIFIED ORGANISM
--- NOTE | 2017-05-04 15:32 | PN ---
Progress Note, Physician History of Present Illness: No new complaints - Current Medication List Current Medications: Active Medications Acetaminophen (Tylenol -) 650 mg PO Q4H PRN PRN Reason: PAIN LEVEL 1-5 Last Admin: 05/01/17 01:02 Dose: 650 mg Albumin Human (Plasbumin-5 -) 62.5 gm IVPB ONCE ONE Stop: 05/06/17 13:14 Calcium Acetate (Phoslo -) 1,334 mg PO TIDAC [facility] Last Admin: 05/04/17 12:41 Dose: 1,334 mg Carvedilol (Coreg -) 12.5 mg PO BID [facility] Last Admin: 05/04/17 09:22 Dose: 12.5 mg Heparin Sodium (Porcine) (Heparin -) 1,000 unit IVPUSH PRN PRN PRN Reason: Heparin Last Admin: 04/30/17 19:26 Dose: 1,000 unit Heparin Sodium (Porcine) (Heparin -) 5,000 unit IVPUSH PRN PRN PRN Reason: Heparin Last Admin: 05/01/17 19:04 Dose: 5,000 unit Heparin Sodium/Dextrose (Heparin Infusion -) 25,000 units in 500 mls @ 20 mls/ hr IVPB TITR [facility]; 1,000 UNITS/HR PRN Reason: Protocol Last Admin: 05/03/17 13:31 Dose: Not Given Aztreonam 0.5 gm/ Dextrose 50 mls @ 100 mls/hr IVPB Q8H-IV [facility] PRN Reason: Protocol Last Admin: 05/04/17 09:28 Dose: 100 mls/hr Clindamycin Phosphate (Cleocin 300 Mg Premix Ivpb) 300 mg in 50 mls @ 104 mls/ hr IVPB Q8H-IV [facility] Last Admin: 05/04/17 09:20 Dose: 104 mls/hr Methylprednisolone Sodium Succinate (Solu-Medrol -) 40 mg IVPUSH BID [facility] Last Admin: 05/04/17 09:22 Dose: 40 mg Metoprolol Tartrate (Lopressor Injection -) 5 mg IVPUSH Q6H PRN PRN Reason: TACHYCARDIA Last Admin: 05/03/17 19:45 Dose: 5 mg Midodrine (Proamatine -) 10 mg PO TID-MID [facility] Last Admin: 05/04/17 14:38 Dose: 10 mg Multivitamins/Minerals/Vitamin C (Tab-A-Vit -) 1 tab PO DAILY [facility] Last Admin: 05/04/17 09:22 Dose: 1 tab Mupirocin (Bactroban 2% Ointment -) 1 applic TP BID [facility] Last Admin: 05/04/17 09:27 Dose: 1 applic - Objective Vital Signs: Vital Signs Temperature 98.3 F 05/04/17 14:00 Pulse Rate 109 H 05/04/17 14:00 Respiratory Rate 13 05/04/17 14:00 Blood Pressure 112/59 05/04/17 14:00 O2 Sat by Pulse Oximetry (%) 100 05/04/17 08:00 Constitutional: Yes: Well Nourished HENT: Yes: WNL Neck: Yes: WNL, Supple Cardiovascular: Yes: Pulse Irregular Respiratory: Yes: Diminished Gastrointestinal: Yes: WNL, Normal Bowel Sounds, Soft, Abdomen, Obese Extremities: Yes: Other (RT foot eschar/gangrene (+) petechial rash on extremities) Edema: LUE: 2+ Labs: CBC, BMP 05/04/17 06:00 05/04/17 06:00 INR, PTT INR 1.31 (0.82-1.09) H 05/03/17 06:15 Fibrinogen 291.0 mg/dL (238-498) 05/03/17 06:15 Problem List - Problems (1) Vasculitis Assessment/Plan: Cont IV soluemdrol Plasmapheresis prn Possible bx in am Code(s): I77.6 - ARTERITIS, UNSPECIFIED (2) Gangrene Assessment/Plan: PAD: angio on hold as per vascular Cont IV clinda/aztreonam Cultures have been negative Code(s): I96 - GANGRENE, NOT ELSEWHERE CLASSIFIED (3) Paroxysmal A-fib Assessment/Plan: Cont IV heparin(pt not on AC bc of h/o GIB/SAH) Cont rate control Pt on coreg Lopressor prn Code(s): I48.0 - PAROXYSMAL ATRIAL FIBRILLATION (4) Hypotension Assessment/Plan: Cont midodrine Code(s): I95.9 - HYPOTENSION, UNSPECIFIED (5) ESRD (end stage renal disease) on dialysis Assessment/Plan: Dialysis as per renal Cont phoslo Code(s): N18.6 - END STAGE RENAL DISEASE; Z99.2 - DEPENDENCE ON RENAL DIALYSIS (6) Hypertension Code(s): I10 - ESSENTIAL (PRIMARY) HYPERTENSION (7) Osteoarthritis Code(s): M19.90 - UNSPECIFIED OSTEOARTHRITIS, UNSPECIFIED SITE (8) Cellulitis Code(s): L03.90 - CELLULITIS, UNSPECIFIED Qualifiers: Site of cellulitis: unspecified site Qualified Code(s): L03.90 - Cellulitis , unspecified (9) CAD (coronary artery disease) Code(s): I25.10 - ATHSCL HEART DISEASE OF [place] CORONARY ARTERY W/O ANG PCTRS (10) Thrombocytopenia Code(s): D69.6 - THROMBOCYTOPENIA, UNSPECIFIED
[2017-05-04] MEDS: HEPARIN INFUSION - 25,000 UNITS/500 ML INFUS.BAG IVPB SCH (15:48)
[2017-05-05] MEDS ORDERED: PT OWN MED DRAWER 7, Y5N ONE ×5 (02:20→20:54)
[2017-05-05] MEDS: CLINDAMYCIN 300 MG PREMIX IVPB 300 MG/50 ML BAG IVPB SCH ×3 (02:34→18:40)
[2017-05-05] MEDS: AZTREONAM 0.5 GM in DEXTROSE 5%-WATER - 50 ML IVPB SCH ×3 (02:34→18:39)
[2017-05-05] MEDS: CALCIUM ACETATE 667 MG CAPSULE (FP) PO SCH ×3 (07:27→16:00)
[2017-05-05 07:44] LABS: HEMATOCRIT 26.1 % (32.4-45.2); HEMOGLOBIN 8.2 GM/dL (10.7-15.3); MCH 26.4 pg (25.7-33.7); MCHC 31.6 g/dl (32.0-36.0); MEAN CELL VOLUME 83.5 fl (80-96); MEAN PLT VOLUME 9.3 fl (7.5-11.1); PLATELET COUNT 63 K/MM3 (134-434); RBC 3.12 M/mm3 (3.60-5.2); RDW 20.3 % (11.6-15.6); RETICULOCYTES 2.52 % (0.5-1.5); WHITE BLOOD COUNT 9.8 K/mm3 (4.0-10.0)
--- NOTE | 2017-05-05 07:59 | PN ---
Progress Note, Physician History of Present Illness: Weekend: Patient was switched from phenylephrine to just midrodine. Receiving PLEX and dialysis Today: No events overnight. BP still 90s/50s. On scheduled midrodine. Got dialysis today, removed 2L. Rash is more confluent. No complaints - Objective Vital Signs: Vital Signs Temperature 98.6 F 05/05/17 02:00 Pulse Rate 92 H 05/05/17 06:00 Respiratory Rate 18 05/05/17 06:00 Blood Pressure 92/54 05/05/17 06:00 O2 Sat by Pulse Oximetry (%) 100 05/04/17 20:01 Additional Findings/Remarks: GEN: AAOx3, NAD, Lying comfortably HEENT: PERRLA, EOMi CV: S1, S2, irregularly irregular rhythm LUNG: CTABL ABD: Soft, NT, ND MSK: necrotic foot, extension to dorsum of foot Assessment/Plan Pt is an 82 y/o female w/ CAD, Afib, ESRD on dialysis, and rt foot fx w/ hardware. Pt presented to the ER bc of a wound to her right leg. Rheum: # Vasculitic Rash - Unclear etiology. KYLER+ but multiple rheum antibiodies are negative. Undergoing plasmapheresis (05/13 completed), 4th session friday. On Solumedrol 40 BID. Rash seems to be improving slightly. Prior skin biopsy nondiagnostic. As per Dr Mota, will have wedge resection later today at bedside by midlevel provider. CV: # Hypotension - Now on midrodine. Also no BB for rate control. Try to wean off pressors # Paroxysmal Afib - On Coreg 12.5 BID for rate control. PRN Lopressor 5mg for additional rate control, hasn't needed. Pt was on full AC, but has had fully informed discussion in past with cardiology, pt had decided to stop AC due to history of GI bleeding and SAH # PAD - Extensive bilateral high grade stenosis. On heparin ggt. To the OR for angio when medically stable Renal: # ESRD - Calcified plaques w/ subtotal occlusion of R and L renal arteries resulting in severe atrophy on CTA. Dialysis MWF ID: # Necrotic wound - R foot has necrotic/gangrenous patch. On empiric Clinda/ Azithromycin FEN/PPX: No IVF, renal diet, heparin ggt Dispo: Keep in ICU for PLEX Trinidad Harrison MD PGY1 ICU
[2017-05-05 08:33] LABS: ALBUMIN 2.9 g/dl (3.4-5.0); ANION GAP 14 (8-16); BILIRUBIN,TOTAL 0.4 mg/dL (0.2-1.0); BLOOD UREA NITROGEN 43 mg/dL (7-18); CALCIUM 7.9 mg/dL (8.5-10.1); CHLORIDE 95 mmol/L (98-107); CO2 28 mmol/L (21-32); CREATININE 4.9 mg/dL (0.55-1.02); GLUCOSE,RANDOM 120 mg/dL (74-106); LDH 143 U/L (84-246); POTASSIUM 3.9 mmol/L (3.5-5.1); SGOT/AST 28 U/L (15-37); SGPT/ALT 32 U/L (12-78); SODIUM 137 mmol/L (136-145); TOT PROT 5.6 g/dl (6.4-8.2)
[2017-05-05 08:34] LABS: ALK PHOS 69 U/L (45-117)
--- NOTE | 2017-05-05 08:37 | PN ---
Progress Note (short form) - Note Progress Note: Asked by Dr. Hernandez to perform skin biopsy. Bedside procedure scheduled for this morning but patient already on Plasmapheresis treatment at 8 AM. I will see if procedure can be done later today. Problem List - Problems (1) Gangrene Code(s): I96 - GANGRENE, NOT ELSEWHERE CLASSIFIED (2) Rash Code(s): R21 - RASH AND OTHER NONSPECIFIC SKIN ERUPTION
[2017-05-05 08:48] LABS: MAGNESIUM 2.1 mg/dL (1.8-2.4)
[2017-05-05] MEDS ORDERED: EPOETIN ALFA 20,000 UNIT/1 ML VIAL IVPUSH ONE (09:00)
[2017-05-05] MEDS: ALBUMIN HUMAN 25% 12.5 GM/50 ML VIAL IVPB SCH ×4 (09:00→11:56)
[2017-05-05] MEDS: CARVEDILOL 12.5 MG TABLET (FP) PO SCH ×2 (09:53→21:21)
[2017-05-05] MEDS: MULTIVITAMINS (DAILY MVI) TABLET (FP) PO SCH (09:55)
[2017-05-05] MEDS: MIDODRINE HCL 5 MG TABLET PO SCH ×3 (09:55→18:39)
[2017-05-05] MEDS: methylPREDNISolone NA SUCC 40 MG/1 ML VIAL IVPUSH SCH ×2 (09:57→21:21)
[2017-05-05] MEDS: MUPIROCIN 2% TOPICAL OINTMENT 22 GM TUBE TP SCH ×2 (09:59→21:22)
[2017-05-05] MEDS: HEPARIN NA (PORCINE) 5,000 UNITS/ML 1ML VIAL IVPUSH PRN (10:02)
--- NOTE | 2017-05-05 10:37 | PN ---
Progress Note, Physician History of Present Illness: seen and examined today in nad. Currently on HD. states she is feeling slightly better. - Current Medication List Current Medications: Active Medications Acetaminophen (Tylenol -) 650 mg PO Q4H PRN PRN Reason: PAIN LEVEL 1-5 Last Admin: 05/01/17 01:02 Dose: 650 mg Albumin Human (Plasbumin-5 -) 62.5 gm IVPB ONCE ONE Stop: 05/06/17 13:14 Calcium Acetate (Phoslo -) 1,334 mg PO TIDAC [facility] Last Admin: 05/05/17 07:27 Dose: 1,334 mg Carvedilol (Coreg -) 12.5 mg PO BID [facility] Last Admin: 05/05/17 09:53 Dose: Not Given Heparin Sodium (Porcine) (Heparin -) 1,000 unit IVPUSH PRN PRN PRN Reason: Heparin Last Admin: 05/05/17 10:02 Dose: 1,000 unit Heparin Sodium (Porcine) (Heparin -) 5,000 unit IVPUSH PRN PRN PRN Reason: Heparin Last Admin: 05/01/17 19:04 Dose: 5,000 unit Heparin Sodium/Dextrose (Heparin Infusion -) 25,000 units in 500 mls @ 20 mls/ hr IVPB TITR [facility]; 1,000 UNITS/HR PRN Reason: Protocol Last Titration: 05/05/17 09:56 Dose: 700 units/hr, 14 mls/hr Aztreonam 0.5 gm/ Dextrose 50 mls @ 100 mls/hr IVPB Q8H-IV [facility] PRN Reason: Protocol Last Admin: 05/05/17 02:34 Dose: 100 mls/hr Clindamycin Phosphate (Cleocin 300 Mg Premix Ivpb) 300 mg in 50 mls @ 104 mls/ hr IVPB Q8H-IV [facility] Last Admin: 05/05/17 02:34 Dose: 104 mls/hr Methylprednisolone Sodium Succinate (Solu-Medrol -) 40 mg IVPUSH BID [facility] Last Admin: 05/05/17 09:57 Dose: 40 mg Metoprolol Tartrate (Lopressor Injection -) 5 mg IVPUSH Q6H PRN PRN Reason: TACHYCARDIA Last Admin: 05/03/17 19:45 Dose: 5 mg Midodrine (Proamatine -) 10 mg PO TID-MID [facility] Last Admin: 05/05/17 09:55 Dose: 10 mg Multivitamins/Minerals/Vitamin C (Tab-A-Vit -) 1 tab PO DAILY [facility] Last Admin: 05/05/17 09:55 Dose: 1 tab Mupirocin (Bactroban 2% Ointment -) 1 applic TP BID [facility] Last Admin: 05/05/17 09:59 Dose: 1 applic - Objective Vital Signs: Vital Signs Temperature 98.4 F 05/05/17 07:45 Pulse Rate 114 H 05/05/17 09:50 Respiratory Rate 18 05/05/17 09:50 Blood Pressure 91/46 05/05/17 09:50 O2 Sat by Pulse Oximetry (%) 100 05/04/17 20:01 Constitutional: Yes: No Distress, Calm Eyes: Yes: Conjunctiva Clear, EOM Intact, PERRL HENT: Yes: Atraumatic, Normocephalic Neck: Yes: Supple, Trachea Midline Cardiovascular: Yes: Regular Rate and Rhythm, Tachycardia, S1, S2. No: Bradycardia, Pulse Irregular, Bruit, JVD, Gallop, Murmur, Rub, S3, S4, Varicosities Respiratory: Yes: Regular, Diminished, On Nasal O2. No: Rales, Rhonchi, SOB, Wheezes Gastrointestinal: Yes: Normal Bowel Sounds, Soft. No: Distention, Tenderness Edema: Yes Peripheral Pulses WNL: No Neurological: Yes: Alert, Oriented Psychiatric: Yes: Alert, Oriented Labs: CBC, BMP 05/05/17 06:00 05/05/17 06:00 INR, PTT INR 1.31 (0.82-1.09) H 05/03/17 06:15 Fibrinogen 291.0 mg/dL (238-498) 05/03/17 06:15 - ....Imaging Chest X-ray: Report Reviewed, Image Reviewed EKG: Report Reviewed, Image Reviewed Other: Report Reviewed, Image Reviewed (tele-Afib, possible pafib with sinus tach, regular rhythm currently tachycardic.) Assessment/Plan IMP: Hypotension, seemingly resolved. AF with RVR Suspected acute vasculitis ESRD on HD PAD, CAD s/p CABG Gangrene of LE History GI bleed Remote history SAH REC: AF and hypotension: current tachycardia regular possible sinus tach, uncertain -off levophed, now on midodrine -cont Coreg for now as long as BP tolerates, may tolerate metoprolol better cont Lopressor 5mg IV q6H prn with hold parameter of < 100mmHG systolic. -If additional rate control is needed, can use Digoxin 1x dose and monitor levels or initiate Esmolol gtts and titrate to H.R < 120bpm. PAD/gangrene -as per Vascular planned for LE angiogram when stable. -cont heparin gtt for now (Of note: She was previously not on full AC due to her history of GI bleeding and patient's decision to continue ASA alone after an informed discussion both in hospital and in office post discharge.)
--- NOTE | 2017-05-05 11:05 | PN ---
Progress Note (short form) - Note Progress Note: Renal follow up for ESRD on HD Pt seen examined in the ICU currently getting dialysis BP low but stable getting IV albumin with HD Goal UF is 2L pt has pain in right foot Vital Signs Temperature 98.4 F 05/05/17 10:00 Pulse Rate 110 H 05/05/17 10:50 Respiratory Rate 18 05/05/17 10:50 Blood Pressure 85/57 05/05/17 10:50 O2 Sat by Pulse Oximetry (%) 100 05/05/17 10:00 Intake & Output 05/02/17 05/03/17 05/04/17 05/05/17 23:59 23:59 23:59 23:59 Intake Total 1851 1733 816 256 Balance 1851 1733 816 256 Weight 66.877 kg 66.451 kg 66.905 kg 68.492 kg NAD awake and alert RRR CTA soft NT/ND peticial rash on arms, not blanching appears the same CBC, BMP 05/05/17 06:00 05/05/17 06:00 Current Medications Acetaminophen (Tylenol -) 650 mg PO Q4H PRN PRN Reason: PAIN LEVEL 1-5 Last Admin: 05/01/17 01:02 Dose: 650 mg Albumin Human (Plasbumin-5 -) 62.5 gm IVPB ONCE ONE Stop: 05/06/17 13:14 Calcium Acetate (Phoslo -) 1,334 mg PO TIDAC [facility] Last Admin: 05/05/17 07:27 Dose: 1,334 mg Carvedilol (Coreg -) 12.5 mg PO BID [facility] Last Admin: 05/05/17 09:53 Dose: Not Given Heparin Sodium (Porcine) (Heparin -) 1,000 unit IVPUSH PRN PRN PRN Reason: Heparin Last Admin: 05/05/17 10:02 Dose: 1,000 unit Heparin Sodium (Porcine) (Heparin -) 5,000 unit IVPUSH PRN PRN PRN Reason: Heparin Last Admin: 05/01/17 19:04 Dose: 5,000 unit Heparin Sodium/Dextrose (Heparin Infusion -) 25,000 units in 500 mls @ 20 mls/ hr IVPB TITR [facility]; 1,000 UNITS/HR PRN Reason: Protocol Last Titration: 05/05/17 09:56 Dose: 700 units/hr, 14 mls/hr Aztreonam 0.5 gm/ Dextrose 50 mls @ 100 mls/hr IVPB Q8H-IV [facility] PRN Reason: Protocol Last Admin: 05/05/17 02:34 Dose: 100 mls/hr Clindamycin Phosphate (Cleocin 300 Mg Premix Ivpb) 300 mg in 50 mls @ 104 mls/ hr IVPB Q8H-IV [facility] Last Admin: 05/05/17 02:34 Dose: 104 mls/hr Methylprednisolone Sodium Succinate (Solu-Medrol -) 40 mg IVPUSH BID [facility] Last Admin: 05/05/17 09:57 Dose: 40 mg Metoprolol Tartrate (Lopressor Injection -) 5 mg IVPUSH Q6H PRN PRN Reason: TACHYCARDIA Last Admin: 05/03/17 19:45 Dose: 5 mg Midodrine (Proamatine -) 10 mg PO TID-MID [facility] Last Admin: 05/05/17 09:55 Dose: 10 mg Multivitamins/Minerals/Vitamin C (Tab-A-Vit -) 1 tab PO DAILY [facility] Last Admin: 05/05/17 09:55 Dose: 1 tab Mupirocin (Bactroban 2% Ointment -) 1 applic TP BID [facility] Last Admin: 05/05/17 09:59 Dose: 1 applic 82 year old woman with PMhx of ESRD on HD (MWF), Hypertension, HLD, subarachnoid hemorrhage presented with right leg wound. #Right leg wound/suspected vasculitis s/p 3 plasmapharesis treatments KYLER + low titer, ANCA negative rash appears the same continue Abx as per ID Vascular follow up for angiogram/angioplasty #Hypotension off Levophed continue Abx supportive care #ESRD on HD ppt tolerating dialysis well with UF goal ~2L Thank you Karsten Sylvester DO
[2017-05-05 12:24] LABS: CREATININE 4.7 mg/dL (0.55-1.02)
--- NOTE | 2017-05-05 13:10 | PN ---
Teaching Attending Note Name of Resident: Trinidad Harrison ATTENDING PHYSICIAN STATEMENT I saw and evaluated the patient. I reviewed the resident's note and discussed the case with the resident. I agree with the resident's findings and plan as documented. SUBJECTIVE: Pt seen and examined in the ICU. Dialyzed this AM. Rash slightly improving. Tolerating plasmapharesis. OBJECTIVE: Last Vital Signs Temp Pulse Resp BP Pulse Ox 98.4 F 97 H 18 101/62 100 05/05/17 10:00 05/05/17 11:40 05/05/17 11:40 05/05/17 11:40 05/05/17 10:00 Intake & Output 05/02/17 05/03/17 05/04/17 05/05/17 23:59 23:59 23:59 23:59 Intake Total 1851 1733 816 356 Balance 1851 1733 816 356 Weight 66.877 kg 66.451 kg 66.905 kg 68.492 kg Gen: NAD at rest Heart: RRR Lung: decreased breath sounds at the bases Abd: soft, nontender Ext: + edema, right foot gangrene CBC, BMP 05/05/17 06:00 Active Medications Acetaminophen (Tylenol -) 650 mg PO Q4H PRN PRN Reason: PAIN LEVEL 1-5 Last Admin: 05/01/17 01:02 Dose: 650 mg Albumin Human (Plasbumin-5 -) 62.5 gm IVPB ONCE ONE Stop: 05/06/17 13:14 Calcium Acetate (Phoslo -) 1,334 mg PO TIDAC [facility] Last Admin: 05/05/17 07:27 Dose: 1,334 mg Carvedilol (Coreg -) 12.5 mg PO BID [facility] Last Admin: 05/05/17 09:53 Dose: Not Given Heparin Sodium (Porcine) (Heparin -) 1,000 unit IVPUSH PRN PRN PRN Reason: Heparin Last Admin: 05/05/17 10:02 Dose: 1,000 unit Heparin Sodium (Porcine) (Heparin -) 5,000 unit IVPUSH PRN PRN PRN Reason: Heparin Last Admin: 05/01/17 19:04 Dose: 5,000 unit Heparin Sodium/Dextrose (Heparin Infusion -) 25,000 units in 500 mls @ 20 mls/ hr IVPB TITR [facility]; 1,000 UNITS/HR PRN Reason: Protocol Last Titration: 05/05/17 09:56 Dose: 700 units/hr, 14 mls/hr Aztreonam 0.5 gm/ Dextrose 50 mls @ 100 mls/hr IVPB Q8H-IV [facility] PRN Reason: Protocol Last Admin: 05/05/17 11:15 Dose: 100 mls/hr Clindamycin Phosphate (Cleocin 300 Mg Premix Ivpb) 300 mg in 50 mls @ 104 mls/ hr IVPB Q8H-IV [facility] Last Admin: 05/05/17 11:15 Dose: 104 mls/hr Methylprednisolone Sodium Succinate (Solu-Medrol -) 40 mg IVPUSH BID [facility] Last Admin: 05/05/17 09:57 Dose: 40 mg Metoprolol Tartrate (Lopressor Injection -) 5 mg IVPUSH Q6H PRN PRN Reason: TACHYCARDIA Last Admin: 05/03/17 19:45 Dose: 5 mg Midodrine (Proamatine -) 10 mg PO TID-MID [facility] Last Admin: 05/05/17 09:55 Dose: 10 mg Multivitamins/Minerals/Vitamin C (Tab-A-Vit -) 1 tab PO DAILY [facility] Last Admin: 05/05/17 09:55 Dose: 1 tab Mupirocin (Bactroban 2% Ointment -) 1 applic TP BID [facility] Last Admin: 05/05/17 09:59 Dose: 1 applic ASSESSMENT AND PLAN: Acute Vasculitis r/o Sepsis ESRD on HD CAD s/p CABG Atrial Fibrillation HTN DM - plasmapharesis per heme - empiric antibiotics - HD per renal - continue midodrine - heme, rheum f/u - for skin biopsy - O2 to keep SpO2>90% - IVF boluses as needed - ICU monitoring critical care time spent in reviewing chart, evaluating patient and formulating plan 35 min
[2017-05-05 13:15] LABS: CREATININE 1.3 mg/dL (0.55-1.02)
--- NOTE | 2017-05-05 15:12 | PN ---
Progress Note, Physician History of Present Illness: stable no complaints leg pain vascular on case dialysed still hypotensive - Current Medication List Current Medications: Active Medications Acetaminophen (Tylenol -) 650 mg PO Q4H PRN PRN Reason: PAIN LEVEL 1-5 Last Admin: 05/01/17 01:02 Dose: 650 mg Albumin Human (Plasbumin-5 -) 62.5 gm IVPB ONCE ONE Stop: 05/06/17 13:14 Calcium Acetate (Phoslo -) 1,334 mg PO TIDAC [facility] Last Admin: 05/05/17 13:46 Dose: 1,334 mg Carvedilol (Coreg -) 12.5 mg PO BID [facility] Last Admin: 05/05/17 09:53 Dose: Not Given Heparin Sodium (Porcine) (Heparin -) 1,000 unit IVPUSH PRN PRN PRN Reason: Heparin Last Admin: 05/05/17 10:02 Dose: 1,000 unit Heparin Sodium (Porcine) (Heparin -) 5,000 unit IVPUSH PRN PRN PRN Reason: Heparin Last Admin: 05/01/17 19:04 Dose: 5,000 unit Heparin Sodium/Dextrose (Heparin Infusion -) 25,000 units in 500 mls @ 20 mls/ hr IVPB TITR [facility]; 1,000 UNITS/HR PRN Reason: Protocol Last Titration: 05/05/17 09:56 Dose: 700 units/hr, 14 mls/hr Aztreonam 0.5 gm/ Dextrose 50 mls @ 100 mls/hr IVPB Q8H-IV [facility] PRN Reason: Protocol Last Admin: 05/05/17 11:15 Dose: 100 mls/hr Clindamycin Phosphate (Cleocin 300 Mg Premix Ivpb) 300 mg in 50 mls @ 104 mls/ hr IVPB Q8H-IV [facility] Last Admin: 05/05/17 11:15 Dose: 104 mls/hr Methylprednisolone Sodium Succinate (Solu-Medrol -) 40 mg IVPUSH BID [facility] Last Admin: 05/05/17 09:57 Dose: 40 mg Metoprolol Tartrate (Lopressor Injection -) 5 mg IVPUSH Q6H PRN PRN Reason: TACHYCARDIA Last Admin: 05/03/17 19:45 Dose: 5 mg Midodrine (Proamatine -) 10 mg PO TID-MID [facility] Last Admin: 05/05/17 13:47 Dose: 10 mg Multivitamins/Minerals/Vitamin C (Tab-A-Vit -) 1 tab PO DAILY [facility] Last Admin: 05/05/17 09:55 Dose: 1 tab Mupirocin (Bactroban 2% Ointment -) 1 applic TP BID [facility] Last Admin: 05/05/17 09:59 Dose: 1 applic - Objective Vital Signs: Vital Signs Temperature 97.5 F L 05/05/17 14:00 Pulse Rate 96 H 05/05/17 14:00 Respiratory Rate 13 05/05/17 14:00 Blood Pressure 104/67 05/05/17 14:00 O2 Sat by Pulse Oximetry (%) 100 05/05/17 10:00 Constitutional: Yes: No Distress, Calm Eyes: Yes: Conjunctiva Clear Cardiovascular: Yes: Regular Rate and Rhythm Respiratory: Yes: Regular, CTA Bilaterally Gastrointestinal: Yes: Normal Bowel Sounds, Soft Musculoskeletal: Yes: Other Extremities: Yes: Other (necrotic gangrene rt foot and wound infection left foot ) Wound/Incision: Yes: Dressing Dry and Intact Neurological: Yes: Alert, Oriented Psychiatric: Yes: Alert, Oriented Labs: CBC, BMP 05/05/17 06:00 05/05/17 12:54 INR, PTT INR 1.31 (0.82-1.09) H 05/03/17 06:15 Fibrinogen 291.0 mg/dL (238-498) 05/03/17 06:15 Assessment/Plan Problem List - Problems (1) Cellulitis Code(s): L03.90 - CELLULITIS, UNSPECIFIED (2) Atrial fibrillation with RVR Code(s): I48.91 - UNSPECIFIED ATRIAL FIBRILLATION (3) CAD (coronary artery disease) Code(s): I25.10 - ATHSCL HEART DISEASE OF [place] CORONARY ARTERY W/O ANG PCTRS (4) ESRD (end stage renal disease) on dialysis Code(s): N18.6 - END STAGE RENAL DISEASE; Z99.2 - DEPENDENCE ON RENAL DIALYSIS (5) Hx of CABG Code(s): Z95.1 - PRESENCE OF AORTOCORONARY BYPASS GRAFT (6) Hypertension Code(s): I10 - ESSENTIAL (PRIMARY) HYPERTENSION (7) Osteoarthritis Code(s): M19.90 - UNSPECIFIED OSTEOARTHRITIS, UNSPECIFIED SITE (8) Subarachnoid hemorrhage following injury Code(s): S06.6X9A - TRAUM SUBRAC HEM W LOC OF UNSP DURATION, INIT Qualifiers: Encounter type: initial encounter Loss of consciousness presence/duration: without LOC Qualified Code(s): S06.6X0A - Traumatic subarachnoid hemorrhage without loss of consciousness, initial encounter Gangrene CTA ordered to assess large vessels in both legs. If major occlusion present will need angiogram for revascularization in effort to salvage foot. Code(s): I96 - GANGRENE, NOT ELSEWHERE CLASSIFIED plan continue current mgmt rash improving wound care vascular on home health care case manager bp rest as per icu/primary continue abx cc time 40 min
[2017-05-05] MEDS: HEPARIN INFUSION - 25,000 UNITS/500 ML INFUS.BAG IVPB SCH (16:00)
--- NOTE | 2017-05-05 16:10 | PN ---
Progress Note (short form) - Note Progress Note: Patient seen and examined Denies any complaints s/p skin biopsy for possible angioplasty Last Vital Signs Temp Pulse Resp BP Pulse Ox 97.5 F L 96 H 13 104/67 100 05/05/17 14:00 05/05/17 14:00 05/05/17 14:00 05/05/17 14:00 05/05/17 10:00 Cor: RSR, No murmurs, Lungs: Clear to P&A Abd: Soft, Normal bowel sounds Ext:No significant edema Abnormal Lab Results 05/05/17 05/05/17 05/05/17 06:00 06:00 06:00 RBC 3.12 L Hgb 8.2 L Hct 26.1 L MCHC 31.6 L RDW 20.3 H Plt Count 63 L Retic Count 2.52 H PTT (Actin FS) Chloride 95 L BUN 43 H 46 H Creatinine 4.9 H 4.7 H Random Glucose 120 H Calcium 7.9 L Phosphorus 5.0 H C-Reactive Protein 1.4 H Total Protein 5.6 L Albumin 2.9 L 05/05/17 05/05/17 07:30 12:54 RBC Hgb Hct MCHC RDW Plt Count Retic Count PTT (Actin FS) 48.9 H Chloride BUN Creatinine 1.3 H Random Glucose Calcium Phosphorus C-Reactive Protein Total Protein Albumin Active Medications Generic Name Dose Route Start Last Admin Trade Name Freq PRN Reason Stop Dose Admin Acetaminophen 650 mg 04/28/17 02:19 05/01/17 01:02 Tylenol - PO 650 mg Q4H PRN Administration PAIN LEVEL 1-5 Albumin Human 62.5 gm 05/06/17 13:13 Plasbumin-5 - IVPB 05/06/17 13:14 ONCE ONE Calcium Acetate 1,334 mg 05/04/17 11:00 05/05/17 16:00 Phoslo - PO 1,334 mg TIDAC [facility] Administration Carvedilol 12.5 mg 04/27/17 10:00 05/05/17 09:53 Coreg - PO Not Given BID [facility] Heparin Sodium (Porcine) 1,000 unit 04/28/17 13:02 05/05/17 10:02 Heparin - IVPUSH 1,000 unit PRN PRN Administration Heparin Heparin Sodium (Porcine) 5,000 unit 04/28/17 13:02 05/01/17 19:04 Heparin - IVPUSH 5,000 unit PRN PRN Administration Heparin Heparin Sodium/Dextrose 25,000 units in 500 mls @ 20 mls/hr 04/28/17 13:15 09:56 Heparin Infusion - IVPB 700 units/hr TITR [facility] 14 mls/hr Protocol Titration 1,000 UNITS/HR Aztreonam 0.5 gm/ Dextrose 50 mls @ 100 mls/hr 04/29/17 13:30 05/05/17 11:15 IVPB 100 mls/hr Q8H-IV [facility] Administration Protocol Clindamycin Phosphate 300 mg in 50 mls @ 104 mls/hr 04/29/17 20:00 05/05/17 11:15 Cleocin 300 Mg Premix Ivpb IVPB 104 mls/hr Q8H-IV [facility] Administration Methylprednisolone Sodium Succinate 40 mg 05/01/17 22:00 05/05/17 09:57 Solu-Medrol - IVPUSH 40 mg BID [facility] Administration Metoprolol Tartrate 5 mg 04/30/17 08:55 05/03/17 19:45 Lopressor Injection - IVPUSH 5 mg Q6H PRN Administration TACHYCARDIA Midodrine 10 mg 05/03/17 14:00 05/05/17 13:47 Proamatine - PO 10 mg TID-MID [facility] Administration Multivitamins/Minerals/Vitamin C 1 tab 04/27/17 10:00 05/05/17 09:55 Tab-A-Vit - PO 1 tab DAILY [facility] Administration Mupirocin 1 applic 04/28/17 22:00 05/05/17 09:59 Bactroban 2% Ointment - TP 1 applic BID [facility] Administration A/P Vasculitic rash ,on PLEX Thrombocytopenia, stable Ischemia of the LE. ESRD (end stage renal disease) on dialysis CAD (coronary artery disease) M-Tone. Impression: s/p PLEX 3 sessions, for session 4 on Friday. rheum f/u noted , d/w rheum, suggest to continue until skin biopsy. has 4th session on Friday SPEP with M-spike, mostly reactive, will await K/L, Ig Levels. Cryo is still pending. Thrombocytopenia, likely multifactorial, no DIC, no hemolysis , ?infection,meds, LLE gangrene, post procedural,?vasculitis HIT pending. for possible angioplasty transfuse 1 unit PRBCs discussed with renal/rheum/vascular and patient
--- NOTE | 2017-05-05 16:26 | PROC ---
Procedure Note Procedure: Excisional skin biopsy Time out performed. Left thigh skin prepped with chloroprep. Lidocaine 1% infiltrated in skin of left medial thigh. A wedge of full-thickness skin was removed and sent to Pathology. Wound closed with Nylon 3-0 suture. Patient tolerated the procedure well.
--- NOTE | 2017-05-05 16:28 | PN ---
Progress Note (short form) - Note Progress Note: Feet examined: Right 4th toe ulcer more necrotic. No proximal extension. Left dorsal foot skin necrosis now extending to 1st toe. Heel appears viable. Doppler PT and DP present in both feet. If patient is stable. angiogram for right lower leg angioplasty will be needed soon if there is to be any hope of salvaging the foot. Left leg will also need to be treated when possible. Problem List - Problems (1) Gangrene Code(s): I96 - GANGRENE, NOT ELSEWHERE CLASSIFIED (2) Rash Code(s): R21 - RASH AND OTHER NONSPECIFIC SKIN ERUPTION
--- NOTE | 2017-05-06 01:19 | PN ---
Progress Note, Physician History of Present Illness: Pt seen and examined 05/05/17 - Current Medication List Current Medications: Active Medications Acetaminophen (Tylenol -) 650 mg PO Q4H PRN PRN Reason: PAIN LEVEL 1-5 Last Admin: 05/01/17 01:02 Dose: 650 mg Albumin Human (Plasbumin-5 -) 62.5 gm IVPB ONCE ONE Stop: 05/06/17 13:14 Calcium Acetate (Phoslo -) 1,334 mg PO TIDAC [facility] Last Admin: 05/05/17 16:00 Dose: 1,334 mg Carvedilol (Coreg -) 12.5 mg PO BID [facility] Last Admin: 05/05/17 21:21 Dose: 12.5 mg Heparin Sodium (Porcine) (Heparin -) 1,000 unit IVPUSH PRN PRN PRN Reason: Heparin Last Admin: 05/05/17 10:02 Dose: 1,000 unit Heparin Sodium (Porcine) (Heparin -) 5,000 unit IVPUSH PRN PRN PRN Reason: Heparin Last Admin: 05/01/17 19:04 Dose: 5,000 unit Heparin Sodium/Dextrose (Heparin Infusion -) 25,000 units in 500 mls @ 20 mls/ hr IVPB TITR [facility]; 1,000 UNITS/HR PRN Reason: Protocol Last Titration: 05/05/17 17:30 Dose: 600 units/hr, 12 mls/hr Aztreonam 0.5 gm/ Dextrose 50 mls @ 100 mls/hr IVPB Q8H-IV [facility] PRN Reason: Protocol Last Admin: 05/05/17 18:39 Dose: 100 mls/hr Clindamycin Phosphate (Cleocin 300 Mg Premix Ivpb) 300 mg in 50 mls @ 104 mls/ hr IVPB Q8H-IV [facility] Last Admin: 05/05/17 18:40 Dose: 104 mls/hr Methylprednisolone Sodium Succinate (Solu-Medrol -) [address] [facility] Last Admin: 05/05/17 21:21 Dose: 40 mg Metoprolol Tartrate (Lopressor Injection -) 5 mg IVPUSH Q6H PRN PRN Reason: TACHYCARDIA Last Admin: 05/03/17 19:45 Dose: 5 mg Midodrine (Proamatine -) 10 mg PO TID-MID [facility] Last Admin: 05/05/17 18:39 Dose: 10 mg Multivitamins/Minerals/Vitamin C (Tab-A-Vit -) [address] [facility] Last Admin: 05/05/17 09:55 Dose: 1 tab Mupirocin (Bactroban 2% Ointment -) [address] [facility] Last Admin: 05/05/17 21:22 Dose: 1 applic - Objective Vital Signs: Vital Signs Temperature 97.2 F L 05/05/17 18:00 Pulse Rate 100 H 05/06/17 00:00 Respiratory Rate 16 05/06/17 00:00 Blood Pressure 116/63 05/06/17 00:00 O2 Sat by Pulse Oximetry (%) 95 05/05/17 20:04 Constitutional: Yes: Well Nourished Neck: Yes: WNL, Supple Cardiovascular: Yes: Pulse Irregular Respiratory: Yes: Diminished Gastrointestinal: Yes: WNL, Normal Bowel Sounds, Soft, Abdomen, Obese Extremities: Yes: Other ((+) eschar rt foot) Edema: LUE: 1+ Labs: CBC, BMP 05/05/17 06:00 05/05/17 12:54 INR, PTT INR 1.31 (0.82-1.09) H 05/03/17 06:15 Fibrinogen 291.0 mg/dL (238-498) 05/03/17 06:15 Problem List - Problems (1) Vasculitis Code(s): I77.6 - ARTERITIS, UNSPECIFIED (2) Gangrene Code(s): I96 - GANGRENE, NOT ELSEWHERE CLASSIFIED (3) Paroxysmal A-fib Code(s): I48.0 - PAROXYSMAL ATRIAL FIBRILLATION (4) Hypotension Code(s): I95.9 - HYPOTENSION, UNSPECIFIED (5) ESRD (end stage renal disease) on dialysis Code(s): N18.6 - END STAGE RENAL DISEASE; Z99.2 - DEPENDENCE ON RENAL DIALYSIS (6) Hypertension Code(s): I10 - ESSENTIAL (PRIMARY) HYPERTENSION (7) Osteoarthritis Code(s): M19.90 - UNSPECIFIED OSTEOARTHRITIS, UNSPECIFIED SITE (8) Cellulitis Code(s): L03.90 - CELLULITIS, UNSPECIFIED Qualifiers: Site of cellulitis: unspecified site Qualified Code(s): L03.90 - Cellulitis , unspecified (9) CAD (coronary artery disease) Code(s): I25.10 - ATHSCL HEART DISEASE OF [place] CORONARY ARTERY W/O ANG PCTRS (10) Thrombocytopenia Code(s): D69.6 - THROMBOCYTOPENIA, UNSPECIFIED
[2017-05-06] MEDS: CLINDAMYCIN 300 MG PREMIX IVPB 300 MG/50 ML BAG IVPB SCH ×3 (03:00→18:16)
[2017-05-06] MEDS: AZTREONAM 0.5 GM in DEXTROSE 5%-WATER - 50 ML IVPB SCH ×3 (03:00→18:46)
[2017-05-06 06:20] LABS: HEMOGLOBIN 9.7 GM/dL (10.7-15.3); MCH 26.9 pg (25.7-33.7); MCHC 32.3 g/dl (32.0-36.0); MEAN CELL VOLUME 83.4 fl (80-96); MEAN PLT VOLUME 10.2 fl (7.5-11.1); PLATELET COUNT 73 K/MM3 (134-434); RBC 3.59 M/mm3 (3.60-5.2); RDW 19.9 % (11.6-15.6); WHITE BLOOD COUNT 9.3 K/mm3 (4.0-10.0)
[2017-05-06 06:31] LABS: INR 1.26 (0.82-1.09); PROTHROMBIN TIME (PATIENT) 14.2 SEC (9.98-11.88)
[2017-05-06 08:10] LABS: IGA IMMUNOGLOBULIN 262 mg/dL (64-422); IGG IMMUNOGLOBULIN 607 mg/dL (700-1600); IGM IMMUNOGLOBULIN 40 mg/dL (26-217)
--- NOTE | 2017-05-06 08:10 | PN ---
Progress Note, Physician History of Present Illness: Yesterday: Wedge biopsy performed by Dr Mota to L lower inner thigh. 1uPRBC ordered by Dr Das. Today: Pt is asymptomatic. Rash on face has improved. BP improving with midrodine. PLEX today. Will replace femoral line on - Objective Vital Signs: Vital Signs Period Temp Pulse Resp BP Sys/Street Pulse Ox Last 24 Hr 97.2 F-98.4 F 83-115 13-22 82-117/46-76 95-100 Additional Findings/Remarks: GEN: AAOx3, NAD, Lying comfortably HEENT: Rash is more confluent, EOMi CV: S1, S2, RRR LUNG: Bibasilar crackles ABD: Soft, NT, ND MSK: Same as yesterday, necrotic L toes. Assessment/Plan Pt is an 82 y/o female w/ CAD, Afib, ESRD on dialysis, and rt foot fx w/ hardware. Pt presented to the ER bc of a wound to her right leg. Rheum: # Vasculitic Rash - Unclear etiology. KYLER+ but multiple rheum antibiodies are negative. Undergoing plasmapheresis (3/ completed), 4th session today. Will exchange femoral catheter on . On Solumedrol 40 BID. Rash is improving. Wedge resection yesterday, results pending. CV: # Hypotension - Improved on midrodine. Also on BB for rate control. Try to wean off pressors # Paroxysmal Afib - On Coreg 12.5 BID for rate control. PRN Lopressor 5mg for additional rate control, hasn't needed. Pt was on full AC, but has had fully informed discussion in past with cardiology, pt had decided to stop AC due to history of GI bleeding and SAH # PAD - Extensive bilateral high grade stenosis. On heparin ggt. To the OR for angio when medically stable Renal: # ESRD - Calcified plaques w/ subtotal occlusion of R and L renal arteries resulting in severe atrophy on CTA. Dialysis MWF ID: # Necrotic wound - R foot has necrotic/gangrenous patch. On empiric Clinda/ Azithromycin FEN/PPX: No IVF, renal diet, heparin ggt Dispo: Keep in ICU for PLEX Trinidad Harrison MD PGY1 ICU
--- NOTE | 2017-05-06 08:34 | PN ---
Progress Note, Physician Chief Complaint: feeling better, appears more alert TELE: NSR, sinus tachycardia improved. History of Present Illness: RASH IMPROVED - Current Medication List Current Medications: Active Medications Acetaminophen (Tylenol -) 650 mg PO Q4H PRN PRN Reason: PAIN LEVEL 1-5 Last Admin: 05/01/17 01:02 Dose: 650 mg Albumin Human (Plasbumin-5 -) 62.5 gm IVPB ONCE ONE Stop: 05/06/17 13:14 Calcium Acetate (Phoslo -) 1,334 mg PO TIDAC [facility] Last Admin: 05/05/17 16:00 Dose: 1,334 mg Carvedilol (Coreg -) 12.5 mg PO BID [facility] Last Admin: 05/05/17 21:21 Dose: 12.5 mg Heparin Sodium (Porcine) (Heparin -) 1,000 unit IVPUSH PRN PRN PRN Reason: Heparin Last Admin: 05/05/17 10:02 Dose: 1,000 unit Heparin Sodium (Porcine) (Heparin -) 5,000 unit IVPUSH PRN PRN PRN Reason: Heparin Last Admin: 05/01/17 19:04 Dose: 5,000 unit Heparin Sodium/Dextrose (Heparin Infusion -) 25,000 units in 500 mls @ 20 mls/ hr IVPB TITR [facility]; 1,000 UNITS/HR PRN Reason: Protocol Last Titration: 05/05/17 17:30 Dose: 600 units/hr, 12 mls/hr Aztreonam 0.5 gm/ Dextrose 50 mls @ 100 mls/hr IVPB Q8H-IV [facility] PRN Reason: Protocol Last Admin: 05/06/17 03:00 Dose: 100 mls/hr Clindamycin Phosphate (Cleocin 300 Mg Premix Ivpb) 300 mg in 50 mls @ 104 mls/ hr IVPB Q8H-IV [facility] Last Admin: 05/06/17 03:00 Dose: 104 mls/hr Methylprednisolone Sodium Succinate (Solu-Medrol -) 40 mg IVPUSH BID [facility] Last Admin: 05/05/17 21:21 Dose: 40 mg Metoprolol Tartrate (Lopressor Injection -) 5 mg IVPUSH Q6H PRN PRN Reason: TACHYCARDIA Last Admin: 05/03/17 19:45 Dose: 5 mg Midodrine (Proamatine -) 10 mg PO TID-MID [facility] Last Admin: 05/05/17 18:39 Dose: 10 mg Multivitamins/Minerals/Vitamin C (Tab-A-Vit -) 1 tab PO DAILY [facility] Last Admin: 05/05/17 09:55 Dose: 1 tab Mupirocin (Bactroban 2% Ointment -) 1 applic TP BID [facility] Last Admin: 05/05/17 21:22 Dose: 1 applic - Objective Vital Signs: Vital Signs Temperature 97.8 F 05/06/17 02:00 Pulse Rate 104 H 05/06/17 08:00 Respiratory Rate 22 05/06/17 08:00 Blood Pressure 115/66 05/06/17 08:00 O2 Sat by Pulse Oximetry (%) 95 05/05/17 20:04 Constitutional: Yes: No Distress, Calm Eyes: Yes: Conjunctiva Clear Cardiovascular: Yes: Regular Rate and Rhythm Respiratory: Yes: CTA Bilaterally (no wheezing or rales) Gastrointestinal: Yes: Soft (nontender) Edema: No Neurological: Yes: Alert ...Motor Strength: WNL Labs: CBC, BMP 05/06/17 05:35 INR, PTT INR 1.26 (0.82-1.09) H 05/06/17 05:35 Fibrinogen 291.0 mg/dL (238-498) 05/03/17 06:15 - ....Imaging EKG: Image Reviewed Problem List - Problems (1) Vasculitis Code(s): I77.6 - ARTERITIS, UNSPECIFIED (2) Rash Code(s): R21 - RASH AND OTHER NONSPECIFIC SKIN ERUPTION (3) ESRD (end stage renal disease) Code(s): N18.6 - END STAGE RENAL DISEASE (4) CAD (coronary artery disease) of artery bypass graft Code(s): I25.810 - ATHEROSCLEROSIS OF CABG W/O ANGINA PECTORIS Qualifiers: [place] vs. transplanted heart: upper [place] heart (5) Cellulitis Code(s): L03.90 - CELLULITIS, UNSPECIFIED Qualifiers: Site of cellulitis: unspecified site Qualified Code(s): L03.90 - Cellulitis , unspecified (6) Abnormal LFTs Code(s): R94.5 - ABNORMAL RESULTS OF LIVER FUNCTION STUDIES (7) Coagulopathy Code(s): D68.9 - COAGULATION DEFECT, UNSPECIFIED (8) Gangrene Code(s): I96 - GANGRENE, NOT ELSEWHERE CLASSIFIED (9) Paroxysmal A-fib Code(s): I48.0 - PAROXYSMAL ATRIAL FIBRILLATION (10) Thrombocytopenia Code(s): D69.6 - THROMBOCYTOPENIA, UNSPECIFIED Assessment/Plan IMP: Hypotension: resolved AF with RVR Suspected acute vasculitis: Rheumatoid? ESRD on HD PAD, CAD s/p CABG Gangrene of LE History GI bleed Remote history SAH REC: 1. Cardiac: -Heart rate improved, now tolerating Carvedilol. -Remains on UFH gtts for AF and severe PAD with LE ischemia -Clinically improving, no cardiac contraindication to LE angiography when medically stable from the vasculitis/rheum standpoint. 2. Rheum: -Acute vasculitic rash improved with pheresis and steroids. -?Rheumatoid?- would be very rare manifestation. -Less likely cholesterol emboli syndrome which can present as a vasculitis rarely. Less likely given diffuse nature of rash and cath timing (2months ago). Await results of repeat dermal biopsy.
[2017-05-06 08:35] LABS: ALBUMIN 3.3 g/dl (3.4-5.0); ALK PHOS 79 U/L (45-117); ANION GAP 10 (8-16); BILIRUBIN,TOTAL 0.6 mg/dL (0.2-1.0); BLOOD UREA NITROGEN 29 mg/dL (7-18); CALCIUM 7.7 mg/dL (8.5-10.1); CHLORIDE 100 mmol/L (98-107); CO2 30 mmol/L (21-32); CREATININE 3.3 mg/dL (0.55-1.02); GLUCOSE,RANDOM 137 mg/dL (74-106); POTASSIUM 3.7 mmol/L (3.5-5.1); SGOT/AST 28 U/L (15-37); SGPT/ALT 35 U/L (12-78); SODIUM 140 mmol/L (136-145); TOT PROT 5.9 g/dl (6.4-8.2)
[2017-05-06] MEDS: MUPIROCIN 2% TOPICAL OINTMENT 22 GM TUBE TP SCH ×2 (09:23→21:07)
[2017-05-06] MEDS: MIDODRINE HCL 5 MG TABLET PO SCH ×3 (09:24→18:16)
[2017-05-06] MEDS: CARVEDILOL 12.5 MG TABLET (FP) PO SCH ×2 (09:24→21:07)
[2017-05-06] MEDS: MULTIVITAMINS (DAILY MVI) TABLET (FP) PO SCH (09:25)
[2017-05-06] MEDS: methylPREDNISolone NA SUCC 40 MG/1 ML VIAL IVPUSH SCH ×2 (09:25→21:07)
[2017-05-06] MEDS: HEPARIN NA (PORCINE) 5,000 UNITS/ML 1ML VIAL IVPUSH PRN (09:29)
--- NOTE | 2017-05-06 10:12 | PN ---
Progress Note (short form) - Note Progress Note: pt seen and examined. stable. Denies any complains Labs reviewed/all follow-up noted rash continues to improve O/E: General: elderly woman in NAD HEENT: vicky-oral rash noted, slightly better Cor: Tachycardic Lungs: Anterior to asucultate wnl abdomen: soft LE: + black eschar on the LE. Skin: small peticheal rash improved the both LE, UE, perioral, forearm, continues to improve neuro: alert and awake Last Vital Signs Temp Pulse Resp BP Pulse Ox 98.4 F 104 H 22 105/80 95 05/06/17 09:57 05/06/17 09:57 05/06/17 09:57 05/06/17 09:57 05/05/17 20:04 CBC, BMP 05/06/17 05:35 05/06/17 05:35 Current Medications Generic Name Dose Route Start Last Admin Trade Name Freq PRN Reason Stop Dose Admin Acetaminophen 650 mg 04/28/17 02:19 05/01/17 01:02 Tylenol - PO 650 mg Q4H PRN Administration PAIN LEVEL 1-5 Albumin Human 62.5 gm 05/06/17 13:13 Plasbumin-5 - IVPB 05/06/17 13:14 ONCE ONE Calcium Acetate 1,334 mg 05/04/17 11:00 05/05/17 16:00 Phoslo - PO 1,334 mg TIDAC [facility] Administration Carvedilol 12.5 mg 04/27/17 10:00 05/06/17 09:24 Coreg - PO 12.5 mg BID [facility] Administration Heparin Sodium (Porcine) 1,000 unit 04/28/17 13:02 05/06/17 09:29 Heparin - IVPUSH 1,000 unit PRN PRN Administration Heparin Heparin Sodium (Porcine) 5,000 unit 04/28/17 13:02 05/01/17 19:04 Heparin - IVPUSH 5,000 unit PRN PRN Administration Heparin Heparin Sodium/Dextrose 25,000 units in 500 mls @ 20 mls/hr 04/28/17 13:15 09:29 Heparin Infusion - IVPB 700 units/hr TITR [facility] 14 mls/hr Protocol Titration 1,000 UNITS/HR Aztreonam 0.5 gm/ Dextrose 50 mls @ 100 mls/hr 04/29/17 13:30 05/06/17 09:23 IVPB 100 mls/hr Q8H-IV [facility] Administration Protocol Clindamycin Phosphate 300 mg in 50 mls @ 104 mls/hr 04/29/17 20:00 05/06/17 09:23 Cleocin 300 Mg Premix Ivpb IVPB 104 mls/hr Q8H-IV [facility] Administration Methylprednisolone Sodium Succinate 40 mg 05/01/17 22:00 05/06/17 09:25 Solu-Medrol - IVPUSH 40 mg BID [facility] Administration Metoprolol Tartrate 5 mg 04/30/17 08:55 05/03/17 19:45 Lopressor Injection - IVPUSH 5 mg Q6H PRN Administration TACHYCARDIA Midodrine 10 mg 05/03/17 14:00 05/06/17 09:24 Proamatine - PO 10 mg TID-MID [facility] Administration Multivitamins/Minerals/Vitamin C 1 tab 04/27/17 10:00 05/06/17 09:25 Tab-A-Vit - PO 1 tab DAILY [facility] Administration Mupirocin 1 applic 04/28/17 22:00 05/06/17 09:23 Bactroban 2% Ointment - TP 1 applic BID [facility] Administration Assessment/Plan: Vasculitic rash ,on PLEX ?etiology Thrombocytopenia, stable Coagulopathy, improved Ischemic of the LE on Heparin drip ESRD (end stage renal disease) on dialysis CAD (coronary artery disease) M-Tone. Impression: s/p PLEX 3, 4th one today. Next will be on . SPEP with M-spike, mostly reactive, will await K/L, Ig Levels. Cryo is still pending. Thrombocytopenia, improving, likely multifactorial, no DIC, no hemolysis , ? infection,meds,LLE gangrene, vasculitis post procedural, HIT pending. s/p skin biopsy, will await results, as per rheum will continue PLEX until biopsy resultes will follow
[2017-05-06] MEDS: CALCIUM ACETATE 667 MG CAPSULE (FP) PO SCH ×2 (11:30→18:16)
[2017-05-06] MEDS ORDERED: ALBUMIN HUMAN 5% 250 ML IV SOLUTION IVPB ONE (13:15)
--- NOTE | 2017-05-06 13:16 | PN ---
Teaching Attending Note Name of Resident: Trinidad Harrison ATTENDING PHYSICIAN STATEMENT I saw and evaluated the patient. I reviewed the resident's note and discussed the case with the resident. I agree with the resident's findings and plan as documented. SUBJECTIVE: Pt seen and examined in the ICU. s/p wedge skin biopsy yesterday. For plasmapharesis today. Rash improving. Denies fevers or chills. OBJECTIVE: Last Vital Signs Temp Pulse Resp BP Pulse Ox 98.4 F 105 H 22 102/56 95 05/06/17 10:00 05/06/17 11:52 05/06/17 11:52 05/06/17 11:52 05/05/17 20:04 Intake & Output 05/03/17 05/04/17 05/05/17 05/06/17 23:59 23:59 23:59 23:59 Intake Total 2158 465 0045 244 Output Total 300 Balance 6089 455 4495 -56 Weight 66.451 kg 66.905 kg 68.492 kg 69.7 kg Gen: NAD at rest Heart: tachycardic, regular Lung: decreased breath sounds at the bases Abd: soft, nontender Ext: + edema, +purpura CBC, BMP 05/06/17 05:35 05/06/17 05:35 Active Medications Acetaminophen (Tylenol -) 650 mg PO Q4H PRN PRN Reason: PAIN LEVEL 1-5 Last Admin: 05/01/17 01:02 Dose: 650 mg Albumin Human (Plasbumin-5 -) 62.5 gm IVPB ONCE ONE Stop: 05/06/17 13:16 Calcium Acetate (Phoslo -) 1,334 mg PO TIDAC [facility] Last Admin: 05/05/17 16:00 Dose: 1,334 mg Carvedilol (Coreg -) 12.5 mg PO BID [facility] Last Admin: 05/06/17 09:24 Dose: 12.5 mg Heparin Sodium (Porcine) (Heparin -) 1,000 unit IVPUSH PRN PRN PRN Reason: Heparin Last Admin: 05/06/17 09:29 Dose: 1,000 unit Heparin Sodium (Porcine) (Heparin -) 5,000 unit IVPUSH PRN PRN PRN Reason: Heparin Last Admin: 05/01/17 19:04 Dose: 5,000 unit Heparin Sodium/Dextrose (Heparin Infusion -) 25,000 units in 500 mls @ 20 mls/ hr IVPB TITR [facility]; 1,000 UNITS/HR PRN Reason: Protocol Last Titration: 05/06/17 09:29 Dose: 700 units/hr, 14 mls/hr Aztreonam 0.5 gm/ Dextrose 50 mls @ 100 mls/hr IVPB Q8H-IV [facility] PRN Reason: Protocol Last Admin: 05/06/17 09:23 Dose: 100 mls/hr Clindamycin Phosphate (Cleocin 300 Mg Premix Ivpb) 300 mg in 50 mls @ 104 mls/ hr IVPB Q8H-IV [facility] Last Admin: 05/06/17 09:23 Dose: 104 mls/hr Methylprednisolone Sodium Succinate (Solu-Medrol -) 40 mg IVPUSH BID [facility] Last Admin: 05/06/17 09:25 Dose: 40 mg Metoprolol Tartrate (Lopressor Injection -) 5 mg IVPUSH Q6H PRN PRN Reason: TACHYCARDIA Last Admin: 05/03/17 19:45 Dose: 5 mg Midodrine (Proamatine -) 10 mg PO TID-MID [facility] Last Admin: 05/06/17 09:24 Dose: 10 mg Multivitamins/Minerals/Vitamin C (Tab-A-Vit -) 1 tab PO DAILY [facility] Last Admin: 05/06/17 09:25 Dose: 1 tab Mupirocin (Bactroban 2% Ointment -) 1 applic TP BID [facility] Last Admin: 05/06/17 09:23 Dose: 1 applic ASSESSMENT AND PLAN: r/p Acute Vasculitis r/o Sepsis PAD Right Foot Gangrene ESRD on HD CAD s/p CABG Atrial Fibrillation HTN DM - plasmapharesis per heme - d/c catheter after today's session - empiric antibiotics - HD per renal - continue midodrine - heme, rheum f/u - vascular surgery following for possible angiogram/angioplasty - O2 to keep SpO2>90% - IVF boluses as needed - continue ICU monitoring critical care time spent in reviewing chart, evaluating patient and formulating plan 35 min
[2017-05-06] MEDS: HEPARIN INFUSION - 25,000 UNITS/500 ML INFUS.BAG IVPB SCH (13:22)
--- NOTE | 2017-05-06 14:41 | PN ---
Progress Note, Physician History of Present Illness: stable no complaints family in room patient improving had dialysis continuing plasmapheresis - Current Medication List Current Medications: Active Medications Acetaminophen (Tylenol -) 650 mg PO Q4H PRN PRN Reason: PAIN LEVEL 1-5 Last Admin: 05/01/17 01:02 Dose: 650 mg Calcium Acetate (Phoslo -) 1,334 mg PO TIDAC [facility] Last Admin: 05/06/17 11:30 Dose: 1,334 mg Carvedilol (Coreg -) 12.5 mg PO BID [facility] Last Admin: 05/06/17 09:24 Dose: 12.5 mg Heparin Sodium (Porcine) (Heparin -) 1,000 unit IVPUSH PRN PRN PRN Reason: Heparin Last Admin: 05/06/17 09:29 Dose: 1,000 unit Heparin Sodium (Porcine) (Heparin -) 5,000 unit IVPUSH PRN PRN PRN Reason: Heparin Last Admin: 05/01/17 19:04 Dose: 5,000 unit Heparin Sodium/Dextrose (Heparin Infusion -) 25,000 units in 500 mls @ 20 mls/ hr IVPB TITR [facility]; 1,000 UNITS/HR PRN Reason: Protocol Last Admin: 05/06/17 13:22 Dose: Not Given Aztreonam 0.5 gm/ Dextrose 50 mls @ 100 mls/hr IVPB Q8H-IV [facility] PRN Reason: Protocol Last Admin: 05/06/17 09:23 Dose: 100 mls/hr Clindamycin Phosphate (Cleocin 300 Mg Premix Ivpb) 300 mg in 50 mls @ 104 mls/ hr IVPB Q8H-IV [facility] Last Admin: 05/06/17 09:23 Dose: 104 mls/hr Methylprednisolone Sodium Succinate (Solu-Medrol -) 40 mg IVPUSH BID [facility] Last Admin: 05/06/17 09:25 Dose: 40 mg Metoprolol Tartrate (Lopressor Injection -) 5 mg IVPUSH Q6H PRN PRN Reason: TACHYCARDIA Last Admin: 05/03/17 19:45 Dose: 5 mg Midodrine (Proamatine -) 10 mg PO TID-MID [facility] Last Admin: 05/06/17 13:21 Dose: 10 mg Multivitamins/Minerals/Vitamin C (Tab-A-Vit -) 1 tab PO DAILY [facility] Last Admin: 05/06/17 09:25 Dose: 1 tab Mupirocin (Bactroban 2% Ointment -) 1 applic TP BID [facility] Last Admin: 05/06/17 09:23 Dose: 1 applic - Objective Vital Signs: Vital Signs Temperature 98.3 F 05/06/17 13:15 Pulse Rate 105 H 05/06/17 13:15 Respiratory Rate 22 05/06/17 13:15 Blood Pressure 115/49 05/06/17 13:15 O2 Sat by Pulse Oximetry (%) 95 05/05/17 20:04 Constitutional: Yes: No Distress, Calm HENT: Yes: Atraumatic Cardiovascular: Yes: Regular Rate and Rhythm Respiratory: Yes: Regular, CTA Bilaterally Gastrointestinal: Yes: Normal Bowel Sounds, Soft Musculoskeletal: Yes: WNL Extremities: Yes: Other (gangrene of one foot and infection in between other toes which has been healing) Wound/Incision: Yes: Dressing Dry and Intact Neurological: Yes: Alert, Oriented Psychiatric: Yes: Alert, Oriented Labs: CBC, BMP 05/06/17 05:35 05/06/17 05:35 INR, PTT INR 1.26 (0.82-1.09) H 05/06/17 05:35 Fibrinogen 291.0 mg/dL (238-498) 05/03/17 06:15 Assessment/Plan Problem List - Problems (1) Cellulitis Code(s): L03.90 - CELLULITIS, UNSPECIFIED (2) Atrial fibrillation with RVR Code(s): I48.91 - UNSPECIFIED ATRIAL FIBRILLATION (3) CAD (coronary artery disease) Code(s): I25.10 - ATHSCL HEART DISEASE OF [place] CORONARY ARTERY W/O ANG PCTRS (4) ESRD (end stage renal disease) on dialysis Code(s): N18.6 - END STAGE RENAL DISEASE; Z99.2 - DEPENDENCE ON RENAL DIALYSIS (5) Hx of CABG Code(s): Z95.1 - PRESENCE OF AORTOCORONARY BYPASS GRAFT (6) Hypertension Code(s): I10 - ESSENTIAL (PRIMARY) HYPERTENSION (7) Osteoarthritis Code(s): M19.90 - UNSPECIFIED OSTEOARTHRITIS, UNSPECIFIED SITE (8) Subarachnoid hemorrhage following injury Code(s): S06.6X9A - TRAUM SUBRAC HEM W LOC OF UNSP DURATION, INIT Qualifiers: Encounter type: initial encounter Loss of consciousness presence/duration: without LOC Qualified Code(s): S06.6X0A - Traumatic subarachnoid hemorrhage without loss of consciousness, initial encounter Gangrene CTA ordered to assess large vessels in both legs. If major occlusion present will need angiogram for revascularization in effort to salvage foot. Code(s): I96 - GANGRENE, NOT ELSEWHERE CLASSIFIED plan continue current mgmt rash improving wound care vascular on major case detective bp rest as per icu/primary wound cx report noted will consider tapering abx back and monitoring cc time 40 min
[2017-05-06] MEDS ORDERED: CALCIUM GLUCONATE 10% - 1,000 MG/10 ML VIAL IVPB ONE (15:13)
--- NOTE | 2017-05-06 16:47 | PN ---
Progress Note (short form) - Note Progress Note: Angiogram with possible angioplasty right leg scheduled for Friday afternoon. Potential for limb salvage looking less likely. Problem List - Problems (1) Gangrene Code(s): I96 - GANGRENE, NOT ELSEWHERE CLASSIFIED (2) Rash Code(s): R21 - RASH AND OTHER NONSPECIFIC SKIN ERUPTION
[2017-05-06] MEDS ORDERED: PT OWN MED DRAWER 7, Y5N ONE (17:58)
--- NOTE | 2017-05-06 19:30 | PN ---
Progress Note (short form) - Note Progress Note: Renal follow up for ESRD on HD Pt seen examined in the ICU no complaints Vital Signs Temperature 98.5 F 05/06/17 22:00 Pulse Rate 96 H 05/06/17 22:00 Respiratory Rate 19 05/06/17 22:00 Blood Pressure 91/56 05/06/17 22:00 O2 Sat by Pulse Oximetry (%) 100 05/06/17 20:18 Intake & Output 05/04/17 05/05/17 05/06/17 05/07/17 23:59 23:59 23:59 23:59 Intake Total 816 1378 554 Output Total 300 Balance 816 1378 254 Weight 66.905 kg 68.492 kg 69.7 kg NAD awake and alert RRR CTA soft NT/ND peticial rash on arms, not blanching appears the same CBC, BMP 05/06/17 05:35 05/06/17 05:35 Current Medications Acetaminophen (Tylenol -) 650 mg PO Q4H PRN PRN Reason: PAIN LEVEL 1-5 Last Admin: 05/01/17 01:02 Dose: 650 mg Calcium Acetate (Phoslo -) 1,334 mg PO TIDAC [facility] Last Admin: 05/06/17 18:16 Dose: 1,334 mg Carvedilol (Coreg -) 12.5 mg PO BID [facility] Last Admin: 05/06/17 21:07 Dose: 12.5 mg Epoetin Sage (Epogen -) 15,000 unit IVPUSH ONCE ONE Stop: 05/07/17 06:01 Heparin Sodium (Porcine) (Heparin -) 1,000 unit IVPUSH PRN PRN PRN Reason: Heparin Last Admin: 05/06/17 09:29 Dose: 1,000 unit Heparin Sodium (Porcine) (Heparin -) 5,000 unit IVPUSH PRN PRN PRN Reason: Heparin Last Admin: 05/01/17 19:04 Dose: 5,000 unit Heparin Sodium/Dextrose (Heparin Infusion -) 25,000 units in 500 mls @ 20 mls/ hr IVPB TITR [facility]; 1,000 UNITS/HR PRN Reason: Protocol Last Admin: 05/06/17 13:22 Dose: Not Given Aztreonam 0.5 gm/ Dextrose 50 mls @ 100 mls/hr IVPB Q8H-IV [facility] PRN Reason: Protocol Last Admin: 05/06/17 18:46 Dose: 100 mls/hr Clindamycin Phosphate (Cleocin 300 Mg Premix Ivpb) 300 mg in 50 mls @ 104 mls/ hr IVPB Q8H-IV [facility] Last Admin: 05/06/17 18:16 Dose: 104 mls/hr Methylprednisolone Sodium Succinate (Solu-Medrol -) 40 mg IVPUSH BID [facility] Last Admin: 05/06/17 21:07 Dose: 40 mg Metoprolol Tartrate (Lopressor Injection -) 5 mg IVPUSH Q6H PRN PRN Reason: TACHYCARDIA Last Admin: 05/03/17 19:45 Dose: 5 mg Midodrine (Proamatine -) 10 mg PO TID-MID [facility] Last Admin: 05/06/17 18:16 Dose: 10 mg Multivitamins/Minerals/Vitamin C (Tab-A-Vit -) 1 tab PO DAILY [facility] Last Admin: 05/06/17 09:25 Dose: 1 tab Mupirocin (Bactroban 2% Ointment -) 1 applic TP BID [facility] Last Admin: 05/06/17 21:07 Dose: 1 applic 82 year old woman with PMhx of ESRD on HD (MWF), Hypertension, HLD, subarachnoid hemorrhage presented with right leg wound. #Right leg wound/suspected vasculitis continue management per vascular and rheum #ESRD on HD for dialysis tomorrow Thank you Karsten Sylvester DO
--- NOTE | 2017-05-06 19:42 | PN ---
Progress Note, Physician History of Present Illness: No new complaints - Current Medication List Current Medications: Active Medications Acetaminophen (Tylenol -) 650 mg PO Q4H PRN PRN Reason: PAIN LEVEL 1-5 Last Admin: 05/01/17 01:02 Dose: 650 mg Calcium Acetate (Phoslo -) 1,334 mg PO TIDAC [facility] Last Admin: 05/06/17 18:16 Dose: 1,334 mg Carvedilol (Coreg -) 12.5 mg PO BID [facility] Last Admin: 05/06/17 09:24 Dose: 12.5 mg Heparin Sodium (Porcine) (Heparin -) 1,000 unit IVPUSH PRN PRN PRN Reason: Heparin Last Admin: 05/06/17 09:29 Dose: 1,000 unit Heparin Sodium (Porcine) (Heparin -) 5,000 unit IVPUSH PRN PRN PRN Reason: Heparin Last Admin: 05/01/17 19:04 Dose: 5,000 unit Heparin Sodium/Dextrose (Heparin Infusion -) 25,000 units in 500 mls @ 20 mls/ hr IVPB TITR [facility]; 1,000 UNITS/HR PRN Reason: Protocol Last Admin: 05/06/17 13:22 Dose: Not Given Aztreonam 0.5 gm/ Dextrose 50 mls @ 100 mls/hr IVPB Q8H-IV [facility] PRN Reason: Protocol Last Admin: 05/06/17 18:46 Dose: 100 mls/hr Clindamycin Phosphate (Cleocin 300 Mg Premix Ivpb) 300 mg in 50 mls @ 104 mls/ hr IVPB Q8H-IV [facility] Last Admin: 05/06/17 18:16 Dose: 104 mls/hr Methylprednisolone Sodium Succinate (Solu-Medrol -) 40 mg IVPUSH BID [facility] Last Admin: 05/06/17 09:25 Dose: 40 mg Metoprolol Tartrate (Lopressor Injection -) 5 mg IVPUSH Q6H PRN PRN Reason: TACHYCARDIA Last Admin: 05/03/17 19:45 Dose: 5 mg Midodrine (Proamatine -) 10 mg PO TID-MID [facility] Last Admin: 05/06/17 18:16 Dose: 10 mg Multivitamins/Minerals/Vitamin C (Tab-A-Vit -) 1 tab PO DAILY [facility] Last Admin: 05/06/17 09:25 Dose: 1 tab Mupirocin (Bactroban 2% Ointment -) 1 applic TP BID [facility] Last Admin: 05/06/17 09:23 Dose: 1 applic - Objective Vital Signs: Vital Signs Temperature 97.9 F 05/06/17 18:00 Pulse Rate 104 H 05/06/17 18:00 Respiratory Rate 20 05/06/17 18:00 Blood Pressure 129/75 05/06/17 18:00 O2 Sat by Pulse Oximetry (%) 100 05/06/17 17:35 HENT: Yes: WNL Neck: Yes: WNL, Supple Cardiovascular: Yes: Pulse Irregular Respiratory: Yes: WNL, Regular, CTA Bilaterally Gastrointestinal: Yes: WNL, Normal Bowel Sounds, Soft, Abdomen, Obese Extremities: Yes: Other ((+) rt foot eschar) Edema: LUE: 1+ Labs: CBC, BMP 05/06/17 05:35 05/06/17 05:35 INR, PTT INR 1.26 (0.82-1.09) H 05/06/17 05:35 Fibrinogen 291.0 mg/dL (238-498) 05/03/17 06:15 Problem List - Problems (1) Vasculitis Code(s): I77.6 - ARTERITIS, UNSPECIFIED (2) Gangrene Code(s): I96 - GANGRENE, NOT ELSEWHERE CLASSIFIED (3) Paroxysmal A-fib Code(s): I48.0 - PAROXYSMAL ATRIAL FIBRILLATION (4) Hypotension Code(s): I95.9 - HYPOTENSION, UNSPECIFIED (5) ESRD (end stage renal disease) on dialysis Code(s): N18.6 - END STAGE RENAL DISEASE; Z99.2 - DEPENDENCE ON RENAL DIALYSIS (6) Hypertension Code(s): I10 - ESSENTIAL (PRIMARY) HYPERTENSION (7) Osteoarthritis Code(s): M19.90 - UNSPECIFIED OSTEOARTHRITIS, UNSPECIFIED SITE (8) Cellulitis Code(s): L03.90 - CELLULITIS, UNSPECIFIED Qualifiers: Site of cellulitis: unspecified site Qualified Code(s): L03.90 - Cellulitis , unspecified (9) CAD (coronary artery disease) Code(s): I25.10 - ATHSCL HEART DISEASE OF [place] CORONARY ARTERY W/O ANG PCTRS (10) Thrombocytopenia Code(s): D69.6 - THROMBOCYTOPENIA, UNSPECIFIED
--- NOTE | 2017-05-06 21:32 | PN ---
Progress Note, Physician - Current Medication List Current Medications: Active Medications Acetaminophen (Tylenol -) 650 mg PO Q4H PRN PRN Reason: PAIN LEVEL 1-5 Last Admin: 05/01/17 01:02 Dose: 650 mg Calcium Acetate (Phoslo -) 1,334 mg PO TIDAC [facility] Last Admin: 05/06/17 18:16 Dose: 1,334 mg Carvedilol (Coreg -) 12.5 mg PO BID [facility] Last Admin: 05/06/17 21:07 Dose: 12.5 mg Heparin Sodium (Porcine) (Heparin -) 1,000 unit IVPUSH PRN PRN PRN Reason: Heparin Last Admin: 05/06/17 09:29 Dose: 1,000 unit Heparin Sodium (Porcine) (Heparin -) 5,000 unit IVPUSH PRN PRN PRN Reason: Heparin Last Admin: 05/01/17 19:04 Dose: 5,000 unit Heparin Sodium/Dextrose (Heparin Infusion -) 25,000 units in 500 mls @ 20 mls/ hr IVPB TITR [facility]; 1,000 UNITS/HR PRN Reason: Protocol Last Admin: 05/06/17 13:22 Dose: Not Given Aztreonam 0.5 gm/ Dextrose 50 mls @ 100 mls/hr IVPB Q8H-IV [facility] PRN Reason: Protocol Last Admin: 05/06/17 18:46 Dose: 100 mls/hr Clindamycin Phosphate (Cleocin 300 Mg Premix Ivpb) 300 mg in 50 mls @ 104 mls/ hr IVPB Q8H-IV [facility] Last Admin: 05/06/17 18:16 Dose: 104 mls/hr Methylprednisolone Sodium Succinate (Solu-Medrol -) 40 mg IVPUSH BID [facility] Last Admin: 05/06/17 21:07 Dose: 40 mg Metoprolol Tartrate (Lopressor Injection -) 5 mg IVPUSH Q6H PRN PRN Reason: TACHYCARDIA Last Admin: 05/03/17 19:45 Dose: 5 mg Midodrine (Proamatine -) 10 mg PO TID-MID [facility] Last Admin: 05/06/17 18:16 Dose: 10 mg Multivitamins/Minerals/Vitamin C (Tab-A-Vit -) 1 tab PO DAILY [facility] Last Admin: 05/06/17 09:25 Dose: 1 tab Mupirocin (Bactroban 2% Ointment -) 1 applic TP BID [facility] Last Admin: 05/06/17 21:07 Dose: 1 applic - Objective Vital Signs: Vital Signs Temperature 97.9 F 05/06/17 18:00 Pulse Rate 105 H 05/06/17 20:00 Respiratory Rate 20 05/06/17 20:18 Blood Pressure 109/57 05/06/17 20:00 O2 Sat by Pulse Oximetry (%) 100 05/06/17 20:18 Labs: CBC, BMP 05/06/17 05:35 05/06/17 05:35 INR, PTT INR 1.26 (0.82-1.09) H 05/06/17 05:35 Fibrinogen 291.0 mg/dL (238-498) 05/03/17 06:15 Problem List - Problems (1) Vasculitis Code(s): I77.6 - ARTERITIS, UNSPECIFIED (2) Gangrene Code(s): I96 - [place], NOT ELSEWHERE CLASSIFIED (3) Paroxysmal A-fib Code(s): I48.0 - PAROXYSMAL ATRIAL FIBRILLATION (4) Hypotension Code(s): I95.9 - HYPOTENSION, UNSPECIFIED (5) ESRD (end stage renal disease) on dialysis Code(s): N18.6 - END STAGE RENAL DISEASE; Z99.2 - DEPENDENCE ON RENAL DIALYSIS (6) Hypertension Code(s): I10 - ESSENTIAL (PRIMARY) HYPERTENSION (7) Osteoarthritis Code(s): M19.90 - UNSPECIFIED OSTEOARTHRITIS, UNSPECIFIED SITE (8) Cellulitis Code(s): L03.90 - CELLULITIS, UNSPECIFIED Qualifiers: Site of cellulitis: unspecified site Qualified Code(s): L03.90 - Cellulitis , unspecified (9) CAD (coronary artery disease) Code(s): I25.10 - ATHSCL HEART DISEASE OF [place] CORONARY ARTERY W/O ANG PCTRS (10) Thrombocytopenia Code(s): D69.6 - THROMBOCYTOPENIA, UNSPECIFIED
[2017-05-07 00:06] LABS: FREE KAPPA,SERUM 99.9 mg/L (3.3-19.4)
[2017-05-07] MEDS: AZTREONAM 0.5 GM in DEXTROSE 5%-WATER - 50 ML IVPB SCH ×2 (02:06→11:06)
[2017-05-07] MEDS ORDERED: PT OWN MED DRAWER 7, Y5N ONE ×2 (02:07→11:05)
[2017-05-07] MEDS: CLINDAMYCIN 300 MG PREMIX IVPB 300 MG/50 ML BAG IVPB SCH ×2 (02:08→11:05)
[2017-05-07] MEDS ORDERED: EPOETIN ALFA 20,000 UNIT/1 ML VIAL IVPUSH ONE (06:00)
[2017-05-07] MEDS: CALCIUM ACETATE 667 MG CAPSULE (FP) PO SCH ×2 (06:27→11:02)
[2017-05-07 06:31] LABS: HEMATOCRIT 30.6 % (32.4-45.2); HEMOGLOBIN 9.8 GM/dL (10.7-15.3); MCH 26.8 pg (25.7-33.7); MCHC 32.1 g/dl (32.0-36.0); MEAN CELL VOLUME 83.4 fl (80-96); MEAN PLT VOLUME 9.9 fl (7.5-11.1); PLATELET COUNT 83 K/MM3 (134-434); RBC 3.66 M/mm3 (3.60-5.2); RDW 20.1 % (11.6-15.6); WHITE BLOOD COUNT 9.4 K/mm3 (4.0-10.0)
[2017-05-07 07:02] LABS: ALBUMIN 3.4 g/dl (3.4-5.0); ANION GAP 9 (8-16); BILIRUBIN,TOTAL 0.5 mg/dL (0.2-1.0); BLOOD UREA NITROGEN 41 mg/dL (7-18); CALCIUM 7.4 mg/dL (8.5-10.1); CHLORIDE 99 mmol/L (98-107); CO2 31 mmol/L (21-32); CREATININE 4.1 mg/dL (0.55-1.02); GLUCOSE,RANDOM 136 mg/dL (74-106); MAGNESIUM 1.9 mg/dL (1.8-2.4); PHOSPHOROUS 4.7 mg/dL (2.5-4.9); POTASSIUM 3.6 mmol/L (3.5-5.1); SGOT/AST 17 U/L (15-37); SGPT/ALT 26 U/L (12-78); SODIUM 139 mmol/L (136-145); TOT PROT 5.8 g/dl (6.4-8.2)
[2017-05-07 07:03] LABS: ALK PHOS 58 U/L (45-117)
--- NOTE | 2017-05-07 07:05 | PN ---
Progress Note, Physician History of Present Illness: Overnight: Completed 4th PLEX out of 6 yesterday. VSS. BP 80s-114s/60s on midrodine. Dr Mota say pt yesterday, will take patient to OR this afternoon for R leg angio w/ possible amputation. Today: Patient feels the same. No new complaints. Receiving dialysis now. To OR this afternoon. NPO since 4am. Hep ggt stop at 10AM - Objective Vital Signs: Vital Signs Period Temp Pulse Resp BP Sys/Street Pulse Ox Last 24 Hr 97.8 F-98.5 F 96-107 12-22 85-129/49-80 100-100 Additional Findings/Remarks: GEN: AAOx3, NAD, Lying comfortably, conversing with examiner HEENT: PERRLA, EOMi, rash is more confluent CV: S1, S2, RRR LUNG: Anterior lungs clear ABD: Soft, NT, ND MSK: No chagne from yesterday. Assessment/Plan Pt is an 82 y/o female w/ CAD, Afib, ESRD on dialysis, and rt foot fx w/ hardware. Pt presented to the ER bc of a wound to her right leg. Rheum: # Vasculitic Rash - Improving. So far, still unclear etiology. KYLER+ but multiple rheum antibiodies are negative. Undergoing plasmapheresis (06/13 completed), Awaiting results of wedge biopsy. On Solumedrol 40 BID. Will exchange femoral catheter on . CV: # PAD - OR today for R leg angiogram. Patient has extensive bilateral high grade stenosis, with necrotic R foot. Heparin ggt stopped at 10am. NPO since 4am. # Hypotension - Continues to be stable on midrodine. Also on BB for rate control. # Paroxysmal Afib - Rate controlled on Coreg 12.5 BID for rate control. Does not need PRN Lopressor 5mg. Pt was on full AC, but has had fully informed discussion in past with cardiology, pt had decided to stop AC due to history of GI bleeding and SAH Renal: # ESRD - Dialysis today. MWF. Renal following. Calcified plaques w/ subtotal occlusion of R and L renal arteries resulting in severe atrophy on CTA. ID: # R foot Gangrene - R foot has gangrenous patch. Azithromycin d/c'd. Still on empiric Clinda (Day 12 of total abx) FEN/PPX: No IVF, NPO, heparin ggt stopped at 10am for OR Dispo: OR today. Keep in ICU Trinidad Harrison MD PGY1 ICU
--- NOTE | 2017-05-07 08:41 | PN ---
Progress Note, Physician Chief Complaint: Seen and examined in ICU, alert Heart rate much improved, continue to tolerate Carvedilol- also on Midodrine - Current Medication List Current Medications: Active Medications Acetaminophen (Tylenol -) 650 mg PO Q4H PRN PRN Reason: PAIN LEVEL 1-5 Last Admin: 05/01/17 01:02 Dose: 650 mg Calcium Acetate (Phoslo -) 1,334 mg PO TIDAC [facility] Last Admin: 05/06/17 18:16 Dose: 1,334 mg Carvedilol (Coreg -) 12.5 mg PO BID [facility] Last Admin: 05/06/17 21:07 Dose: 12.5 mg Epoetin Sage 10,000 unit/Epoetin Sage 3,000 unit/Epoetin Sage 2,000 unit 15, 000 unit IVPUSH ONCE ONE Stop: 05/07/17 09:01 Heparin Sodium (Porcine) (Heparin -) 1,000 unit IVPUSH PRN PRN PRN Reason: Heparin Last Admin: 05/06/17 09:29 Dose: 1,000 unit Heparin Sodium (Porcine) (Heparin -) 5,000 unit IVPUSH PRN PRN PRN Reason: Heparin Last Admin: 05/01/17 19:04 Dose: 5,000 unit Heparin Sodium/Dextrose (Heparin Infusion -) 25,000 units in 500 mls @ 20 mls/ hr IVPB TITR [facility]; 1,000 UNITS/HR PRN Reason: Protocol Last Admin: 05/06/17 13:22 Dose: Not Given Aztreonam 0.5 gm/ Dextrose 50 mls @ 100 mls/hr IVPB Q8H-IV [facility] PRN Reason: Protocol Last Admin: 05/07/17 02:06 Dose: 100 mls/hr Clindamycin Phosphate (Cleocin 300 Mg Premix Ivpb) 300 mg in 50 mls @ 104 mls/ hr IVPB Q8H-IV [facility] Last Admin: 05/07/17 02:08 Dose: 104 mls/hr Methylprednisolone Sodium Succinate (Solu-Medrol -) 40 mg IVPUSH BID [facility] Last Admin: 05/06/17 21:07 Dose: 40 mg Metoprolol Tartrate (Lopressor Injection -) 5 mg IVPUSH Q6H PRN PRN Reason: TACHYCARDIA Last Admin: 05/03/17 19:45 Dose: 5 mg Midodrine (Proamatine -) 10 mg PO TID-MID [facility] Last Admin: 05/06/17 18:16 Dose: 10 mg Multivitamins/Minerals/Vitamin C (Tab-A-Vit -) 1 tab PO DAILY [facility] Last Admin: 05/06/17 09:25 Dose: 1 tab Mupirocin (Bactroban 2% Ointment -) 1 applic TP BID [facility] Last Admin: 05/06/17 21:07 Dose: 1 applic - Objective Vital Signs: Vital Signs Temperature 98.4 F 05/07/17 06:00 Pulse Rate 104 H 05/07/17 06:00 Respiratory Rate 17 05/07/17 06:00 Blood Pressure 107/66 05/07/17 06:00 O2 Sat by Pulse Oximetry (%) 100 05/07/17 07:26 Constitutional: Yes: No Distress Eyes: Yes: Conjunctiva Clear Cardiovascular: Yes: Pulse Irregular Respiratory: Yes: CTA Bilaterally Gastrointestinal: Yes: Soft (non-tender) Edema: No Neurological: Yes: Alert Labs: CBC, BMP 05/07/17 06:15 05/07/17 06:15 INR, PTT INR 1.26 (0.82-1.09) H 05/06/17 05:35 Fibrinogen 291.0 mg/dL (238-498) 05/03/17 06:15 Laboratory Tests 04/29/17 05/04/17 05/06/17 11:05 19:05 05:35 WBC Hgb Hct Plt Count PTT (Actin FS) 44.2 H Sodium Potassium BUN Creatinine Total Bilirubin AST ALT Alkaline Phosphatase Stool Occult Blood Positive Rheumatoid Arth Biomark 16.3 H 05/06/17 05/06/17 05/07/17 05:35 05:35 06:15 WBC 9.3 9.4 Hgb 9.7 L D Hct 30.6 L Plt Count 73 L 83 L PTT (Actin FS) Sodium Pending Potassium Pending BUN Creatinine Pending Total Bilirubin AST ALT Alkaline Phosphatase Stool Occult Blood Rheumatoid Arth Biomark 05/07/17 05/07/17 06:15 06:15 WBC Hgb Hct Plt Count PTT (Actin FS) 57.6 H Sodium 139 Potassium 3.6 BUN 41 H Creatinine 4.1 H Total Bilirubin 0.5 AST 17 ALT 26 Alkaline Phosphatase 58 Stool Occult Blood Rheumatoid Arth Biomark - ....Imaging EKG: Image Reviewed Problem List - Problems (1) Vasculitis Code(s): I77.6 - ARTERITIS, UNSPECIFIED (2) Rash Code(s): R21 - RASH AND OTHER NONSPECIFIC SKIN ERUPTION (3) ESRD (end stage renal disease) Code(s): N18.6 - END STAGE RENAL DISEASE (4) CAD (coronary artery disease) of artery bypass graft Code(s): I25.810 - ATHEROSCLEROSIS OF CABG W/O ANGINA PECTORIS Qualifiers: [place] vs. transplanted heart: [place] heart (5) Cellulitis Code(s): L03.90 - CELLULITIS, UNSPECIFIED Qualifiers: Site of cellulitis: unspecified site Qualified Code(s): L03.90 - Cellulitis , unspecified (6) Abnormal LFTs Code(s): R94.5 - ABNORMAL RESULTS OF LIVER FUNCTION STUDIES (7) Coagulopathy Code(s): D68.9 - COAGULATION DEFECT, UNSPECIFIED (8) Gangrene Code(s): I96 - GANGRENE, NOT ELSEWHERE CLASSIFIED (9) Paroxysmal A-fib Code(s): I48.0 - PAROXYSMAL ATRIAL FIBRILLATION (10) Thrombocytopenia Code(s): D69.6 - THROMBOCYTOPENIA, UNSPECIFIED Assessment/Plan IMP: Hypotension: resolved AF with RVR: resolved Suspected acute vasculitis: Rheumatoid? ESRD on HD PAD, CAD s/p CABG Gangrene of LE History GI bleed Remote history SAH REC: 1. Cardiac: -Heart rate improved, continues to tolerate Carvedilol. -Remains on UFH gtts for AF and severe PAD with LE ischemia -Clinically improving, no cardiac contraindication to LE angiography for attempt at limb salvage 2. Rheum: -Acute vasculitic rash improved with pheresis and steroids. -?Rheumatoid?- would be very rare manifestation. -Unlikely cholesterol emboli syndrome which can present as a vasculitis rarely. Less likely given diffuse nature of rash and cath timing (2months ago). Await results of repeat dermal biopsy.
[2017-05-07 08:51] VITALS: TEMP 98.2
[2017-05-07] MEDS ORDERED: EPOETIN ALFA IVPUSH ONE (09:00)
[2017-05-07] MEDS: CARVEDILOL 12.5 MG TABLET (FP) PO SCH (11:00)
[2017-05-07] MEDS: MULTIVITAMINS (DAILY MVI) TABLET (FP) PO SCH (11:00)
[2017-05-07] MEDS: methylPREDNISolone NA SUCC 40 MG/1 ML VIAL IVPUSH SCH (11:00)
[2017-05-07] MEDS: MUPIROCIN 2% TOPICAL OINTMENT 22 GM TUBE TP SCH (11:01)
[2017-05-07] MEDS: MIDODRINE HCL 5 MG TABLET PO SCH (11:03)
--- NOTE | 2017-05-07 11:25 | PN ---
Physical Exam: SUBJECTIVE: Patient seen and examined OBJECTIVE: Vital Signs Period Temp Pulse Resp BP Sys/Street Pulse Ox Last 24 Hr 97.8 F-98.5 F 96-120 12-22 72-129/49-75 100-100 GENERAL: The patient is awake, alert, and fully oriented, in no acute distress. HEAD: Normal with no signs of trauma. EYES: PERRL, extraocular movements intact, sclera anicteric, conjunctiva clear. No ptosis. ENT: Ears normal, nares patent, oropharynx clear without exudates, moist mucous membranes. NECK: Trachea midline, full range of motion, supple. LUNGS: Breath sounds equal, clear to auscultation bilaterally, no wheezes, no crackles, no accessory muscle use. HEART: Regular rate and rhythm, S1, S2 without murmur, rub or gallop. ABDOMEN: Soft, nontender, nondistended, normoactive bowel sounds, no guarding, no rebound, no hepatosplenomegaly, no masses. EXTREMITIES: 2+ pulses, warm, well-perfused, no edema. NEUROLOGICAL: Cranial nerves II through XII grossly intact. Normal speech, gait not observed. PSYCH: Normal mood, normal affect. SKIN: Warm, dry, normal turgor, no rashes or lesions noted Laboratory Results - last 24 hr 04/29/17 05/02/17 05/03/17 11:05 05:40 06:15 WBC RBC Hgb Hct MCV MCH MCHC RDW Plt Count MPV PTT (Actin FS) Sodium Potassium Chloride Carbon Dioxide Anion Gap BUN Creatinine Creat Clearance w eGFR Random Glucose Calcium Phosphorus Magnesium Total Bilirubin AST ALT Alkaline Phosphatase Total Protein Albumin U Free Rafael Pena Light Ch Cancelled U Free Lambda Light Ch Cancelled U Free Rafael Pena/Lambda 24 Cancelled Serum Cryoglobulins Hep-Induced Plt Ab Rapid 0.221 Free Rafael Pena LC, Quant 99.9 H Free Lambda LC, Quant 120.1 H Free Rafael Pena/Lambda Ratio 0.83 05/06/17 05/07/17 05/07/17 18:40 06:15 06:15 WBC 9.4 RBC 3.66 Hgb 9.8 L Hct 30.6 L MCV 83.4 MCH 26.8 MCHC 32.1 RDW 20.1 H Plt Count 83 L MPV 9.9 PTT (Actin FS) 57.8 H D Sodium 139 Potassium 3.6 Chloride 99 Carbon Dioxide 31 Anion Gap 9 BUN 41 H Creatinine 4.1 H Creat Clearance w eGFR 10.47 Random Glucose 136 H Calcium 7.4 L Phosphorus 4.7 Magnesium 1.9 Total Bilirubin 0.5 AST 17 ALT 26 Alkaline Phosphatase 58 Total Protein 5.8 L Albumin 3.4 U Free Rafael Pena Light Ch U Free Lambda Light Ch U Free Rafael Pena/Lambda 24 Serum Cryoglobulins Hep-Induced Plt Ab Rapid Free Rafael Pena LC, Quant Free Lambda LC, Quant Free Rafael Pena/Lambda Ratio 05/07/17 06:15 WBC RBC Hgb Hct MCV MCH MCHC RDW Plt Count MPV PTT (Actin FS) 57.6 H Sodium Potassium Chloride Carbon Dioxide Anion Gap BUN Creatinine Creat Clearance w eGFR Random Glucose Calcium Phosphorus Magnesium Total Bilirubin AST ALT Alkaline Phosphatase Total Protein Albumin U Free Rafael Pena Light Ch U Free Lambda Light Ch U Free Rafael Pena/Lambda 24 Serum Cryoglobulins Hep-Induced Plt Ab Rapid Free Rafael Pena LC, Quant Free Lambda LC, Quant Free Rafael Pena/Lambda Ratio Active Medications Generic Name Dose Route Start Last Admin Trade Name Freq PRN Reason Stop Dose Admin Acetaminophen 650 mg 04/28/17 02:19 05/01/17 01:02 Tylenol - PO 650 mg Q4H PRN Administration PAIN LEVEL 1-5 Calcium Acetate 1,334 mg 05/04/17 11:00 05/07/17 11:02 Phoslo - PO 1,334 mg TIDAC [facility] Administration Carvedilol 12.5 mg 04/27/17 10:00 05/07/17 11:00 Coreg - PO 12.5 mg BID [facility] Administration Heparin Sodium (Porcine) 1,000 unit 04/28/17 13:02 05/06/17 09:29 Heparin - IVPUSH 1,000 unit PRN PRN Administration Heparin Heparin Sodium (Porcine) 5,000 unit 04/28/17 13:02 05/01/17 19:04 Heparin - IVPUSH 5,000 unit PRN PRN Administration Heparin Heparin Sodium/Dextrose 25,000 units in 500 mls @ 20 mls/hr 04/28/17 13:15 13:22 Heparin Infusion - IVPB Not Given TITR [facility] Protocol 1,000 UNITS/HR Aztreonam 0.5 gm/ Dextrose 50 mls @ 100 mls/hr 04/29/17 13:30 05/07/17 11:06 IVPB 100 mls/hr Q8H-IV [facility] Administration Protocol Clindamycin Phosphate 300 mg in 50 mls @ 104 mls/hr 04/29/17 20:00 05/07/17 11:05 Cleocin 300 Mg Premix Ivpb IVPB 104 mls/hr Q8H-IV [facility] Administration Methylprednisolone Sodium Succinate 40 mg 05/01/17 22:00 05/07/17 11:00 Solu-Medrol - IVPUSH 40 mg BID [facility] Administration Metoprolol Tartrate 5 mg 04/30/17 08:55 05/03/17 19:45 Lopressor Injection - IVPUSH 5 mg Q6H PRN Administration TACHYCARDIA Midodrine 10 mg 05/03/17 14:00 05/07/17 11:03 Proamatine - PO 10 mg TID-MID [facility] Administration Multivitamins/Minerals/Vitamin C 1 tab 04/27/17 10:00 05/07/17 11:00 Tab-A-Vit - PO 1 tab DAILY [facility] Administration Mupirocin 1 applic 04/28/17 22:00 05/07/17 11:01 Bactroban 2% Ointment - TP 1 applic BID [facility] Administration ASSESSMENT/PLAN:
--- NOTE | 2017-05-07 12:17 | PN ---
Teaching Attending Note Name of Resident: Trinidad Harrison ATTENDING PHYSICIAN STATEMENT I saw and evaluated the patient. I reviewed the resident's note and discussed the case with the resident. I agree with the resident's findings and plan as documented. SUBJECTIVE: Pt seen and examined in the ICU. Feels about the same. Dialzyed this AM. Going to OR for angiogram this afternoon. OBJECTIVE: Last Vital Signs Temp Pulse Resp BP Pulse Ox 98.2 F 104 H 17 106/61 100 05/07/17 06:10 05/07/17 12:00 05/07/17 12:00 05/07/17 12:00 05/07/17 09:55 Intake & Output 05/04/17 05/05/17 05/06/17 05/07/17 23:59 23:59 23:59 23:59 Intake Total 816 1378 554 268 Output Total 300 Balance 816 1378 254 268 Weight 66.905 kg 68.492 kg 69.7 kg 69.49 kg Gen: NAD at rest Heart: tachycardic, regular Lung: decreased breath sounds at the bases Abd: soft, nontender Ext: + edema, + gangrene CBC, BMP 05/07/17 06:15 05/07/17 06:15 Active Medications Acetaminophen (Tylenol -) 650 mg PO Q4H PRN PRN Reason: PAIN LEVEL 1-5 Last Admin: 05/01/17 01:02 Dose: 650 mg Calcium Acetate (Phoslo -) 1,334 mg PO TIDAC [facility] Last Admin: 05/07/17 11:02 Dose: 1,334 mg Carvedilol (Coreg -) 12.5 mg PO BID [facility] Last Admin: 05/07/17 11:00 Dose: 12.5 mg Heparin Sodium (Porcine) (Heparin -) 1,000 unit IVPUSH PRN PRN PRN Reason: Heparin Last Admin: 05/06/17 09:29 Dose: 1,000 unit Heparin Sodium (Porcine) (Heparin -) 5,000 unit IVPUSH PRN PRN PRN Reason: Heparin Last Admin: 05/01/17 19:04 Dose: 5,000 unit Heparin Sodium/Dextrose (Heparin Infusion -) 25,000 units in 500 mls @ 20 mls/ hr IVPB TITR [facility]; 1,000 UNITS/HR PRN Reason: Protocol Last Admin: 05/06/17 13:22 Dose: Not Given Aztreonam 0.5 gm/ Dextrose 50 mls @ 100 mls/hr IVPB Q8H-IV [facility] PRN Reason: Protocol Last Admin: 05/07/17 11:06 Dose: 100 mls/hr Clindamycin Phosphate (Cleocin 300 Mg Premix Ivpb) 300 mg in 50 mls @ 104 mls/ hr IVPB Q8H-IV [facility] Last Admin: 05/07/17 11:05 Dose: 104 mls/hr Methylprednisolone Sodium Succinate (Solu-Medrol -) 40 mg IVPUSH BID [facility] Last Admin: 05/07/17 11:00 Dose: 40 mg Metoprolol Tartrate (Lopressor Injection -) 5 mg IVPUSH Q6H PRN PRN Reason: TACHYCARDIA Last Admin: 05/03/17 19:45 Dose: 5 mg Midodrine (Proamatine -) 10 mg PO TID-MID [facility] Last Admin: 05/07/17 11:03 Dose: 10 mg Multivitamins/Minerals/Vitamin C (Tab-A-Vit -) 1 tab PO DAILY [facility] Last Admin: 05/07/17 11:00 Dose: 1 tab Mupirocin (Bactroban 2% Ointment -) 1 applic TP BID [facility] Last Admin: 05/07/17 11:01 Dose: 1 applic ASSESSMENT AND PLAN: r/p Acute Vasculitis r/o Sepsis PAD Right Foot Gangrene ESRD on HD CAD s/p CABG Atrial Fibrillation HTN DM - plasmapharesis per heme - to OR today for angiogram/possible angioplasty - will ask anesthesia to place peripheral access during procedure - d/c femoral trialysis once peripheral access obtained - empiric antibiotics - HD per renal - continue midodrine - heme, rheum f/u - O2 to keep SpO2>90% - IVF boluses as needed - continue ICU monitoring
--- NOTE | 2017-05-07 12:27 | PN ---
Progress Note (short form) - Note Progress Note: Renal follow up for ESRD on HD Pt seen examined in the ICU awake and alert s/p dialysis this am with 2kg UF pt denies any fever, chills, Abd pain, N/V no pain in hand, has some pain in b/l feet no sob, chest pain Vital Signs Temperature 98.2 F 05/07/17 06:10 Pulse Rate 104 H 05/07/17 12:00 Respiratory Rate 17 05/07/17 12:00 Blood Pressure 106/61 05/07/17 12:00 O2 Sat by Pulse Oximetry (%) 100 05/07/17 09:55 Intake & Output 05/04/17 05/05/17 05/06/17 05/07/17 23:59 23:59 23:59 23:59 Intake Total 816 1378 554 268 Output Total 300 Balance 816 1378 254 268 Weight 66.905 kg 68.492 kg 69.7 kg 69.49 kg NAD awake and alert RRR CTA soft NT/ND peticial rash on arms, not blanching appears the same CBC, BMP 05/07/17 06:15 05/07/17 06:15 Current Medications Acetaminophen (Tylenol -) 650 mg PO Q4H PRN PRN Reason: PAIN LEVEL 1-5 Last Admin: 05/01/17 01:02 Dose: 650 mg Calcium Acetate (Phoslo -) 1,334 mg PO TIDAC [facility] Last Admin: 05/07/17 11:02 Dose: 1,334 mg Carvedilol (Coreg -) 12.5 mg PO BID [facility] Last Admin: 05/07/17 11:00 Dose: 12.5 mg Heparin Sodium (Porcine) (Heparin -) 1,000 unit IVPUSH PRN PRN PRN Reason: Heparin Last Admin: 05/06/17 09:29 Dose: 1,000 unit Heparin Sodium (Porcine) (Heparin -) 5,000 unit IVPUSH PRN PRN PRN Reason: Heparin Last Admin: 05/01/17 19:04 Dose: 5,000 unit Heparin Sodium/Dextrose (Heparin Infusion -) 25,000 units in 500 mls @ 20 mls/ hr IVPB TITR LAITH; 1,000 UNITS/HR PRN Reason: Protocol Last Admin: 05/06/17 13:22 Dose: Not Given Aztreonam 0.5 gm/ Dextrose 50 mls @ 100 mls/hr IVPB Q8H-IV LAITH PRN Reason: Protocol Last Admin: 05/07/17 11:06 Dose: 100 mls/hr Clindamycin Phosphate (Cleocin 300 Mg Premix Ivpb) 300 mg in 50 mls @ 104 mls/ hr IVPB Q8H-IV [facility] Last Admin: 05/07/17 11:05 Dose: 104 mls/hr Methylprednisolone Sodium Succinate (Solu-Medrol -) 40 mg IVPUSH BID [facility] Last Admin: 05/07/17 11:00 Dose: 40 mg Metoprolol Tartrate (Lopressor Injection -) 5 mg IVPUSH Q6H PRN PRN Reason: TACHYCARDIA Last Admin: 05/03/17 19:45 Dose: 5 mg Midodrine (Proamatine -) 10 mg PO TID-MID [facility] Last Admin: 05/07/17 11:03 Dose: 10 mg Multivitamins/Minerals/Vitamin C (Tab-A-Vit -) 1 tab PO DAILY [facility] Last Admin: 05/07/17 11:00 Dose: 1 tab Mupirocin (Bactroban 2% Ointment -) 1 applic TP BID [facility] Last Admin: 05/07/17 11:01 Dose: 1 applic 82 year old woman with PMhx of ESRD on HD (MWF), Hypertension, HLD, subarachnoid hemorrhage presented with right leg wound. #Right leg wound/suspected vasculitis for angiogram today per vascular surgery continue steroids and plasmapharesis per rheum pain control, supportive care continue Abx as per ID #ESRD on HD tolerated dialysis today with UF of 2L will maintain on 3x weekly dialysis continue renal diet and fluid restriction #Anemia will continue SKINNY with HD Thank you Karsten Sylvester DO
--- NOTE | 2017-05-07 13:45 | PN ---
Progress Note, Physician History of Present Illness: stable patient going for angio vascular following the patient bp remaining stable patient has no complaints patient in icu - Current Medication List Current Medications: Active Medications Acetaminophen (Tylenol -) 650 mg PO Q4H PRN PRN Reason: PAIN LEVEL 1-5 Last Admin: 05/01/17 01:02 Dose: 650 mg Calcium Acetate (Phoslo -) 1,334 mg PO TIDAC [facility] [place] Last Admin: 05/07/17 11:02 Dose: 1,334 mg Carvedilol (Coreg -) 12.5 mg PO BID [facility] [place] Last Admin: 05/07/17 11:00 Dose: 12.5 mg Heparin Sodium (Porcine) (Heparin -) 1,000 unit IVPUSH PRN PRN PRN Reason: Heparin Last Admin: 05/06/17 09:29 Dose: 1,000 unit Heparin Sodium (Porcine) (Heparin -) 5,000 unit IVPUSH PRN PRN PRN Reason: Heparin Last Admin: 05/01/17 19:04 Dose: 5,000 unit Heparin Sodium/Dextrose (Heparin Infusion -) 25,000 units in 500 mls @ 20 mls/ hr IVPB TITR LAITH; 1,000 UNITS/HR PRN Reason: Protocol Last Admin: 05/06/17 13:22 Dose: Not Given Clindamycin Phosphate (Cleocin 300 Mg Premix Ivpb) 300 mg in 50 mls @ 104 mls/ hr IVPB Q8H-IV [facility] Last Admin: 05/07/17 11:05 Dose: 104 mls/hr Methylprednisolone Sodium Succinate (Solu-Medrol -) 40 mg IVPUSH BID [facility] [place] Last Admin: 05/07/17 11:00 Dose: 40 mg Metoprolol Tartrate (Lopressor Injection -) 5 mg IVPUSH Q6H PRN PRN Reason: TACHYCARDIA Last Admin: 05/03/17 19:45 Dose: 5 mg Midodrine (Proamatine -) 10 mg PO TID-MID [facility] [place] Last Admin: 05/07/17 11:03 Dose: 10 mg Multivitamins/Minerals/Vitamin C (Tab-A-Vit -) 1 tab PO DAILY [facility] Last Admin: 05/07/17 11:00 Dose: 1 tab Mupirocin (Bactroban 2% Ointment -) 1 applic TP BID [facility] Last Admin: 02/28/18 11:01 Dose: 1 applic - Objective Vital Signs: Vital Signs Temperature 98.2 F 05/07/17 06:10 Pulse Rate 104 H 05/07/17 12:00 Respiratory Rate 17 05/07/17 12:00 Blood Pressure 106/61 05/07/17 12:00 O2 Sat by Pulse Oximetry (%) 100 05/07/17 09:55 Constitutional: Yes: No Distress, Calm Cardiovascular: Yes: Regular Rate and Rhythm Respiratory: Yes: Regular, CTA Bilaterally Gastrointestinal: Yes: Normal Bowel Sounds, Soft Musculoskeletal: Yes: Other (vascular changes on the rt hand) Extremities: Yes: Other (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 in dressing) Wound/Incision: Yes: Dressing Dry and Intact Neurological: Yes: Alert, Oriented Psychiatric: Yes: Alert, Oriented Labs: CBC, BMP 05/07/17 06:15 05/07/17 06:15 INR, PTT INR 1.26 (0.82-1.09) H 05/06/17 05:35 Fibrinogen 291.0 mg/dL (238-498) 05/03/17 06:15 Assessment/Plan Problem List - Problems (1) Cellulitis Code(s): L03.90 - CELLULITIS, UNSPECIFIED (2) Atrial fibrillation with RVR Code(s): I48.91 - UNSPECIFIED ATRIAL FIBRILLATION (3) CAD (coronary artery disease) Code(s): I25.10 - ATHSCL HEART DISEASE OF [place] CORONARY ARTERY W/O ANG PCTRS (4) ESRD (end stage renal disease) on dialysis Code(s): N18.6 - END STAGE RENAL DISEASE; Z99.2 - DEPENDENCE ON RENAL DIALYSIS (5) Hx of CABG Code(s): Z95.1 - PRESENCE OF AORTOCORONARY BYPASS GRAFT (6) Hypertension Code(s): I10 - ESSENTIAL (PRIMARY) HYPERTENSION (7) Osteoarthritis Code(s): M19.90 - UNSPECIFIED OSTEOARTHRITIS, UNSPECIFIED SITE (8) Subarachnoid hemorrhage following injury Code(s): S06.6X9A - TRAUM SUBRAC HEM W LOC OF UNSP DURATION, INIT Qualifiers: Encounter type: initial encounter Loss of consciousness presence/duration: without LOC Qualified Code(s): S06.6X0A - Traumatic subarachnoid hemorrhage without loss of consciousness, initial encounter Gangrene CTA ordered to assess large vessels in both legs. If major occlusion present will need angiogram for revascularization in effort to salvage foot. Code(s): I96 - GANGRENE, NOT ELSEWHERE CLASSIFIED plan continue current mgmt rash improving wound care vascular on case await angio results monitor bp rest as per icu/primary will stop azactam cc time 40 min
[2017-05-07] MEDS ORDERED: LIDOCAINE HCL 1%, 10 MG/ML (20ML VIAL) ONE (13:50)
[2017-05-07] MEDS ORDERED: HEPARIN NA (PORCINE) 5,000 UNITS/ML 1ML VIAL ONE ×2 (13:50→17:46)
[2017-05-07] MEDS ORDERED: LIDOCAINE 1% P/F 10 MG/ML VIAL INF ONE (14:48)
[2017-05-07] MEDS ORDERED: IOHEXOL 300 MG/ML INFUS..BTL IV ONE (15:35)
--- NOTE | 2017-05-07 15:57 | OP ---
Operative Note - Note: Operative Date: 05/07/17 Pre-Operative Diagnosis: Gangrene right forefoot Operation: Angiogram right leg, catheterization 2nd order artery Findings: Calcified vessels at all leves. Diffuse, non-critical stenosis of SFA and popliteal. Occlusion of distal popliteal. Reconstitution of the peroneal in the upper 1/3 calf with runoff to ankle level and small collaterals to proximal foot. Small distal anterior tibial artery with runoff to a minute DPA. No vessels visualized in the distal foot. Plates and screws in ankle. Post-Operative Diagnosis: Same as Pre-op Surgeon: Shen Mota Anesthesiologist/SLASHER SAWYER: Isaac Rose Anesthesia: Fractional Estimated Blood Loss (mls): 20
[2017-05-07] MEDS ORDERED: ONDANSETRON 4 MG/2 ML VIAL ONE (16:20)
--- NOTE | 2017-05-07 16:23 | PN ---
Progress Note (short form) - Note Progress Note: UPDATE 2: Pt became unresponsive despite treatment thus far. Code 99 initiatied. See code note and formal code sheet for further details. UPDATE: Hematoma on thigh expanding and darkening. Pressure still being maintained. Dopplers at bedside to try to assess distal perfusion, however excessive soft tissues may cause [id number]. Pt continues to be responsive with hypotensive episodes and tachycardia --Phenylephrine gtt initiated for pressure support --OR team aware and at bedside --Platelets ordered --FFP ordered Pt received from OR. R femoral small hematoma reported back with holding pressure already initiated. Pt currently is NAD, awake, alert. --Stat CBC, coags, cmp ordered --Pressure being maintained
[2017-05-07] MEDS ORDERED: ONDANSETRON 4 MG/2 ML VIAL IVPUSH ONE (16:34)
[2017-05-07] MEDS ORDERED: ONDANSETRON 4 MG/2 ML VIAL IVPUSH PRN (16:34)
[2017-05-07] MEDS ORDERED: SODIUM CHLORIDE 250 ML IV STA (16:35)
[2017-05-07] MEDS ORDERED: PHENYLEPHRINE HCL 10 MG/1 ML SINGLE DOSE VIAL ONE (16:44)
[2017-05-07] MEDS ORDERED: PHENYLEPHRINE HCL 20,000 MCG in SODIUM CHLORIDE 248 ML IVPB SCH (17:00)
[2017-05-07] MEDS ORDERED: DESMOPRESSIN ACETATE 4 MCG/ML AMP IVPB ONE (17:13)
[2017-05-07 17:19] LABS: HEMATOCRIT 25.7 % (32.4-45.2); MCH 26.7 pg (25.7-33.7); MCHC 31.2 g/dl (32.0-36.0); MEAN CELL VOLUME 85.6 fl (80-96); MEAN PLT VOLUME 10.1 fl (7.5-11.1); PLATELET COUNT 96 K/MM3 (134-434); RDW 20.9 % (11.6-15.6); WHITE BLOOD COUNT 11.5 K/mm3 (4.0-10.0)
[2017-05-07] MEDS ORDERED: RAPID SEQUENCE INTUBATION KIT NR ONE (17:24)
[2017-05-07 17:27] LABS: ADD RBC MORPHOLOGY YES
[2017-05-07] MEDS ORDERED: DESMOPRESSIN ACETATE 1 MCG in SODIUM CHLORIDE 50 ML IVPB ONE (17:30)
[2017-05-07] MEDS ORDERED: EPINEPHrine 1:10,000 (P-F SYR) 1 MG/10 ML DISP.SYRIN ONE (17:35)
[2017-05-07] MEDS ORDERED: DESMOPRESSIN ACETATE 20 MCG in SODIUM CHLORIDE 50 ML IVPB ONE (17:40)
--- NOTE | 2017-05-07 17:43 | PROC ---
Addendum entered and electronically signed by Jus Avitia PA 05/07/17 19:20: Central Line Post Procedure - Status Post Procedure ETT positioned just above the marcos. confirmed by chest x-ray. Original Note: <Jus Avitia - Last Filed: 05/07/17 19:20> Intubation - Intubation Reason for Intubation: Airway Protection (CODE 99 w/ return of circulation s/p CPR) Time of Intubation: 17:35 Intubation Method: orotracheal Blade used: Mac Tube Size (cm): 7.5 Tube position @ lip (cm): 21 Tube position confirmed by: Direct visualization, CO2 detector, Breath sounds Breath Sounds after Intubation: equal Post Intubation Xray: Yes (Results pending) <Sushil Cornejo - Last Filed: 05/08/17 13:22> Procedure Note Procedure: Patient was emergently intubated as noted by JASON Avitia in the ICU. I was not present in the ICU at that time.
[2017-05-07] MEDS ORDERED: NOREPINEPHRINE BITARTRATE 8,000 MCG in SODIUM CHLORIDE 0.45% 992 ML IV SCH (17:45)
[2017-05-07] MEDS ORDERED: POVIDONE-IODINE OINTMENT 10% - 28.4 GM TUBE ONE (17:46)
[2017-05-07 17:50] LABS: ALBUMIN 3.2 g/dl (3.4-5.0); ALK PHOS 52 U/L (45-117); ANION GAP 9 (8-16); BILIRUBIN,TOTAL 0.7 mg/dL (0.2-1.0); BLOOD UREA NITROGEN 21 mg/dL (7-18); CALCIUM 7.8 mg/dL (8.5-10.1); CHLORIDE 102 mmol/L (98-107); CO2 31 mmol/L (21-32); CREATININE 2.6 mg/dL (0.55-1.02); GLUCOSE,RANDOM 156 mg/dL (74-106); PHOSPHOROUS 3.9 mg/dL (2.5-4.9); SGOT/AST 12 U/L (15-37); SGPT/ALT 23 U/L (12-78); SODIUM 142 mmol/L (136-145); TOT PROT 5.8 g/dl (6.4-8.2)
[2017-05-07] MEDS ORDERED: SODIUM BICARBONATE 8.4% - 100 ML ONE (17:54)
[2017-05-07] MEDS ORDERED: CALCIUM CHLORIDE 1 GM/10 ML *DISP.SYRIN ONE (17:54)
[2017-05-07] MEDS ORDERED: MAGNESIUM SULF 50% (8.12 MEQ/2 ML-1 GM VIAL) ONE (17:55)
[2017-05-07 18:15] LABS: INR 1.55 (0.82-1.09)
[2017-05-07 18:17] LABS: ACTIVATED PTT > 400.0 SECONDS (26.9-34.4)
[2017-05-07 18:33] VITALS: BP 71/47; PULSE 87
[2017-05-07 18:41] LABS: ANISOCYTOSIS 2+; OVALOCYTE 1+; TARGET CELLS 1+
[2017-05-07] MEDS ORDERED: CALCIUM CHLORIDE 1 GM/10 ML *DISP.SYRIN IVPUSH ONE (18:45)
[2017-05-07] MEDS ORDERED: SODIUM BICARBONATE 8.4% 50 MEQ/50 ML DISP.SYRIN IVPUSH ONE (18:45)
[2017-05-07] MEDS ORDERED: SUCCINYLCHOLINE CHLORIDE 200 MG/10 ML VIAL IVPUSH ONE (19:00)
[2017-05-07] MEDS ORDERED: ETOMIDATE 20 MG/10 ML AMPUL IVPUSH ONE (19:00)
--- NOTE | 2017-05-07 19:06 | OP ---
Operative Note - Note: Operative Date: 05/07/17 Pre-Operative Diagnosis: Post angiogram bleeding right femoral artery Operation: Exploration right groin, suture bleeding site on right femoral artery Findings: No hematoma, Single site of arterial bleeding in right common femoral artery. Post-Operative Diagnosis: Same as Pre-op Surgeon: Shen Mota Cattle Sticker: Jus Avitia Anesthesiologist/INFORMATION TECHNOLOGY SPECIALIST: Elsi Downs Anesthesia: General Estimated Blood Loss (mls): 50
--- NOTE | 2017-05-07 19:11 | PN ---
Progress Note (short form) - Note Progress Note: Following angiogram this afternoon there was a small hematoma of the right groin which was treated with direct pressure. Despite this, patient became hypotensive and then had a bradycardic arrest. CPR was started and she responded but arrested again several times with intermittent response to Epinephrine and CPR. She was transferred to the OR and the right groin was explored and a single site of arterial bleeding controlled with a suture. Following this she continued to code and respond until finally she did not respond and was pronounced. The family was aware and present before and after surgery and have agreed that cessation of CPR is appropriate. Problem List - Problems (1) Gangrene Code(s): I96 - GANGRENE, NOT ELSEWHERE CLASSIFIED (2) Rash Code(s): R21 - RASH AND OTHER NONSPECIFIC SKIN ERUPTION
--- NOTE | 2017-05-07 19:12 | SURG ---
Surgery Solar Energy Specialist Note Solar Energy Specialist: Jus Avitia PA-C Date of Service: 05/07/17 Diagnosis: Post angiogram bleeding right femoral artery Procedure: Exploration right groin, suture bleeding site on right femoral artery I was present for the entirety of the operative procedure. For further detail, please refer to operative report. Visit type - Case Type Case Type: ED Admission - Emergency Emergency Visit: Yes ED Registration Date: 04/26/17 Care time: The patient presented to the Emergency Department on the above date and was hospitalized for further evaluation of their emergent condition.
--- NOTE | 2017-05-07 19:50 | RAPID ---
Physical Examination Vital Signs: Vital Signs Temperature 98.2 F 05/07/17 06:10 Pulse Rate 87 05/07/17 16:00 Respiratory Rate 12 05/07/17 17:50 Blood Pressure 71/47 05/07/17 16:00 O2 Sat by Pulse Oximetry (%) 100 05/07/17 09:55 Findings/Remarks: This is a delayed entry CODE 99 note Patient returned from OR after angiogram. Received patient and case discussed with surgeon. Patient has some firmness and bruising in the right groin where the arterial stick was. STAT labs sent and patient examined upon arrival from OR. Pressure held for about 30 minutes. While holding pressure patient complained of nausea and had an episode of vomiting. Surgical PAs at bedside. Groin hematoma noted to become darker and to have more firmness. patient became hypotensive SBP 50's-60's. Given IVF bolus and Immediately started on pressors. STAT blood products ordered and given such as PRBCs Platelets and FFP. While providers and nurse in the room patient all of a sudden became lethargic, had a blank stare, and unresponsive. patient was pulseless. ACLS protocol initiated and followed. (Please see Code sheet) patient was hooked up to defibrillator. Please see Code note. Dr. Mota immediately at bedside. ROSC achieved and pulse lost several times. patient eventually taken to the OR once she was as stable as possible. This agent was at patient's bedside from when she came back from OR until she went back to OR. Labs: CBC, BMP 05/07/17 16:30 05/07/17 16:30 Critical Care Total Critical Care Time (in minutes): 60 Critical Care Statement: The care of this patient involved high complexity decision making to prevent further life threatening deterioration of the patient 's condition and/or to evaluate & treat vital organ system(s) failure or risk of failure.
--- NOTE | 2017-05-07 19:51 | PN ---
Progress Note (short form) - Note Progress Note: NOTE Examined pt at bedside. Pt unresponsive, even to painful stimuli. Pupils fixed and nonreactive. Absent gag and corneal reflexes. Pt has no spontaneous breathing. No heart sounds or breath sounds. ET tube remains in place without condensation accumulation on inside of tube. No electrical activity on ecg leads. No carotid, or femoral pulses present. No heart sounds or breath sounds auscultated. Time of pronounced on May 07, 2017 at 19:12. Family at notified and at bedside at 19:12 Attending physician, Dr. Herrera, notified at 19:15 ICU attending, Dr. Chacon, also notified tax examiner notified (case # [id number]) and denied pt's case Body to be released to home of family's choice.
--- NOTE | 2017-05-07 19:51 | PN ---
Progress Note (short form) - Note Progress Note: Patient taken to OR for right groin exploration. Code 99 called in OR. Patient resuscitated and ROSC achieved multiple times. (please see code sheet) Small bleeding site from Common Femoral Artery sutured. Multiple blood products transfused (please see anesthesia flow sheet) Patient transported to ICU where she then coded again ACLS protocol initiated and a medically appropriate resuscitation performed. Time of 1911. Family in hospital during this time and son Diony Siddiqui and daughter connor notified and at bedside at time of ME notified and case not accepted ODN notified # [phone] Please see note.
--- NOTE | 2017-05-07 21:54 | DS ---
Physical Examination Vital Signs: Vital Signs Temperature 98.2 F 05/07/17 06:10 Pulse Rate 87 05/07/17 16:00 Respiratory Rate 12 05/07/17 17:50 Blood Pressure 71/47 05/07/17 16:00 O2 Sat by Pulse Oximetry (%) 100 05/07/17 09:55 Labs: CBC, BMP 05/07/17 16:30 05/07/17 16:30 Discharge Summary Reason For Visit: CELLULITIS Condition: Stable - Instructions Referrals: Jasbir Easley MD [Primary Care Provider] - Disposition: - Home Medications Comprehensive Discharge Medication List: Ambulatory Orders Calcium Acetate [Phoslo] 2 tab PO AC 09/02/14 Carvedilol 12.5 mg PO BID 09/02/14 Multivitamin [Daily Quintin] 1 each PO DAILY 09/02/14 levoFLOXacin [Levaquin -] 750 mg PO DAILY 04/26/17
--- NOTE | 2017-05-08 08:41 | OP ---
DATE OF OPERATION: 05/07/2017 SURGEON: Shen Wakefield MD PROCEDURE: Angiogram of right lower extremity with catheterization of second order artery. PREOPERATIVE DIAGNOSIS: Gangrene of right foot. POSTOPERATIVE DIAGNOSIS: Gangrene of right foot. ANESTHESIA: Fractional. ANESTHESIOLOGIST: Isaac Rose MD OPERATIVE FINDINGS: There was severe diffuse calcification of the right femoral, popliteal, and tibial vessels extending down to the foot. The common and superficial femoral arteries were patent, with moderate narrowing but no severe stenoses. The popliteal artery was patent but occluded distally. The anterior tibial and posterior tibial arteries were completely occluded throughout the upper calf. There was reconstitution of the peroneal artery via small collaterals with runoff to the ankle. Flow below the ankle was severely diminished, with only small arterial branches seen proximally around the ankle and heel. OPERATIVE PROCEDURE: Following routine patient identification with side and site verification, intravenous sedation was established. The right groin was prepped with ChloraPrep. Using real time duplex imaging, the right common femoral artery was identified. It was severely calcified. Next, 1% lidocaine was infiltrated in the lower abdominal wall proximal to the artery, and the artery was cannulated under ultrasound guidance with a Micropuncture needle. A wire was passed distally into the superficial femoral artery. The needle was exchanged for a 5-[place] catheter. A stiff wire was then passed into the superficial femoral artery and a 5-[place] sheath exchanged over the wire. Angiography was then performed with the above-noted findings. The wire and catheter were advanced distally to the level of the knee, and then the catheter was removed. The sheath was removed and a long 6-[place] sheath was advanced over the wire into the distal superficial femoral artery. The patient was systemically heparinized. Attempts to pass wire and catheter distal to the popliteal occlusion were unsuccessful. Multiple wires and catheters were used in an attempt to advance into the peroneal artery which reconstituted in the upper calf. After multiple attempts, decision was made to terminate the procedure. The long sheath was exchanged for a short 6-[place] sheath, and then the sheath was removed after placing a Mynx closure device over the artery. Pressure was applied. There was no active bleeding seen. A sterile dressing was applied and the patient was taken back to intensive care unit. SHEN WAKEFIELD M.D. [id number]
--- NOTE | 2017-05-08 09:12 | OP ---
DATE OF OPERATION: 05/07/2017 SURGEON: Shen Mota MD EVP OF [employer]ODUCTS [employer] FOUNDER: JASON Rangel PROCEDURE: Emergency exploration of right groin with suture bleeding, femoral artery. PREOPERATIVE DIAGNOSIS: Post angiogram bleeding from femoral arteriotomy. POSTOPERATIVE DIAGNOSIS: Post angiogram bleeding from femoral arteriotomy. ANESTHESIA: General. ANESTHESIOLOGIST: Elsi Downs MD OPERATIVE FINDINGS: There was a single side of bleeding from the right common femoral artery. There was diffuse hemorrhagic tissue surrounding the artery, but no tho hematoma. OPERATIVE PROCEDURE: The patient was brought emergently to the operating room from the intensive care unit. During the procedure, CPR was performed as needed. The right groin and lower abdominal wall were prepped with Betadine solution. An incision was made in the groin and lower abdominal wall and carried down with sharp dissection. Pressure was applied to control any bleeding at the base of the wound. The site of bleeding on the femoral artery was identified and closed with a figure-of-8 suture of 5-0 Prolene. Small venous bleeders were treated with clips. The wound was irrigated with Bacitracin solution and observed for approximately 10 minutes to make sure there was no additional bleeding. The wound was then closed over a small Karsten-Jean Baptiste drain using interrupted sutures of 3-0 and 2-0 Vicryl. The skin was closed with ilana. Sterile dressings were applied. At the close of the procedure, the patient had cardiac arrest again and more CPR was instituted. Patient was eventually transported to the recovery room still intubated in critical condition. Gavi MARTINEZ/[id number]
--- NOTE | 2017-05-14 07:54 | PATH ---
Surgical Pathology Report Patient Name: LORENA DALAL [facility]. Rec. #: [id number] /Age/Gender: 1935 (Age: 82) / F Account: [id number] Location: ICU ACADEMIC SUPPORT DIRECTOR Taken: 05/06/2017 Received: 05/06/2017 Reported: 05/14/2017 Physicians: Gavi Boland M.D. Specimen(s) Received SKIN BIOPSY LEFT THIGH Clinical History ESRD on HD, gangrene both feet, being treated for vasculitis. Previous Punch biopsy was not diagnostic. 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 SEE COMMENT. Comment: Histologic sections show skin with few dilated blood vessels and a very sparse superficial perivascular infiltrate of small lymphocytes and associated with a few extravasated erythrocytes. There is no evidence of vasculitis, thrombi, or emboli in the specimen. If there is clinical suspicion of small to medium size vessel vasculopathy, then additional deeper punch biopsy with subcutaneous tissue may be needed. Multiple levels were examined. This case was sent to Dr. Quan Lema from [facility], [facility]. The above diagnosis reflects his opinion. Electronically Signed Chayo Starks M.D. Addendum Reported: 05/14/2017 Addendum Diagnosis See [id number] [facility] consultation report for details. Chayo Starks M.D. Gross Description Received in formalin labeled with the patient's name and indicated on the requisition to be a skin biopsy from the left thigh, is a 0.9 x 0.4 cm dove, elliptical, unoriented portion of skin excised to a depth of 0.2 cm. The epidermal surface is unremarkable. The base is inked green and the specimen is trisected. The specimen is entirely submitted in one cassette. 05/06/201705/06/2017
== END 2017-05-07 19:12 | disposition expired | DRG 252 ==
LOC: JER 15:38 → JERBED 21:15 → J8W 04-27 18:37 → JICU 04-29 11:48
PROVIDERS: ADMIT Internal Medicine; ATTEND Internal Medicine
PROC: 30233K1 Transfusion of Nonautologous Frozen Plasma into Peripheral Vein, Percutaneous Approach (ICD-10-PCS; 2017-04-29)
PROC: 30233L1 Transfusion of Nonautologous Fresh Plasma into Peripheral Vein, Percutaneous Approach (ICD-10-PCS; 2017-04-29)
PROC: 6A551Z3 Pheresis of Plasma, Multiple (ICD-10-PCS; 2017-04-29)
PROC: 05HN33Z Insertion of Infusion Device into Left Internal Jugular Vein, Percutaneous Approach (ICD-10-PCS; 2017-04-29)
PROC: 0HBLXZX Excision of Left Lower Leg Skin, External Approach, Diagnostic (ICD-10-PCS; 2017-05-05)
PROC: 047K3ZZ Dilation of Right Femoral Artery, Percutaneous Approach (ICD-10-PCS; 2017-05-07)
PROC: B40FYZZ Plain Radiography of Right Lower Extremity Arteries using Other Contrast (ICD-10-PCS; 2017-05-07)
PROC: 5A1935Z Respiratory Ventilation, Less than 24 Consecutive Hours (ICD-10-PCS; 2017-05-07)
PROC: 0BH17EZ Insertion of Endotracheal Airway into Trachea, Via Natural or Artificial Opening (ICD-10-PCS; 2017-05-07)
PROC: 5A1D90Z Performance of Urinary Filtration, Continuous, Greater than 18 hours Per Day (ICD-10-PCS; 2017-05-07)
PROC: 5A12012 Performance of Cardiac Output, Single, Manual (ICD-10-PCS; 2017-05-07)
PROC: 0Y370ZZ Control Bleeding in Right Femoral Region, Open Approach (ICD-10-PCS; principal; 2017-05-07 13:30)
DX: I96 Gangrene, not elsewhere classified (principal); N18.6 End stage renal disease; A41.9 Sepsis, unspecified organism; L03.115 Cellulitis of right lower limb; I97.618 Postprocedural hemorrhage of a circulatory system organ or structure following other circulatory system procedure; I97.121 Postprocedural cardiac arrest following other surgery; I12.0 Hypertensive chronic kidney disease with stage 5 chronic kidney disease or end stage renal disease; D68.9 Coagulation defect, unspecified; I97.711 Intraoperative cardiac arrest during other surgery; I70.262 Atherosclerosis of native arteries of extremities with gangrene, left leg; R21 Rash and other nonspecific skin eruption; I48.0 Paroxysmal atrial fibrillation; I73.9 Peripheral vascular disease, unspecified; I95.9 Hypotension, unspecified; I25.10 Atherosclerotic heart disease of native coronary artery without angina pectoris; I77.6 Arteritis, unspecified; Z99.2 Dependence on renal dialysis; Z95.1 Presence of aortocoronary bypass graft; E78.5 Hyperlipidemia, unspecified; M19.90 Unspecified osteoarthritis, unspecified site; E11.9 Type 2 diabetes mellitus without complications; R00.0 Tachycardia, unspecified; N25.0 Renal osteodystrophy; Y83.9 Surgical procedure, unspecified as the cause of abnormal reaction of the patient, or of later complication, without mention of misadventure at the time of the procedure; M05.20 Rheumatoid vasculitis with rheumatoid arthritis of unspecified site
CPT/HCPCS: 36415; 36430; 71045-TC-FY; 73130-TC-LR-FY; 73130-TC-RT-FY; 73630-TC-RT-FY; 75635-TC; 76000-TC-FY; 76700-TC; 80048; 80053; 81241; 82272; 82550; 82553; 82565; 82595; 82607; 82728; 82746; 82784; 82962; 83010; 83520; 83540; 83550; 83605; 83615; 83735; 83883; 84100; 84155; 84165; 84443; 84484; 84520; 85025; 85027; 85044; 85240; 85384; 85610; 85651; 85730; 86022; 86038; 86140; 86160; 86162; 86200; 86225; 86235; 86256; 86332; 86431; 86704; 86706; 86708; 86803; 86850; 86900; 86901; 86922; 87040; 87070; 87205; 87340; 88305-TC; 93005; 93010; 93925-TC; 94002; 99285-25; J0131; J0885; J1644; J7030; P9017; P9034; P9038; P9047; P9058